=== PATIENT | female | born 1935 | race Caucasian/White ===

== ENCOUNTER → 2017-08-08 | Outpatient (CLI) | payer OTHER ==
[~2017-08-08] MED LIST: ASPI325T4 PO; ATOR-22 PO; CALC1TAB9 PO; CHOL20009 PO; COEN100C11 PO; DEXL60CA4 PO; INSUINJ4 SC; NVLGI/PEN SC; PANC6000 PO; TAMO20TA47 PO; VSC/10 PO
--- NOTE | 2017-08-08 13:42 | MAMMOGRAPHY REPORT ---
BILATERAL DIGITAL DIAGNOSTIC MAMMOGRAM TOMOSYNTHESIS WITH CAD: 08/08/2017 CLINICAL HISTORY: The patient presents for 12 month follow-up of bilateral breast calcifications. Hi story of left breast cancer status post treatment. Also with 2 benign left breast stereotactic biops ies performed January 2016. TECHNIQUE: Breast tomosynthesis in addition to standard 2D mammography was performed. Current study was also evaluated with a Computer Aided Detection (CAD) system. Bilateral CC and MLO 2-D and tomosy nthesis images and spot magnification bilateral cc and ML views were obtained. COMPARISON: Comparison is made to exams dated: 08/07/2016 mammogram, 01/31/2016 stereotactic biopsy, 01/31/2016 mammogram, 12/27/2015 mammogram, and 12/05/2015 mammogram - [facility]. BREAST COMPOSITION: The tissue of both breasts is heterogeneously dense, which may obscure small mas ses. 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 The re are stable post surgical changes in the left breast from prior lumpectomy. 2 biopsy marker clips are again noted within the left superior breast at approximately 12:00 from prior benign stereotactic biopsies. Again noted are other small groupings of calcifications in the anterior left breast, best seen on the spot magnification cc view, which are stable on spot magnification views dating back to 12/27/2015. Other similar appearing grouped calcifications are seen within the right medial breast, wh ich are also stable dating back to December 2015. Given the long-term stability, calcifications are probably benign. Additionally, the calcifications appear similar to recently biopsied calcifications within the left breast which yielded benign pathology. The remainder of both breasts are stable com pared to prior exams, without suspicious masses, calcifications, or areas of architectural distortion noted. A biopsy marker clip is again noted in the right superior breast. IMPRESSION: ACR-BI-RADS CATEGORY 3: PROBABLY BENIGN Similar-appearing grouped calcifications bilaterally are stable dating back to at least the December 2015 exam, and appear similar to previously biopsied benign left breast calcifications. The calcific ations are probably benign given over 1.5 years of stability. Recommend bilateral diagnostic mammogr ams in 12 months, to ensure longer stability of the calcifications on spot magnification views given the history of prior DCIS. The patient has been verbally notified of the results. Approximately 10% of breast cancers are not detected with mammography. A negative mammographic report should not delay biopsy if a clinically suggestive mass is present. Ying Dangelo M.D. ah/:08/08/2017 10:28:48 [place] [employer]: Kim LEON(Karlene)(Smita), [facility] letter sent: Follow Up Recommended 3 BI-RADS Code: ACR-BI-RADS Category 3: Probably Benign
== END | disposition home or self-care (01) ==
LOC: C.MAMM 09:30
PROVIDERS: ATTEND Obstetrics & Gynecology
DX: R92.1 Mammographic calcification found on diagnostic imaging of breast (principal)

== ENCOUNTER → 2017-10-28 | Outpatient (CLI) | payer OTHER ==
[~2017-10-28] MED LIST changes: -TAMO20TA47 PO; +TAMO20TA9 PO
--- NOTE | 2017-10-28 08:33 | DIAGNOSTIC IMAGING REPORT ---
KUB CLINICAL HISTORY: Calculus of kidney. COMPARISON STUDY: KUB October 31, 2016. FINDINGS: Pelvic calcifications are unchanged and likely reflect phleboliths. There is a 3 mm left renal calculus. Evaluation is difficult given numerous skin lesions. No convincing ureteral calculi are identified. IMPRESSION: 1. 3 mm left renal calculus. 2. No ureteral calculi identified although evaluation difficult given numerous skin lesions. Electronically signed by: Alvarez Valadez M.D. 10/28/2017 8:31 AM Dictated Date/Time: 10/28/2017 8:24 AM
== END | disposition home or self-care (01) ==
LOC: C.RAD 08:06
PROVIDERS: ATTEND Urology
DX: N20.0 Calculus of kidney (principal)

== ENCOUNTER → 2018-06-10 | Outpatient (CLI) | payer OTHER ==
--- NOTE | 2018-06-10 10:21 | DIAGNOSTIC IMAGING REPORT ---
BRAIN WITHOUT CONTRAST CLINICAL HISTORY: 83 years-old Female presenting with CONFUSION, INCREASED SHORT-TERM MEMORY LOSS FOR 2 YEARS, HX TIA, history of breast cancer with lumpectomy. TECHNIQUE: Multisequence, multiplanar MR imaging of the brain was performed without the use of intravenous contrast. IV contrast: None. COMPARISON: 05/01/2015. FINDINGS: Localizer images: Unremarkable. Proportional ventricular and sulcal prominence, likely age-related parenchymal volume loss. Periventricular and subcortical white matter T2/FLAIR hyperintensity, nonspecific but likely indicative of chronic small vessel ischemic change. 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 No mass effect or midline shift. No restricted diffusion to suggest acute ischemia. No hemorrhage. No extra-axial fluid collection. T2 skull base flow voids preserved. Bilateral st. croix lenses are absent. Bone marrow signal intensity within the calvarium within normal limits. Multiple soft tissue nodules arising from the dermis as on prior exam. IMPRESSION: 1. Chronic small vessel ischemic change and age-related parenchymal volume loss. 2. Interval small old cerebellar infarcts. 3. No acute intracranial abnormality. 4. Multiple soft tissue nodules arising from the scalp dermis. Correlate clinically. Electronically signed by: Henry Al M.D. 06/10/2018 10:20 AM Dictated Date/Time: 06/10/2018 10:15 AM
== END | disposition home or self-care (01) ==
LOC: C.MRI 09:32
PROVIDERS: ATTEND Nurse Practitioner Family
DX: R41.0 Disorientation, unspecified (principal); E11.9 Type 2 diabetes mellitus without complications; Z86.73 Personal history of transient ischemic attack (TIA), and cerebral infarction without residual deficits

== ENCOUNTER 2020-01-17 15:22 | Observation (INO) ==
[2020-01-17 16:41] LABS: POC Urine Bilirubin Negative (Negative); POC Urine Blood 250 (Negative); POC Urine Glucose Normal (Normal); POC Urine Ketones Negative (Negative); POC Urine Leukocytes 2+ (Negative); POC Urine Nitrite Negative (Negative); POC Urine Protein Trace (Negative); POC Urine Urobilinogen Normal (Normal); POC Urine pH 5 (4.5-7.5)
[2020-01-17 16:45] LABS: Basophils # (auto) 0.01 K/uL (0-0.2); Basophils % (auto) 0.1 %; Eosinophils # (auto) 0.32 K/uL (0-0.5); Eosinophils % (auto) 3.3 %; Hematocrit (blood only) 41.9 % (37-47); Hemoglobin 13.7 g/dL (12.0-16.0); Immature Granulocytes # (auto) 0.04 K/uL (0.00-0.02); Immature Granulocytes % (auto) 0.4 %; Lymphocytes # (auto) 2.02 K/uL (1.2-3.4); Mean Corpuscular Hemoglobin 28.9 pg (25-34); Mean Corpuscular Hgb Conc 32.7 g/dL (32-36); Mean Corpuscular Volume 88.4 fL (80-100); Mean Platelet Volume 9.4 fL (7.4-10.4); Monocytes # (auto) 0.68 K/uL (0.11-0.59); Monocytes % (auto) 7.1 %; Neutrophils # (auto) 6.56 K/uL (1.4-6.5); Neutrophils % (auto) 68.1 %; Platelet Count 311 K/uL (130-400); RDW Coefficient of Variation 13.7 % (11.5-14.5); RDW Standard Deviation 45.2 fL (36.4-46.3); Red Blood Count 4.74 M/uL (4.2-5.4); White Blood Count 9.63 K/uL (4.8-10.8)
[2020-01-17 16:48] LABS: Appearance Urine Cloudy (Clear); Bacteria Urine Automated Negative (Negative); Bilirubin Urine Negative (Negative); Blood Urine 2+ (Negative); Cast Urine Automated 0 /lpf (0-5); Color Urine Yellow; Epithelial Cell Urine Auto >30 /lpf (0-5); Glucose Urine UA Negative (Negative); Ketones Urine Negative (Negative); Leukocyte Esterase Urine 2+ (Negative); Nitrite Urine Negative (Negative); Protein Urine Trace (Negative); Specific Gravity Urine 1.019 (1.000-1.030); Urobilinogen Urine Negative (Negative); WBC Urine Automated >30 /hpf (0-5)
--- NOTE | 2020-01-17 17:07 | XRay Report ---
XR chest 1V portable CLINICAL HISTORY: weakness COMPARISON STUDY: Chest radiograph June 11, 2019. 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 Patien t is rotated. There is mild S-shaped curvature of the thoracic spine. There is no evidence for pulmon inga edema. No pneumothorax or pleural effusion is noted. Mild left basilar opacity is present. IMPRESSION: Mild left basilar opacity which may reflect pneumonia or atelectasis. Radiographic follow up is recom mended. ACT 112: Negative or not required by law. Electronically signed by: Alvarez Valadez M.D. 01/17/2020 5:05 PM
[2020-01-17 17:09] LABS: Alanine Aminotransferase 13 U/L (12-78); Albumin Level 3.1 gm/dl (3.4-5.0); Aspartate Aminotransferase 11 U/L (15-37); BUN Creatinine Ratio 11.9 (10-20); Blood Urea Nitrogen 28 mg/dl (7-18); Calcium 9.1 mg/dl (8.5-10.1); Carbon Dioxide 24 mmol/L (21-32); Chloride 106 mmol/L (98-107); Creatinine Clr Calc Pharmacy 14.2 ml/min; Est GFR (African American) 21.2; Est GFR (Non-African American) 18.3; Glucose 216 mg/dl (70-99); Sodium 139 mmol/L (136-145)
[2020-01-17] MEDS ORDERED: SODIUM CHLORIDE 0.9% 1000ML 250 ML IV ONE (17:17)
[2020-01-17 17:20] LABS: Albumin Globulin Ratio 0.7 (0.9-2); Alkaline Phosphatase 110 U/L (45-117); Bilirubin,Total 0.3 mg/dl (0.2-1); Globulin 4.7 gm/dl (2.5-4.0); Total Protein 7.8 gm/dl (6.4-8.2); Troponin I < 0.015 ng/ml (0-0.045)
--- NOTE | 2020-01-17 17:48 | CT Scan Report ---
HEAD CT NONCONTRAST CT DOSE: 1277.12 mGycm HISTORY: Transient ischemic attack. Fall. TECHNIQUE: Multiaxial CT images of the head were performed without the use of intravenous contrast. A utomated exposure control was utilized for this study. A dose lowering technique was utilized adheri ng to the principles of ALARA. Comparison: Head CT 04/30/2015. Findings: Paranasal sinuses and mastoid air cells are clear. No change in the 8 mm calcified extra-ax ial lesion within the right middle cranial fossa. This is consistent with a meningioma. The calvarium and skull base are intact. There is no hematoma, midline shift, acute infarct. White matter hypodens ity is nonspecific but suggestive of microvascular ischemic change. The ventricles and sulci demonstr ate mild age-related involutional changes. Stable hypodensity within the bilateral basal ganglia like ly representing microvascular ischemic change/old infarcts. Impression: No significant change compared to the prior study. No acute intracranial abnormality. ACT 112: Negative or not required by law. Electronically signed by: Zhao Rod M.D. 01/17/2020 5:47 PM
--- NOTE | 2020-01-17 18:02 | CT Scan Report ---
CT OF THE THORACIC SPINE CLINICAL HISTORY: Back pain following fall. COMPARISON STUDY: Chest radiograph June 11, 2019. TECHNIQUE: Helical axial images of the thoracic spine were obtained. Sagittal and coronal reconstru ctions were viewed. Automated exposure control was utilized for the study. A dose lowering techniqu e was utilized adhering to the principles of ALARA. FINDINGS: Note is made of mild dextroscoliosis of the thoracic spine. There is an acute moderate comp ression fracture of the superior endplate of T11 with 30% loss of vertebral body height. There is min imal retropulsion. No additional acute thoracic spine fractures are noted. There are no suspicious os seous lesions. Central canal and neural foramen are suboptimally assessed by CT. No fractures are tom ntified within visualized portions of the posterior ribs. A small hiatal hernia is noted. Dilatation of the left renal pelvis is likely chronic. There is no left caliectasis. Note is made of a 6 mm left renal calculus and a 6 mm calculus within the left renal pelvis. Moderate right hydronephrosis is pa rtially imaged on this examination. Innumerable skin lesions are incidentally noted. Postoperative fi ndings within the upper abdomen are partially imaged on this exam. IMPRESSION: 1. Acute moderate compression fracture of the superior endplate of T11 with 30% loss of vertebral bod y height and minimal retropulsion. No additional acute thoracic spine fractures. 2. Moderate right hydronephrosis. Right ureter not imaged on this exam. 3. Left-sided nephrolithiasis. Dilatation of the left renal pelvis which is likely chronic. ACT 112: Negative or not required by law. Electronically signed by: Alvarez Valadez M.D. 01/17/2020 6:00 PM
--- NOTE | 2020-01-17 19:03 | Ultrasound Report ---
RENAL ULTRASOUND HISTORY: Acute renal failure. Hematuria. COMPARISON: Thoracic spine CT 01/17/2020. FINDINGS: Right kidney: 10.2 cm. Moderate right-sided hydroureteronephrosis. No definite renal calculi identifi ed. Left kidney: 8.9 cm. No hydronephrosis. Multiple nonobstructing stones with the largest measuring 7 m m. Mild cortical renal thinning. Bladder: No bladder wall thickening. The bilateral ureteral jets were not identified. IMPRESSION: 1. Moderate right hydroureteronephrosis. 2. Left-sided nephrolithiasis. ACT 112: Negative or not required by law. Electronically signed by: Zhao Rod M.D. 01/17/2020 7:02 PM
[2020-01-17] MEDS: SODIUM CHLORIDE 0.9% 1000ML 1,000 ML IV SCH (19:42)
--- NOTE | 2020-01-17 21:11 | Emergency Department Note ---
Entered by Lissy Woodall acting as a scribe for Jhoana Galeano MD History of Present Illness General Chief complaint: Fall Stated complaint: FALL, BACK PAIN, SLUGGISH Source: patient and family (niece ) History of Present Illness Onset (ago): day(s) 3 Location: back (central middle) Pain Consistency: + other (persistent ) Maximum Pain Intensity: 6 Associated symptoms: + other (positive episode of moving slow; positive episode of difficulty speaking; positive hematuria; negative problems with legs; negative trouble urinating) Treatments prior to arrival: none The patient is a 84 year old female who presents to the Emergency Room with complaints of persistent central middle back pain that began 3 days prior to arrival. The patient states that just before this pain began she fell out of her bed. She states that she was on the floor for approximately 10-15 minutes before she was able to pull herself up. The patient's niece states that today the patient was at the grocery store when she suddenly started moving very slowly and was having difficulty talking. The patient's niece states that this resolved several minutes later. The patient states that she has been seeing Dr. Mohamud for recent hematuria and states that kidney stones were found in her right kidney. The patient's niece reports that the patient had blood yesterday in her underwear. The patient denies problems with her legs and trouble urinating. Per the patient's niece, the patient has a history of TIAs. The patient reports a history of breast cancer 10 years ago. She states that she had a Whipple procedure just before her breast cancer was found and it was found that she had a blocked duct. Home Medications Home Medications Medication Instructions Recorded Confirmed Type Creon 1 cap PO TIDM 06/11/19 01/17/20 History Levemir U-100 Insulin 12 unit SUBCUT HS 06/11/19 01/17/20 History aspirin 325 mg PO QAM 06/11/19 01/17/20 History calcium carbonate-vitamin D3 1 tab PO DAILY 06/11/19 01/17/20 History insulin aspart U-100 [Novolog 7 unit SUBCUT AC 06/11/19 01/17/20 History Flexpen U-100 Insulin] solifenacin 10 mg tablet 10 mg PO HS #90 tab 08/25/19 01/17/20 Rx atorvastatin 40 mg PO DAILY 01/17/20 01/17/20 History clopidogrel 75 mg PO DAILY 01/17/20 01/17/20 History famotidine 20 mg PO BID 01/17/20 01/17/20 History solifenacin 10 mg PO HS 01/17/20 01/17/20 History Allergies Allergy/AdvReac Type Severity Reaction Status Date / Time No Known Allergies Allergy Verified 01/17/20 17:41 Past Med/Surg History Medical History Diabetes mellitus, type 2 GERD (gastroesophageal reflux disease) Gross hematuria HX: breast cancer LUMPECTOMY - LEFT BREAST; NO RADIATION, NO CHEMO; WAS ON TAMOXIFEN FOR 5 YR - NO LONGER TAKING Hyperlipidemia Kidney stones Neurofibromatosis Transient ischemic attack (TIA) NO RESIDUAL EFFECTS - 2014 Surgical History History of lumpectomy of left breast History of pancreatectomy PARTIAL Family History Other No pertinent family history in first degree relatives Social History Preferred Language: Brazilian Communication Ability: Effective Business Intelligence Administrator Required: No Beliefs That Will Affect Care: None Current Living Situation: Alone Other Information That Helps Us Care for You: No Feels Safe at Home: Yes Safety Concerns: Feels Safe At This Time Smoking Status: Never smoker Do You Dip or Chew Tobacco: No ; Second Hand Exposure: No ; Tobacco Cessation Education Requested by Patient: No Hx Alcohol Use: Yes Alcohol type: wine Hx Substance Use: No Review of Systems See HPI for pertinent positives & negatives. and A total of 10 systems reviewed and were otherwise negative Physical Exam Vital Signs Vital Signs - 24 hr 01/17/20 15:33 01/17/20 16:00 01/17/20 16:07 Temperature 36.2 C L Temperature Source Oral Pulse Rate - Lying Pulse Rate - Sitting Pulse Rate - Standing Pulse Rate 94 H 83 87 Pulse Rate [Apical] Pulse Rate from SpO2 Sensor 83 89 Respiratory Rate 20 16 18 Respiratory Effort / Characteristics Non-Labored Spontaneous Respiratory Depth Normal Respiratory Pattern Regular Blood Pressure - Lying Blood Pressure - Sitting Blood Pressure- Standing Blood Pressure 160/93 H 167/102 H Blood Pressure [Right Arm] Blood Pressure Mean 115 126 Blood Pressure Mean [Right Arm] Pulse Oximetry 97 97 96 Oxygen Delivery Method Room Air Sepsis Recent Fever Within 48 Hours No Sepsis Action Taken by Nursing No Action Required 01/17/20 16:30 01/17/20 17:00 01/17/20 17:22 Temperature Temperature Source Pulse Rate - Lying Pulse Rate - Sitting Pulse Rate - Standing Pulse Rate 89 93 H Pulse Rate [Apical] Pulse Rate from SpO2 Sensor Respiratory Rate 17 20 Respiratory Effort / Characteristics Respiratory Depth Respiratory Pattern Blood Pressure - Lying Blood Pressure - Sitting Blood Pressure- Standing Blood Pressure Blood Pressure [Right Arm] Blood Pressure Mean Blood Pressure Mean [Right Arm] Pulse Oximetry 97 Oxygen Delivery Method Sepsis Recent Fever Within 48 Hours Sepsis Action Taken by Nursing 01/17/20 17:32 01/17/20 17:36 01/17/20 17:38 Temperature Temperature Source Pulse Rate - Lying 78 Pulse Rate - Sitting 83 Pulse Rate - Standing 96 H Pulse Rate 70 80 66 Pulse Rate [Apical] Pulse Rate from SpO2 Sensor Respiratory Rate 17 18 17 Respiratory Effort / Characteristics Respiratory Depth Respiratory Pattern Blood Pressure - Lying 144/81 H Blood Pressure - Sitting 165/97 H Blood Pressure- Standing 132/101 H Blood Pressure 144/81 H 165/97 H Blood Pressure [Right Arm] Blood Pressure Mean 102 128 Blood Pressure Mean [Right Arm] Pulse Oximetry Oxygen Delivery Method Sepsis Recent Fever Within 48 Hours Sepsis Action Taken by Nursing 01/17/20 17:40 01/17/20 18:00 01/17/20 18:01 Temperature Temperature Source Pulse Rate - Lying Pulse Rate - Sitting Pulse Rate - Standing Pulse Rate 101 H 67 84 Pulse Rate [Apical] Pulse Rate from SpO2 Sensor Respiratory Rate 21 16 10 L Respiratory Effort / Characteristics Respiratory Depth Respiratory Pattern Blood Pressure - Lying Blood Pressure - Sitting Blood Pressure- Standing Blood Pressure 132/101 H 155/96 H Blood Pressure [Right Arm] Blood Pressure Mean 106 120 Blood Pressure Mean [Right Arm] Pulse Oximetry Oxygen Delivery Method Sepsis Recent Fever Within 48 Hours Sepsis Action Taken by Nursing 01/17/20 18:50 01/17/20 19:42 01/17/20 20:00 Temperature Temperature Source Pulse Rate - Lying Pulse Rate - Sitting Pulse Rate - Standing Pulse Rate 85 67 77 Pulse Rate [Apical] 64 Pulse Rate from SpO2 Sensor 68 76 Respiratory Rate 15 15 19 Respiratory Effort / Characteristics Non-Labored Spontaneous Respiratory Depth Normal Respiratory Pattern Blood Pressure - Lying Blood Pressure - Sitting Blood Pressure- Standing Blood Pressure 167/98 H 145/96 H 166/90 H Blood Pressure [Right Arm] 145/96 H Blood Pressure Mean 119 106 112 Blood Pressure Mean [Right Arm] 112 Pulse Oximetry 96 97 Oxygen Delivery Method Room Air Sepsis Recent Fever Within 48 Hours Sepsis Action Taken by Nursing 01/17/20 20:30 Temperature Temperature Source Pulse Rate - Lying Pulse Rate - Sitting Pulse Rate - Standing Pulse Rate 85 Pulse Rate [Apical] Pulse Rate from SpO2 Sensor Respiratory Rate 24 Respiratory Effort / Characteristics Respiratory Depth Respiratory Pattern Blood Pressure - Lying Blood Pressure - Sitting Blood Pressure- Standing Blood Pressure 160/99 H Blood Pressure [Right Arm] Blood Pressure Mean 121 Blood Pressure Mean [Right Arm] Pulse Oximetry Oxygen Delivery Method Sepsis Recent Fever Within 48 Hours Sepsis Action Taken by Nursing Vital signs reviewed. General: Elderly. Generally well-appearing 84 year old female, in no significant distress. Multiple cutaneous lesions that are nodular, nontender, diffusely through the face, trunk, and extremities. HEENT: No scleral icterus, PERRLA, neck supple. Atraumatic. Cardiovascular: Regular rate and rhythm, no extra sounds. Pulmonary: Clear to auscultation bilaterally, normal work of breathing. Abdomen: Soft, nontender, nondistended, positive bowel sounds. Musculoskeletal: Minimal tenderness over distal thoracic spine, no step-off, no deformity. C and L spines nontender. Atraumatic, no peripheral edema. Neurologic: Patient awake alert and oriented x 3 Skin: Warm, dry, no rash. Superficial ecchymosis over the right elbow. Course Course 162: Past medical records reviewed. The patient was evaluated in room B10. A complete history and physical exam was performed. 1930: The patient's creatinine was 0.9 in October per [facility] records. 1944: I discussed the case with Dr. [facility] Hospitalist who accepts the patient for further evaluation. Administered Medications Famotidine (Pepcid) 20 mg PO BID TUNDE Stop: 02/16/20 22:13 Last Admin: 01/17/20 22:38 Dose: 20 mg Documented by: [id number] Sodium Chloride (Nss 1000ml) 1,000 mls @ 80 mls/hr IV .[id number] TUNDE Stop: 02/16/20 17:29 Last Infusion: 01/18/20 00:03 Dose: 125 mls/hr Documented by: [id number] Infusion: 01/17/20 23:22 Dose: 0 mls/hr Documented by: [id number] Admin: 01/17/20 19:42 Dose: 125 mls/hr Documented by: [id number] Insulin Detemir (Levemir Flextouch) 12 units SQ HS TUNDE Stop: 02/16/20 22:13 Last Admin: 01/17/20 22:40 Dose: 12 units Documented by: [id number] Cosigned by: [id number] Morphine Sulfate (Morphine Sulfate) 2 mg IV Q2H PRN PRN Reason: Pain Stop: 01/31/20 22:13 Last Admin: 01/17/20 22:47 Dose: 2 mg Documented by: [id number] Discontinued Medications Sodium Chloride (Nss 1000ml) 250 mls @ 999 mls/hr IV .Q16M ONE Stop: 01/17/20 17:32 Last Infusion: 01/17/20 18:38 Dose: 0 mls/hr Documented by: [id number] Admin: 01/17/20 17:46 Dose: 999 mls/hr Documented by: [id number] Ceftriaxone Sodium (Rocephin) 2,000 mg in 70 mls @ 140 mls/hr IV NOW STA Stop: 01/17/20 22:43 Last Infusion: 01/18/20 00:03 Dose: 0 mls/hr Documented by: [id number] Admin: 01/17/20 23:19 Dose: 140 mls/hr Documented by: [id number] Medical Decision Making Differential Diagnosis Differential Diagnosis includes but is not limited to dehydration, stroke, anemia, hypoglycemia, hyponatremia, hypernatremia, urinary tract infection, pneumonia, bronchitis, sepsis, gastroenteritis, additional abdominal pathology, fracture, metabolic abnormalities and infections Medical Records Attestation: I reviewed the patient's medical records. Home Medications Current Medication List: was personally reviewed by me Laboratory Data Attestation: I reviewed the patient's lab results. Result diagrams: 01/17/20 16:27 01/17/20 16:27 Lab Results 01/17/20 01/17/20 01/17/20 Range/Units 16:21 16:21 16:27 WBC 9.63 (4.8-10.8) K/uL RBC 4.74 (4.2-5.4) M/uL Hgb 13.7 (12.0-16.0) g/dL Hct 41.9 (37-47) % MCV 88.4 (80-100) fL MCH 28.9 (25-34) pg MCHC 32.7 (32-36) g/dL RDW Std Deviation 45.2 (36.4-46.3) fL RDW Coeff of [place] 13.7 (11.5-14.5) % Plt Count 311 (130-400) K/uL MPV 9.4 (7.4-10.4) fL Immature Gran % (Auto) 0.4 % Neut % (Auto) 68.1 % Lymph % (Auto) 21.0 % [place] % (Auto) 7.1 % Eos % (Auto) 3.3 % Baso % (Auto) 0.1 % Immature Gran # (Auto) 0.04 H (0.00-0.02) K/uL Neut # (Auto) 6.56 H (1.4-6.5) K/uL Lymph # (Auto) 2.02 (1.2-3.4) K/uL [place] # (Auto) 0.68 H (0.11-0.59) K/uL Eos # (Auto) 0.32 (0-0.5) K/uL Baso # (Auto) 0.01 (0-0.2) K/uL Sodium (136-145) mmol/L Potassium (3.5-5.1) mmol/L Chloride (98-107) mmol/L Carbon Dioxide (21-32) mmol/L Anion Gap (3-11) BUN (7-18) mg/dl Creatinine (0.6-1.2) mg/dl Est Cr Clr Drug Dosing ml/min Est GFR ( Amer) Est GFR (Non-Af Amer) BUN/Creatinine Ratio (10-20) Glucose (70-99) mg/dl POC Glucose (70-99) mg/dl Calcium (8.5-10.1) mg/dl Magnesium (1.8-2.4) mg/dl Total Bilirubin (0.2-1) mg/dl AST (15-37) U/L ALT (12-78) U/L Alkaline Phosphatase (45-117) U/L Troponin I (0-0.045) ng/ml Total Protein (6.4-8.2) gm/dl Albumin (3.4-5.0) gm/dl Globulin (2.5-4.0) gm/dl Albumin/Globulin Ratio (0.9-2) TSH (0.300-4.500) uIu/ml Urine Color Yellow Urine Appearance Cloudy A (Clear) Urine pH 5.0 (4.5-7.5) POC Urine pH 5 (4.5-7.5) Ur Specific [place] 1.019 (1.000-1.030) Urine Protein Trace H (Negative) POC Urine Protein Trace H (Negative) Urine Glucose (UA) Negative (Negative) POC Ur Glucose (UA) Normal (Normal) Urine Ketones Negative (Negative) POC Urine Ketones Negative (Negative) Urine Blood 2+ H (Negative) POC Urine Blood 250 H (Negative) Urine Nitrite Negative (Negative) POC Urine Nitrite Negative (Negative) Urine Bilirubin Negative (Negative) POC Urine Bilirubin Negative (Negative) Urine Urobilinogen Negative (Negative) POC Urine Urobilinogen Normal (Normal) Ur Leukocyte Esterase 2+ H (Negative) POC U Leukocyte Esteras 2+ H (Negative) Urine WBC (Auto) >30 H (0-5) /hpf Urine RBC (Auto) 5-10 H (0-4) /hpf U Hyaline Cast (Auto) 0 (0-5) /lpf U Epithel Cells (Auto) >30 H (0-5) /lpf Urine Bacteria (Auto) Negative (Negative) Urine Yeast Present A (None Prsent) 01/17/20 01/17/20 Range/Units 16:27 20:47 WBC (4.8-10.8) K/uL RBC (4.2-5.4) M/uL Hgb (12.0-16.0) g/dL Hct (37-47) % MCV (80-100) fL MCH (25-34) pg MCHC (32-36) g/dL RDW Std Deviation (36.4-46.3) fL RDW Coeff of [place] (11.5-14.5) % Plt Count (130-400) K/uL MPV (7.4-10.4) fL Immature Gran % (Auto) % Neut % (Auto) % Lymph % (Auto) % [place] % (Auto) % Eos % (Auto) % Baso % (Auto) % Immature Gran # (Auto) (0.00-0.02) K/uL Neut # (Auto) (1.4-6.5) K/uL Lymph # (Auto) (1.2-3.4) K/uL [place] # (Auto) (0.11-0.59) K/uL Eos # (Auto) (0-0.5) K/uL Baso # (Auto) (0-0.2) K/uL Sodium 139 (136-145) mmol/L Potassium 4.0 (3.5-5.1) mmol/L Chloride 106 (98-107) mmol/L Carbon Dioxide 24 (21-32) mmol/L Anion Gap 9.0 (3-11) BUN 28 H (7-18) mg/dl Creatinine 2.39 H (0.6-1.2) mg/dl Est Cr Clr Drug Dosing 14.2 ml/min Est GFR ( Amer) 21.2 Est GFR (Non-Af Amer) 18.3 BUN/Creatinine Ratio 11.9 (10-20) Glucose 216 H (70-99) mg/dl POC Glucose 220 H (70-99) mg/dl Calcium 9.1 (8.5-10.1) mg/dl Magnesium 2.0 (1.8-2.4) mg/dl Total Bilirubin 0.3 (0.2-1) mg/dl AST 11 L (15-37) U/L ALT 13 (12-78) U/L Alkaline Phosphatase 110 (45-117) U/L Troponin I < 0.015 (0-0.045) ng/ml Total Protein 7.8 (6.4-8.2) gm/dl Albumin 3.1 L (3.4-5.0) gm/dl Globulin 4.7 H (2.5-4.0) gm/dl Albumin/Globulin Ratio 0.7 L (0.9-2) TSH 1.120 (0.300-4.500) uIu/ml Urine Color Urine Appearance (Clear) Urine pH (4.5-7.5) POC Urine pH (4.5-7.5) Ur Specific [place] (1.000-1.030) Urine Protein (Negative) POC Urine Protein (Negative) Urine Glucose (UA) (Negative) POC Ur Glucose (UA) (Normal) Urine Ketones (Negative) POC Urine Ketones (Negative) Urine Blood (Negative) POC Urine Blood (Negative) Urine Nitrite (Negative) POC Urine Nitrite (Negative) Urine Bilirubin (Negative) POC Urine Bilirubin (Negative) Urine Urobilinogen (Negative) POC Urine Urobilinogen (Normal) Ur Leukocyte Esterase (Negative) POC U Leukocyte Esteras (Negative) Urine WBC (Auto) (0-5) /hpf Urine RBC (Auto) (0-4) /hpf U Hyaline Cast (Auto) (0-5) /lpf U Epithel Cells (Auto) (0-5) /lpf Urine Bacteria (Auto) (Negative) Urine Yeast (None Prsent) Imaging Data Radiologist's Impression: Radiology results as stated below per my review and the radiologist's interpretation: XR chest 1V portable CLINICAL HISTORY: weakness COMPARISON STUDY: Chest radiograph June 11, 2019. 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 Patient is rotated. There is mild S-shaped curvature of the thoracic spine. There is no evidence for pulmonary edema. No pneumothorax or pleural effusion is noted. Mild left basilar opacity is present. IMPRESSION: Mild left basilar opacity which may reflect pneumonia or atelectasis. Radiographic follow up is recommended. ACT 112: Negative or not required by law. Electronically signed by: Alvarez Valadez M.D. 01/17/2020 5:05 PM RENAL ULTRASOUND HISTORY: Acute renal failure. Hematuria. COMPARISON: Thoracic spine CT 01/17/2020. FINDINGS: Right kidney: 10.2 cm. Moderate right-sided hydroureteronephrosis. No definite renal calculi identified. Left kidney: 8.9 cm. No hydronephrosis. Multiple nonobstructing stones with the largest measuring 7 mm. Mild cortical renal thinning. Bladder: No bladder wall thickening. The bilateral ureteral jets were not identified. IMPRESSION: 1. Moderate right hydroureteronephrosis. 2. Left-sided nephrolithiasis. ACT 112: Negative or not required by law. Electronically signed by: Zhao Rod M.D. 01/17/2020 7:[address]AST CT DOSE: 1277.12 mGycm HISTORY: Transient ischemic attack. Fall. TECHNIQUE: Multiaxial CT images of the head were performed without the use of intravenous contrast. Automated exposure control was utilized for this study. A dose lowering technique was utilized adhering to the principles of ALARA. Comparison: Head CT 04/30/2015. Findings: Paranasal sinuses and mastoid air cells are clear. No change in the 8 mm calcified extra-axial lesion within the right middle cranial fossa. This is consistent with a meningioma. The calvarium and skull base are intact. There is no hematoma, midline shift, acute infarct. White matter hypodensity is nonspecific but suggestive of microvascular ischemic change. The ventricles and sulci demonstrate mild age-related involutional changes. Stable hypodensity within the bilateral basal ganglia likely representing microvascular ischemic change/old infarcts. Impression: No significant change compared to the prior study. No acute intracranial abnormality. ACT 112: Negative or not required by law. Electronically signed by: Zhao Rod M.D. 01/17/2020 5:[address] OF THE THORACIC SPINE CLINICAL HISTORY: Back pain following fall. COMPARISON STUDY: Chest radiograph June 11, 2019. TECHNIQUE: Helical axial images of the thoracic spine were obtained. Sagittal and coronal reconstructions were viewed. Automated exposure control was utilized for the study. A dose lowering technique was utilized adhering to the principles of ALARA. FINDINGS: Note is made of mild dextroscoliosis of the thoracic spine. There is an acute moderate compression fracture of the superior endplate of T11 with 30% loss of vertebral body height. There is minimal retropulsion. No additional acute thoracic spine fractures are noted. There are no suspicious osseous lesions. Central canal and neural foramen are suboptimally assessed by CT. No fractures are identified within visualized portions of the posterior ribs. A small hiatal hernia is noted. Dilatation of the left renal pelvis is likely chronic. There is no left caliectasis. Note is made of a 6 mm left renal calculus and a 6 mm calculus within the left renal pelvis. Moderate right hydronephrosis is partially imaged on this examination. Innumerable skin lesions are incidentally noted. Postoperative findings within the upper abdomen are partially imaged on this exam. IMPRESSION: 1. Acute moderate compression fracture of the superior endplate of T11 with 30% loss of vertebral body height and minimal retropulsion. No additional acute thoracic spine fractures. 2. Moderate right hydronephrosis. Right ureter not imaged on this exam. 3. Left-sided nephrolithiasis. Dilatation of the left renal pelvis which is likely chronic. ACT 112: Negative or not required by law. Electronically signed by: Alvarez Valadez M.D. 01/17/2020 6:00 PM ECG Data Attestation: I personally reviewed and interpreted this ECG as follows: Indication: + weakness Rate (beats per minute): 82 Rhythm: + sinus rhythm ECG Intervals/blocks: + First degree AV block and + Prolonged QT (462) ECG [place]: + Left axis deviation ECG Findings: + Other (previous septal infarct ); no PACs and no PVCs Additional Comments: Patient was placed on the marine pilot and found to be in a sinus rhythm with a first-degree AV block at 85 bpm. Prescription Drug Monitoring [place] Drug Monitoring Program reviewed and no issues identified Blood Pressure Blood Pressure Findings: Elevated blood pressure Blood Pressure Disposition: further management by hospitalist MDM Narrative This patient was evaluated and appeared to be in no significant distress. IV access was obtained and laboratory work was drawn. The patient was placed on the marine pilot felt to be in a sinus rhythm with first-degree AV block. Patient is found to be slightly orthostatic. She was hydrated with normal saline solution. CT imaging of the thoracic spine reveals a compression fracture of T11. This was likely sustained during the patient's recent fall. Patient's laboratory work reveals a creatinine of 2.35. Most recent laboratory work available in our system is from 2015. Records from the [facility] system reveal a creatinine of 0.9 just 3 months ago. Patient's urinalysis is indicative of blood. It will be sent for culture. Ultrasound of the retroperitoneum reveals right-sided hydronephrosis. Patient will require IV hydration and further evaluation by urology. Patient and her niece were made aware of the plan and agree. Case was discussed with the hospitalist service for further management. Impression & Plan Compression fracture of T11 vertebra, Acute renal failure, Hydronephrosis, right, Hematuria Discharge Plan Visit Data *Final* Discharge Date/Time: 01/17/20 21:53 Chief Complaint: Fall Stated Complaint: FALL, BACK PAIN, SLUGGISH ED Provider: Jhoana Galeano Discharge Problem: Compression fracture of T11 vertebra, Acute renal failure, Hydronephrosis, right, Hematuria Patient Disposition: Admitted As Inpatient Discharge Instructions Interventions: ED Discharge Assessment Last Done: 01/17/20 21:53 Discharge Problem: Compression fracture of T11 vertebra Qualifiers: Encounter type: initial encounter Qualified Code(s): S22.080A - Wedge compression fracture of T11-T12 vertebra, initial encounter for closed fracture Acute renal failure Qualifiers: Acute renal failure type: unspecified Qualified Code(s): N17.9 - Acute kidney failure, unspecified Hematuria Qualifiers: Hematuria type: unspecified type Qualified Code(s): R31.9 - Hematuria, unspecified The scribe's documentation has been prepared under my direction and personally reviewed by me in its entirety. I confirm that the note above accurately reflects all work, treatment, procedures, and medical decision making performed by me.
--- NOTE | 2020-01-17 21:59 | History & Physical Report ---
Date of Service January 17, 2020 Assessment & Plan (1) Hematuria: Ms. Torres is an 84yo with a PMHx of recurrent kidney stones, overactive bladder, multiple TIAs, neurofibromatosis, DMII, GERD, Hx of partial pancreatectomy and a Hx of breast cancer s/p lumpectomy and tamoxifen treatment who presented today out of concern for sudden weakness and fatigue associated with changes in speech. Was found to have gross hematuria, a thoracic spine fracture, and a UTI with noted left sided kidney stones with right hydrouretonephrosis. Gross Hematuria in the setting of L sided nephrolithiasis and R sided hydroureteronephrosis -Pt with Hx of gross hematuria-follows with Dr. Mohamud from Urology -Known Hx of kidney stones- states she has a scheduled cystoscopy in February -renal US: R kidney with moderate right hydroureteronephrosis, left sided nephrolithiasis and possible chronic dilation of left renal pelvis -will consult Dr. Mohamud -will keep NPO after midnight in anticipation of procedure -continue fluids at 80cc/hr UTI in the setting of L sided nephrolithiasis and R sided hydroureteronephrosis -Pt states she has no dysuria, has gross hematuria as above -UA with blood, leukocyte esterase and some noted yeast. Afebrile, No increased WBC -Urine Cx pending -will treat with Rocephin given the kidney stones and urinary blockage to prevent development/progression to pyelonephritis RAMSES in the setting of L sided nephrolithiasis and R sided hydroureteronephrosis -Cr elevated on admission to 2.39 -Per niece in the room, no Hx of kidney disease. No baseline in chart -continue NSS @ 80 -will trend with AM labs Recent falls in the setting of a Hx of TIAs/Cerebral artery occlusion -Pt with Hx of falls at home, recent slumping and slowing which brought her in -CT Head with 8mm calcified extra-axial lesion within right middle cranial fossa which is suspicious for meningioma. Given pt's neurofibromatosis Hx, maybe a possible neuroma? -No noted hematoma, midline shift or acute infarct. -continue home Plavix 75mg daily -continue home aspirin 325mg -continue home atorvastatin 40mg daily Thoracic spine fracture -Pt with fall while trying to get out of bed on Sunday 01/14 -CT thoracic spine noted an "acute moderate compression fracture of the superior endplate of T11--30% loss of vertebral body height and minimal retropulsion" -morphine 2mg q2h PRN for pain -continue home calcium carbonate-Vit D3 daily DMII -continue home insulin aspart 7U with meals -continue home insulin Levemir 12U at night Overactive bladder -continue home solifenacin 10mg hs GERD -continue home famotidine 20mg BID Hx of pancreatectomy -continue home Creon FEN/GI: NPO after midnight; NSS@80cc/hr DVT prophylaxis: on home plavix and aspirin CODE STATUS: DNR/DNI Dispo: Med-Surg History of Present Illness Primary Care Provider: Joyce Rasmussen Ms. Torres is an 84yo with a PMHx of recurrent kidney stones, overactive bladder, multiple TIAs, neurofibromatosis, DMII, GERD, Hx of partial pancreatectomy and a Hx of breast cancer s/p lumpectomy and tamoxifen treatment who presented today out of concern for sudden weakness and fatigue associated with changes in speech. Was found to have gross hematuria, a thoracic spine fracture, and a UTI with noted left sided kidney stones with right hydrouretonephrosis. She presents with niece who is her POA and also provides some of the Hx. States she had a fall on Sunday 01/14 while getting out of bed to walk the dogs. She lives alone but was able to get up and call for help. Did not think much of it until she had pain a few days later. Has been treating at home with Kenroy and Delia. Today, while at [facility] with her caregiver, she was pushing a cart but was noted to slump over suddenly and slowly continue walking with associated change to speech. Currently denies any headache, changes to vision, dysarthria or dysphagia. Denies any chest pain, SOB, palpitations, fevers, chills or night sweats, cough, sore throat or runny nose. Denies any dysuria but notes some gross hematuria. PMHx: Neurofibromatosis, TIAs, DMII, recurrent kidney stones, overactive bladder, GERD, Breast cancer, Pancreatic duct blockage. PSH: Lumpectomy for HX of breast cancer; pancreatectomy with Whipple for what was thought to be pancreatic cancer but was ?a blocked duct per niece Allergies: NKDA SH: Lives in a one prashant house alone with her dogs. Never smoker, never used recreational drugs, occasional wine drinker. Breakfast consists of toast and tea, lunch soup and half a sandwich, dinner is a [employer] frozen meal. ED Course: Fluids Allergies Allergy/AdvReac Type Severity Reaction Status Date / Time No Known Allergies Allergy Verified 01/17/20 17:41 Home Medications Home Medications Medication Instructions Recorded Confirmed Type Creon 1 cap PO TIDM 06/11/19 01/17/20 History Levemir U-100 Insulin 12 unit SUBCUT HS 06/11/19 01/17/20 History aspirin 325 mg PO QAM 06/11/19 01/17/20 History calcium carbonate-vitamin D3 1 tab PO DAILY 06/11/19 01/17/20 History insulin aspart U-100 [Novolog 7 unit SUBCUT AC 06/11/19 01/17/20 History Flexpen U-100 Insulin] solifenacin 10 mg tablet 10 mg PO HS #90 tab 08/25/19 01/17/20 Rx atorvastatin 40 mg PO DAILY 01/17/20 01/17/20 History clopidogrel 75 mg PO DAILY 01/17/20 01/17/20 History famotidine 20 mg PO BID 01/17/20 01/17/20 History cefdinir 300 mg PO BID 3 Days #6 cap 01/19/20 Rx lidocaine 1 patch TRANSDERMAL QAM 5 Days #5 01/19/20 Rx ea Past Med/Surg History Medical History (Updated 01/20/20 @ 00:04 by Alesha Burgess) Acute renal failure CVA (cerebral vascular accident) (Inactive) Diabetes mellitus, type 2 GERD (gastroesophageal reflux disease) HX: breast cancer LUMPECTOMY - LEFT BREAST; NO RADIATION, NO CHEMO; WAS ON TAMOXIFEN FOR 5 YR - NO LONGER TAKING Hyperlipidemia Kidney stones Neurofibromatosis Transient ischemic attack (TIA) NO RESIDUAL EFFECTS - 2014 Surgical History (Updated 01/18/20 @ 14:59 by Alessandro Holden MD) H/O lithotripsy 06/18/2019. [facility]. LMA #4. No issues. History of lumpectomy of left breast History of pancreatectomy PARTIAL Family History Other No pertinent family history in first degree relatives Social History Preferred Language: Albanian Communication Ability: Effective Oil Heaterman Required: No Beliefs That Will Affect Care: None marital status: Single Current Living Situation: Alone Feels Safe at Home: Yes Smoking Status: Never smoker Second Hand Exposure: No ; Hx Alcohol Use: Yes Alcohol type: wine Hx Substance Use: No Review of Systems Constitutional: + fatigue; no fever, no chills and no sweats Eyes: no worsening vision Ear, Nose, Mouth, Throat: no nasal congestion and no sore throat Respiratory: + dyspnea and + dyspnea on exertion; no cough Cardiovascular: no chest pain, no palpitations and no syncope Gastrointestinal: no abdominal pain, no nausea, no vomiting, no dysphagia, no constipation and no diarrhea/loose stools Genitourinary: + urinary incontinence and + hematuria; no dysuria Musculoskeletal: + back pain; no swelling and no body aches Integumentary: + lesions Neurologic: + abnormal speech and + memory loss; no tingling, no numbness and no headache(s) Endocrine: + fatigue Hematologic / Lymphatic: no night sweats and no unexplained weight loss Physical Exam Physical Exam: General: Alert, oriented. No acute distress, laying in bed Skin: Neurofibromas all over body including face Psych: Appropriate mood and affect Neuro: CN II-XII grossly intact, strength equal bilaterally, moves extremities bilaterally. HEENT: NC/AT Chest: Nontender to palpation. CV: RRR, Normal s1, s2. No murmurs appreciated Resp: Breath sounds clear bilaterally, no increased effort of breathing. No crac kles/rhonchi/rales especially at left base. Abdomen: BS+. Soft, nontender, nondistended. No guarding. No organomegaly appreciated. Extremities: Trace edema in lower extremities bilaterally. Results & Data Vital Signs (Past 12 Hours) Vital Signs Temp Pulse Pulse Resp BP BP Pulse Ox 01/17/20 19:42 64 20 145/96 H 96 01/17/20 18:50 85 15 167/98 H 01/17/20 18:01 84 10 L 01/17/20 18:00 67 16 155/96 H 01/17/20 17:40 101 H 21 132/101 H 01/17/20 17:38 66 17 165/97 H 01/17/20 17:36 80 18 144/81 H 01/17/20 17:32 70 17 01/17/20 17:22 97 01/17/20 17:00 93 H 20 01/17/20 16:30 89 17 01/17/20 16:07 87 18 167/102 H 96 01/17/20 16:00 83 16 97 01/17/20 15:33 36.2 C L 94 H 20 160/93 H 97 Supervising Physician Co-Signing Physician Notes Attending addendum: I have physically seen this patient, have supervised the medical residents activities, and agree with the H&P unless as otherwise noted. Assessment and Plan: Gross hematuria/left-sided nephrolithiasis/moderate right hydronephrosis- NPO NSS at 80 mils per hour Follow urine culture sensitivity. Ceftriaxone 1 g IV daily Consult urology Dr. Mohamud Acute kidney injury- Creatinine 2.39 upon admission with baseline 0.9. IV fluids as noted above. Repeat BMP in the a.m. Remainder of orders and notations as noted. Resident Activity Tracking Resident Involvement: Resident Care Provided Care Provided: Adult Hospital Medicine (1) Hematuria Hematuria type: unspecified type Qualified Code(s): R31.9 - Hematuria, unspecified
[2020-01-17] MEDS ORDERED: INSULIN DETEMIR FLEXPEN/FLEX TOUCH 100 UNITS/ML 3ML SQ SCH (22:14)
[2020-01-17] MEDS ORDERED: cefTRIAXone SODIUM 2,000 MG/70 ML BAG IV STA (22:14)
[2020-01-17] MEDS ORDERED: MoRPHine SULFATE 2 MG/ML CARP IV PRN (22:14)
[2020-01-17] MEDS ORDERED: GLUCOSE 40% GEL 15 GM TUBE PO PRN (22:30)
[2020-01-17] MEDS ORDERED: DEXTROSE 50% 50 ML SYRINGE IV PRN (22:30)
[2020-01-17] MEDS ORDERED: GLUCAGON FOR INJ 1 MG VIAL IM PRN (22:30)
[2020-01-17] MEDS ORDERED: CARBOHYDRATES FOR HYPOGLYCEMIA PO PRN (22:30)
[2020-01-17] MEDS ORDERED: GLUCOSE 10 TABS/TUBE PO PRN (22:30)
[2020-01-17] MEDS: FAMOTIDINE 20 MG TAB PO SCH (22:38)
[2020-01-18] MEDS ORDERED: PHARMACY GLYCEMIC MGMT CONSULT PRN (00:44)
[2020-01-18] MEDS ORDERED: INSULIN ASPART 100 UNITS/ML 3 ML PEN SQ SCH (01:00)
[2020-01-18] MEDS: INSULIN ASPART 100 UNITS/ML 3 ML PEN SQ SCH ×5 (01:01→21:20)
[2020-01-18] MEDS: SODIUM CHLORIDE 0.9% 1000ML 1,000 ML IV SCH ×3 (05:59→18:03)
[2020-01-18] MEDS ORDERED: CIPROFLOXACIN 400 MG/200 ML BAG IV SCH (06:00)
[2020-01-18 07:00] LABS: Basophils # (auto) 0.03 K/uL (0-0.2); Basophils % (auto) 0.4 %; Eosinophils # (auto) 0.38 K/uL (0-0.5); Eosinophils % (auto) 5.5 %; Hematocrit (blood only) 38.7 % (37-47); Hemoglobin 12.3 g/dL (12.0-16.0); Immature Granulocytes # (auto) 0.01 K/uL (0.00-0.02); Immature Granulocytes % (auto) 0.1 %; Lymphocytes # (auto) 1.51 K/uL (1.2-3.4); Lymphocytes % (auto) 21.9 %; Mean Corpuscular Hemoglobin 28.1 pg (25-34); Mean Corpuscular Hgb Conc 31.8 g/dL (32-36); Mean Corpuscular Volume 88.4 fL (80-100); Mean Platelet Volume 9.8 fL (7.4-10.4); Monocytes # (auto) 0.54 K/uL (0.11-0.59); Monocytes % (auto) 7.8 %; Neutrophils # (auto) 4.41 K/uL (1.4-6.5); Neutrophils % (auto) 64.3 %; Platelet Count 263 K/uL (130-400); RDW Coefficient of Variation 13.8 % (11.5-14.5); RDW Standard Deviation 44.7 fL (36.4-46.3); Red Blood Count 4.38 M/uL (4.2-5.4); White Blood Count 6.88 K/uL (4.8-10.8)
[2020-01-18 07:34] LABS: BUN Creatinine Ratio 12.2 (10-20); Calcium 8.1 mg/dl (8.5-10.1); Creatinine Clr Calc Pharmacy 16.2 ml/min; Est GFR (African American) 24.8; Est GFR (Non-African American) 21.4; Potassium 4.1 mmol/L (3.5-5.1)
[2020-01-18 07:50] LABS: Estimated Average Glucose 252 mg/dl; Hemoglobin A1C 10.4 % (4.5-5.6)
--- NOTE | 2020-01-18 08:17 | Urology Consultation ---
Date of Consultation January 18, 2020 Assessment & Plan (1) Hydronephrosis, right: (2) Gross hematuria: (3) Right ureteral stone: 84 yo F admitted with compression fracture of T11 vertebra, RAMSES, hematuria and right hydronephrosis secondary to obstructing 6 mm right ureteral stone. - Case reviewed with Dr. Guaman - Ordered CT abd/pelvis wo con for further evaluation - CT abd/pelvis reviewed: 6 mm distal right ureteral calculus, right hydroureteronephrosis. Interval fragmentation of the 1 cm calculus previously described within a distended left renal pelvis. Fragments are now located in the lower pole of the left kidney and are nonobstructing. - Keep NPO - Strain all urine Findings reviewed with Dr. Guaman. Given her RAMSES and hydronephrosis in the context of an obstructing 6mm right ureteral stone, will proceed with OR for cystoscopy and right stent placement. Risks and benefits to be reviewed with patient by Dr. Guaman. OR notified. Preoperative CXR and EKG completed while inpatient. Will cover with IV Ciprofloxacin preoperatively. History of Present Illness Reason for Consultation: Hematuria Attending Physician: Wai Mohamud MD History of Present Illness 84 yo F with PMHx of nephrolithiasis, CVA, neurofibromatosis, breast CA, and diabetes admitted with compression fracture of T11 vertebra, RAMSES, hematuria and right hydronephrosis. Patient known to our service, follows with Dr. Mohamud for nephrolithiasis. She was admitted via [facility] ED on 01/17/20. Per admitting notes, she presented due to concern for sudden weakness and fatigue associated with changes in speech. Her niece/caregiver stated she had a fall on Sunday 01/14 while getting out of bed. She lives alone but was able to get up and call for help. Has been treating at home with Kenroy and Delia. Complained of back pain and blood in her underwear 1 day prior to arrival. Prompted to go to ED after caregiver noted pt was slow moving with associated change to speech. Creatinine was 2.39. Given IV hydration, IV ceftriaxone in ED. Diagnosed with compression fracture of T11 s/p fall, RAMSES, and right hydronephrosis. Chart review: Afebrile Cr - 2.10 WBC - 6.88 UA - 2+ blood, 2+ leuks, RBC 5-10, WBC > 30, +yeast UC&S - pending Renal US - Moderate right hydroureteronephrosis. Left-sided nephrolithiasis. Other imaging in ED - CXR, Head CT, thoracic spine CT Awake and alert, ambulating from the bathroom back to bed. Reports some back pain with movement. Did not require any pain medication over night. No abdominal, suprapubic or flank pain. Voiding spontaneously. No dysuria, urgency, frequency, or hematuria. Denies f/c/n/v. Pt has been NPO since midnight. No other acute concerns at this time. Allergies Allergy/AdvReac Type Severity Reaction Status Date / Time No Known Allergies Allergy Verified 01/17/20 17:41 Home Medications Home Medications Medication Instructions Recorded Confirmed Type Creon 1 cap PO TIDM 06/11/19 01/17/20 History Levemir U-100 Insulin 12 unit SUBCUT HS 06/11/19 01/17/20 History aspirin 325 mg PO QAM 06/11/19 01/17/20 History calcium carbonate-vitamin D3 1 tab PO DAILY 06/11/19 01/17/20 History insulin aspart U-100 [Novolog 7 unit SUBCUT AC 06/11/19 01/17/20 History Flexpen U-100 Insulin] solifenacin 10 mg tablet 10 mg PO HS #90 tab 08/25/19 01/17/20 Rx atorvastatin 40 mg PO DAILY 01/17/20 01/17/20 History clopidogrel 75 mg PO DAILY 01/17/20 01/17/20 History famotidine 20 mg PO BID 01/17/20 01/17/20 History solifenacin 10 mg PO HS 01/17/20 01/17/20 History Patient History Medical History Diabetes mellitus, type 2 GERD (gastroesophageal reflux disease) Gross hematuria HX: breast cancer LUMPECTOMY - LEFT BREAST; NO RADIATION, NO CHEMO; WAS ON TAMOXIFEN FOR 5 YR - NO LONGER TAKING Hyperlipidemia Kidney stones Neurofibromatosis Transient ischemic attack (TIA) NO RESIDUAL EFFECTS - 2014 Surgical History History of lumpectomy of left breast History of pancreatectomy PARTIAL Family History Other No pertinent family history in first degree relatives Social History Preferred Language: Chinese Communication Ability: Effective Disease Management Nurse Required: No Beliefs That Will Affect Care: None Current Living Situation: Alone Other Information That Helps Us Care for You: No Feels Safe at Home: Yes Safety Concerns: Feels Safe At This Time Smoking Status: Never smoker Do You Dip or Chew Tobacco: No ; Second Hand Exposure: No ; Tobacco Cessation Education Requested by Patient: No Hx Alcohol Use: Yes Alcohol type: wine Hx Substance Use: No Review of Systems Constitutional: as per Subjective / HPI Gastrointestinal: as per Subjective / HPI Genitourinary: as per Subjective / HPI Musculoskeletal: + back pain Physical Exam Constitutional: well developed and well nourished; no acute distress and not ill appearing Respiratory: normal respiratory effort and able to speak in complete sentences; no respiratory distress and no labored breathing Cardiovascular: Extremities: no pedal edema Gastrointestinal (Abdomen): Inspection/Auscultation: abdomen normal to inspection; abdomen not distended Percussion/Palpation: abdomen soft; abdomen nontender and no guarding Skin: Multiple scattered skin lesions over face and body Neurologic: moves all extremities and awake Psychiatric: Orientation: alert, oriented to person and cooperative Genitourinary: no CVA tenderness voiding spontaneously, urine not v isualized during exam Results & Data Vital Signs (Past 12 Hours) Vital Signs Temp Pulse Pulse Resp BP BP Pulse Ox 01/18/20 07:12 36.5 C 64 16 149/78 H 97 01/17/20 23:20 36.6 C 65 18 160/87 H 96 01/17/20 21:30 66 20 161/75 H 96 01/17/20 21:00 67 26 H 138/92 95 01/17/20 20:30 85 24 160/99 H PG Care Time/CCT Total # of Minutes Spent Total Time Spent with Patient: Total time spent is greater than 50% in coordination of care (as documented) at patient's floor/unit and/or counseling patient: Coding Level of Care Code 91696 Inpt Consult Level 3 Diagnoses Hydronephrosis, right N13.30 Gross hematuria R31.0 Right ureteral stone N20.1
--- NOTE | 2020-01-18 09:09 | CT Scan Report ---
CT abd pelvis wo con CT DOSE: 248.04 mGy.cm HISTORY: Ureteral calculus right ureteral stone TECHNIQUE: Multiaxial CT images of the abdomen and pelvis were performed without contrast. A dose lo wering technique was utilized adhering to the principles of ALARA. COMPARISON STUDY: 06/03/2019 FINDINGS: Lung bases are clear. Liver is unremarkable. Air within the biliary ductal system presumably a postoperative basis. Nonobstructive bowel pattern. Interval development of right renal hydroureteronephrosis. 6 mm distal right ureteral calculus. Left kidney demonstrates an extrarenal pelvis. Previously described 1 cm calcification within the eliz al pelvis now appears to be fragmented and located in the lower pole of the left kidney. Significant rectal fecal impaction. Mild increase in colonic fecal load generally consistent with fec al stasis. IMPRESSION: 1. 6 mm distal right ureteral calculus. 2. Right hydroureteronephrosis. 3. Interval fragmentation of the 1 cm calculus previously described within a distended left renal pel vis. 4. Fragments are now located in the lower pole of the left kidney and are nonobstructing. 5. Rectal fecal impaction. 6. Colonic fecal stasis. ACT 112: Negative or not required by law. The above report was generated using voice recognition software. It may contain grammatical, syntax or spelling errors. Electronically signed by: Anders Pichardo M.D. 01/18/2020 9:07 AM
[2020-01-18] MEDS: ATORVASTATIN 40 MG TAB PO SCH (09:26)
[2020-01-18] MEDS: PANCREAZE (LIPASE 10,500U) CAP PO SCH ×3 (09:26→18:03)
[2020-01-18] MEDS: ASPIRIN 325 MG ECTAB PO SCH (09:26)
[2020-01-18] MEDS: CALCIUM 600MG + VIT D 400 IU TAB PO SCH (09:26)
[2020-01-18] MEDS: CLOPIDOGREL BISULFATE 75 MG TAB PO SCH (09:26)
[2020-01-18] MEDS: FAMOTIDINE 20 MG TAB PO SCH ×2 (09:26→21:18)
--- NOTE | 2020-01-18 10:37 | Pharmacy Report ---
Glycemic Control Consultation - Date of Service January 18, 2020 - Scope Scope: Glycemic Pharmacist consulted by Dr Mora on 01/17 for glycemic control and to write orders per [facility] inpatient glycemic control protocol - Objective Weight: 55.8 kg Accuchecks BSG (last 24hrs): 01/17/20 01/17/20 01/18/20 16:27 20:47 00:59 Glucose 216 H POC Glucose 220 H 239 H 01/18/20 01/18/20 05:50 06:32 Glucose 156 H POC Glucose 162 H Laboratory Data (last 24hrs): 01/17/20 01/18/20 16:27 06:32 Potassium 4.0 4.1 Carbon Dioxide 24 24 Anion Gap 9.0 5.0 Creatinine 2.39 H 2.10 H Est Cr Clr Drug Dosing 14.2 16.2 HbA1c: Hemoglobin A1c 10.4 % (4.5-5.6) H 01/18/20 06:32 - Recent Pertinent Medications Outpatient Anti-diabetic Regimen: * Levemir 12 units HS, Novolog 7 units AC+scale * A1c = 10.4 % 01/18 Risk Factors for Insulin Resistance: * Diet: NPO - Assessment & Plan Assessment & Plan: ASSESSMENT: * 84 year old female with hematuria/UTI. Patient with ureteral stone and plan is for OR for cystoscopy and right stent placement. Patient NPO at this time for procedure * Received home Levemir 12 units last evening, fasting BSG w/in range at 152 mg/dL - will add scale for Levemir for this evening * A1C on admission elevated at ~10% indicating poor glucose control outpatient - will likely need to titrate home regimen PLAN FOR INPATIENT GLYCEMIC CONTROL: * Basal insulin * Levemir based upon scale (8, 12, or 16 units) * Bolus insulin * NovoLog per scale ACHS or Q6hrs while NPO * Goal Range: Low 110 mg/dL - High 150 mg/dL * Correction Factor: 35 mg/dL/unit * Nutritional / Prandial insulin per carb ratio of 1 unit per 12 grams CHO consumed * Please note that the plan above was derived based on current level of insulin resistance and hospital stress. These recommendations are appropriate for inpatient admission only. Plan of care upon discharge will need to be reassessed to avoid potential outpatient hypo/hyperglycemia. Thank you.
[2020-01-18] MEDS: ACETAMINOPHEN 325 MG TAB PO SCH ×3 (11:32→22:02)
[2020-01-18] MEDS: LIDOCAINE 5% 1 PATCH TD SCH (12:12)
--- NOTE | 2020-01-18 14:08 | Hospitalist Progress Note ---
Date of Service January 18, 2020 Assessment & Plan (1) Right ureteral stone: - CT with 6 mm distal right ureter calculus and right hydroureteronephrosis noted. - Urology consulted, plan for intervention this afternoon. - On NS at 80 cc/hr. Currently NPO for procedure. - Ceftriaxone for coverage of UTI/obstruction; also receiving Cipro pre-op per urology. - Tylenol scheduled q6hr; Morphine prn pain. (2) Hydronephrosis, right: - In setting of obstructing stone. - Plan for stent placement this afternoon. (3) Hematuria: - Related to ureter stone. (4) Urinary tract infection: - U/a positive for blood, leuk est, >30 WBC, >30 epithelial cells and yeast. UC >3 organisms. - Will repeat UC this afternoon - may not be accurate due to IV abx. - Continue Ceftriaxone IV for empiric coverage. (5) Acute renal failure: - Creatinine increased to 2.39 on admission, in setting of obstructing stone and dehydration. - Level improved to 2.10 -- will monitor daily. - IV fluids at 80 cc/hr. - Hold nephrotoxic agents. (6) Compression fracture of T11 vertebra: - CT thoracic spine with acute moderate compression fracture of the superior endplate of T11 with 30% loss of vertebral body height and minimal retropulsion. No additional acute thoracic spine fractures. - Likely related to recent fall at home on 01/14/20. - Lidocaine patch; Tylenol 650 mg q6hr scheduled for pain with Morphine IV prn. - PT/OT evaluation for discharge planning. - No indication for orthopedics consult at this time. (7) Diabetes: - A1C is 10.4. - Holding home insulin. - Pharmacy consulted for glycemic management. (8) High cholesterol: - Continue statin as prescribed. (9) Transient ischemic attack (TIA): - H/o, in 2014. - Continue Plavix, statin, aspirin as prescribed. - Head CT showed 8 mm calcified extra-axial lesion within right middle cranial fossa - likely meningioma. (10) Breast CA: - H/o; currently in remission. (11) GERD (gastroesophageal reflux disease): - Pepcid 20 mg BID. (12) History of pancreatectomy: - Continue home Creon TID as prescribed. (13) Overactive bladder: - Continue home solifenacin 10 mg qhs - will need to bring from home. (14) Fecal impaction: - CT A/P with rectal fecal impaction and colonic fecal stasis. - Will give fleet enema x 1. - Miralax BID scheduled. DVT ppx: ASA/Plavix; start heparin ppx POD#1. Dispo: Med/surg; discharge pending improvement in renal function and PT/OT evaluation. Admission and Anticipated Discharge Date Admission Date: January 17, 2020 Subjective Pt. c/o pain in mid lower back, rated as a 6/10 on pain scale. She denies hematuria, urinary frequency, dysuria, abd pain, flank pain, fever/chills, N/V. Plan for urology intervention today. Review of Systems Review of Systems: All systems reviewed & are unremarkable except as noted in HPI & below Constitutional: + fatigue and + weakness; no fever and no chills Respiratory: no cough, no dyspnea, no dyspnea on exertion and no wheezing Cardiovascular: no chest pain, no palpitations and no edema Gastrointestinal: no abdominal pain, no nausea, no vomiting and no con stipation Genitourinary: no dysuria, no difficulty urinating, no urinary frequency and no hematuria Musculoskeletal: no back pain and no joint pain Integumentary: no non-healing lesions Physical Exam Physical Exam: General: Resting comfortably HEENT: NC/AT; PERRLA with EOMI; [place] conjunctiva, MMM. No erythema of posterior pharynx Neck: Supple and nontender Cardiac: RRR Lungs: CTA bilaterally Abdomen: Bowel normoactive X 4; Nontender to palpation Extremities: Warm. No edema present Neuro: No focal weakness Skin: No rash Results & Data ([facility]) Vital Signs (Past 12 Hours) Vital Signs Temp Pulse Resp BP Pulse Ox 01/18/20 07:12 36.5 C 64 16 149/78 H 97 Laboratory Results 01/18/20 01/18/20 01/18/20 Range/Units 12:03 06:32 06:32 WBC (4.8-10.8) K/uL RBC (4.2-5.4) M/uL Hgb (12.0-16.0) g/dL Hct (37-47) % MCV (80-100) fL MCH (25-34) pg MCHC (32-36) g/dL RDW Std Deviation (36.4-46.3) fL RDW Coeff of Flako (11.5-14.5) % Plt Count (130-400) K/uL MPV (7.4-10.4) fL Immature Gran % (Auto) % Neut % (Auto) % Lymph % (Auto) % Davis % (Auto) % Eos % (Auto) % Baso % (Auto) % Immature Gran # (Auto) (0.00-0.02) K/uL Neut # (Auto) (1.4-6.5) K/uL Lymph # (Auto) (1.2-3.4) K/uL Davis # (Auto) (0.11-0.59) K/uL Eos # (Auto) (0-0.5) K/uL Baso # (Auto) (0-0.2) K/uL Sodium 141 (136-145) mmol/L Potassium 4.1 (3.5-5.1) mmol/L Chloride 112 H (98-107) mmol/L Carbon Dioxide 24 (21-32) mmol/L Anion Gap 5.0 (3-11) BUN 26 H (7-18) mg/dl Creatinine 2.10 H (0.6-1.2) mg/dl Est Cr Clr Drug Dosing 16.2 ml/min Est GFR ( Amer) 24.8 Est GFR (Non-Af Amer) 21.4 BUN/Creatinine Ratio 12.2 (10-20) Glucose 156 H (70-99) mg/dl POC Glucose 127 H (70-99) mg/dl Estimat Average Glucose 252 mg/dl Hemoglobin A1c 10.4 H (4.5-5.6) % Calcium 8.1 L (8.5-10.1) mg/dl Magnesium (1.8-2.4) mg/dl Total Bilirubin (0.2-1) mg/dl AST (15-37) U/L ALT (12-78) U/L Alkaline Phosphatase (45-117) U/L Troponin I (0-0.045) ng/ml Total Protein (6.4-8.2) gm/dl Albumin (3.4-5.0) gm/dl Globulin (2.5-4.0) gm/dl Albumin/Globulin Ratio (0.9-2) TSH (0.300-4.500) uIu/ml Urine Color Urine Appearance (Clear) Urine pH (4.5-7.5) POC Urine pH (4.5-7.5) Ur Specific [place] (1.000-1.030) Urine Protein (Negative) POC Urine Protein (Negative) Urine Glucose (UA) (Negative) POC Ur Glucose (UA) (Normal) Urine Ketones (Negative) POC Urine Ketones (Negative) Urine Blood (Negative) POC Urine Blood (Negative) Urine Nitrite (Negative) POC Urine Nitrite (Negative) Urine Bilirubin (Negative) POC Urine Bilirubin (Negative) Urine Urobilinogen (Negative) POC Urine Urobilinogen (Normal) Ur Leukocyte Esterase (Negative) POC U Leukocyte Esteras (Negative) Urine WBC (Auto) (0-5) /hpf Urine RBC (Auto) (0-4) /hpf U Hyaline Cast (Auto) (0-5) /lpf U Epithel Cells (Auto) (0-5) /lpf Urine Bacteria (Auto) (Negative) Urine Yeast (None Prsent) 01/18/20 01/18/20 01/18/20 Range/Units 06:32 05:50 00:59 WBC 6.88 (4.8-10.8) K/uL RBC 4.38 (4.2-5.4) M/uL Hgb 12.3 (12.0-16.0) g/dL Hct 38.7 (37-47) % MCV 88.4 (80-100) fL MCH 28.1 (25-34) pg MCHC 31.8 L (32-36) g/dL RDW Std Deviation 44.7 (36.4-46.3) fL RDW Coeff of Flako 13.8 (11.5-14.5) % Plt Count 263 (130-400) K/uL MPV 9.8 (7.4-10.4) fL Immature Gran % (Auto) 0.1 % Neut % (Auto) 64.3 % Lymph % (Auto) 21.9 % Davis % (Auto) 7.8 % Eos % (Auto) 5.5 % Baso % (Auto) 0.4 % Immature Gran # (Auto) 0.01 (0.00-0.02) K/uL Neut # (Auto) 4.41 (1.4-6.5) K/uL Lymph # (Auto) 1.51 (1.2-3.4) K/uL Davis # (Auto) 0.54 (0.11-0.59) K/uL Eos # (Auto) 0.38 (0-0.5) K/uL Baso # (Auto) 0.03 (0-0.2) K/uL Sodium (136-145) mmol/L Potassium (3.5-5.1) mmol/L Chloride (98-107) mmol/L Carbon Dioxide (21-32) mmol/L Anion Gap (3-11) BUN (7-18) mg/dl Creatinine (0.6-1.2) mg/dl Est Cr Clr Drug Dosing ml/min Est GFR ( Amer) Est GFR (Non-Af Amer) BUN/Creatinine Ratio (10-20) Glucose (70-99) mg/dl POC Glucose 162 H 239 H (70-99) mg/dl Estimat Average Glucose mg/dl Hemoglobin A1c (4.5-5.6) % Calcium (8.5-10.1) mg/dl Magnesium (1.8-2.4) mg/dl Total Bilirubin (0.2-1) mg/dl AST (15-37) U/L ALT (12-78) U/L Alkaline Phosphatase (45-117) U/L Troponin I (0-0.045) ng/ml Total Protein (6.4-8.2) gm/dl Albumin (3.4-5.0) gm/dl Globulin (2.5-4.0) gm/dl Albumin/Globulin Ratio (0.9-2) TSH (0.300-4.500) uIu/ml Urine Color Urine Appearance (Clear) Urine pH (4.5-7.5) POC Urine pH (4.5-7.5) Ur Specific [place] (1.000-1.030) Urine Protein (Negative) POC Urine Protein (Negative) Urine Glucose (UA) (Negative) POC Ur Glucose (UA) (Normal) Urine Ketones (Negative) POC Urine Ketones (Negative) Urine Blood (Negative) POC Urine Blood (Negative) Urine Nitrite (Negative) POC Urine Nitrite (Negative) Urine Bilirubin (Negative) POC Urine Bilirubin (Negative) Urine Urobilinogen (Negative) POC Urine Urobilinogen (Normal) Ur Leukocyte Esterase (Negative) POC U Leukocyte Esteras (Negative) Urine WBC (Auto) (0-5) /hpf Urine RBC (Auto) (0-4) /hpf U Hyaline Cast (Auto) (0-5) /lpf U Epithel Cells (Auto) (0-5) /lpf Urine Bacteria (Auto) (Negative) Urine Yeast (None Prsent) 01/17/20 01/17/20 01/17/20 Range/Units 20:47 16:27 16:27 WBC 9.63 (4.8-10.8) K/uL RBC 4.74 (4.2-5.4) M/uL Hgb 13.7 (12.0-16.0) g/dL Hct 41.9 (37-47) % MCV 88.4 (80-100) fL MCH 28.9 (25-34) pg MCHC 32.7 (32-36) g/dL RDW Std Deviation 45.2 (36.4-46.3) fL RDW Coeff of Flako 13.7 (11.5-14.5) % Plt Count 311 (130-400) K/uL MPV 9.4 (7.4-10.4) fL Immature Gran % (Auto) 0.4 % Neut % (Auto) 68.1 % Lymph % (Auto) 21.0 % Davis % (Auto) 7.1 % Eos % (Auto) 3.3 % Baso % (Auto) 0.1 % Immature Gran # (Auto) 0.04 H (0.00-0.02) K/uL Neut # (Auto) 6.56 H (1.4-6.5) K/uL Lymph # (Auto) 2.02 (1.2-3.4) K/uL Davis # (Auto) 0.68 H (0.11-0.59) K/uL Eos # (Auto) 0.32 (0-0.5) K/uL Baso # (Auto) 0.01 (0-0.2) K/uL Sodium 139 (136-145) mmol/L Potassium 4.0 (3.5-5.1) mmol/L Chloride 106 (98-107) mmol/L Carbon Dioxide 24 (21-32) mmol/L Anion Gap 9.0 (3-11) BUN 28 H (7-18) mg/dl Creatinine 2.39 H (0.6-1.2) mg/dl Est Cr Clr Drug Dosing 14.2 ml/min Est GFR ( Amer) 21.2 Est GFR (Non-Af Amer) 18.3 BUN/Creatinine Ratio 11.9 (10-20) Glucose 216 H (70-99) mg/dl POC Glucose 220 H (70-99) mg/dl Estimat Average Glucose mg/dl Hemoglobin A1c (4.5-5.6) % Calcium 9.1 (8.5-10.1) mg/dl Magnesium 2.0 (1.8-2.4) mg/dl Total Bilirubin 0.3 (0.2-1) mg/dl AST 11 L (15-37) U/L ALT 13 (12-78) U/L Alkaline Phosphatase 110 (45-117) U/L Troponin I < 0.015 (0-0.045) ng/ml Total Protein 7.8 (6.4-8.2) gm/dl Albumin 3.1 L (3.4-5.0) gm/dl Globulin 4.7 H (2.5-4.0) gm/dl Albumin/Globulin Ratio 0.7 L (0.9-2) TSH 1.120 (0.300-4.500) uIu/ml Urine Color Urine Appearance (Clear) Urine pH (4.5-7.5) POC Urine pH (4.5-7.5) Ur Specific [place] (1.000-1.030) Urine Protein (Negative) POC Urine Protein (Negative) Urine Glucose (UA) (Negative) POC Ur Glucose (UA) (Normal) Urine Ketones (Negative) POC Urine Ketones (Negative) Urine Blood (Negative) POC Urine Blood (Negative) Urine Nitrite (Negative) POC Urine Nitrite (Negative) Urine Bilirubin (Negative) POC Urine Bilirubin (Negative) Urine Urobilinogen (Negative) POC Urine Urobilinogen (Normal) Ur Leukocyte Esterase (Negative) POC U Leukocyte Esteras (Negative) Urine WBC (Auto) (0-5) /hpf Urine RBC (Auto) (0-4) /hpf U Hyaline Cast (Auto) (0-5) /lpf U Epithel Cells (Auto) (0-5) /lpf Urine Bacteria (Auto) (Negative) Urine Yeast (None Prsent) 02/24/20 02/24/20 Range/Units 16:21 16:21 WBC (4.8-10.8) K/uL RBC (4.2-5.4) M/uL Hgb (12.0-16.0) g/dL Hct (37-47) % MCV (80-100) fL MCH (25-34) pg MCHC (32-36) g/dL RDW Std Deviation (36.4-46.3) fL RDW Coeff of Flako (11.5-14.5) % Plt Count (130-400) K/uL MPV (7.4-10.4) fL Immature Gran % (Auto) % Neut % (Auto) % Lymph % (Auto) % Davis % (Auto) % Eos % (Auto) % Baso % (Auto) % Immature Gran # (Auto) (0.00-0.02) K/uL Neut # (Auto) (1.4-6.5) K/uL Lymph # (Auto) (1.2-3.4) K/uL Davis # (Auto) (0.11-0.59) K/uL Eos # (Auto) (0-0.5) K/uL Baso # (Auto) (0-0.2) K/uL Sodium (136-145) mmol/L Potassium (3.5-5.1) mmol/L Chloride (98-107) mmol/L Carbon Dioxide (21-32) mmol/L Anion Gap (3-11) BUN (7-18) mg/dl Creatinine (0.6-1.2) mg/dl Est Cr Clr Drug Dosing ml/min Est GFR ( Amer) Est GFR (Non-Af Amer) BUN/Creatinine Ratio (10-20) Glucose (70-99) mg/dl POC Glucose (70-99) mg/dl Estimat Average Glucose mg/dl Hemoglobin A1c (4.5-5.6) % Calcium (8.5-10.1) mg/dl Magnesium (1.8-2.4) mg/dl Total Bilirubin (0.2-1) mg/dl AST (15-37) U/L ALT (12-78) U/L Alkaline Phosphatase (45-117) U/L Troponin I (0-0.045) ng/ml Total Protein (6.4-8.2) gm/dl Albumin (3.4-5.0) gm/dl Globulin (2.5-4.0) gm/dl Albumin/Globulin Ratio (0.9-2) TSH (0.300-4.500) uIu/ml Urine Color Yellow Urine Appearance Cloudy A (Clear) Urine pH 5.0 (4.5-7.5) POC Urine pH 5 (4.5-7.5) Ur Specific [place] 1.019 (1.000-1.030) Urine Protein Trace H (Negative) POC Urine Protein Trace H (Negative) Urine Glucose (UA) Negative (Negative) POC Ur Glucose (UA) Normal (Normal) Urine Ketones Negative (Negative) POC Urine Ketones Negative (Negative) Urine Blood 2+ H (Negative) POC Urine Blood 250 H (Negative) Urine Nitrite Negative (Negative) POC Urine Nitrite Negative (Negative) Urine Bilirubin Negative (Negative) POC Urine Bilirubin Negative (Negative) Urine Urobilinogen Negative (Negative) POC Urine Urobilinogen Normal (Normal) Ur Leukocyte Esterase 2+ H (Negative) POC U Leukocyte Esteras 2+ H (Negative) Urine WBC (Auto) >30 H (0-5) /hpf Urine RBC (Auto) 5-10 H (0-4) /hpf U Hyaline Cast (Auto) 0 (0-5) /lpf U Epithel Cells (Auto) >30 H (0-5) /lpf Urine Bacteria (Auto) Negative (Negative) Urine Yeast Present A (None Prsent) PG Care Time/CCT Total # of Minutes Spent Total Time Spent with Patient: Total time spent is greater than 50% in coordination of care (as documented) at patient's floor/unit and/or counseling patient: Coding Level of Care Code 91531 Subseq Hosp Care Lvl 3 Diagnoses Right ureteral stone N20.1 Hydronephrosis, right N13.30 Hematuria R31.9 Hematuria type: unspecified type Urinary tract infection N39.0 Acute renal failure N17.9 Acute renal failure type: unspecified Compression fracture of T11 vertebra S22.080A Encounter type: initial encounter Diabetes E11.9 High cholesterol E78.00 Transient ischemic attack (TIA) G45.9 Breast CA C50.919 GERD (gastroesophageal reflux disease) K21.9 History of pancreatectomy Z90.410 Overactive bladder N32.81 Fecal impaction K56.41 (1) Compression fracture of T11 vertebra Encounter type: initial encounter Qualified Code(s): S22.080A - Wedge compression fracture of T11-T12 vertebra, initial encounter for closed fracture (2) Hematuria Hematuria type: unspecified type Qualified Code(s): R31.9 - Hematuria, unspecified (3) Acute renal failure Acute renal failure type: unspecified Qualified Code(s): N17.9 - Acute kidney failure, unspecified
[2020-01-18] MEDS ORDERED: SOD PHOSPHATE/SOD BIPHOSPHATE ENEMA 132 ML BTL PR STA (14:14)
--- NOTE | 2020-01-18 14:34 | Electrocardiogram Report ---
Test Reason : Blood Pressure : / mmHG Vent. Rate : 082 BPM Atrial Rate : 082 BPM P-R Int : 210 ms QRS Dur : 074 ms QT Int : 396 ms P-R-T Axes : 066 -30 049 degrees QTc Int : 462 ms Sinus rhythm with 1st degree A-V block Left axis deviation Low voltage QRS Poor R wave progression, consider anterior IN vs. lead placement vs. LVH Abnormal ECG When compared with ECG of 11-JUN-2019 12:11, No significant change was found Confirmed by Gregorio Gayle ([id number]) on 01/18/2020 2:33:58 PM Referred By: REFERRED SELF Confirmed By:Jono Gayle
[2020-01-18] MEDS ORDERED: fentaNYL citrate 100 MCG/2 ML VIAL IV PRN (14:56)
[2020-01-18] MEDS ORDERED: ePHEDrine sulfate 50 MG/ML AMP IV PRN (14:56)
[2020-01-18] MEDS ORDERED: ATROPINE SULFATE 0.1 MG/ML 10ML SYR IV PRN (14:56)
[2020-01-18] MEDS ORDERED: ONDANSETRON INJ 2 MG/ML 2 ML VIAL IV PRN (14:56)
--- NOTE | 2020-01-18 15:02 | Anesthesiology Consultation ---
Date of Service January 18, 2020 Assessment & Plan (1) Encounter for pre-operative examination: Chart Review Chart Review: Acceptable Risk for Surgery and Patient NOT seen in Pre Admission Testing Consults Requested none Patient had previous cardiology eval 05/2019 prior to ESWL procedure. Per their note at that time: Based on her functional status without limiting cardiopulmonary symptoms, normal biventricular systolic function on today's echo, and normal LV wall motion-patient is an acceptable surgical risk to proceed with ESWL as scheduled-there is no need for further cardiac workup at this time. History Surgery Operation Date: 01/18/20 10:20 Proposed Procedures p Cystoscopy, Right Stent Placement - Vivek Guaman, Height/Weight Height: 5 ft Weight: 55.8 kg Allergies Allergy/AdvReac Type Severity Reaction Status Date / Time No Known Allergies Allergy Verified 01/17/20 17:41 Medications Home Medications Medication Instructions Recorded Confirmed Last Taken Creon 1 cap PO TIDM 06/11/19 01/17/20 06/17/19 Levemir U-100 Insulin 12 unit SUBCUT HS 06/11/19 01/17/20 06/17/19 aspirin 325 mg PO QAM 06/11/19 01/17/20 06/11/19 calcium carbonate-vitamin D3 1 tab PO DAILY 06/11/19 01/17/20 06/17/19 insulin aspart U-100 [Novolog 7 unit SUBCUT AC 06/11/19 01/17/20 06/17/19 Flexpen U-100 Insulin] solifenacin 10 mg tablet 10 mg PO HS #90 tab 08/25/19 01/17/20 Unknown atorvastatin 40 mg PO DAILY 01/17/20 01/17/20 Unknown clopidogrel 75 mg PO DAILY 01/17/20 01/17/20 Unknown famotidine 20 mg PO BID 01/17/20 01/17/20 Unknown solifenacin 10 mg PO HS 01/17/20 01/17/20 Unknown Active Medications Generic Name Dose Route Start Last Admin Trade Name Freq PRN Reason Stop Dose Admin Acetaminophen 650 mg 01/18/20 11:00 01/18/20 11:32 Tylenol PO 02/17/20 10:59 650 mg Q6H TUNDE Administration Lipase/Protease/Amylase 1 cap 01/18/20 08:00 01/18/20 12:13 Pancreaze (Lipase 10,500u) PO 02/17/20 07:59 Not Given TIDM [facility] Aspirin 325 mg 01/18/20 09:00 01/18/20 09:26 Ecotrin PO 02/17/20 08:59 Not Given QAM [facility] Atorvastatin Calcium 40 mg 01/18/20 09:00 01/18/20 09:26 Lipitor PO 02/17/20 08:59 Not Given DAILY [facility] Clopidogrel Bisulfate 75 mg 01/18/20 09:00 01/18/20 09:26 Plavix PO 02/17/20 08:59 Not Given DAILY [facility] Famotidine 20 mg 01/17/20 22:14 01/18/20 09:26 Pepcid PO 02/16/20 22:13 Not Given BID [facility] Sodium Chloride 1,000 mls @ 80 mls/hr 01/17/20 17:30 01/18/20 14:32 Nss 1000ml IV 02/16/20 17:29 Not Given .[id number] [facility] Insulin Aspart 0 units 01/18/20 01:00 01/18/20 12:12 Novolog Flexpen SQ 02/17/20 00:59 Not Given Q6 [facility] Protocol Lidocaine 1 patch 01/18/20 11:00 01/18/20 12:12 Lidoderm 5% TD 02/17/20 10:59 1 patch QAM TUNDE Administration Miscellaneous 1 ea 01/18/20 08:00 01/18/20 09:26 Order Awaiting Action N/A 02/17/20 07:59 Not Given QS [facility] Morphine Sulfate 2 mg 01/17/20 22:14 01/17/20 22:47 Morphine Sulfate IV 01/31/20 22:13 2 mg Q2H PRN Administration Pain Multivitamins/Minerals 1 tab 01/18/20 09:00 01/18/20 09:26 Caltrate Plus PO 02/17/20 08:59 Not Given DAILY TUNDE NPO Date Last Intake of Fluids: 01/17/20 Time Last Intake of Fluids: 15:00 Last Intake of Fluids Comment: Today- Sips with meds per dr order Date Last Intake of Solids: 01/17/20 Time Last Intake of Solids: 15:00 Past Medical History Medical History (Updated 01/18/20 @ 14:58 by Alessandro Holden MD) Acute renal failure (Inactive) CVA (cerebral vascular accident) (Inactive) Diabetes mellitus, type 2 GERD (gastroesophageal reflux disease) Gross hematuria HX: breast cancer LUMPECTOMY - LEFT BREAST; NO RADIATION, NO CHEMO; WAS ON TAMOXIFEN FOR 5 YR - NO LONGER TAKING Hyperlipidemia Kidney stones Neurofibromatosis Transient ischemic attack (TIA) NO RESIDUAL EFFECTS - 2014 Compression fracture of T11 vertebra: - CT thoracic spine with acute moderate compression fracture of the superior endplate of T11 with 30% loss of vertebral body height and minimal retropulsion. No additional acute thoracic spine fractures. - Likely related to recent fall at home on 01/14/20. - Lidocaine patch; Tylenol 650 mg q6hr scheduled for pain with Morphine IV prn. - PT/OT evaluation for discharge planning. - No indication for orthopedics consult at this time. Exercise / Class Metabolic Activity III < 4 Walking/Shop/Light housework Past Family History Family History Other No pertinent family history in first degree relatives Past Surgical History Surgical History (Updated 01/18/20 @ 14:59 by Alessandro Holden MD) H/O lithotripsy 06/18/2019. [facility]. LMA #4. No issues. History of lumpectomy of left breast History of pancreatectomy PARTIAL Past Anesthesia History No Hx of Anesthesia Complications and No Family Hx of Anesthesia Complications History of PONV No Hx of PONV and No Hx of Motion Sickness Social History Smoking Status: Never smoker Do You Dip or Chew Tobacco: No Hx Alcohol Use: Yes Alcohol type: wine alcohol intake frequency: holidays/special occasions only Hx Substance Use: No substance use type: does not use Physical Exam Vital Signs Last Vital Signs Temp 36.5 C 01/18/20 14:53 Pulse 75 01/18/20 14:53 Resp 18 01/18/20 14:53 BP 160/93 H 01/18/20 14:53 Pulse Ox 96 01/18/20 14:53 Testing Laboratory Results 01/18/20 06:32 01/18/20 06:32 Hemoglobin A1c 10.4 % (4.5-5.6) H 01/18/20 06:32 Urine Color Yellow 01/17/20 16:21 Urine Appearance Cloudy (Clear) A 01/17/20 16:21 Urine pH 5.0 (4.5-7.5) 01/17/20 16:21 Ur Specific [place] 1.019 (1.000-1.030) 01/17/20 16:21 Urine Protein Trace (Negative) H 01/17/20 16:21 Urine Glucose (UA) Negative (Negative) 01/17/20 16:21 Urine Ketones Negative (Negative) 01/17/20 16:21 Urine Nitrite Negative (Negative) 01/17/20 16:21 Ur Leukocyte Esterase 2+ (Negative) H 01/17/20 16:21 Urine WBC (Auto) >30 /hpf (0-5) H 01/17/20 16:21 Urine RBC (Auto) 5-10 /hpf (0-4) H 01/17/20 16:21 U Hyaline Cast (Auto) 0 /lpf (0-5) 01/17/20 16:21 U Epithel Cells (Auto) >30 /lpf (0-5) H 01/17/20 16:21 Urine Bacteria (Auto) Negative (Negative) 01/17/20 16:21 01/17/20 16:21 Urine Culture - Final Urine,Clean Catch More than three types of organisms present, all moderate counts mixed probable skin cindy. No further identifications or sensitivities to follow. 01/18/20 01/18/20 12:03 05:50 POC Glucose 127 H 162 H Electrocardiogram Date: 01/17/20 Findings: + NSR @ (82) Sinus rhythm with 1st degree A-V block Left axis deviation Low voltage QRS Poor R wave progression, consider anterior IA vs. lead placement vs. LVH Abnormal ECG When compared with ECG of 11-JUN-2019 12:11, No significant change was found Confirmed by Gregorio Gayle ([id number]) on 01/18/2020 2:33:58 PM Chest X-Ray Date: 01/17/20 XR chest 1V portable CLINICAL HISTORY: weakness COMPARISON STUDY: Chest radiograph June 11, 2019. 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 Patient is rotated. There is mild S-shaped curvature of the thoracic spine. There is no evidence for pulmonary edema. No pneumothorax or pleural effusion is noted. Mild left basilar opacity is present. IMPRESSION: Mild left basilar opacity which may reflect pneumonia or atelectasis. Radiographic follow up is recommended.
[2020-01-18] MEDS ORDERED: fentaNYL citrate 100 MCG/2 ML VIAL ONE (15:04)
[2020-01-18] MEDS ORDERED: MIDAZOLAM HCL 1 MG/ML 2ML VIAL ONE (15:04)
[2020-01-18] MEDS ORDERED: IOTHALAMATE MEGLUMINE II 17.2% 250 ML VIAL ONE (15:10)
[2020-01-18] MEDS ORDERED: LIDOCAINE HCL 2% 2 ML VIAL/AMP(20MG/ML) INFIL ONE (15:46)
[2020-01-18] MEDS ORDERED: ONDANSETRON INJ 2 MG/ML 2 ML VIAL ONE (15:46)
[2020-01-18] MEDS ORDERED: PROPOFOL IV EMULSION 10 MG/ML 20 ML VIAL IV ONE (15:46)
--- NOTE | 2020-01-18 15:49 | Operative Report ---
PG Post Operative Report Pre & Post Diagnosis Operation Date: 01/18/20 10:20 Pre-Op Diagnosis: right ureteral stone Post-Op Diagnosis: right ureteral stone I identified the patient and participated in the time-out.: Yes Procedure Operation Date: 01/18/20 10:20 Actual Procedures p Cystoscopy, Right Retrograde Pyelogram; Right Ureteral Stent Placement(Right) - Vivek Guaman DO Surgeon Vivek Guaman, II, DO Adjunct Communications Faculty Member None Estimated Blood Loss 1 Findings Consistent with Post-Op Diagnosis Stent placed in good position. Specimens None Drains 6 Fr x 24 cm Anesthesia Type MAC Complications none Disposition Disposition: Recovery Room Indications Patient with obstruction. Risks and benefits discussed at length. Description of Procedure Patient was consented and brought back to the operating room. Patient was placed under anesthesia in the supine position and moved to the dorsal lithotomy position. Patient was prepped and draped in the regular sterile fashion. A time out was completed. A 30degree Cystoscope was placed into the bladder and the entire bladder was examined. The UO's were identified. The UO was cannulized with a catheter and a retrograde pyelogram was completed. A wire was then placed. With the wire in place, a 6 Fr Double J stent was placed. It was confirmed with fluoroscopy. With the stent in place, the bladder was emptied. The scope was removed. The patient was cleaned, aroused from anesthesia, and transferred to the pacu in stable condition having arlene erated the procedure well with no complications. I was present and participated in all aspects of the procedure. The patient will be monitored in the PACU until transferred. I attest to the content of the Intraoperative Record and any orders documented therein. Any exceptions are noted below.
--- NOTE | 2020-01-18 16:00 | Fluoroscopy Report ---
FL retrograde includes kub CLINICAL HISTORY: RT LASER/STENT COMPARISON STUDY: 12/30/2019 FLUOROSCOPY TIME: 17 seconds. NUMBER OF FLUOROSCOPIC IMAGES: 3 FINDINGS: 3 intraoperative fluoroscopic spot images are provided for interpretation. The first demons trates a catheter at the level of the right renal pelvis and a guidewire within upper pole calyx. The re is dilatation of the right renal collecting system. Image #2 demonstrates the distal pigtail right -sided nephroureteral stent. Image #3 demonstrates the proximal pigtail of a right-sided nephroureter al stent. IMPRESSION: Intraprocedural fluoroscopic spot images during placement of a right-sided nephrouretera l stent ACT 112: Negative or not required by law. Electronically signed by: Paras Lipscomb M.D. 01/18/2020 3:59 PM
--- NOTE | 2020-01-18 16:31 | Anesthesiology Progress Note ---
Date of Service January 18, 2020 Anesthesia Post Procedure Vital Signs Vital Signs: Temp Pulse Pulse Pulse Resp BP BP 01/18/20 16:20 36.7 C 67 12 149/88 H 01/18/20 16:10 75 15 146/88 H 01/18/20 15:59 36.7 C 79 16 129/80 01/18/20 14:53 36.5 C 75 18 160/93 H 01/18/20 07:12 36.5 C 64 16 149/78 H 01/17/20 23:20 36.6 C 65 18 160/87 H 01/17/20 21:30 66 20 161/75 H 01/17/20 21:00 67 26 H 138/92 01/17/20 20:30 85 24 160/99 H 01/17/20 20:00 77 19 166/90 H 01/17/20 19:42 67 64 15 145/96 H 145/96 H 01/17/20 18:50 85 15 167/98 H 01/17/20 18:01 84 10 L 01/17/20 18:00 67 16 155/96 H 01/17/20 17:40 101 H 21 132/101 H 01/17/20 17:38 66 17 165/97 H 01/17/20 17:36 80 18 144/81 H 01/17/20 17:32 70 17 01/17/20 17:22 01/17/20 17:00 93 H 20 Pulse Ox 01/18/20 16:20 96 01/18/20 16:10 94 01/18/20 15:59 95 01/18/20 14:53 96 01/18/20 07:12 97 01/17/20 23:20 96 01/17/20 21:30 96 01/17/20 21:00 95 01/17/20 20:30 01/17/20 20:00 97 01/17/20 19:42 96 01/17/20 18:50 01/17/20 18:01 01/17/20 18:00 01/17/20 17:40 01/17/20 17:38 01/17/20 17:36 01/17/20 17:32 01/17/20 17:22 97 01/17/20 17:00 Pain Intensity Lower Back: Pain Intensity: 8 Transfer of Care Handoff Completed per policy Notes Mental Status: alert / awake / arousable Patient Amnestic to Procedure: Yes Nausea / Vomiting: adequately controlled Pain: adequately controlled Airway Patency, RR, SpO2: stable & adequate BP & HR: stable & adequate Hydration State: stable & adequate Anesthetic Complications: no major complications apparent
[2020-01-18] MEDS ORDERED: cefTRIAXone SODIUM 2,000 MG in DEXTROSE 5% 50 ML IV SCH (17:00)
[2020-01-18] MEDS ORDERED: Nursing to Pharmacy Communication ONE (17:10)
[2020-01-18] MEDS ORDERED: INSULIN DETEMIR FLEXPEN/FLEX TOUCH 100 UNITS/ML 3ML SQ SCH (21:00)
[2020-01-18] MEDS: POLYETHYLENE (MIRALAX) 17 GM PACK PO SCH (21:19)
[2020-01-19] MEDS: SODIUM CHLORIDE 0.9% 1000ML 1,000 ML IV SCH (05:50)
[2020-01-19] MEDS: ACETAMINOPHEN 325 MG TAB PO SCH ×2 (05:51→11:48)
[2020-01-19] MEDS: FAMOTIDINE 20 MG TAB PO SCH (07:38)
[2020-01-19] MEDS: ATORVASTATIN 40 MG TAB PO SCH (07:38)
[2020-01-19] MEDS: PANCREAZE (LIPASE 10,500U) CAP PO SCH ×2 (07:38→11:52)
[2020-01-19] MEDS: CLOPIDOGREL BISULFATE 75 MG TAB PO SCH (07:39)
[2020-01-19] MEDS: CALCIUM 600MG + VIT D 400 IU TAB PO SCH (07:39)
[2020-01-19] MEDS: ASPIRIN 325 MG ECTAB PO SCH (07:39)
[2020-01-19] MEDS: LIDOCAINE 5% 1 PATCH TD SCH (07:39)
[2020-01-19] MEDS: POLYETHYLENE (MIRALAX) 17 GM PACK PO SCH (07:40)
[2020-01-19] MEDS ORDERED: INSULIN DETEMIR FLEXPEN/FLEX TOUCH 100 UNITS/ML 3ML SQ ONE (08:45)
[2020-01-19 08:46] LABS: Mean Corpuscular Hgb Conc 31.6 g/dL (32-36); Mean Corpuscular Volume 88.6 fL (80-100); Mean Platelet Volume 9.8 fL (7.4-10.4); Platelet Count 262 K/uL (130-400); RDW Coefficient of Variation 13.9 % (11.5-14.5); RDW Standard Deviation 44.6 fL (36.4-46.3); Red Blood Count 4.29 M/uL (4.2-5.4); White Blood Count 7.92 K/uL (4.8-10.8)
[2020-01-19] MEDS ORDERED: CALCITONIN SALMON NA 200 IU/AC 3.7 ML BTL SCH (09:00)
[2020-01-19 09:12] LABS: BUN Creatinine Ratio 11.3 (10-20); Calcium 8.2 mg/dl (8.5-10.1); Creatinine Clr Calc Pharmacy 18.4 ml/min; Est GFR (African American) 28.9; Est GFR (Non-African American) 24.9; Potassium 4.4 mmol/L (3.5-5.1)
--- NOTE | 2020-01-19 09:12 | Urology Progress Note ---
Date of Service January 19, 2020 Assessment & Plan (1) Right ureteral stone: 84 yo F POD#1 s/p right ureteral stent placement secondary to obstructing 6 mm right ureteral stone. - Doing well, progressing as expected - Creatinine improved to 1.85 this am - Recommend transition to PO antibiotics upon discharge - Expected clinical course reviewed, all questions answered - Will arrange follow-up outpatient for definitive stone management Thank you for allowing us to participate in the acute care of Mrs. Torres. Please reconsult us with additional questions, concerns or changes in patient status. Subjective 84 yo F POD#1 s/p right ureteral stent placement secondary to obstructing 6 mm right ureteral stone. Awake, sitting up in bedside chair eating breakfast. No issues overnight. No f/c/n/v. Voiding spontaneously. No dysuria. Some hematuria and urgency. Tolerating stent without bother. Denies abdominal, suprapubic or flank pain. Creatinine 1.85 today. Review of Systems Constitutional: as per Subjective / HPI Gastrointestinal: as per Subjective / HPI Genitourinary: as per Subjective / HPI Physical Exam Constitutional: well developed and well nourished; no acute distress Respiratory: normal respiratory effort and able to speak in complete sentences; no respiratory distress and no labored breathing Cardiovascular: Extremities: no pedal edema Gastrointestinal (Abdomen): Inspection/Auscultation: abdomen normal to inspection; abdomen not distended Percussion/Palpation: abdomen soft; abdomen nontender and no guarding Skin: multiple skin lesions scattered over face and body Neurologic: moves all extremities and awake Psychiatric: Orientation: alert and oriented x 3 Genitourinary: no CVA tenderness Voiding spontaneously, urine not visualized during exam Results & Data Vital Signs (Past 12 Hours) Vital Signs Temp Pulse Pulse Resp BP Pulse Ox 01/19/20 07:43 36.4 C L 80 20 150/80 H 93 01/19/20 03:15 36.5 C 63 16 149/78 H 96 01/18/20 23:20 36.4 C L 61 16 135/71 97 PG Care Time/CCT Total # of Minutes Spent Total Time Spent with Patient: Total time spent is greater than 50% in coordination of care (as documented) at patient's floor/unit and/or counseling patient: Coding Level of Care Code 37647 Subseq Hosp Care Lvl 2 Diagnoses Right ureteral stone N20.1
[2020-01-19] MEDS: INSULIN ASPART 100 UNITS/ML 3 ML PEN SQ SCH ×2 (09:31→13:29)
[2020-01-19] MEDS ORDERED: SODIUM CHLORIDE 0.9% 1000ML 1,000 ML IV SCH (09:45)
--- NOTE | 2020-01-19 10:13 | Pharmacy Report ---
Pharmacy Glycemic Short Note 2 - Date of Service January 19, 2020 - Glycemic Short BSG Results (Last 24 hours): 01/18/20 01/18/20 01/18/20 12:03 16:03 17:19 Glucose POC Glucose 127 H 185 H 168 H 01/18/20 01/19/20 01/19/20 20:33 08:18 08:21 Glucose 216 H POC Glucose 215 H 208 H Outpatient Anti-diabetic Regimen: * Levemir 12 units SC HS * Novolog 7 units SC AC plus scale * A1c = 10.4 % on 01/18/20 Risk Factors for Insulin Resistance: * POD 1 s/p cystoscopy and ureteral stent placement * Diet: NPO changed to T2DM 01/18 PM ASSESSMENT: * 84 year old F with poorly controlled T2DM as outpatient now POD 1 s/p cystoscopy and ureteral stent placement. Patient now ordered a diet as of dinner last night. BSG's increasing after diet ordered * AM fasting BSG elevated to 208 mg/dL - will increase Levemir x1 this AM but maintain HS administration to help with eventual transition to outpatient (administers in HS) * May need to tighten Novolog parameters based on increase from dinner to HS yesterday - will base this on trend in BSG from breakfast to lunch today PLAN FOR INPATIENT GLYCEMIC CONTROL: * Basal insulin: Levemir 8 units SQ x1 then HS based on BSG * 8 units for BSG less than 120 mg/dL * 12 units for BSG 120-180 mg/dL * 16 units for BSG greater than 180 mg/dL * Bolus insulin: NovoLog SQ ACHS * Goal Range: Low 110 mg/dL - High 140 mg/dL * Correction Factor: 35 mg/dL/unit * Nutritional / Prandial insulin per carb ratio of 1 unit per 12 grams CHO consumed PLAN FOR DISCHARGE: * A1C on admission elevated at ~10% indicating poor glucose control outpatient - will likely need to titrate home regimen
--- NOTE | 2020-01-19 16:37 | Discharge Summary ---
Date of Service January 19, 2020 Admission HPI Per Admitting Provider Ms. Torres is an 84yo with a PMHx of recurrent kidney stones, overactive bladder, multiple TIAs, neurofibromatosis, DMII, GERD, Hx of partial pancreatectomy and a Hx of breast cancer s/p lumpectomy and tamoxifen treatment who presented today out of concern for sudden weakness and fatigue associated with changes in speech. Was found to have gross hematuria, a thoracic spine fracture, and a UTI with noted left sided kidney stones with right hydrouretonephrosis. She presents with niece who is her POA and also provides some of the Hx. States she had a fall on Sunday 01/14 while getting out of bed to walk the dogs. She lives alone but was able to get up and call for help. Did not think much of it until she had pain a few days later. Has been treating at home with [facility] and [facility]ia. Today, while at [facility] with her caregiver, she was pushing a cart but was noted to slump over suddenly and slowly continue walking with associated change to speech. Currently denies any headache, changes to vision, dysarthria or dysphagia. Denies any chest pain, SOB, palpitations, fevers, chills or night sweats, cough, sore throat or runny nose. Denies any dysuria but notes some gross hematuria. PMHx: Neurofibromatosis, TIAs, DMII, recurrent kidney stones, overactive bladder, GERD, Breast cancer, Pancreatic duct blockage. PSH: Lumpectomy for HX of breast cancer; pancreatectomy with Whipple for what was thought to be pancreatic cancer but was ?a blocked duct per niece Allergies: NKDA SH: Lives in a one prashant house alone with her dogs. Never smoker, never used recreational drugs, occasional wine drinker. Breakfast consists of toast and tea, lunch soup and half a sandwich, dinner is a [address] frozen meal. ED Course: Fluids Admission Exam Per Admitting Provider General: Alert, oriented. No acute distress, laying in bed Skin: Neurofibromas all over body including face Psych: Appropriate mood and affect Neuro: CN II-XII grossly intact, strength equal bilaterally, moves extremities bilaterally. HEENT: NC/AT Chest: Nontender to palpation. CV: RRR, Normal s1, s2. No murmurs appreciated Resp: Breath sounds clear bilaterally, no increased effort of breathing. No crackles/rhonchi/rales especially at left base. Abdomen: BS+. Soft, nontender, nondistended. No guarding. No organomegaly appreciated. Extremities: Trace edema in lower extremities bilaterally. Principal Diagnosis Right ureter stone, UTI, Hematuria, Acute Renal Failure, Compression fracture of thoracic spine Discharge Exam General: Resting comfortably HEENT: NC/AT; PERRLA with EOMI; [place] conjunctiva, MMM. No erythema of posterior pharynx Neck: Supple and nontender Cardiac: RRR Lungs: CTA bilaterally Abdomen: Bowel normoactive X 4; Nontender to palpation Extremities: Warm. No edema present Neuro: No focal weakness Skin: No rash Discharge Data Allergies Allergy/AdvReac Type Severity Reaction Status Date / Time No Known Allergies Allergy Verified 01/17/20 17:41 Consultations 01/17/20 20:08 ED Decision to Admit Stat 01/17/20 22:14 Consult Urology Routine Procedures Performed Operation Date: 01/18/20 10:20 Actual Procedures p Cystoscopy, Right Retrograde Pyelogram; Right Ureteral Stent Placement(Right) - Vivek Guaman DO Ordered Studies 01/17/20 16:32 CT head/brain wo con Stat CT thoracic spine wo con Stat 01/17/20 17:36 US renal/blad retro comp Stat 01/18/20 08:24 CT abd pelvis wo con Stat 01/18/20 14:30 FL retrograde includes kub Routine Hospital Course (1) Right ureteral stone: CT with 6 mm distal right ureter calculus and right hydroureteronephrosis noted. Urology consulted, s/p right stent placement on 01/18. NS at 80 cc/hr. Ceftriaxone for coverage of UTI/obstruction; convert to Cefdinir 300 mg BID as outpatient for 3 day course. Tylenol scheduled q6hr; Morphine prn pain. F/u with urology on 01/24/20. (2) Hydronephrosis, right: In setting of obstructing stone. S/p stent placement on 01/18. (3) Hematuria: Related to ureter stone. (4) Urinary tract infection: U/a positive for blood, leuk est, >30 WBC, >30 epithelial cells and yeast. UC >3 organisms. Repeat UC negative but was collected after receiving IV abx Cefdinir x 3 days as outpatient. (5) Acute renal failure: Creatinine increased to 2.39 on admission, in setting of obstructing stone and dehydration. Level improved to 1.8 prior to discharge. Baseline is unclear - no previous labs for comparison. Provided script for outpatient labs next week to evaluate for improvement. (6) Compression fracture of T11 vertebra: CT thoracic spine with acute moderate compression fracture of the superior endplate of T11 with 30% loss of vertebral body height and minimal retropulsion. No additional acute thoracic spine fractures. Likely related to recent fall at home on 01/14/20. Lidocaine patch; Tylenol 650 mg q6hr scheduled for pain. PT/OT - will need home health. No indication for orthopedics consult at this time. Pain was well controlled prior to discharge. (7) Diabetes: A1C is 10.4. Held home insulin. Pharmacy consulted for glycemic management. Recommend f/u with PCP to discuss BG management. (8) High cholesterol: Continued statin as prescribed. (9) Transient ischemic attack (TIA): H/o, in 2014. Continued Plavix, statin, aspirin as prescribed. Head CT showed 8 mm calcified extra-axial lesion within right middle cranial fossa - likely meningioma. (10) Breast CA: H/o; currently in remission. (11) GERD (gastroesophageal reflux disease): Pepcid 20 mg BID. (12) History of pancreatectomy: Continued home Creon TID as prescribed. (13) Overactive bladder: Continued home solifenacin 10 mg qhs. (14) Fecal impaction: CT A/P with rectal fecal impaction and colonic fecal stasis. Miralax BID scheduled. Discharged to home on 01/19/20. Total Time Total Time Spent Total Time Spent (In Minutes): >30 minutes Total Time Includes: Examination of the Patient, Discharge Planning, Medication Reconciliation, Communication With Other Providers and Other Discharge Plan Discharge Items Patient Disposition: Home - Self-Care Reason For Visit: HEMATURIA, UTI, SPINE FRACTURE Discharge Diagnosis: Hematuria, Right sided kidney stone, UTI, Thoracic compression fracture Condition on Discharge: Fair Goals: You have been hospitalized for an acute medical problem. During your stay at [facility], we have made an effort to correct the problem that brought you to the hospital while keeping you as comfortable as possible. Medications were used to bring your condition under control and your discharge instructions will include directions for any medications you should take after leaving the hospital. Please make sure you see your Primary Care Provider as part of your follow up plan. Activity: As commented below Exercise/Sports: Gradually increase as tolerated Non-emergency contact: Primary Care Provider Call non-emergency contact if: you have any medication questions, your symptoms worsen and you have a fever Follow-up/Referrals: Samantha Cohen CRNP [Nurse Practitioner] - 01/24/20 11:00 am (Please go for KUB (x-ray) prior to visit) Joyce Rasmussen [Primary Care Provider] - 01/21/20 10:30 am Diet: Carb Consistent or DM2 Ambulatory Orders: Basic Metabolic Panel (Routine) Timeframe: 5 Days Location: Determined by Patient Ordered By: Melody Ortega Attending Provider Instructions: 1. Right ureter stone * S/p stent placement. * Please follow up with urology as scheduled on 01/24/20. * Please take Cefdinir 300 mg twice daily for treatment of UTI. 2. Thoracic compression fracture * Please take Tylenol 650 mg every 6 hours as needed for pain at home. * Prescription for Lidocaine patches were sent to your pharmacy; patches can also be purchased over the counter. * Home physical therapy will be arranged. 3. Acute Renal Failure * Creatinine is now improving. * Script was provided for follow up labs -- please have labs drawn on Friday. Results will be faxed to your PCP. 4. Diabetes Mellitus * Hgb A1C is 10.4 -- please discuss glucose management with your PCP. * Resume home insulin as prescribed. Dose will need to be adjusted by your PCP. * Monitor BG with meals and at bedtime. 5. Please follow up with PCP in 1-2 weeks. Pending Studies at Discharge: Yes Studies:: Urine culture negative (prelim) Stand-Alone Forms: My [employer] Medications and DC Order Prescriptions: New acetaminophen [Mapap (acetaminophen)] 325 mg Tablet 650 mg PO Q6H PRN (Reason: pain) 1 Days Qty: 8 RF: 0 lidocaine 5 % Adhesive Patch,Medicated 1 patch transdermal QAM 5 Days Qty: 5 RF: 0 cefdinir 300 mg capsule 300 mg PO BID 3 Days Qty: 6 RF: 0 Continued solifenacin 10 mg tablet 10 mg PO HS Qty: 90 RF: 1 insulin aspart U-100 [Novolog Flexpen U-100 Insulin] 100 unit/mL (3 mL) Insulin Pen 7 unit SUBCUT AC RF: 0 Levemir U-100 Insulin 100 unit/mL Solution 12 unit SUBCUT HS RF: 0 Creon 12,000-38,000 -60,000 unit Capsule,Delayed Release(Dr/Ec) 1 cap PO TIDM RF: 0 aspirin 325 mg Tablet 325 mg PO QAM RF: 0 calcium carbonate-vitamin D3 500 mg(1,250mg) -125 unit Tablet 1 tab PO DAILY RF: 0 atorvastatin 40 mg tablet 40 mg PO DAILY RF: 0 famotidine 20 mg tablet 20 mg PO BID RF: 0 clopidogrel 75 mg tablet 75 mg PO DAILY RF: 0 Discontinued solifenacin 10 mg tablet 10 mg PO HS RF: 0 Discharge Orders: Discharge Order (Routine); Ordered 01/19/20 Ordered By: Melody Romero/Other Patient Handouts: Diabetes Senior Care Complications, Diabetes Healthy Meals, Diabetes Exercise Benefits, Kidney Stones, Diabetes Living Life, Diabetes Manage A1C Test Admission Data Admit Date/Time: 01/17/20 20:54 Attending Provider: Venu Morse Admit Provider: Lenora Mora Primary Care Provider: Joyce Rasmussen Other Providers: Wai Mohamud ; Gilmar Cota ; Arcenio Mohamud I. Coding Level of Care Code D/C Day Management >30 mins Diagnoses Right ureteral stone N20.1 Hydronephrosis, right N13.30 Hematuria R31.9 Hematuria type: unspecified type Urinary tract infection N39.0 Acute renal failure N17.9 Acute renal failure type: unspecified Compression fracture of T11 vertebra S22.080A Encounter type: initial encounter Diabetes E11.9 High cholesterol E78.00 Transient ischemic attack (TIA) G45.9 Breast CA C50.919 GERD (gastroesophageal reflux disease) K21.9 History of pancreatectomy Z90.410 Overactive bladder N32.81 Fecal impaction K56.41
--- NOTE | 2020-01-20 06:08 | Billing Data ---
Date of Service January 20, 2020 Coding Level of Care Code 80698 Initial Inpt Care Lvl 3
== END 2020-01-19 17:06 | disposition home or self-care (01) ==
LOC: ED 15:22 → 3W 20:54 → SUATTDRO 20:54 → INTOOBSV 20:54 → 3W 21:53

== ENCOUNTER 2020-08-10 20:23 | Observation (INO) ==
[2020-08-10] MEDS ORDERED: OPTIRAY 320 125ml IV ONE (20:48)
[2020-08-10 20:58] LABS: Basophils # (auto) 0.02 K/uL (0-0.2); Basophils % (auto) 0.3 %; Eosinophils % (auto) 1.4 %; Hematocrit (blood only) 40.8 % (37-47); Immature Granulocytes # (auto) 0.01 K/uL (0.00-0.02); Immature Granulocytes % (auto) 0.1 %; Lymphocytes # (auto) 1.03 K/uL (1.2-3.4); Mean Corpuscular Hemoglobin 27.6 pg (25-34); Mean Corpuscular Hgb Conc 31.9 g/dL (32-36); Mean Corpuscular Volume 86.6 fL (80-100); Mean Platelet Volume 9.8 fL (7.4-10.4); Monocytes # (auto) 1.01 K/uL (0.11-0.59); Monocytes % (auto) 13.7 %; Neutrophils # (auto) 5.21 K/uL (1.4-6.5); Neutrophils % (auto) 70.5 %; Platelet Count 245 K/uL (130-400); RDW Coefficient of Variation 15.2 % (11.5-14.5); RDW Standard Deviation 48.7 fL (36.4-46.3); Red Blood Count 4.71 M/uL (4.2-5.4); White Blood Count 7.38 K/uL (4.8-10.8)
[2020-08-10 21:09] LABS: INR 1.1 (0.9-1.1); Partial Thromboplastin Time 26.8 Seconds (21.0-31.0); Prothrombin Time 11.1 Seconds (9.0-12.0)
[2020-08-10 21:11] LABS: iSTAT Creatinine 1.2 mg/dl (0.6-1.3); iSTAT Hemoglobin 13.6 g/dl (12.0-16.0); iSTAT Ionized Calcium 1.15 mmol/l (1.12-1.32); iSTAT Potassium 4.2 mmol/L (3.3-5.0)
[2020-08-10 21:14] LABS: Alanine Aminotransferase 15 U/L (12-78); Albumin Level 3.1 gm/dl (3.4-5.0); Aspartate Aminotransferase 15 U/L (15-37); BUN Creatinine Ratio 15.8 (10-20); Blood Urea Nitrogen 22 mg/dl (7-18); Calcium 8.7 mg/dl (8.5-10.1); Carbon Dioxide 26 mmol/L (21-32); Chloride 107 mmol/L (98-107); Est GFR (African American) 41.6; Est GFR (Non-African American) 35.9; Glucose 228 mg/dl (70-99); Magnesium 1.9 mg/dl (1.8-2.4); Potassium 4.2 mmol/L (3.5-5.1); Sodium 138 mmol/L (136-145)
[2020-08-10 21:19] LABS: Albumin Globulin Ratio 0.8 (0.9-2); Alkaline Phosphatase 94 U/L (45-117); Bilirubin,Total 0.4 mg/dl (0.2-1); Globulin 3.9 gm/dl (2.5-4.0); Troponin I < 0.015 ng/ml (0-0.045)
[2020-08-10 22:25] LABS: Appearance Urine Clear (Clear); Bacteria Urine Automated Negative (Negative); Bilirubin Urine Negative (Negative); Blood Urine Trace (Negative); Cast Urine Automated 0 /lpf (0-5); Color Urine Yellow; Epithelial Cell Urine Auto >30 /lpf (0-5); Glucose Urine UA Negative (Negative); Ketones Urine Negative (Negative); Leukocyte Esterase Urine 1+ (Negative); Nitrite Urine Negative (Negative); Protein Urine Negative (Negative); RBC Urine Automated 0-4 /hpf (0-4); Specific Gravity Urine 1.037 (1.000-1.030); Urobilinogen Urine Negative (Negative)
--- NOTE | 2020-08-10 23:52 | History & Physical Report ---
Date of Service August 10, 2020 Assessment & Plan (1) TIA (transient ischemic attack): TIA Patient with history of numerous TIA's and interval stroke seen on CT of right basal ganglia without residual symptoms other than decreased memory Patient already on plavix and ASA although had been holding these Will continue these medications, and get MRI to further quantify ischemic burden and look for any new ischemic stroke admit to monitor unit to observe for arrhythmia Neurology consulted Continue statin medication may be able to increase this WIll get echo as well, loud ejection murmur CKD Secondary to recurrent stones and bilateral obstructive uropathy improved from hospitalizations previous, patient does not appear dehydrated on exam, likely at current baseline DMII Will place on insulin with ACHS checks and sliding scale Pancreatic insufficiency Continue creon capsules with food F/E/N: DMII diet when passes swallow evaluation DVT PPx:Lovenox renally dosed Dispo: Admit for MRI and neurology evaluation DNR/DNI (2) Diabetes: (3) High cholesterol: (4) Breast CA: (5) Neurofibromatosis: (6) Acute left-sided weakness: (7) Creatinine elevation: History of Present Illness Chief Complaint: Left Sided weakness Primary Care Provider: CONRADO Ponce Rosalba Torres is nn 85 year old woman with a past medical history significant for CKD secondary to obstructive uropathy from a history of recurrent kidney stones, neurofibromatosis, recurrent TIA's, DIabetes, breast cancer currently in remission, partial pancreatectomy without pancreatic cancer. She presents today for left sided weakness. She was at home and got up from the sofa where she was resting and noticed that her left side was very weak. Her caregiver noticed this and immediately called her niece who is her POA and who is present with her currently who decided to bring her urgently to the emergency department. She had no other symptoms and felt that over the next few hours her strength has now totally returned. She has not been taking plavix and asa for last 6 days because of a procedure. She has a history of multiple TIA's but no residual symptoms that her and her niece are aware of. Patient's memory has gotten much worse in the last year and patient was not able to tell me if she has had previous episodes. On presentation to ED patient had recovered and her vitals and labwork were fairly unremarkable apart from an elevated creatinine and BUN which is about her baseline. CT head showing multiple right sided basal ganglia lesions age indeterminate but new since February imaging. 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 Neck CTA negative for carotid stenosis. Allergies Allergy/AdvReac Type Severity Reaction Status Date / Time No Known Allergies Allergy Verified 07/24/20 14:04 Home Medications Home Medications Medication Instructions Recorded Confirmed Type Creon 1 cap PO TIDM 06/11/19 08/10/20 History Levemir U-100 Insulin 10 unit SUBCUT HS 06/11/19 08/10/20 History calcium carbonate-vitamin D3 1 tab PO QAM 06/11/19 08/10/20 History insulin aspart U-100 [Novolog 4 unit SUBCUT AC 06/11/19 08/10/20 History Flexpen U-100 Insulin] famotidine [Pepcid] 20 mg PO BID 01/17/20 08/10/20 History solifenacin [Vesicare] 10 mg PO HS 02/10/20 08/10/20 History atorvastatin 40 mg tablet 20 mg PO QPM tab 07/10/20 08/10/20 History aspirin [Aspirin Childrens] 81 mg PO DAILY #30 tab 08/11/20 Rx ticagrelor [Brilinta] 90 mg PO BID #30 tab 08/11/20 Rx Past Med/Surg History Medical History Compression fracture of T11 vertebra s/p fall 12/2019 Diabetes mellitus, type 2 Exocrine pancreatic insufficiency GERD (gastroesophageal reflux disease) Hearing deficit History of TIAs NO RESIDUAL EFFECTS- 2014 per records Hx of fall HX: breast cancer LUMPECTOMY - LEFT BREAST; NO RADIATION, NO CHEMO; WAS ON TAMOXIFEN FOR 5 YR - NO LONGER TAKING Hyperlipidemia Kidney stones 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 [facility]. LMA #4. No issues. History of cystoscopy 02/10/2020 [facility] History of lumpectomy of left breast History of pancreatectomy PARTIAL ([place]) History of ureter stent Hx of colonoscopy Family History Other No pertinent family history in first degree relatives Social History Smoking Status: Never smoker Second Hand Exposure: No; Hx Alcohol Use: Yes (RARE) Alcohol type: wine Hx Substance Use: No Preferred Language: Luxembourger Communication Ability: Effective Grading Machine Feeder Required: No Beliefs That Will Affect Care: None marital status: Single Current Living Situation: Alone Feels Safe at Home: Yes Review of Systems Review of Systems: All systems reviewed & are unremarkable except as noted in HPI & below Physical Exam Physical Exam: Constitutional: Well appearing 85 year old woman covered in neurofibromas, no apparent distress Eyes: Anicteric sclera, EOMMI bilaterally, neurofibromatosis lesions in bilateral irises ENMT: NAD REspiratory: Lung sounds vesicular good air entry globally no increased work of breathing Cardiovascular, Regular rate regular rhythm, Loud systolic ejection murmur, peripheral pulses intact and equal bilaterally GI: Abdomen soft and nontender no masses Skin: Covered in hundreds of neurofibromas Neuro: Moving all four extremities spontaneously, strength equal in all extremities, CN II-XII examined and intact, no Results & Data Results & Data ([facility]) Vital Signs (Past 12 Hours) Vital Signs Temp Pulse Resp BP Pulse Ox 08/10/20 23:01 93 H 22 96 08/10/20 23:00 87 24 106/51 L 95 08/10/20 22:46 91 H 23 95 08/10/20 22:45 95 H 17 108/58 L 95 08/10/20 22:31 90 24 94 08/10/20 22:30 90 24 100/52 L 94 08/10/20 22:16 86 23 94 08/10/20 22:15 89 25 H 121/57 L 95 08/10/20 22:00 93 H 17 125/68 95 08/10/20 21:30 89 25 H 114/60 94 08/10/20 21:15 91 H 24 129/66 94 08/10/20 20:56 78 23 128/70 97 08/10/20 20:44 97 08/10/20 20:40 105 H 19 147/75 H 97 08/10/20 20:27 36.8 C 62 20 136/67 98 Supervising Physician Co-Signing Physician Notes Attending addendum: I have physically seen this patient, have supervised the medical residents activities, and agree with the H&P unless as otherwise noted. Assessment and Plan: TIA versus CVA- Age-indeterminate right basal ganglia CVA, new since most recent CT. Continue aspirin and Plavix Order MRI brain without contrast. Stroke without TPA protocol order set Order echocardiogram Consult PT/OT/neurology/manager social work Diabetes mellitus- Placed on Accu-Cheks before meals and at bedtime with NovoLog coverage per scale Pancreatic insufficiency- Creon capsules with food. CKD- Creatinine near baseline Follow laboratory serially Remaining orders and notations as noted. Resident Activity Tracking Resident Involvement: Resident Care Provided Care Provided: Adult Hospital Medicine
[2020-08-11] MEDS ORDERED: PHARMACIST DISCHARGE MED REC CONSULT PRN (00:06)
--- NOTE | 2020-08-11 00:21 | Emergency Department Note ---
History of Present Illness General Chief complaint: Neuro Symptoms/Deficit Stated complaint: INCONTINENCE, LEANING TO SIDE, FACIAL DROOP Time Seen by Provider: 08/10/20 20:34 History of Present Illness Provider complaint: Difficulty walking facial droop Onset (ago): day(s) 1 Location: head Maximum Pain Intensity: 0 Associated symptoms: + weakness; no confusion, no cough, no fever/chills, no headaches, no nausea/vomiting and no shortness of breath 85-year-old female presents emergency department with her niece at bedside. Niece reports that the patient has been off of her Plavix and aspirin for the last 6 days due to a recent procedure. Niece reports that the patient's home health aide reported that today she was stumbling and having difficulty walking. She also reported that the patient was incontinent of urine. Patient denies any back pain. Niece reports that the patient earlier had a left-sided facial droop which has since improved. Niece reports that she saw the patient before she went to bed yesterday August 09, 2020 at 8:30 PM and she was totally normal, that was the patient's last known normal. Per the niece the patient does have a history of strokes and TIAs. Home Medications Home Medications Medication Instructions Recorded Confirmed Type Creon 1 cap PO TIDM 06/11/19 08/10/20 History Levemir U-100 Insulin 10 unit SUBCUT HS 06/11/19 08/10/20 History calcium carbonate-vitamin D3 1 tab PO QAM 06/11/19 08/10/20 History insulin aspart U-100 [Novolog 4 unit SUBCUT AC 06/11/19 08/10/20 History Flexpen U-100 Insulin] famotidine [Pepcid] 20 mg PO BID 01/17/20 08/10/20 History aspirin 325 mg PO QAM #0 tab 02/10/20 08/10/20 Rx clopidogrel [Plavix] 75 mg PO QAM #0 tab 02/10/20 08/10/20 Rx solifenacin [Vesicare] 10 mg PO HS 02/10/20 08/10/20 History atorvastatin 40 mg tablet 20 mg PO QPM tab 07/10/20 08/10/20 History Allergies Allergy/AdvReac Type Severity Reaction Status Date / Time No Known Allergies Allergy Verified 07/24/20 14:04 Past Med/Surg History Medical History Compression fracture of T11 vertebra s/p fall 12/2019 Diabetes mellitus, type 2 Exocrine pancreatic insufficiency GERD (gastroesophageal reflux disease) Hearing deficit History of TIAs NO RESIDUAL EFFECTS- 2014 per records Hx of fall HX: breast cancer LUMPECTOMY - LEFT BREAST; NO RADIATION, NO CHEMO; WAS ON TAMOXIFEN FOR 5 YR - NO LONGER TAKING Hyperlipidemia Kidney stones 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 [facility]. LMA #4. No issues. History of cystoscopy 02/10/2020 [facility] History of lumpectomy of left breast History of pancreatectomy PARTIAL ([place]) History of ureter stent Hx of colonoscopy Family History Other No pertinent family history in first degree relatives Social History Smoking Status: Never smoker Second Hand Exposure: No; Hx Alcohol Use: Yes (RARE) Alcohol type: wine Hx Substance Use: No Preferred Language: Andorran Communication Ability: SEE BELOW Speech Pathology Assistant Required: No Beliefs That Will Affect Care: None marital status: Single Current Living Situation: Alone Feels Safe at Home: Yes Review of Systems A total of 10 systems reviewed and were otherwise negative Physical Exam Vital Signs Vital Signs - 24 hr 08/10/20 20:27 08/10/20 20:40 08/10/20 20:44 Temperature 36.8 C Temperature Source Oral Pulse Rate 62 105 H Pulse Rate from SpO2 Sensor 62 Respiratory Rate 20 19 Respiratory Effort / Characteristics Non-Labored Spontaneous Respiratory Depth Normal Respiratory Pattern Regular Blood Pressure 136/67 147/75 H Blood Pressure Mean 90 108 Pulse Oximetry 98 97 97 Oxygen Delivery Method Room Air Room Air Sepsis Recent Fever Within 48 Hours No Sepsis New/Unexplained Change in Mental Status N/A Sepsis Action Taken by Nursing No Action Required 08/10/20 20:56 08/10/20 21:15 08/10/20 21:30 Temperature Temperature Source Pulse Rate 78 91 H 89 Pulse Rate from SpO2 Sensor 68 85 86 Respiratory Rate 23 24 25 H Respiratory Effort / Characteristics Respiratory Depth Respiratory Pattern Blood Pressure 128/70 129/66 114/60 Blood Pressure Mean 81 71 75 Pulse Oximetry 97 94 94 Oxygen Delivery Method Sepsis Recent Fever Within 48 Hours Sepsis New/Unexplained Change in Mental Status Sepsis Action Taken by Nursing 08/10/20 22:00 08/10/20 22:15 08/10/20 22:16 Temperature Temperature Source Pulse Rate 93 H 89 86 Pulse Rate from SpO2 Sensor 90 90 89 Respiratory Rate 17 25 H 23 Respiratory Effort / Characteristics Respiratory Depth Respiratory Pattern Blood Pressure 125/68 121/57 L Blood Pressure Mean 78 64 Pulse Oximetry 95 95 94 Oxygen Delivery Method Sepsis Recent Fever Within 48 Hours Sepsis New/Unexplained Change in Mental Status Sepsis Action Taken by Nursing 08/10/20 22:30 08/10/20 22:31 08/10/20 22:45 Temperature Temperature Source Pulse Rate 90 90 95 H Pulse Rate from SpO2 Sensor 88 89 81 Respiratory Rate 24 24 17 Respiratory Effort / Characteristics Respiratory Depth Respiratory Pattern Blood Pressure 100/52 L 108/58 L Blood Pressure Mean 62 77 Pulse Oximetry 94 94 95 Oxygen Delivery Method Sepsis Recent Fever Within 48 Hours Sepsis New/Unexplained Change in Mental Status Sepsis Action Taken by Nursing 08/10/20 22:46 08/10/20 23:00 08/10/20 23:01 Temperature Temperature Source Pulse Rate 91 H 87 93 H Pulse Rate from SpO2 Sensor 69 87 92 H Respiratory Rate 23 24 22 Respiratory Effort / Characteristics Respiratory Depth Respiratory Pattern Blood Pressure 106/51 L Blood Pressure Mean 68 Pulse Oximetry 95 95 96 Oxygen Delivery Method Sepsis Recent Fever Within 48 Hours Sepsis New/Unexplained Change in Mental Status Sepsis Action Taken by Nursing 08/10/20 23:15 08/10/20 23:30 08/10/20 23:45 Temperature Temperature Source Pulse Rate 91 H 94 H 90 Pulse Rate from SpO2 Sensor 91 H 84 69 Respiratory Rate 24 24 24 Respiratory Effort / Characteristics Respiratory Depth Respiratory Pattern Blood Pressure 104/64 108/55 L 109/61 Blood Pressure Mean 72 76 79 Pulse Oximetry 93 93 94 Oxygen Delivery Method Sepsis Recent Fever Within 48 Hours Sepsis New/Unexplained Change in Mental Status Sepsis Action Taken by Nursing Physical Exam GENERAL: She is oriented to person, place, and time. She appears well-developed and well-nourished. She does not appear distressed. HENT: Exam performed. -Head: Normocephalic and atraumatic. -Right Ear: External ear normal. No mastoid tenderness. -Left Ear: External ear normal. No mastoid tenderness. -Mouth/Throat: The oropharynx is clear and moist. No trismus in the jaw. No dental abscesses or uvula swelling. No oropharyngeal exudate or tonsillar abscesses. EYES: Conjunctivae and EOM are normal. Pupils are equal, round, and reactive to light. Right eye exhibits no discharge. Left eye exhibits no discharge. No scleral icterus. NECK: Normal range of motion. Neck supple. No JVD present. No spinous process tenderness present. No carotid bruit present. No rigidity. No tracheal deviation and normal range of motion present. No Brudzinski's sign and no Kernig's sign noted. CV: Normal rate, regular rhythm, normal heart sounds and intact distal pulses. There is no peripheral edema. Palpable radial pulses bue. PULM/CHEST: Effort normal and breath sounds normal. No respiratory distress. No stridor. She has no wheezes. She has no rales. -Chest Wall: She exhibits no tenderness. ABD: The abdomen is soft. Bowel sounds are normal. She has no distension. No mass is present. There is no tenderness. There is no rebound, no guarding, no Keane's sign and no tenderness at McBurney's point. Rovsig negative MUSC/SKEL: Normal range of motion. There is no peripheral edema, tenderness or deformity. LYMPH: No cervical adenopathy. NEURO:NIHSS: 2 (6A: 1, 7: 1) SKIN: Patient has neurofibromatosis. PSYCH: She has a normal mood and affect. Behavior is normal. Judgment and thought content normal. Course Course 2033: The patient was evaluated in room B4. A complete history and physical exam was performed. No code stroke was called on the patient given her last known normal was almost 24 hours ago and the patient's low NIH stroke scale. Cardiac monitoring: An order was placed for continuous cardiac monitoring. The monitor shows a rate of 100 with sinus rhythm 5: Vital signs stable. CT shows no large infarct or ICH. Patient will be admitted for TIA/CVA. [facility] hospitalist Dr. Gutierrez notified. [id number]: Nursing staff was concerned that the patient might have a heart block on lens engraver. Repeat EKG shows sinus tachycardia with a rate of 101. MT interval 210. QRS 72. QTc 518. PVCs are present. There is no identified heart block on the EKG. No ST elevation or ST depression. Administered Medications Discontinued Medications Ioversol (Optiray 320 125ml) 120 ml IV ONCE ONE Stop: 08/10/20 20:49 Last Admin: 08/10/20 20:48 Dose: 120 ml Documented by: [id number] Medical Decision Making Laboratory Data Result diagrams: 08/10/20 20:51 08/10/20 20:51 Lab Results 08/10/20 08/10/20 08/10/20 Range/Units 20:51 20:51 20:51 WBC 7.38 (4.8-10.8) K/uL RBC 4.71 (4.2-5.4) M/uL Hgb 13.0 (12.0-16.0) g/dL POC Hgb (12.0-16.0) g/dl Hct 40.8 (37-47) % POC Hct (37-47) % MCV 86.6 (80-100) fL MCH 27.6 (25-34) pg MCHC 31.9 L (32-36) g/dL RDW Std Deviation 48.7 H (36.4-46.3) fL RDW Coeff of Flako 15.2 H (11.5-14.5) % Plt Count 245 (130-400) K/uL MPV 9.8 (7.4-10.4) fL Immature Gran % (Auto) 0.1 % Neut % (Auto) 70.5 % Lymph % (Auto) 14.0 % Bremer % (Auto) 13.7 % Eos % (Auto) 1.4 % Baso % (Auto) 0.3 % Neut # (Auto) 5.21 (1.4-6.5) K/uL Lymph # (Auto) 1.03 L (1.2-3.4) K/uL Bremer # (Auto) 1.01 H (0.11-0.59) K/uL Eos # (Auto) 0.10 (0-0.5) K/uL Baso # (Auto) 0.02 (0-0.2) K/uL Immature Gran # (Auto) 0.01 (0.00-0.02) K/uL PT 11.1 (9.0-12.0) Seconds INR 1.1 (0.9-1.1) APTT 26.8 (21.0-31.0) Seconds PTT Ratio 1.0 POC Sodium (135-144) mmol/L Sodium (136-145) mmol/L POC Potassium (3.3-5.0) mmol/L Potassium (3.5-5.1) mmol/L POC Chloride (101-112) mmol/L Chloride (98-107) mmol/L Carbon Dioxide (21-32) mmol/L POC Total CO2 (24-31) mmol/L Anion Gap (3-11) POC Anion Gap (16-25) mmol/L POC BUN (7-18) mg/dl BUN (7-18) mg/dl Creatinine (0.6-1.2) mg/dl POC Creatinine (0.6-1.3) mg/dl Est Cr Clr Drug Dosing ml/min Est GFR ( Amer) Est GFR (Non-Af Amer) BUN/Creatinine Ratio (10-20) Glucose (70-99) mg/dl POC Glucose (70-99) mg/dl POC Glucose (other) (70-99) mg/dl Calcium (8.5-10.1) mg/dl POC Ioniz Calcium Carmen (1.12-1.32) mmol/l Magnesium (1.8-2.4) mg/dl Total Bilirubin (0.2-1) mg/dl AST (15-37) U/L ALT (12-78) U/L Alkaline Phosphatase (45-117) U/L Troponin I (0-0.045) ng/ml Total Protein (6.4-8.2) gm/dl Albumin (3.4-5.0) gm/dl Globulin (2.5-4.0) gm/dl Albumin/Globulin Ratio (0.9-2) Urine Color Urine Appearance (Clear) Urine pH (4.5-7.5) Ur Specific Custar (1.000-1.030) Urine Protein (Negative) Urine Glucose (UA) (Negative) Urine Ketones (Negative) Urine Blood (Negative) Urine Nitrite (Negative) Urine Bilirubin (Negative) Urine Urobilinogen (Negative) Ur Leukocyte Esterase (Negative) Urine WBC (Auto) (0-5) /hpf Urine RBC (Auto) (0-4) /hpf U Hyaline Cast (Auto) (0-5) /lpf U Epithel Cells (Auto) (0-5) /lpf Urine Bacteria (Auto) (Negative) Blood Type O Positive Antibody Screen NEGATIVE 08/10/20 08/10/20 08/10/20 Range/Units 20:51 20:55 20:55 WBC (4.8-10.8) K/uL RBC (4.2-5.4) M/uL Hgb (12.0-16.0) g/dL POC Hgb 13.6 (12.0-16.0) g/dl Hct (37-47) % POC Hct 40 (37-47) % MCV (80-100) fL MCH (25-34) pg MCHC (32-36) g/dL RDW Std Deviation (36.4-46.3) fL RDW Coeff of Flako (11.5-14.5) % Plt Count (130-400) K/uL MPV (7.4-10.4) fL Immature Gran % (Auto) % Neut % (Auto) % Lymph % (Auto) % Bremer % (Auto) % Eos % (Auto) % Baso % (Auto) % Neut # (Auto) (1.4-6.5) K/uL Lymph # (Auto) (1.2-3.4) K/uL Bremer # (Auto) (0.11-0.59) K/uL Eos # (Auto) (0-0.5) K/uL Baso # (Auto) (0-0.2) K/uL Immature Gran # (Auto) (0.00-0.02) K/uL PT (9.0-12.0) Seconds INR (0.9-1.1) APTT (21.0-31.0) Seconds PTT Ratio POC Sodium 139 (135-144) mmol/L Sodium 138 (136-145) mmol/L POC Potassium 4.2 (3.3-5.0) mmol/L Potassium 4.2 (3.5-5.1) mmol/L POC Chloride 102 (101-112) mmol/L Chloride 107 (98-107) mmol/L Carbon Dioxide 26 (21-32) mmol/L POC Total CO2 23 L (24-31) mmol/L Anion Gap 6.0 (3-11) POC Anion Gap 18.0 (16-25) mmol/L POC BUN 23 H (7-18) mg/dl BUN 22 H (7-18) mg/dl Creatinine 1.36 H (0.6-1.2) mg/dl POC Creatinine 1.2 (0.6-1.3) mg/dl Est Cr Clr Drug Dosing 29.0 ml/min Est GFR ( Amer) 41.6 Est GFR (Non-Af Amer) 35.9 BUN/Creatinine Ratio 15.8 (10-20) Glucose 228 H (70-99) mg/dl POC Glucose 216 H (70-99) mg/dl POC Glucose (other) 226 H (70-99) mg/dl Calcium 8.7 (8.5-10.1) mg/dl POC Ioniz Calcium Carmen 1.15 (1.12-1.32) mmol/l Magnesium 1.9 (1.8-2.4) mg/dl Total Bilirubin 0.4 (0.2-1) mg/dl AST 15 (15-37) U/L ALT 15 (12-78) U/L Alkaline Phosphatase 94 (45-117) U/L Troponin I < 0.015 (0-0.045) ng/ml Total Protein 7.0 (6.4-8.2) gm/dl Albumin 3.1 L (3.4-5.0) gm/dl Globulin 3.9 (2.5-4.0) gm/dl Albumin/Globulin Ratio 0.8 L (0.9-2) Urine Color Urine Appearance (Clear) Urine pH (4.5-7.5) Ur Specific Custar (1.000-1.030) Urine Protein (Negative) Urine Glucose (UA) (Negative) Urine Ketones (Negative) Urine Blood (Negative) Urine Nitrite (Negative) Urine Bilirubin (Negative) Urine Urobilinogen (Negative) Ur Leukocyte Esterase (Negative) Urine WBC (Auto) (0-5) /hpf Urine RBC (Auto) (0-4) /hpf U Hyaline Cast (Auto) (0-5) /lpf U Epithel Cells (Auto) (0-5) /lpf Urine Bacteria (Auto) (Negative) Blood Type Antibody Screen 09/17/20 Range/Units 21:45 WBC (4.8-10.8) K/uL RBC (4.2-5.4) M/uL Hgb (12.0-16.0) g/dL POC Hgb (12.0-16.0) g/dl Hct (37-47) % POC Hct (37-47) % MCV (80-100) fL MCH (25-34) pg MCHC (32-36) g/dL RDW Std Deviation (36.4-46.3) fL RDW Coeff of Flako (11.5-14.5) % Plt Count (130-400) K/uL MPV (7.4-10.4) fL Immature Gran % (Auto) % Neut % (Auto) % Lymph % (Auto) % Bremer % (Auto) % Eos % (Auto) % Baso % (Auto) % Neut # (Auto) (1.4-6.5) K/uL Lymph # (Auto) (1.2-3.4) K/uL Bremer # (Auto) (0.11-0.59) K/uL Eos # (Auto) (0-0.5) K/uL Baso # (Auto) (0-0.2) K/uL Immature Gran # (Auto) (0.00-0.02) K/uL PT (9.0-12.0) Seconds INR (0.9-1.1) APTT (21.0-31.0) Seconds PTT Ratio POC Sodium (135-144) mmol/L Sodium (136-145) mmol/L POC Potassium (3.3-5.0) mmol/L Potassium (3.5-5.1) mmol/L POC Chloride (101-112) mmol/L Chloride (98-107) mmol/L Carbon Dioxide (21-32) mmol/L POC Total CO2 (24-31) mmol/L Anion Gap (3-11) POC Anion Gap (16-25) mmol/L POC BUN (7-18) mg/dl BUN (7-18) mg/dl Creatinine (0.6-1.2) mg/dl POC Creatinine (0.6-1.3) mg/dl Est Cr Clr Drug Dosing ml/min Est GFR ( Amer) Est GFR (Non-Af Amer) BUN/Creatinine Ratio (10-20) Glucose (70-99) mg/dl POC Glucose (70-99) mg/dl POC Glucose (other) (70-99) mg/dl Calcium (8.5-10.1) mg/dl POC Ioniz Calcium Carmen (1.12-1.32) mmol/l Magnesium (1.8-2.4) mg/dl Total Bilirubin (0.2-1) mg/dl AST (15-37) U/L ALT (12-78) U/L Alkaline Phosphatase (45-117) U/L Troponin I (0-0.045) ng/ml Total Protein (6.4-8.2) gm/dl Albumin (3.4-5.0) gm/dl Globulin (2.5-4.0) gm/dl Albumin/Globulin Ratio (0.9-2) Urine Color Yellow Urine Appearance Clear (Clear) Urine pH 5.0 (4.5-7.5) Ur Specific Custar 1.037 H (1.000-1.030) Urine Protein Negative (Negative) Urine Glucose (UA) Negative (Negative) Urine Ketones Negative (Negative) Urine Blood Trace H (Negative) Urine Nitrite Negative (Negative) Urine Bilirubin Negative (Negative) Urine Urobilinogen Negative (Negative) Ur Leukocyte Esterase 1+ H (Negative) Urine WBC (Auto) 10-30 H (0-5) /hpf Urine RBC (Auto) 0-4 (0-4) /hpf U Hyaline Cast (Auto) 0 (0-5) /lpf U Epithel Cells (Auto) >30 H (0-5) /lpf Urine Bacteria (Auto) Negative (Negative) Blood Type Antibody Screen Imaging Data Radiologist's Impression: PreliminaryFindingsOnly See Final Report For Complete Findings CTAHEAD: No arterial occlusion. Moderate to severe stenosiswithin the proximal right BOOK AGENT. Scattered luminal narrowing within the left BOOK AGENT, moderate. Mild to moderate stenosiswithin the M1 right MCA. No aneurysm. Radiologist: Scottie Carnes MD Study ready at 21:21 and initial results transmitted at 21:36 PreliminaryFindingsOnly See Final Report For Complete Findings CT HEAD: Advanced chronic microvascular ischemic changes. Age-indeterminate lacunar infarctswithin the right basal ganglia region. These appear newfromthe prior on 03/16/2020 however are age indeterminate. No grosslyevident cortical infarct however evaluation is limited bythe significant white matter changes. Consider MRI. No hemorrhage. Radiologist: Scottie Carnes MD Study ready at 21:21 and initial results transmitted at 21:31 PreliminaryFindingsOnly See Final Report For Complete Findings CTANECK: No arterial occlusion or high-grade stenosis. There is a beaded appearance of the vertebral arteries in the distal V2/V3 segments bilaterallywhich can be seen in setting of fibromuscular dysplasia. Extensive nodules on the skin surface suggestive of neurofibromatosis. Multiple thyroid nodules measuring up to 1.6 cm. Consider outpatient thyroid ultrasound. Radiologist: Scottie Carnes MD Study ready at 21:34 and initial results transmitted at 21:56 ECG Data Additional Comments: EKG #1 at 2043: Sinus rhythm with rate of 84. MT and QTc intervals are within normal limits. QRS 74. PVCs present. No ST elevation or ST depression. EKG #2 at 2345: sinus tachycardia with a rate of 101. MT interval 210. QRS 72. QTc 518. PVCs are present. There is no identified heart block on the EKG. No ST elevation or ST depression. MDM Narrative 2033: The patient was evaluated in room B4. A complete history and physical exam was performed. No code stroke was called on the patient given her last known normal was almost 24 hours ago and the patient's low NIH stroke scale. Cardiac monitoring: An order was placed for continuous cardiac monitoring. The monitor shows a rate of 100 with sinus rhythm 2204: Vital signs stable. CT shows no large infarct or ICH. Patient will be admitted for TIA/CVA. [facility] hospitalist Dr. Gutierrez notified. 5: Nursing staff was concerned that the patient might have a heart block on lens engraver. Repeat EKG shows sinus tachycardia with a rate of 101. MT interval 210. QRS 72. QTc 518. PVCs are present. There is no identified he art block on the EKG. No ST elevation or ST depression. Impression & Plan TIA (transient ischemic attack) Discharge Plan Visit Data Chief Complaint: Neuro Symptoms/Deficit Stated Complaint: INCONTINENCE, LEANING TO SIDE, FACIAL DROOP ED Provider: Eliezer Ibarra Discharge Problem: TIA (transient ischemic attack) Patient Disposition: Admitted As Inpatient Discharge Instructions Interventions: ED Discharge Assessment Last Done: 08/10/20 23:57
[2020-08-11] MEDS ORDERED: GLUCOSE 10 TABS/TUBE PO PRN (00:26)
[2020-08-11] MEDS ORDERED: DEXTROSE 50% 50 ML SYRINGE IV PRN (00:26)
[2020-08-11] MEDS ORDERED: GLUCOSE 40% GEL 15 GM TUBE PO PRN (00:26)
[2020-08-11] MEDS ORDERED: GLUCAGON FOR INJ 1 MG VIAL SQ PRN (00:26)
--- NOTE | 2020-08-11 06:50 | CT Scan Report ---
CT head/brain wo con CLINICAL HISTORY: Stroke evaluation CONFUSION, LEFT FACIAL DROOP, LEANING TO THE LEFT COMPARISON STUDY: 03/16/2020 TECHNIQUE: Axial CT of the brain is performed from the vertex to the skull base. IV contrast was not administered for this examination. A dose lowering technique was utilized adhering to the principles of ALARA. CT DOSE: FINDINGS: No intra or extra-axial mass lesions are visualized. There is no CT evidence of acute cortical infarc tion. There is no evidence of midline shift. There is no acute hemorrhage. No calvarial fractures ar e visualized. There are moderate white matter hypodensities likely on a small vessel basis. There is an old right b damian ganglial lacunar infarct. There is no evidence of pathologic ventricular dilatation. There is no evidence of acute sinusitis. There is a right occipital scalp sebaceous cyst IMPRESSION: No acute intracranial findings ACT 112: Negative or not required by law. Electronically signed by: Paras Lipscomb M.D. 08/11/2020 6:48 AM
--- NOTE | 2020-08-11 07:12 | CT Scan Report ---
CT angio neck with con, CT angio head w con CLINICAL HISTORY: 85 years-old Female with Stroke evaluation. Acute strokelike symptoms COMPARISON STUDY: Head CT 08/10/2020. TECHNIQUE: Following the IV administration of 120 mL of Optiray 320, CT angiogram of the head and nec k was performed from the aortic arch to the skull apex. Images are reviewed in the axial, sagittal, a nd coronal planes. 3-D MIPS images are created and assessed. IV contrast was administered without com plication. All measurements were calculated based on NASCET criteria. A dose lowering technique was utilized adhering to the principles of ALARA. CT DOSE: 1082.34 mGy.cm FINDINGS: The imaged opacified pulmonary arterial tree is unremarkable. Mixed plaque of the thoracic aortic arc h with patency of the imaged great vessels. The innominate and image bilateral subclavian arteries ar e patent. Widely patent common carotid arteries. There is no significant atherosclerotic plaquing of the carotid bulbs. There is mild calcified plaque of the supraclinoid internal carotid arteries. The bilateral internal carotid arteries are widely patent. There is a focal area of approximately 50% lum inal narrowing involving the proximal right M1 segment, image 105 series 5. Additional mild luminal n arrowing involves the distal right M1 segment just proximal to the trifurcation. There is mild multif ocal luminal narrowing of the left middle cerebral artery. Developmentally diminutive left A1 segment . Anterior cerebral arteries and anterior communicating artery are patent. Codominant vertebral arteries. Mild narrowing of the proximal V2 segment at the level of C7 secondary to uncovertebral spurring. There is multifocal luminal irregularity with mild narrowing noted involv ing the bilateral distal V2 segments at the level of C2. The vertebral arteries are otherwise unremar kable and widely patent. Basilar artery is normal and patent. There is a 3 mm segment of high-grade l uminal narrowing involving the mid P1 segment right posterior cerebral artery on image 98 series 5. M ild to moderate luminal narrowing involves the distal right P1 segment. origin of the left post erior cerebral artery is patent with mild to moderate multifocal luminal narrowing. Cerebral venous s inuses are patent. There is no abnormal intracranial enhancement. Age-related involutional changes. M ild patchy white matter hypodensities suggest chronic microvascular ischemic disease. Calcified 10 mm lesion within the right middle cranial fossa is suggestive of a probable meningioma. No pneumothorax. Multinodular thyroid. Numerous skin nodules suggest neurofibromatosis. Degenerative changes of the spine. Mastoid air cells are clear. No acute fracture. IMPRESSION: 1. 3 mm segment of high-grade stenosis involves the mid P1 segment of the right posterior cerebral ar michelle. 2. Focal short segment 50% stenosis involves the proximal right M1 segment. 3. Mild to moderate multifocal luminal narrowing of the bilateral posterior cerebral arteries. 4. 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 ACT 112: Negative or not required by law. The above report was generated using voice recognition software. It may contain grammatical, syntax o r spelling errors. Electronically signed by: Brett Solitario M.D. 08/11/2020 7:10 AM
[2020-08-11 07:35] LABS: Basophils # (auto) 0.02 K/uL (0-0.2); Basophils % (auto) 0.4 %; Eosinophils # (auto) 0.16 K/uL (0-0.5); Eosinophils % (auto) 3.3 %; Hematocrit (blood only) 37.9 % (37-47); Hemoglobin 12.2 g/dL (12.0-16.0); Immature Granulocytes # (auto) 0.01 K/uL (0.00-0.02); Immature Granulocytes % (auto) 0.2 %; Lymphocytes # (auto) 1.53 K/uL (1.2-3.4); Lymphocytes % (auto) 31.9 %; Mean Corpuscular Hemoglobin 28.2 pg (25-34); Mean Corpuscular Hgb Conc 32.2 g/dL (32-36); Mean Corpuscular Volume 87.5 fL (80-100); Mean Platelet Volume 9.7 fL (7.4-10.4); Monocytes # (auto) 0.76 K/uL (0.11-0.59); Monocytes % (auto) 15.9 %; Neutrophils # (auto) 2.31 K/uL (1.4-6.5); Neutrophils % (auto) 48.3 %; Platelet Count 218 K/uL (130-400); RDW Coefficient of Variation 15.3 % (11.5-14.5); RDW Standard Deviation 49.5 fL (36.4-46.3); Red Blood Count 4.33 M/uL (4.2-5.4); White Blood Count 4.79 K/uL (4.8-10.8)
[2020-08-11] MEDS: INSULIN ASPART 100 UNITS/ML 3 ML PEN SC SCH ×3 (07:52→16:12)
[2020-08-11] MEDS: VESICARE~ORDER AWAITING ACTION SCH ×2 (07:54→15:56)
[2020-08-11 07:58] LABS: Calcium 8.5 mg/dl (8.5-10.1); Creatinine Clr Calc Pharmacy 25.3 ml/min; Est GFR (African American) 45.2
[2020-08-11] MEDS: PANCREAZE (LIPASE 10,500U) CAP PO SCH ×2 (07:59→12:30)
[2020-08-11 08:23] LABS: Estimated Average Glucose 200 mg/dl; Hemoglobin A1C 8.6 % (4.5-5.6)
--- NOTE | 2020-08-11 08:36 | Electrocardiogram Report ---
Test Reason : Blood Pressure : / mmHG Vent. Rate : 084 BPM Atrial Rate : 084 BPM P-R Int : 188 ms QRS Dur : 074 ms QT Int : 388 ms P-R-T Axes : 063 -31 036 degrees QTc Int : 458 ms Sinus rhythm with frequent Premature ventricular complexes Left atrial enlargement Left axis deviation Low voltage QRS Poor R wave progression, consider anterior FL vs. lead placement vs. LVH Abnormal ECG When compared with ECG of 16-MAY-2020 09:48, Premature ventricular complexes are now Present Minimal criteria for Inferior infarct are no longer Present Confirmed by Umberto Paulino ([id number]) on 08/11/2020 8:35:44 AM Referred By: REFERRED SELF Confirmed By:Umberto Paulino
--- NOTE | 2020-08-11 08:40 | Electrocardiogram Report ---
Test Reason : Blood Pressure : / mmHG Vent. Rate : 101 BPM Atrial Rate : 101 BPM P-R Int : 210 ms QRS Dur : 072 ms QT Int : 400 ms P-R-T Axes : 053 -40 046 degrees QTc Int : 518 ms Sinus tachycardia with 1st degree A-V block with frequent , and consecutive Premature ventricular com plexes Left atrial enlargement Left axis deviation Low voltage QRS Poor R wave progression, consider anterior OH vs. lead placement vs. LVH Abnormal ECG When compared with ECG of 10-AUG-2020 20:44, No significant change Confirmed by Umberto Paulino ([id number]) on 08/11/2020 8:40:22 AM Referred By: REFERRED SELF Confirmed By:Umberto Paulino
[2020-08-11] MEDS ORDERED: FAMOTIDINE 20 MG TAB PO SCH (09:00)
[2020-08-11] MEDS ORDERED: ENOXAPARIN INJ 30 MG/0.3 ML SYR SQ SCH (09:00)
[2020-08-11] MEDS ORDERED: CALCIUM 600MG + VIT D 400 IU TAB PO SCH (09:00)
[2020-08-11] MEDS ORDERED: INSULIN GLARGINE SOLOSTAR 100 UNITS/ML 3 ML PEN SC SCH (09:00)
[2020-08-11] MEDS ORDERED: ASPIRIN 325 MG ECTAB PO SCH (09:00)
[2020-08-11] MEDS ORDERED: CLOPIDOGREL BISULFATE 75 MG TAB PO SCH (09:00)
--- NOTE | 2020-08-11 09:41 | XCELERA ---
[id number]
--- NOTE | 2020-08-11 10:37 | Magnetic Resonance Report ---
MRI OF THE BRAIN WITHOUT CONTRAST CLINICAL HISTORY: TIA, left-sided weakness, evidence of interval strokes on CT COMPARISON STUDY: MRI of the brain June 10, 2018. Head CT and CTA of the head August 10, 2020. TECHNIQUE: Utilizing a 1.5 Sil magnet and dedicated coil, multiplanar, multiecho imaging of the bra in was performed without IV contrast. FINDINGS: There are no foci of restricted diffusion to suggest acute infarct. No acute intracranial h emorrhage, midline shift or mass effect is present. Moderate atrophy is noted. Extensive white matter T2 hyperintensity is similar to MRI of June 10, 2018. This suggest small vessel disease. There are m ultiple old lacunar infarcts within the bilateral cerebellar hemispheres. These are unchanged. There are a few additional lacunar infarcts within the supratentorial brain. The appearance of the brain is unchanged. Flow-voids for the major intracranial vessels are present. A 9 mm extra-axial T2 and T1 h ypointense lesion within the right middle cranial fossa corresponds to the calcified lesion by CT. Th is suggests a stable small meningioma. Numerous skin lesions suggest neurofibromatosis. There is no c alvarial replacement. IMPRESSION: 1. No acute intracranial findings. 2. Numerous old lacunar infarcts. 3. Extensive small vessel disease and moderate atrophy. ACT 112: Negative or not required by law. Electronically signed by: Alvarez Valadez M.D. 08/11/2020 10:35 AM
--- NOTE | 2020-08-11 13:24 | Neurology Consultation ---
Date of Consultation August 11, 2020 Assessment & Plan (1) TIA (transient ischemic attack): Rosalba Torres is an 85 yo woman w/ PMH of DM, HLD, h/o breast cancer, pancreatic insufficiency, neurofibromatosis, h/o nephrolithiasis, hearing deficit and h/o TIAs who p/t [facility] with acute onset of left facial droop, difficulty ambulating and urinary incontinence. Symptom localization: most likely posterior circulation Stroke mechanism: cardioembolic vs flow failure TIA WorkUp: - CT head: no hemorrhage or new hypodensity, chronic right BG infarct, moderate to severe SVID, and likely right frontal calcified meningioma - CTA head/neck: no LVO, multifocal diffuse intracranial atherosclerosis with high grade stenosis of the right P1, mild to moderate stenosis of the R M1, and mild to moderate multifocal narrowing of bilateral vertebral arteries (both intra- and extra-cranially) - MRI brain: no acute infarct, multiple chronic lacunar infarcts and bilateral cerebellar infarcts, severe SVID with confluent white matter disease, stable meningioma, and skin lesions c/w neurofibromas - TTE: EF 65-70%, grade I diastolic dysfunction, mild aortic valve sclerosis, moderate MR, mild to moderate TR - Telemetry: NSR - A1c: 8.6 - FLP: 44 - Troponin: negative TIA Management: - Acute treatment: ASA - Continuous cardiac monitoring, will consider Holter monitor as outpatient if telemetry here unrevealing - Vitals, Neurochecks, NIHSS per unit routine - BP parameters: SBP CAP 180, resume home anti-hypertensives for permissive HTN, IV Labetalol/Hydralazine PRN for CAP - Consult speech, PT, OT for supportive management - Will evp general counsel concerning stroke education, smoking cessation, healthy diet, physical activity, weight loss - Follow up with PCP for assistance with outpatient goals (BP <130/80, LDL <70, A1c <7) - Follow up in neurology clinic in 6-8 weeks with [facility] Secondary Stroke Prevention: - Antiplatelet: start ASA 81mg po daily, resume plavix 75mg daily (only need dual AP for 21 days unless she needs this from a cardiac standpoint). Could also consider transitioning to aspirin 81mg daily plus brilinta 90mg bid (will need to start brilinta 24 hours after last dose of plavix) - Anticoagulation: Not indicated at this time - Statin: continue home atorvastatin 20mg daily HTN: - BP parameters, as above FEN/GI: - Diet: Cardiac HH diet and PO meds given absence of bulbar signs or symptoms - Monitor lytes and replete PRN Glucose Control: - Sliding scale insulin and accuchecks per primary team to avoid hyperglycemia # Neurofibromatosis: stable, can follow up in neurology clinic as above to help coordinate appropriate multidisciplinary care as recommended for patients with neurofibromatosis Thank you for this interesting consult. Plan of care was discussed with primary team. Please call with any questions. (2) Neurofibromatosis: History of Present Illness Attending Physician: Jaime Persaud DO History of Present Illness Rosalba Torres is an 85 yo woman w/ PMH of DM, HLD, h/o breast cancer, pancreatic insufficiency, neurofibromatosis, h/o nephrolithiasis, hearing deficit and h/o TIAs who p/t [facility] with acute onset of left facial droop, difficulty ambulating and urinary incontinence. 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 In the ED, she was afebrile, BP 136/67, heart rate 62, respiratory rate 20, satting 98% on room air. Labs notable for WBC 7.38, hemoglobin 13.0, platelets 245, electrolytes within normal, BUN 22, creatinine 1.36, glucose 228, INR 1.1, calcium/magnesium within normal, LFTs within normal, troponin negative, UA shows pyuria but no infection. Of note, she was taken off her aspirin and Plavix last week due to a recent planned surgical procedure. Imaging independently reviewed. CT head shows no hemorrhage or new hypodensity, chronic right BG infarct, moderate to severe SVID, and likely right frontal calcified meningioma. CTA H&N showed no LVO, multifocal diffuse intracranial atherosclerosis with high grade stenosis of the right P1, mild to moderate stenosis of the R M1, and mild to moderate multifocal narrowing of bilateral vertebral arteries (both intra- and extra-cranially). MRI brain shows no acute infarct, multiple chronic lacunar infarcts and bilateral cerebellar infarcts, severe SVID with confluent white matter disease, stable meningioma, and skin lesions c/w neurofibromas. On examination, she reports that she was in her normal state of health until about 5:30pm on 08/10 when she noticed problems with ambulation, falling to the left and possible left facial droop. Her niece evaluated her and was told that she should come to the ED for further evaluation. Symptoms resolved by arrival to the ED. She does endorse stopping aspirin/plavix about 5 days ago in preparation for possible urologic procedure (did not have it completed). Stroke Workflow: Where patient arrived from: home Time patient undergoes CT head: 20:43 on 08/10/20 Time patient undergoes advanced imagin:06 on 08/11/20 CT ASPECT: 9 Time IV tpa is given: NA tPA bolus: NA tPA dose: NA If tpa not given, why not: Outside of time window, symptoms resolved If delay >60min after hospital arrival, why: n/a If no IA therapy, why not: No LVO on CTA Patient Features: Admission NIHSS: 0 Admission Modified [place]view Scale: 1-2 Time patient last seen well: 8:30pm on 08/09/20 Wake up stroke: Yes Intubation status: Not intubated Stroke Risk Factors: Hypertension: N Hyperlipidemia: Y Atrial Fib: N Tobacco: N Diabetes: Y Taking NOAC or warfarin: N Allergies Allergy/AdvReac Type Severity Reaction Status Date / Time No Known Allergies Allergy Verified 07/24/20 14:04 Home Medications Home Medications Medication Instructions Recorded Confirmed Type Creon 1 cap PO TIDM 06/11/19 08/10/20 History Levemir U-100 Insulin 10 unit SUBCUT HS 06/11/19 08/10/20 History calcium carbonate-vitamin D3 1 tab PO QAM 06/11/19 08/10/20 History insulin aspart U-100 [Novolog 4 unit SUBCUT AC 06/11/19 08/10/20 History Flexpen U-100 Insulin] famotidine [Pepcid] 20 mg PO BID 01/17/20 08/10/20 History aspirin 325 mg PO QAM #0 tab 02/10/20 08/10/20 Rx clopidogrel [Plavix] 75 mg PO QAM #0 tab 02/10/20 08/10/20 Rx solifenacin [Vesicare] 10 mg PO HS 02/10/20 08/10/20 History atorvastatin 40 mg tablet 20 mg PO QPM tab 07/10/20 08/10/20 History Patient History Medical History Compression fracture of T11 vertebra s/p fall 12/2019 Diabetes mellitus, type 2 Exocrine pancreatic insufficiency GERD (gastroesophageal reflux disease) Hearing deficit History of TIAs NO RESIDUAL EFFECTS- 2014 per records Hx of fall HX: breast cancer LUMPECTOMY - LEFT BREAST; NO RADIATION, NO CHEMO; WAS ON TAMOXIFEN FOR 5 YR - NO LONGER TAKING Hyperlipidemia Kidney stones 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 [facility]. LMA #4. No issues. History of cystoscopy 02/10/2020 [facility] History of lumpectomy of left breast History of pancreatectomy PARTIAL ([place]) History of ureter stent Hx of colonoscopy Family History Other No pertinent family history in first degree relatives Social History Smoking Status: Never smoker Second Hand Exposure: No; Hx Alcohol Use: Yes (RARE) Alcohol type: wine Hx Substance Use: No Preferred Language: Lao Communication Ability: Effective Development Technical Lead Required: No Beliefs That Will Affect Care: None marital status: Single Current Living Situation: Alone Other Information That Helps Us Care for You: No Feels Safe at Home: Yes Review of Systems Review of Systems: 14 point review of systems completed and negative except as in HPI. Exam (Neuro) Physical Exam: General Exam: GEN: NAD, lying down in examination bed. HEENT: No conjunctival injection, no rhinorrhea CV: RRR on monitor, no significant edema. PULM: Nonlabored respirations on room air. Skin: numerous cutaneous neurofibromas Neuro Exam: MS: Awake and Alert. Oriented to person, being in a hospital, not date. Speech fluent and appropriate without dysarthria or paraphasic errors. Language intact including naming, comprehension, repetition. Cognition and memory mildly impaired. Attention intact. No neglect. CN: Visual ennis full, + blink to threat bilaterally. No extinction to double simultaneous stimuli. Unable to visualize fundi on fundoscopic exam. PERRLA OU. EOMI without nystagmus. Facial sensation intact to LT. Facial muscles full and symmetric. Hearing intact to conversation. Uvula midline with symmetric palatal elevation. Shoulder shrug normal. Tongue midline. MOTOR: Normal bulk and tone. No pronator drift. BUE strength 5/5 at deltoids, biceps, triceps, wrist flexors and extensors, and finger flexors bilaterally. BLE strength 5/5 at iliopsoas, hamstrings, quadriceps, tibialis anterior, and gastrocnemius bilaterally. REFLEXES: 1+ at biceps, triceps, brachioradialis, trace patella, and absent Achilles bilaterally. Flexor plantar responses bilaterally. SENSORY: Intact to LT/vibration throughout, no extinction to double simultaneous stimuli. COORDINATION: No dysmetria or ataxia on kyuvlg-hn-boid bilaterally. Normal Gilda bilaterally. GAIT: Deferred due to physical status. NIH STROKE SCALE 1A. Level of Consciousness (0-3) = 0 1B. LOC Questions (0-2) = 0 1C. LOC Commands (0-2) = 0 2. Best Horizontal Gaze (0-2) = 0 3. Visual Ennis (0-3) = 0 4. Facial Palsy (0-3) = 0 5. Motor Arm Right (0-4) = 0 Left (0-4) = 0 6. Motor Leg Right (0-4) = 0 Left (0-4) = 0 7. Limb Ataxia (0-2) = 0 8. Sensory (0-2) = 0 9. Best Language (0-3) = 0 10. Dysarthria (0-2) = 0 11. Extinction and Inattention (0-2) = 0 NIHSS TOTAL = 0 Results & Data ([facility]) Vital Signs (Past 12 Hours) Vital Signs Temp Pulse Pulse Resp BP Pulse Ox 08/11/20 11:43 36.4 C L 18 137/76 97 08/11/20 08:05 36.6 C 62 18 117/66 96 08/11/20 08:00 63 08/11/20 03:40 36.8 C 64 16 111/71 99 PG Care Time/CCT Total # of Minutes Spent Total Time Spent with Patient: Total time spent is greater than 50% in coordination of care (as documented) at patient's floor/unit and/or counseling patient: Coding Level of Care Code 33335 OBS Care - Level 3 Diagnoses TIA (transient ischemic attack) G45.9 Neurofibromatosis Q85.00
[2020-08-11] MEDS: CARBOHYDRATES FOR HYPOGLYCEMIA PO PRN ×2 (16:08→16:29)
[2020-08-11] MEDS ORDERED: STROKE PATIENT DISCHARGE STA (16:09)
--- NOTE | 2020-08-11 16:33 | Discharge Summary ---
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 She presents today for left sided weakness. She was at home and got up from the sofa where she was resting and noticed that her left side was very weak. Her caregiver noticed this and immediately called her niece who is her POA and who is present with her currently who decided to bring her urgently to the emergency department. She had no other symptoms and felt that over the next few hours her strength has now totally returned. She has not been taking plavix and asa for last 6 days because of a procedure. She has a history of multiple TIA's but no residual symptoms that her and her niece are aware of. Patient's memory has gotten much worse in the last year and patient was not able to tell me if she has had previous episodes. On presentation to ED patient had recovered and her vitals and labwork were fairly unremarkable apart from an elevated creatinine and BUN which is about her baseline. CT head showing multiple right sided basal ganglia lesions age indeterminate but new since February imaging. CTA head and neck showing severe HUMAN RELATIONS MANAGER stenosis in right side scattered luminal narrowing of left HUMAN RELATIONS MANAGER and moderate stenosis of MCA. Neck CTA negative for carotid stenosis. Admission Exam Per Admitting Provider Constitutional: Well appearing 85 year old woman covered in neurofibromas, no apparent distress Eyes: Anicteric sclera, EOMMI bilaterally, neurofibromatosis lesions in bilateral irises ENMT: NAD REspiratory: Lung sounds vesicular good air entry globally no increased work of breathing Cardiovascular, Regular rate regular rhythm, Loud systolic ejection murmur, peripheral pulses intact and equal bilaterally GI: Abdomen soft and nontender no masses Skin: Covered in hundreds of neurofibromas Neuro: Moving all four extremities spontaneously, strength equal in all extremities, CN II-XII examined and intact Principal Diagnosis TIA Discharge Exam GEN: NAD, lying down in examination bed. Neuro: Alert and oriented to person and place, no dysarthria, memory deficit, CN II-XII intact strength intact and bilaterally symmetric in the upper and lower extremity sensation intact to light touch bilaterally symmetric in the lower extremity HEENT: No conjunctival injection, no rhinorrhea CV: RRR on monitor, no significant edema. PULM: Nonlabored respirations on room air. Skin: numerous cutaneous neurofibromas Discharge Data Allergies Allergy/AdvReac Type Severity Reaction Status Date / Time No Known Allergies Allergy Verified 07/24/20 14:04 Consultations 08/10/20 22:06 ED Decision to Admit Stat 08/11/20 00:06 Consult Case Management - Discharge Planning Routine Consult Neurology Routine Ordered Studies 08/10/20 20:43 CT angio head w con Stat CT angio neck with con Stat CT head/brain wo con Stat 08/11/20 00:06 MR brain wo con Routine Hospital Course (1) TIA (transient ischemic attack): TIA in the setting of dual antiplatelet held for urologic procedure - deficit included left sided weakness the resolved prior to admission - Patient with history of numerous TIA's with no residual symptoms other than decreased memory - Previously on Plavix, this was switched to Brilinta - ASA 325 switched to 81mg - MRI with no new strokes seen, chronic small vessel disease, old infarcts - CTA neck with no signs of narrowing or obstruction - no arrhythmia seen on telemetry - Neurology consulted, will follow up in 6-8 weeks - Continue statin medication, did not increase in setting of low LDL - ECHO with nl. LV systolic function EF 65-70%, no shunt seen CKD - cr. 1.36 prior to discharge, likely secondary to recurrent stones and bilate ral obstructive uropathy improved from hospitalizations previous, patient does not appear dehydrated on exam, likely at current baseline DMII - continue home regimen Pancreatic insufficiency - Continue creon capsules with food (2) Diabetes: (3) High cholesterol: (4) Breast CA: (5) Neurofibromatosis: (6) Acute left-sided weakness: (7) Creatinine elevation: Total Time Total Time Spent Total Time Spent (In Minutes): <30 Discharge Plan Discharge Items Patient Disposition: Home - Self-Care Reason For Visit: TIA, EVIDENCE OF NEW STROKE ON CT Discharge Diagnosis: TIA Activity: Per Instructions section Non-emergency contact: Primary Care Provider and Neurologist Call non-emergency contact if: you have any medication questions and your symptoms worsen Follow-up/Referrals: Joyce Rasmussen CRNP [Primary Care Provider] - (Your appointemnt with Cedric Dozier is August 16 at 12:45 p.m. If you need to reschedule your appointment call Your appointment with Apryl Rosemary is Saturday, August 15, 2020 at 2:00 p.m. If you need to reschedule your appointment call Please arrive 15 minutes early for your appointment) Diet: Regular Addtl Attending Provider Instructions: Transient Ischemic Attack (TIA) You experienced left sided weakness and this resolved after a short amount of time. This may have been because you stopped your antiplatelet medications. We had neurology see you and they recommended that you change from Plavix to Brilinta for antiplatelet and change the dose of Aspirin from 325 mg to 81 mg. If you do not have insurance coverage for the Brilinta you can continue the Plavix instead. If you develop symptoms of one sided weakness, slurred speech, or facial droop call or come in to get evaluated. Falls We discussed that you are at an increased risk of falls and have had multiple falls recently. We will want you to use a cane when walking. Also, we want for you to get a call device to keep with you at all times to ensure that if you fall you can get help. It sounds like you had a good experience at the personal intermediate and this may be a good place to consider given your recent falls. Pending Studies at Discharge: No Stand-Alone Forms: My [facility] [address], Smoking Cessation Medications and DC Order Prescriptions: New Brilinta 90 mg tablet 90 mg PO BID Qty: 30 RF: 0 aspirin [Aspirin Childrens] 81 mg tablet,chewable 81 mg PO DAILY Qty: 30 RF: 0 Continued insulin aspart U-100 [Novolog Flexpen U-100 Insulin] 100 unit/mL (3 mL) Insulin Pen 4 unit SUBCUT AC RF: 0 Levemir U-100 Insulin 100 unit/mL Solution 10 unit SUBCUT HS RF: 0 Creon 12,000-38,000 -60,000 unit Capsule,Delayed Release(Dr/Ec) 1 cap PO TIDM RF: 0 calcium carbonate-vitamin D3 500 mg(1,250mg) -125 unit Tablet 1 tab PO QAM RF: 0 famotidine [Pepcid] 20 mg tablet 20 mg PO BID RF: 0 atorvastatin 40 mg tablet 20 mg PO QPM RF: 0 solifenacin [Vesicare] 10 mg tablet 10 mg PO HS RF: 0 Discontinued aspirin 325 mg Tablet 325 mg PO QAM Qty: 0 RF: 0 clopidogrel [Plavix] 75 mg tablet 75 mg PO QAM Qty: 0 RF: 0 Discharge Orders: Discharge Order (Routine); Ordered 08/11/20 Ordered By: Abundio Romero/Other Patient Handouts: Managing Type 2 Diabetes, TIA Dc Admission Data Admit Date/Time: 08/10/20 23:46 Attending Provider: Jaime Persaud Admit Provider: Jensen Bagley Primary Care Provider: Joyce Rasmussen Other Providers: Gilmar Cota ; Apryl Jesus Other Interventions: Discharge Summary Assessment (RN) Last Done: 08/11/20 16:30 Supervising Physician Co-Signing Physician Notes I personally examined the patient and verified all whatley points of history and exam, discussed case, and agree with decision making with Dr Germain feeling back to normal. had been holding antiplatelets for ?lithotripsy (procedure for kidney stone) but notes that stone is not bothering her now aníbal noted nad heent nc at mmm breathing unlabored no accessory muscles good effort skin numerous neurofibromas neuro no focal deficits TIA - likely intracranial atherosclerosis - temporally occuring due to holding antiplatelets. home on asa/brilinta (or if brilinta unaffordable resuming asa/plavix would be OK) - suspect this is all from accumulated atherosclerosis given risks under reasonable control given age. likely just at higher risk for interrupted antiplatelet Rx stable for home d/w niece on the phone in pt's presence as well Resident Activity Tracking Resident Involvement: Resident Care Provided Care Provided: Adult Hospital Medicine CBC Results Results Complete Blood Count Results: RBC 4.33 M/uL (4.2-5.4) 08/11/20 WBC 4.79 K/uL (4.8-10.8) L 08/11/20 Hgb 12.2 g/dL (12.0-16.0) 08/11/20 Hct 37.9 % (37-47) 08/11/20 Plt Count 218 K/uL (130-400) 08/11/20 Chemistry (BMP) Results BMP Results: Sodium 139 mmol/L (136-145) 08/11/20 Potassium 4.0 mmol/L (3.5-5.1) 08/11/20 Chloride 108 mmol/L (98-107) H 08/11/20 BUN 20 mg/dl (7-18) H 08/11/20 Creatinine 1.27 mg/dl (0.6-1.2) H 08/11/20 Glucose 268 mg/dl (70-99) H 08/11/20
--- NOTE | 2020-08-11 16:37 | Pharmacy Report ---
Pharmacist Stroke Counseling - Date of Service August 11, 2020 - Scope: Pharmacy has been consulted to provide medication discharge counseling for this patient admitted with [ischemic stroke] [hemorrhagic stroke] [transient ischemic attack] as per the Pharmacist Discharge Counseling for Stroke Patients Pr otocol. - Medications on Discharge: Home Medications Medication Instructions Recorded Confirmed Creon 1 cap PO TIDM 06/11/19 08/10/20 Levemir U-100 Insulin 10 unit SUBCUT HS 06/11/19 08/10/20 calcium carbonate-vitamin D3 1 tab PO QAM 06/11/19 08/10/20 insulin aspart U-100 [Novolog 4 unit SUBCUT AC 06/11/19 08/10/20 Flexpen U-100 Insulin] famotidine [Pepcid] 20 mg PO BID 01/17/20 08/10/20 solifenacin [Vesicare] 10 mg PO HS 02/10/20 08/10/20 atorvastatin 40 mg tablet 20 mg PO QPM tab 07/10/20 08/10/20 New Rx's Medication Instructions Recorded aspirin [Aspirin Childrens] 81 mg PO DAILY #30 tab 08/11/20 ticagrelor [Brilinta] 90 mg PO BID #30 tab 08/11/20 - Action: The above medications, specifically ones for stroke treatment/prophylaxis, have been reviewed in detail with the patient and/or patient site safety representative(s) prior to discharge. This includes indication, common adverse reactions, drug interactions, and medication administration. Medication counseling has been employed using the teach-back method to ensure understanding. - Outcome: The patient and/or patient site safety representative(s) have demonstrated understanding of the medications. Additional comments: Spoke to patient regarding medication changes at discharge. Also spoke with patient's niece, Abby, who manages medications at home and made her aware of changes. Talked about side effects of medications/monitoring. No questions at discharge. No other pertinent positive on interview Thank you for allowing pharmacy to be involved in the care of this patient. Please call [phone] with any additional questions
--- NOTE | 2020-08-11 19:13 | Billing Data ---
Date of Service August 11, 2020 Coding Level of Care Code 66430 OBS Care - Discharge
[2020-08-11] MEDS ORDERED: ATORVASTATIN 20 MG TAB PO SCH (21:00)
--- NOTE | 2020-08-12 17:28 | Billing Data ---
Date of Service August 12, 2020 Coding Level of Care Code 30376 Initial Inpt Care Lvl 3
--- NOTE | 2020-08-24 13:06 | Coding Query ---
CODING QUERY To promote full compliance with coding requirements relating to patient care, provider participation is requested in all cases of smoke eater uncertainty. Please assist us with the question(s) below: Coding Question(s): 1. Can you verify if the TIA was present during this admission/significant of the atherosclerosis. Physician's Response(s): from discharge summary TIA - likely intracranial atherosclerosis - temporally occuring due to holding antiplatelets. home on asa/brilinta (or if brilinta unaffordable resuming asa/plavix would be OK) - suspect this is all from accumulated atherosclerosis given risks under reasonable control given age. likely just at higher risk for interrupted antiplatelet Rx so TIA was present; atherosclerosis was the cause Thank you Eun Barclay Principal Diagnosis: "that condition established after study, to be chiefly responsible for occasioning the admission of the patient to the hospital for care." Co-Existing Principal Diagnosis: "when two or more diagnoses equally meet the criteria for principal diagnosis as determined by the circumstances of admission, diagnostic work up, and/or therapy provided, and the Alphabetic Index, Tabular List, or another coding guideline does not provide sequencing direction, any one of the diagnoses may be sequenced first." "When the physician has documented what appears to be a current diagnosis in the body of the record, but has not included the diagnosis in the final diagnostic statement, the physician should be asked whether the diagnosis should be added." (Source [facility] 2 QTR90. p3-4) CAMILA
== END 2020-08-11 17:06 | disposition home or self-care (01) ==
LOC: ED 20:23 → 2S 20:23 → SUATTDRO 23:46 → 2S 23:57

== ENCOUNTER 2020-10-26 23:22 | Inpatient (IN) ==
[2020-10-26] MEDS ORDERED: ONDANSETRON INJ 2 MG/ML 2 ML VIAL IV STA (23:45)
[2020-10-26] MEDS ORDERED: MoRPHine SULFATE 2 MG/ML CARP IV STA (23:45)
--- NOTE | 2020-10-26 23:58 | Emergency Department Note ---
Impression & Plan Closed hip fracture, Fall, Blunt trauma of face, Fracture of cervical spinous process ED Provider Note NAME: SOLANGE TURNER AGE: 85 SEX: F ARRIVES VIA: Ambulance INFORMANT: Patient ED PROVIDER(S): Yumiko Cano DO CHIEF COMPLAINT: Fall PLAN: Disposition: Admitted by the [facility] hospitalist Condition: Stable MEDICAL DECISION MAKING: This is an 85-year-old female patient who presents to the emergency department complaining of left hip pain after suffering a fall at home. The patient has obvious shortening to the left lower extremity. She also complains of pain to the left side of her face. CT scan of the brain and facial bones were negative for any new trauma. CT scan of the cervical spine showed a fracture of the spinous process of C5. Plain x-rays of the left hip showed a femoral neck fracture. The case was discussed with the [facility] hospitalist and they will evaluate for further management. The patient received IV morphine for pain management. Triage Nursing notes reviewed and agree them. Additional history obtained from her daughter who was at the bedside Prior medical records reviewed including her visit to the emergency department 3 days ago where she had suffered a fall and fractured her nose Vital Signs: reviewed and remarkable for hypertension Differential diagnosis: Hip fracture, facial bone fracture, head injury, C-spine fracture ER treatment provided: IV morphine x2 IV Zofran Diagnostics interpreted by me: ECG: Normal sinus rhythm at a rate of 84 with a first-degree AV block. There is no ST segment elevation or signs of ischemia. There is no ectopy. Cardiac Monitoring: Normal sinus rhythm at a rate of 88 Laboratory studies: See below Imaging studies: As interpreted by stat rad CT C-spine: Diffuse osteopenia along with multilevel disc degenerative disease. There is a fracture involving the spinous process of C5 vertebral body extending to the right posterior lateral element. CT head: No ICH, mass-effect or edema. No evidence of acute cortical stroke. Periventricular small vessel ischemic change. Mild to moderate generalized brain atrophy. Visualized sinuses and mastoid air cells are clear. Soft tissue swelling overlying the anterior aspect of the left zygomatic arch. CT facial: There is a fracture involving the nasal bone more obvious on the right compared to the left. There is associated soft tissue swelling. There is swelling overlying the anterior aspect of the left zygomatic arch. No other sites suspicious for fracture seen. Clear paranasal sinuses. HPI: 85/F arrives for evaluation of a fall. The patient got up from bed with a pair of socks on to let her dogs out and unfortunately fell to the ground. She used her life alert pendant to notify 911. The patient denies losing consciousness but did strike the left side of her face on the ground. She complains of left hip pain and left-sided facial pain. The patient had suffered a fall 3 days ago and was seen here in the emergency department for facial trauma. At that time, she was diagnosed with nasal bone fractures. The patient does take aspirin and Brilinta. ROS: See above HPI for pertinent positives & negatives. A total of 10 systems reviewed and were otherwise negative. PAST MEDICAL HISTORY:See Below PAST SURGICAL HISTORY:See Below FAMILY HISTORY:See Below SOCIAL HISTORY:See Below HOME MEDICATIONS:See list ALLERGIES:None VITALS:See Below PHYSICAL EXAMINATION: HEENT: Head - normocephalic with Steri-Strips in place on her nose and areas of old contusion noted about the face. The patient has a new hematoma noted over the left zygomatic arch. Pupils are equal, round, and reactive to light. Extraocular eye muscles are intact and sclera are anicteric. Nose - moist nasal mucosa without evidence of trauma or discharge. Mouth - moist buccal mucosa with no trauma to the teeth or signs of malocclusion. Neck: The neck is supple and there is no pain to palpation over the posterior cervical spine and no obvious step-offs or deformities. There is no JVD or tracheal deviation. Chest: There are no signs of deformities, contusions or abrasions to the chest wall. There is no obvious crepitus or paradoxical chest rise. Heart: Regular, rate, and rhythm. There is a normal S1 and S2 with no murmurs, clicks, or gallops appreciated. Lungs: Clear to auscultation bilaterally with no wheezes, rales, or rhonchi. Abdomen: Soft, completely nontender, nondistended, with good bowel sounds. There is no sign of trauma such as contusions, abrasions or penetrations. There are no palpable pulsatile masses or hepatosplenomegaly. There is no guarding, rigidity, or rebound noted. Pelvis: Stable to rock and compression. Extremities: There is obvious shortening to the left lower extremity but no internal or external rotation. There are easily palpable dorsalis pedis and posterior tibial pulses in both lower extremities. The patient is able to move all of her toes. Neuro: The patient is awake and alert and easily able to follow commands. Muscle strength is 5 out of 5 in all 4 extremities. Otherwise, neuro exam is un remarkable. ED COURSE: Times/Reassessments: 2325: The patient was evaluated in room C 11. A complete history and physical was performed. Previous electronic medical records were reviewed. An IV lock was initiated and labs were drawn as above. A twelve-lead EKG was obtained. Order was placed for continuous cardiac monitoring. Patient was in a normal sinus rhythm at 88. The patient was given 2 mg of IV morphine and 4 mg of IV Zofran. The patient had plain x-rays of her chest and left hip as described above. Went for CT scan of her brain, cervical spine, and facial bones. 0055: The patient was reevaluated at this time and I reviewed the results with her and her daughter. She was having pain again in her left hip and was given a n additional dose of IV morphine. I went back to the room to give the patient the results of her CT scans. The patient has no pain on secondary/repeat exam of her neck. I discussed the case with the [facility] hospitalist and they will evaluate for further management. 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 [facility]. LMA #4. No issues. History of cystoscopy 02/10/2020 [facility] History of lumpectomy of left breast History of pancreatectomy PARTIAL ([place]) History of ureter stent Hx of colonoscopy Family History Aunt Stroke Mother Stroke Father Heart disease Other No family history of allergies No family history of bleeding disorder No pertinent family history in first degree relatives Denies family history of Hearing loss Cancer Hypertension Asthma Social History Smoking Status: Never smoker Second Hand Exposure: No; Hx Alcohol Use: Yes (RARE) Alcohol type: wine Hx Substance Use: No Preferred Language: Moroccan Communication Ability: Effective Yard Stocker Required: No Beliefs That Will Affect Care: None marital status: Single Current Living Situation: Alone 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: Yes Assistive Devices: Cane Allergies Allergies Allergy/AdvReac Type Severity Reaction Status Date / Time No Known Drug Allergies Allergy Unknown Verified 10/26/20 08:51 Home Meds Home Medications Medication Instructions Recorded Confirmed Creon 1 cap PO TIDM 06/11/19 10/26/20 calcium carbonate-vitamin D3 1 tab PO QAM 06/11/19 10/27/20 insulin aspart U-100 [Novolog 4 - 6 unit SUBCUT TIDM 06/11/19 10/27/20 Flexpen U-100 Insulin] famotidine [Pepcid] 20 mg PO BID 01/17/20 10/26/20 solifenacin [Vesicare] 10 mg PO HS 02/10/20 10/26/20 atorvastatin 40 mg tablet 40 mg PO QPM tab 08/31/20 10/26/20 insulin detemir U-100 100 unit/mL 13 unit SUBCUT HS ml 08/31/20 10/27/20 subcutaneous solution cholecalciferol (vitamin D3) 25 mcg PO DAILY 10/27/20 10/27/20 [Vitamin D3] Previous Rx's Medication Instructions Recorded aspirin [Aspirin Childrens] 81 mg PO DAILY #30 tab 08/11/20 ticagrelor 90 mg tablet 90 mg PO BID #60 tab 08/15/20 Results & Data (ED) Vital Signs Vital Signs - 24 hr 10/26/20 23:14 10/27/20 01:37 Temperature 36.7 C Temperature Source Oral Pulse Rate 88 Pulse Rate [Apical] 99 H Pulse Rhythm [Apical] Regular Pulse Strength [Apical] Normal Respiratory Rate 18 18 Respiratory Effort / Characteristics Non-Labored Non-Labored Respiratory Depth Normal Normal Respiratory Pattern Regular Regular Blood Pressure 163/110 H Blood Pressure [Right Arm] 145/90 H Blood Pressure Mean 127 Blood Pressure Mean [Right Arm] 108 Blood Pressure Position Lying Pulse Oximetry 95 91 Oxygen Delivery Method Room Air Room Air Sepsis Recent Fever Within 48 Hours No Sepsis New/Unexplained Change in Mental Status No Sepsis Action Taken by Nursing No Action Required Laboratory Data Result diagrams: 10/26/20 23:52 10/26/20 23:52 Lab Results 10/26/20 10/26/20 10/26/20 Range/Units 23:52 23:52 23:52 WBC 7.01 (4.8-10.8) K/uL RBC 4.54 (4.2-5.4) M/uL Hgb 12.7 (12.0-16.0) g/dL Hct 39.7 (37-47) % MCV 87.4 (80-100) fL MCH 28.0 (25-34) pg MCHC 32.0 (32-36) g/dL Plt Count 181 (130-400) K/uL Immature Gran % (Auto) 0.6 % Neut % (Auto) 66.0 % Lymph % (Auto) 23.0 % [place] % (Auto) 7.4 % Eos % (Auto) 2.9 % Baso % (Auto) 0.1 % Neut # (Auto) 4.63 (1.4-6.5) K/uL Lymph # (Auto) 1.61 (1.2-3.4) K/uL [place] # (Auto) 0.52 (0.11-0.59) K/uL Eos # (Auto) 0.20 (0-0.5) K/uL Baso # (Auto) 0.01 (0-0.2) K/uL Immature Gran # (Auto) 0.04 H (0.00-0.02) K/uL PT 10.4 (9.0-12.0) Seconds INR 1.0 (0.9-1.1) APTT 23.5 (21.0-31.0) Seconds PTT Ratio 0.8 Sodium (136-145) mmol/L Potassium (3.5-5.1) mmol/L Chloride (98-107) mmol/L Carbon Dioxide (21-32) mmol/L Anion Gap (3-11) BUN (7-18) mg/dl Creatinine (0.6-1.2) mg/dl Est Cr Clr Drug Dosing ml/min Est GFR ( Amer) Est GFR (Non-Af Amer) BUN/Creatinine Ratio (10-20) Glucose (70-99) mg/dl Calcium (8.5-10.1) mg/dl Urine Color Urine Appearance (Clear) Urine pH (4.5-7.5) Ur Specific [place] (1.000-1.030) Urine Protein (Negative) Urine Glucose (UA) (Negative) Urine Ketones (Negative) Urine Blood (Negative) Urine Nitrite (Negative) Urine Bilirubin (Negative) Urine Urobilinogen (Negative) Ur Leukocyte Esterase (Negative) Urine WBC (Auto) (0-5) /hpf Urine RBC (Auto) (0-4) /hpf U Hyaline Cast (Auto) (0-5) /lpf U Epithel Cells (Auto) (0-5) /lpf Urine Bacteria (Auto) (Negative) Ur Renal Epithelial Cell Urine Yeast (None Prsent) SARS-CoV-2 Ag (Rapid) (Negative) Blood Type O Positive Antibody Screen NEGATIVE 10/26/20 10/27/20 10/27/20 Range/Units 23:52 00:13 02:09 WBC (4.8-10.8) K/uL RBC (4.2-5.4) M/uL Hgb (12.0-16.0) g/dL Hct (37-47) % MCV (80-100) fL MCH (25-34) pg MCHC (32-36) g/dL Plt Count (130-400) K/uL Immature Gran % (Auto) % Neut % (Auto) % Lymph % (Auto) % [place] % (Auto) % Eos % (Auto) % Baso % (Auto) % Neut # (Auto) (1.4-6.5) K/uL Lymph # (Auto) (1.2-3.4) K/uL [place] # (Auto) (0.11-0.59) K/uL Eos # (Auto) (0-0.5) K/uL Baso # (Auto) (0-0.2) K/uL Immature Gran # (Auto) (0.00-0.02) K/uL PT (9.0-12.0) Seconds INR (0.9-1.1) APTT (21.0-31.0) Seconds PTT Ratio Sodium 141 (136-145) mmol/L Potassium 4.2 (3.5-5.1) mmol/L Chloride 109 H (98-107) mmol/L Carbon Dioxide 26 (21-32) mmol/L Anion Gap 6.0 (3-11) BUN 24 H (7-18) mg/dl Creatinine 1.27 H (0.6-1.2) mg/dl Est Cr Clr Drug Dosing 25.3 ml/min Est GFR ( Amer) 45.2 Est GFR (Non-Af Amer) 39.0 BUN/Creatinine Ratio 18.7 (10-20) Glucose 202 H (70-99) mg/dl Calcium 8.8 (8.5-10.1) mg/dl Urine Color Yellow Urine Appearance Clear (Clear) Urine pH 5.0 (4.5-7.5) Ur Specific [place] 1.017 (1.000-1.030) Urine Protein Negative (Negative) Urine Glucose (UA) Trace H (Negative) Urine Ketones Negative (Negative) Urine Blood Trace H (Negative) Urine Nitrite Negative (Negative) Urine Bilirubin Negative (Negative) Urine Urobilinogen Negative (Negative) Ur Leukocyte Esterase 1+ H (Negative) Urine WBC (Auto) 10-30 H (0-5) /hpf Urine RBC (Auto) 0-4 (0-4) /hpf U Hyaline Cast (Auto) 1-5 (0-5) /lpf U Epithel Cells (Auto) >30 H (0-5) /lpf Urine Bacteria (Auto) Negative (Negative) Ur Renal Epithelial Cell Not Reportable Urine Yeast Budding A (None Prsent) SARS-CoV-2 Ag (Rapid) Negative (Negative) Blood Type Antibody Screen Administered Medications Discontinued Medications Morphine Sulfate (Morphine Sulfate 2 Mg/Ml Carp) 2 mg IV NOW STA Stop: 10/26/20 23:46 Last Admin: 10/27/20 00:05 Dose: 2 mg Documented by: [id number] Morphine Sulfate (Morphine Sulfate 2 Mg/Ml Carp) 2 mg IV NOW STA Stop: 10/27/20 01:35 Last Admin: 10/27/20 02:00 Dose: 2 mg Documented by: [id number] Ondansetron HCl (Ondansetron Inj 2 Mg/Ml 2 Ml Vial) 4 mg IV NOW STA Stop: 10/26/20 23:46 Last Admin: 10/27/20 00:05 Dose: 4 mg Documented by: [id number] Discharge Plan Visit Data Chief Complaint: Fall Stated Complaint: FALL/HIP PAIN ED Provider: Yumiko Cano Discharge Problem: Closed hip fracture, Fall, Blunt trauma of face, Fracture of cervical spinous process Forms Stand Alone Forms: [facility] [employer] Prescriptions Prescriptions: No Action Brilinta 90 mg tablet 90 mg PO BID Qty: 60 RF: 11 insulin aspart U-100 [Novolog Flexpen U-100 Insulin] 100 unit/mL (3 mL) Insulin Pen 4 - 6 unit SUBCUT TIDM RF: 0 Creon 12,000-38,000 -60,000 unit Capsule,Delayed Release(Dr/Ec) 1 cap PO TIDM RF: 0 calcium carbonate-vitamin D3 500 mg(1,250mg) -125 unit Tablet 1 tab PO QAM RF: 0 Levemir U-100 Insulin 100 unit/mL solution 13 unit SUBCUT HS RF: 0 famotidine [Pepcid] 20 mg tablet 20 mg PO BID RF: 0 atorvastatin 40 mg tablet 40 mg PO QPM RF: 0 solifenacin [Vesicare] 10 mg tablet 10 mg PO HS RF: 0 aspirin [Aspirin Childrens] 81 mg tablet,chewable 81 mg PO DAILY Qty: 30 RF: 0 cholecalciferol (vitamin D3) [Vitamin D3] 25 mcg (1,000 unit) Tablet 25 mcg PO DAILY RF: 0 Discharge Problem: Closed hip fracture Qualifiers: Encounter type: initial encounter Laterality: left Qualified Code(s): S72.002A - Fracture of unspecified part of neck of left femur, initial encounter for closed fracture Fall Qualifiers: Encounter type: initial encounter Qualified Code(s): W19.XXXA - Unspecified fall, initial encounter Blunt trauma of face Qualifiers: Encounter type: initial encounter Qualified Code(s): S09.93XA - Unspecified injury of face, initial encounter Fracture of cervical spinous process Qualifiers: Encounter type: initial encounter Fracture type: closed Qualified Code(s): S12.9XXA - Fracture of neck, unspecified, initial encounter
[2020-10-27 00:16] LABS: Partial Thromboplastin Ratio 0.8; Partial Thromboplastin Time 23.5 Seconds (21.0-31.0); Prothrombin Time 10.4 Seconds (9.0-12.0)
[2020-10-27 00:28] LABS: Basophils # (auto) 0.01 K/uL (0-0.2); Basophils % (auto) 0.1 %; Eosinophils % (auto) 2.9 %; Hematocrit (blood only) 39.7 % (37-47); Hemoglobin 12.7 g/dL (12.0-16.0); Immature Granulocytes # (auto) 0.04 K/uL (0.00-0.02); Immature Granulocytes % (auto) 0.6 %; Lymphocytes # (auto) 1.61 K/uL (1.2-3.4); Mean Corpuscular Volume 87.4 fL (80-100); Monocytes # (auto) 0.52 K/uL (0.11-0.59); Monocytes % (auto) 7.4 %; Neutrophils # (auto) 4.63 K/uL (1.4-6.5); Platelet Count 181 K/uL (130-400); Red Blood Count 4.54 M/uL (4.2-5.4); White Blood Count 7.01 K/uL (4.8-10.8)
[2020-10-27 00:29] LABS: BUN Creatinine Ratio 18.7 (10-20); Calcium 8.8 mg/dl (8.5-10.1); Creatinine Clr Calc Pharmacy 25.3 ml/min; Est GFR (African American) 45.2; Potassium 4.2 mmol/L (3.5-5.1)
[2020-10-27 00:47] LABS: Appearance Urine Clear (Clear); Bacteria Urine Automated Negative (Negative); Bilirubin Urine Negative (Negative); Blood Urine Trace (Negative); Color Urine Yellow; Epithelial Cell Urine Auto >30 /lpf (0-5); Glucose Urine UA Trace (Negative); Ketones Urine Negative (Negative); Leukocyte Esterase Urine 1+ (Negative); Nitrite Urine Negative (Negative); Protein Urine Negative (Negative); RBC Urine Automated 0-4 /hpf (0-4); Specific Gravity Urine 1.017 (1.000-1.030); Urobilinogen Urine Negative (Negative)
[2020-10-27] MEDS ORDERED: MoRPHine SULFATE 2 MG/ML CARP IV STA (01:34)
--- NOTE | 2020-10-27 02:10 | History & Physical Report ---
Date of Service October 27, 2020 Assessment & Plan (1) Hip fracture: Patient is an 85-year-old female with a past medical history of diabetes mellitus, memory changes, high cholesterol, breast cancer, neurofibromatosis, kidney stone, obstructive uropathy, TIA, right hydronephrosis, history of pancreectomy, who presents today status post fall for evaluation of pain associated with the fall. Patient reports recent history of falling frequently, she fell a few days ago in which time she injured her nose. This most recent fall occurred this evening. #Hip fracture secondary to acute fall See HPI above. Patient presents with x-ray evidence of a hip fracture secondary to a fall. She has been falling more recently, after screening her she firmly denies a postictal state, any confusion upon waking up, any orthostasis symptoms, or any other pathological causes for the fall other than being mechanical in nature. She did say that she was trying to let 3 active dogs out, it is certainly possible that the dogs may have tripped her. In the interim she will be admitted for adequate pain control, orthopedic evaluation, PT OT, and further evaluation. Of note she does report living by herself. -Adequate analgesia morphine for every 3mg for pain greater than 5 morphine 2mg every 3 for pain less than 5 -Consult orthopedic surgery -N.p.o. overnight in the event they want to intervene -Holding Brilinta and aspirin pending surgery -Fall precautions -PT OT evaluation -Follow-up a.m. CBC and electrolyte panel -Discharge planning ordered #Closed fracture of nasal bone From her previous fall sustained a few days ago. -PT OT -pain control #Diabetes -Glycemic consult placed #Memory changes Patient is alert and oriented x4, however she is unable to remember what caused her to fall. She states that she was able to remember where she was after the fall, who she was, nothing that would indicate a postictal state or that she hit her head or anything else like that she is did not remember falling. Furthermore she fell a few minutes after standing up so would make orthostasis more unlikely although still possible. -Family notes she has a pretty good memory at baseline #Chronic kidney disease Patient with a history of chronic kidney disease, creatinine has been as high as in the twos, currently at 1.2 this appears to be below her baseline of 1.4. Would avoid nephrotoxic medications, and ensure she maintains adequate hydration. -Trend daily BMP #Hydronephrosis Per the patient, secondary to a urinary stone obstruction. This is being monitored and treated by her outpatient physicians, however could be a source for urinary tract infection that could produce symptoms that would lead to a fall. -Follow-up urine cultures #History of pancreectomy Continue pancreatic enzymes #History of neurofibromatosis FENa: N.p.o. pending surgical evaluation, LR at 100 Code Status: DNR/DNI DVT PPX: SCDs PT/OT: Ordered Dispo: Bryant Araiza MD PGY 2, FCM This chart was completed utilizing [employer] voice recognition software. Grammatical errors, random word insertions, pronoun errors, and in complete sentences are an occasional consequence of the system. Any questions or concerns about the content, text, or information contained within the body of this dictation should be addressed directly to the physician for clarification. (2) Closed fracture nasal bone: (3) Fall: (4) Acute hip pain: (5) Uncontrolled diabetes mellitus, with long-term current use of insulin: (6) Memory changes: (7) Chronic kidney disease: (8) Hydronephrosis, right: History of Present Illness Patient is an 85-year-old female with a past medical history of diabetes mellitus, memory changes, high cholesterol, breast cancer, neurofibromatosis, kidney stone, obstructive uropathy, TIA, right hydronephrosis, history of pancreectomy, who presents today status post fall for evaluation of pain associated with the fall. Patient reports recent history of falling frequently, she fell a few days ago in which time she injured her nose. This most recent fall occurred this evening. She had woke up in the evening to let her 3 dogs out to go to the bathroom, while walking to the lights which she sustained a fall. She was in her normal state of health, denying any constitutional symptoms she specifically denied fevers, chills, nausea, vomiting, chest pressure, chest pain, orthostasis feelings, seizure-like activity, postictal state, or any other concerning signs or symptoms that would think that this follows anything other than an organic fall. Despite this the patient denies any recollection of the fall,It is certainly possible that she tripped over her dogs were letting them out. Patient pressed her life alert button and her daughter arrived as well as an ambulance in which she was transferred to the [place] the emergency department. Upon arrival to the ER, her she was provided with adequate analgesia, labs were obtained CBC was within normal limits, PT/INR was within normal limits, Chem-7 was pertinent for an elevated glucose of 202 and a creatinine of 1.27 this appears to be better than her baseline Of 1.4. UA was pertinent for trace blood trace leuks trace WBCs and budding yeast. The patient firmly denies any UTI symptoms. imaging was obtained, CT of the head was negative chest x-ray demonstrated cardiomegaly and was otherwise unremarkable, hip x-ray demonstrated a fracture. she will be admitted to [facility] for further evaluation and treatment of her hip fracture. Primary Care Provider: CONRADO Ponce Allergies Allergy/AdvReac Type Severity Reaction Status Date / Time No Known Drug Allergies Allergy Unknown Verified 10/26/20 08:51 Home Medications Medication Instructions Recorded Confirmed Type Creon 1 cap PO TIDM 06/11/19 10/26/20 History calcium carbonate-vitamin D3 1 tab PO QAM 06/11/19 10/27/20 History insulin aspart U-100 [Novolog 4 - 6 unit SUBCUT TIDM 06/11/19 10/27/20 History Flexpen U-100 Insulin] famotidine [Pepcid] 20 mg PO BID 01/17/20 10/26/20 History solifenacin [Vesicare] 10 mg PO HS 02/10/20 10/26/20 History aspirin [Aspirin Childrens] 81 mg PO DAILY #30 tab 08/11/20 10/27/20 Rx ticagrelor 90 mg tablet 90 mg PO BID #60 tab 08/15/20 10/26/20 Rx atorvastatin 40 mg tablet 40 mg PO QPM tab 08/31/20 10/26/20 History insulin detemir U-100 100 unit/mL 13 unit SUBCUT HS ml 08/31/20 10/27/20 History subcutaneous solution cholecalciferol (vitamin D3) 25 mcg PO DAILY 10/27/20 10/27/20 History [Vitamin D3] Past Med/Surg History Medical History Compression fracture of T11 vertebra s/p fall 12/2019 Diabetes mellitus, type 2 Exocrine pancreatic insufficiency GERD (gastroesophageal reflux disease) Hearing deficit History of TIAs NO RESIDUAL EFFECTS- 2014 per records Hx of fall HX: breast cancer LUMPECTOMY - LEFT BREAST; NO RADIATION, NO CHEMO; WAS ON TAMOXIFEN FOR 5 YR - NO LONGER TAKING Hyperlipidemia Kidney stones 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 [facility]. LMA #4. No issues. History of cystoscopy 02/10/2020 [facility] History of lumpectomy of left breast History of pancreatectomy PARTIAL ([place]) History of ureter stent Hx of colonoscopy Family History Aunt Stroke Mother Stroke Father Heart disease Other No family history of allergies No family history of bleeding disorder No pertinent family history in first degree relatives Denies family history of Hearing loss Cancer Hypertension Asthma Social History Smoking Status: Never smoker Second Hand Exposure: No; Do You Dip or Chew Tobacco: No; Tobacco Cessation Education Requested by Patient: No Hx Alcohol Use: No Hx Substance Use: No Preferred Language: Turkmen Communication Ability: Effective Adhesive Bandage Making Operator Required: No Beliefs That Will Affect Care: None marital status: Unknown Current Living Situation: Alone current occupational status: retired Other Information That 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 Safety Concerns: Feels Safe At This Time Assistive Devices: Glasses Review of Systems Review of Systems: All systems reviewed & are unremarkable except as noted in HPI & below Physical Exam Physical Exam: General: Elderly female in no acute distress endorsing hip pain HEENT: Normocephalic, trauma to the nose Neck: Trachea midline, normal to visual inspection Cardiac: Regular rate and rhythm, I did not appreciate any significant murmurs rubs or gallops, normal S1, normal S2, negative pedal edema, negative calf tenderness Respiratory: Clear to auscultation bilaterally without significant wheezes, rales, rhonchi, normal respiratory effort, symmetrical chest expansion GI: Soft, nontender, nondistended, bowel sounds present in all 4 quadrants MSK: Moves all extremities although pain with movement Skin: Multiple bruises Neuro: Alert and oriented x4 Psych: Calm and cooperative Results & Data Results & Data ([facility]) Vital Signs (Past 12 Hours) Vital Signs Temp Pulse Resp BP Pulse Ox 10/26/20 23:14 36.7 C 88 18 163/110 H 95 Laboratory Results 10/27/20 10/27/20 10/26/20 Range/Units 02:09 00:13 23:52 WBC (4.8-10.8) K/uL RBC (4.2-5.4) M/uL Hgb (12.0-16.0) g/dL Hct (37-47) % MCV (80-100) fL MCH (25-34) pg MCHC (32-36) g/dL Plt Count (130-400) K/uL Immature Gran % (Auto) % Neut % (Auto) % Lymph % (Auto) % Alexander % (Auto) % Eos % (Auto) % Baso % (Auto) % Neut # (Auto) (1.4-6.5) K/uL Lymph # (Auto) (1.2-3.4) K/uL Alexander # (Auto) (0.11-0.59) K/uL Eos # (Auto) (0-0.5) K/uL Baso # (Auto) (0-0.2) K/uL Immature Gran # (Auto) (0.00-0.02) K/uL PT (9.0-12.0) Seconds INR (0.9-1.1) APTT (21.0-31.0) Seconds PTT Ratio Sodium 141 (136-145) mmol/L Potassium 4.2 (3.5-5.1) mmol/L Chloride 109 H (98-107) mmol/L Carbon Dioxide 26 (21-32) mmol/L Anion Gap 6.0 (3-11) BUN 24 H (7-18) mg/dl Creatinine 1.27 H (0.6-1.2) mg/dl Est Cr Clr Drug Dosing 25.3 ml/min Est GFR ( Amer) 45.2 Est GFR (Non-Af Amer) 39.0 BUN/Creatinine Ratio 18.7 (10-20) Glucose 202 H (70-99) mg/dl Calcium 8.8 (8.5-10.1) mg/dl Urine Color Yellow Urine Appearance Clear (Clear) Urine pH 5.0 (4.5-7.5) Ur Specific [place] 1.017 (1.000-1.030) Urine Protein Negative (Negative) Urine Glucose (UA) Trace H (Negative) Urine Ketones Negative (Negative) Urine Blood Trace H (Negative) Urine Nitrite Negative (Negative) Urine Bilirubin Negative (Negative) Urine Urobilinogen Negative (Negative) Ur Leukocyte Esterase 1+ H (Negative) Urine WBC (Auto) 10-30 H (0-5) /hpf Urine RBC (Auto) 0-4 (0-4) /hpf U Hyaline Cast (Auto) 1-5 (0-5) /lpf U Epithel Cells (Auto) >30 H (0-5) /lpf Urine Bacteria (Auto) Negative (Negative) Ur Renal Epithelial Cell Not Reportable Urine Yeast Budding A (None Prsent) SARS-CoV-2 Ag (Rapid) Negative (Negative) Blood Type Antibody Screen 10/26/20 10/26/20 10/26/20 Range/Units 23:52 23:52 23:52 WBC 7.01 (4.8-10.8) K/uL RBC 4.54 (4.2-5.4) M/uL Hgb 12.7 (12.0-16.0) g/dL Hct 39.7 (37-47) % MCV 87.4 (80-100) fL MCH 28.0 (25-34) pg MCHC 32.0 (32-36) g/dL Plt Count 181 (130-400) K/uL Immature Gran % (Auto) 0.6 % Neut % (Auto) 66.0 % Lymph % (Auto) 23.0 % Alexander % (Auto) 7.4 % Eos % (Auto) 2.9 % Baso % (Auto) 0.1 % Neut # (Auto) 4.63 (1.4-6.5) K/uL Lymph # (Auto) 1.61 (1.2-3.4) K/uL Alexander # (Auto) 0.52 (0.11-0.59) K/uL Eos # (Auto) 0.20 (0-0.5) K/uL Baso # (Auto) 0.01 (0-0.2) K/uL Immature Gran # (Auto) 0.04 H (0.00-0.02) K/uL PT 10.4 (9.0-12.0) Seconds INR 1.0 (0.9-1.1) APTT 23.5 (21.0-31.0) Seconds PTT Ratio 0.8 Sodium (136-145) mmol/L Potassium (3.5-5.1) mmol/L Chloride (98-107) mmol/L Carbon Dioxide (21-32) mmol/L Anion Gap (3-11) BUN (7-18) mg/dl Creatinine (0.6-1.2) mg/dl Est Cr Clr Drug Dosing ml/min Est GFR ( Amer) Est GFR (Non-Af Amer) BUN/Creatinine Ratio (10-20) Glucose (70-99) mg/dl Calcium (8.5-10.1) mg/dl Urine Color Urine Appearance (Clear) Urine pH (4.5-7.5) Ur Specific [place] (1.000-1.030) Urine Protein (Negative) Urine Glucose (UA) (Negative) Urine Ketones (Negative) Urine Blood (Negative) Urine Nitrite (Negative) Urine Bilirubin (Negative) Urine Urobilinogen (Negative) Ur Leukocyte Esterase (Negative) Urine WBC (Auto) (0-5) /hpf Urine RBC (Auto) (0-4) /hpf U Hyaline Cast (Auto) (0-5) /lpf U Epithel Cells (Auto) (0-5) /lpf Urine Bacteria (Auto) (Negative) Ur Renal Epithelial Cell Urine Yeast (None Prsent) SARS-CoV-2 Ag (Rapid) (Negative) Blood Type Pending Antibody Screen Pending Code Status & VTE Plan Code Status DNR/DNI VTE Prophylaxis Plan VTE Prophylaxis will be ordered: Yes Supervising Physician Co-Signing Physician Notes Attending addendum: I have physically seen this patient, have supervised the medical residents activities, and agree with the H&P unless as otherwise noted. Assessment and Plan: Closed hip fracture- NPO IV fluids Tylenol 650 mg p.o. every 6 hours as needed mild pain or temperature Morphine sulfate orders as written Zofran 4 mg IV every 6 hours as needed Famotidine 20 mg IV every 12 hours Hold Brilinta and aspirin Geriatric hip fracture protocol order set Consult orthopedic surgery Remaining orders and notations as noted Resident Activity Tracking Resident Involvement: Resident Care Provided Care Provided: Adult Hospital Medicine (1) Acute hip pain Laterality: right Qualified Code(s): M25.551 - Pain in right hip (2) Closed fracture nasal bone Encounter type: initial encounter Qualified Code(s): S02.2XXA - Fracture of nasal bones, initial encounter for closed fracture (3) Fall Encounter type: initial encounter Qualified Code(s): W19.XXXA - Unspecified fall, initial encounter
[2020-10-27] MEDS ORDERED: ACETAMINOPHEN 325 MG TAB PO PRN ×2 (03:49→16:09)
[2020-10-27] MEDS ORDERED: ONDANSETRON INJ 2 MG/ML 2 ML VIAL IV PRN ×2 (03:49→14:37)
[2020-10-27] MEDS ORDERED: PHARMACY GLYCEMIC MGMT CONSULT PRN (04:11)
[2020-10-27] MEDS: LACTATED RINGER'S 1,000 ML IV SCH ×3 (04:22→19:03)
[2020-10-27] MEDS ORDERED: MoRPHine SULFATE 2 MG/ML CARP IV PRN (04:46)
[2020-10-27] MEDS: MoRPHine SULFATE 4 MG/ML 1 ML CARP\\VIAL IV PRN ×3 (05:20→12:45)
[2020-10-27] MEDS ORDERED: ROPIVACAINE 0.5% HCL/PF 150 MG, BUPIVACAINE 0.5% MPF 30 ML, EPINEPHrine 0.15 MG, Ketoro... INFIL SCH (06:00)
[2020-10-27] MEDS: INSULIN ASPART 100 UNITS/ML 3 ML PEN SC SCH ×5 (06:09→23:53)
[2020-10-27 06:37] LABS: Basophils # (auto) 0.01 K/uL (0-0.2); Basophils % (auto) 0.1 %; Eosinophils # (auto) 0.01 K/uL (0-0.5); Eosinophils % (auto) 0.1 %; Hematocrit (blood only) 36.2 % (37-47); Hemoglobin 11.6 g/dL (12.0-16.0); Immature Granulocytes # (auto) 0.01 K/uL (0.00-0.02); Immature Granulocytes % (auto) 0.1 %; Lymphocytes # (auto) 0.62 K/uL (1.2-3.4); Lymphocytes % (auto) 6.8 %; Mean Corpuscular Hemoglobin 28.3 pg (25-34); Mean Corpuscular Volume 88.3 fL (80-100); Monocytes # (auto) 0.83 K/uL (0.11-0.59); Monocytes % (auto) 9.1 %; Neutrophils # (auto) 7.69 K/uL (1.4-6.5); Neutrophils % (auto) 83.8 %; Platelet Count 184 K/uL (130-400); RDW Coefficient of Variation 14.9 % (11.5-14.5); RDW Standard Deviation 48.3 fL (36.4-46.3); White Blood Count 9.17 K/uL (4.8-10.8)
[2020-10-27 06:53] LABS: Albumin Level 2.8 gm/dl (3.4-5.0); Calcium 8.6 mg/dl (8.5-10.1); Creatinine Clr Calc Pharmacy 28.5 ml/min; Est GFR (African American) 52.1; Est GFR (Non-African American) 44.9; Potassium 4.1 mmol/L (3.5-5.1)
--- NOTE | 2020-10-27 06:55 | CT Scan Report ---
CT cervical spine wo con CLINICAL HISTORY: 85 years-old Female with fall. Acute posttraumatic had neck injury COMPARISON: CT cervical spine 10/22/2020. TECHNIQUE: Multiple axial CT images of the cervical spine were obtained without contrast. A dose low ering technique was utilized adhering to the principles of ALARA. FINDINGS: Demineralized appearance of the bones. C1-C2 alignment is anatomic. There is mild to moderate interve rtebral disc space narrowing at C5-C6 and moderate to severe disc space narrowing at C6-C7 with assoc iated moderate spondylitic spurring. Posterior disc osteophyte complex formations are also noted at t hese levels. Severe multilevel facet arthrosis. Mild superior endplate compression at T2 is unchanged . Mild levoscoliosis. Multilevel foraminal narrowing. Acute fracture of the C5 transverse process is noted without significant displacement. Acute nondisplaced fracture of the right C5 lamina. No additi onal acute fracture or subluxation identified. There is suggestion of a small posterior epidural tuan jason at the level of the fracture measures up to 3 mm. No pneumothorax. Innumerable soft tissue nodules are again seen. Probable meningioma of the right mid dle cranial fossa is calcified measuring 8 mm. IMPRESSION: 1. Acute nondisplaced fractures of the C5 spinous process and right lamina. There is suggestion of a tiny posterior epidural hematoma at this level measuring 3 mm without significant central canal steno sis. 2. No additional acute fracture or subluxation. ACT 112: Negative or not required by law. The above report was generated using voice recognition software. It may contain grammatical, syntax o r spelling errors. Electronically signed by: Brett Solitario M.D. 10/27/2020 6:54 AM
[2020-10-27 06:56] LABS: Albumin Globulin Ratio 0.8 (0.9-2); Bilirubin,Total 0.5 mg/dl (0.2-1); Globulin 3.7 gm/dl (2.5-4.0); Total Protein 6.5 gm/dl (6.4-8.2)
--- NOTE | 2020-10-27 07:16 | XRay Report ---
XR hip LT min 2V HISTORY: 85 years-old Female left hip pain acute left hip pain status post fall COMPARISON: Pelvis and hip radiograph 10/22/2020 TECHNIQUE: AP view of the pelvis with 2 views of the left hip FINDINGS: Demineralized appearance of the bones. Mild left hip osteoarthritis. There is an acute transcervical fracture of the left femur which demonstrates mild impaction and slight apex cephalad angulation. No dislocation. The left pelvic ring appears intact. IMPRESSION: Acute transcervical fracture of the left femur. ACT 112: Negative or not required by law. The above report was generated using voice recognition software. It may contain grammatical, syntax o r spelling errors. Electronically signed by: Brett Solitario M.D. 10/27/2020 7:15 AM
--- NOTE | 2020-10-27 07:26 | CT Scan Report ---
CT SCAN OF THE BRAIN WITHOUT IV CONTRAST CLINICAL HISTORY: Fall. COMPARISON STUDY: CT of the brain dated 10/22/2020. TECHNIQUE: Unenhanced axial CT scan of the brain is performed from the vertex to the skull base. A do se lowering technique was utilized adhering to the principles of ALARA. CT DOSE: 979.45 mGy.cm FINDINGS: Brain parenchyma: There are age-related involutional changes noting advanced subcortical and periven tricular microangiopathic change. There is no hemorrhage, mass effect, or evidence of acute territori al ischemia by CT criteria. A 9 mm calcified nodule dural based lesion in the right temporal fossa is unchanged and typical for a small meningioma. Colon-white matter differentiation is preserved. No ext ra-axial fluid collection is seen. Ventricles, sulci, cisterns: Prominent secondary to involutional change. Intracranial vasculature: There is atherosclerotic calcification of the cavernous carotid and vertebr al arteries. Calvarium: The skeletal structures are osteopenic. No depressed calvarial fracture is identified. Soft tissues: There is left facial soft tissue contusion. Numerous skin tags are noted. Sinuses and mastoids: The visualized paranasal sinuses are clear. The mastoid air cells are well pneu matized. Orbits: The bony orbits are grossly intact. There are bilateral ocular lens implants. IMPRESSION: There is no hemorrhage, mass effect, or evidence of acute territorial ischemia by CT lse [place]. ACT 112: Negative or not required by law. Electronically signed by: Sandro Steh M.D. 10/27/2020 7:25 AM
--- NOTE | 2020-10-27 07:27 | XRay Report ---
XR chest 1V portable HISTORY: 85 years-old Female pre op preoperative exam. COMPARISON: Chest radiograph 05/16/2020 TECHNIQUE: Portable AP view of the chest FINDINGS: Limited exam secondary to positioning. Cardiac silhouette is mildly enlarged. Lucency projects over t he lateral left lung base is suggestive of a probable skinfold with additional skin fold projecting o jesse the lateral right upper lung. No large pleural effusion, overt pulmonary edema or airspace consol idation. Bones appear grossly intact. Dextroscoliosis of the midthoracic spine. Innumerable cutaneous soft tissue nodules redemonstrated. IMPRESSION: 1. Skin folds project over the right lateral upper lung and lateral left lung base. No definite pneum othorax identified. If there is further clinical concern, repeat chest radiograph may be considered. 2. Innumerable cutaneous nodules redemonstrated. 3. The lungs appear clear. ACT 112: Negative or not required by law. The above report was generated using voice recognition software. It may contain grammatical, syntax o r spelling errors. Electronically signed by: Brett Solitario M.D. 10/27/2020 7:25 AM
[2020-10-27 07:36] LABS: Estimated Average Glucose 223 mg/dl; Hemoglobin A1C 9.4 % (4.5-5.6)
--- NOTE | 2020-10-27 07:46 | Electrocardiogram Report ---
Test Reason : Blood Pressure : / mmHG Vent. Rate : 084 BPM Atrial Rate : 084 BPM P-R Int : 238 ms QRS Dur : 072 ms QT Int : 386 ms P-R-T Axes : 065 -33 041 degrees QTc Int : 456 ms Sinus rhythm with 1st degree A-V block Left axis deviation Abnormal ECG When compared with ECG of 10-AUG-2020 23:46, Premature ventricular complexes are no longer Present QT has shortened Confirmed by Gregorio Gayle ([id number]) on 10/27/2020 7:46:25 AM Referred By: REFERRED SELF Confirmed By:Jono Gayle
--- NOTE | 2020-10-27 08:06 | CT Scan Report ---
CT SCAN OF THE FACIAL BONES WITHOUT IV CONTRAST CLINICAL HISTORY: Fall. Facial injury. COMPARISON STUDY: CT of the facial bones dated 10/22/2020. TECHNIQUE: High-resolution CT scan of the facial bones is performed. Images are reviewed in the axia l, sagittal, and coronal planes. IV contrast was not administered for this examination. A dose lower ing technique was utilized adhering to the principles of ALARA. FINDINGS: The skeletal structures are osteopenic. Again seen are bilateral nasal bone fractures with overlying soft tissue edema. The bony nasal septum appears intact. No additional facial bone fracture is identified. The bony orbits are intact and the orbital contents are within normal limits noting b ilateral ocular lens implants. The zygomatic arches and pterygoid plates are preserved. The maxilla a nd mandible are intact. There are no layering blood products within the paranasal sinuses. The sinuse s and mastoids are clear. The visualized calvarium is maintained. There is an acute fracture of the C 5 spinous process. Partially imaged brain parenchyma is within normal limits noting age-related invol utional change. There is left frontotemporal scalp contusion. Numerous skin tags are again seen in th e face and neck. There is left premalar and left frontotemporal soft tissue contusion. IMPRESSION: 1. No acute facial bone fracture is identified. 2. Again seen are subacute bilateral nasal bone fractures. 3. There is an acute spinous process fracture of C5. 4. Left premalar and left frontotemporal soft tissue contusion. ACT 112: Negative or not required by law. Electronically signed by: Sandro Seth M.D. 10/27/2020 8:04 AM
[2020-10-27] MEDS: PANCREAZE (LIPASE 4,200U) CAP PO SCH ×3 (08:08→17:33)
[2020-10-27] MEDS: FAMOTIDINE 20 MG TAB PO SCH ×2 (08:08→20:48)
[2020-10-27] MEDS ORDERED: CALCIUM 600MG + VIT D 400 IU TAB PO SCH (09:00)
[2020-10-27] MEDS ORDERED: CHOLECALCIFEROL 1,000 UNITS 25 MCG TAB PO SCH (09:00)
[2020-10-27] MEDS ORDERED: POLYETHYLENE (MIRALAX) 17 GM PACK PO SCH (09:00)
--- NOTE | 2020-10-27 09:52 | Hospitalist Progress Note ---
Date of Service October 27, 2020 Assessment & Plan (1) Hip fracture: Patient is an 85-year-old female with a past medical history of diabetes mellitus, memory changes, high cholesterol, breast cancer, neurofibromatosis, kidney stone, obstructive uropathy, TIA, right hydronephrosis, history of pancreectomy, who presents today status post fall for evaluation of pain associated with the fall. Patient reports recent history of falling frequently, she fell a few days ago in which time she injured her nose. This most recent fall occurred this evening. Hip fracture secondary to acute fall (while trying to let 3 active dogs out) - Hip XR: acute transcervical fx of L femur w/ mild impaction and slight apex cephalad angulation - Admitted for adequate pain control, orthopedic evaluation, PT OT, and further evaluation/possible surgical management - Ortho consulted and discussed treatment/management options -- she does want to have her hip fixed surgically; patient will need hemiarthroplasty of the left hip - ACS surgical risk calculator with average risk of any complication at 4.1%, slightly above average risk of serious complication at 3.9% (average risk = 3.5%) and average risk of cardiac complication at 0.2% - Pain control w/ morphine 2mg IV q3h prn (pain < 5) or 4mg IV q3h (pain > 5) -- Post op pain management per ortho surgery team - Patient has been NPO since midnight in preparation for surgery today, 10/27 - Holding Brilinta and aspirin pending surgery - Fall precautions - CBC and BMP qAM Closed fracture of nasal bone - From her previous fall sustained a few days ago. - Pain control; no current management needed at this time - F/u as outpatient Diabetes - A1c on admission 9.4% - Home regimen with Levemir 13 units subcu qhs and Novolog 4-6 units subcu TIDM - Glycemic consult placed to assist with management while in the hospital Chronic kidney disease - Hx of CKD, Cr of 1.3-1.4 at baseline but has been as high as in the 2s - Cr on admission 1.27 - Avoid nephrotoxic medication - BMP qAM Hydronephrosis - Per the patient, patient with hydronephrosis secondary to a urinary stone obstruction - This is being monitored and treated by her outpatient physicians, however could be a source for urinary tract infection that could produce symptoms that would lead to a fall - UA in ED 10/27 shows trace glucose, negative ketones, trace blood, negative nitrite, 1+ leuk esterase, 10-30 WBC, > 30 epithelial cells - Urine cultures pending; will plan to treat if indicated History of pancreectomy - Continue home Creon as prescribed History of neurofibromatosis - No acute management - F/u prn as outpatient FENa: NPO in preparation for surgery DVT PPX: SCDs PT/OT: Ordered Dispo: MedSurg Code Status: DNR/DNI (2) Closed fracture nasal bone: (3) Fall: (4) Acute hip pain: (5) Uncontrolled diabetes mellitus, with long-term current use of insulin: (6) Memory changes: (7) Chronic kidney disease: (8) Hydronephrosis, right: Admission and Anticipated Discharge Date Admission Date: October 27, 2020 Supervising Physician Co-Signing Physician Notes Attending attestation Pt seen and examined in concert with Dr. Markham. In agreement with the documented findings as noted in the resident documentation with any exceptions or additions as noted here. Resting in bed, pain well controlled on current regimen though somewhat somnolent following last pain medication dose. Still conversant On examination, S1/S2 nl RRR no MCG. CTAB. Abd NT/ND BS+ve Hip fracture 2/2 acute fall (mechanical) - ortho consultation appreciated - pain management as noted, holding antiplatelet regimen. Surgical risk as noted. DMII - A1c 9.4% - continue glycemic management with insulin control as noted. CKD III - stable, avoid nephrotoxic medications and monitor perioperatively Else see resident documentation as noted. Subjective Rosalba Torres is an 85 yo female who was admitted overnight due to left hip fracture s/p fall. Patient states that yesterday evening (she is not sure of a time but notes that it was dark outside), she tripped over one of her dogs (she has 3 - Marino, Jhoana, and Emelyn) causing her to fall to the ground. It is noted that she lives at home alone. Patient used her LifeAlert to call for help and she was brought to the ED for evaluation. She was admitted with an acute transcervical fracture of the left femur, demonstrating mild impaction and slight apex cephalad angulation w/o dislocation. Ortho was consulted and patient is scheduled for surgical intervention today; she has been NPO since midnight. Patient states that apart from the left hip pain and fracture, she feels well and has been in her baseline health. Patient reports 10/10 pain that is being well managed with analgesics. Patient denies headache, dizziness, lightheadedness, fever, chills, CP, SOB, abdominal pain, nausea, or vomiting. Review of Systems Constitutional: no fever, no chills and no weakness Respiratory: no cough and no dyspnea Cardiovascular: no chest pain Gastrointestinal: no abdominal pain, no nausea, no vomiting, no constipation and no diarrhea/loose stools Genitourinary: no dysuria and no hematuria Musculoskeletal: + joint pain Integumentary: + lesions (+ hx of neurofibromatosis, no acute concerns) Neurologic: no numbness, no paresthesia, no syncope and no headache(s) Physical Exam Physical Exam: GENERAL: No acute distress. Well developed and well nourished. Vital signs reviewed. EYES: EOMI. Anicteric sclerae. HENT: Moist mucous membranes. RESPIRATORY: Clear to auscultation in bilateral anterior superior lung elias. Unable to auscultate posterior lung elias and patient unable to rotate or sit up due to the hip pain. No audible wheezing. CARDIOVASCULAR: Regular rate and rhythm. No murmurs. ABDOMEN: Soft and non-tender. Normal bowel sounds. EXTREMITIES: No edema. Tenderness to palpation over bilateral shins. L leg is shortened and externally rotated. SKIN: Warm, dry. Numberable lesions over face, trunk, and extremities consisted with neurofibromatosis. NEUROLOGIC: A/O x4. No focal neurological deficits. PSYCHIATRIC: Cooperative. Appropriate mood and affect. Results & Data Results [facility] ([facility]) Vital Signs (Past 12 Hours) Vital Signs Temp Pulse Pulse Pulse Resp BP BP 10/27/20 07:12 36.3 C L 79 16 121/71 10/27/20 03:42 92 H 18 155/91 H 10/27/20 03:35 36.5 C 78 18 160/88 H 10/27/20 01:37 99 H 18 145/90 H 10/26/20 23:14 36.7 C 88 18 163/110 H Pulse Ox 10/27/20 07:12 98 10/27/20 03:42 96 10/27/20 03:35 96 10/27/20 01:37 91 10/26/20 23:14 95 Resident Activity Tracking Resident Involvement: Resident Care Provided Care Provided: Adult Hospital Medicine (1) Acute hip pain Laterality: right Qualified Code(s): M25.551 - Pain in right hip (2) Closed fracture nasal bone Encounter type: initial encounter Qualified Code(s): S02.2XXA - Fracture of nasal bones, initial encounter for closed fracture (3) Fall Encounter type: initial encounter Qualified Code(s): W19.XXXA - Unspecified fall, initial encounter
--- NOTE | 2020-10-27 10:29 | Orthopedic Consultation ---
Date of Consultation October 27, 2020 Assessment & Plan (1) Closed hip fracture: I educated her on this fracture and I did speak with her niece Christa at her request and with her permission. I discussed treatment options and she does want to have her hip fixed surgically. She will need a hemiarthroplasty of the left hip. This will be today with Dr. Araiza or Dr. Coyne. Npo at this time. Present on Admission?: Yes History of Present Illness Attending Physician: Blayne Dasilva MD History of Present Illness 85 y/o female with left hip pain. She has 3 dogs and was taking them out when she thinks she twisted or tripped and fell. Her only complaint is left hip pain. Xrays obtained show and displaced left femoral neck fracture. he did have a fall recently and has some facial fractures. She ambulates independently but did say her family tries to get her to use a walker. She does live alone and is quite independent. Allergies Allergy/AdvReac Type Severity Reaction Status Date / Time No Known Drug Allergies Allergy Unknown Verified 10/26/20 08:51 Home Medications Medication Instructions Recorded Confirmed Type Creon 1 cap PO TIDM 06/11/19 10/26/20 History calcium carbonate-vitamin D3 1 tab PO QAM 06/11/19 10/27/20 History insulin aspart U-100 [Novolog 4 - 6 unit SUBCUT TIDM 06/11/19 10/27/20 History Flexpen U-100 Insulin] famotidine [Pepcid] 20 mg PO BID 01/17/20 10/26/20 History solifenacin [Vesicare] 10 mg PO HS 02/10/20 10/26/20 History aspirin [Aspirin Childrens] 81 mg PO DAILY #30 tab 08/11/20 10/27/20 Rx ticagrelor 90 mg tablet 90 mg PO BID #60 tab 08/15/20 10/26/20 Rx atorvastatin 40 mg tablet 40 mg PO QPM tab 08/31/20 10/26/20 History insulin detemir U-100 100 unit/mL 13 unit SUBCUT HS ml 08/31/20 10/27/20 History subcutaneous solution cholecalciferol (vitamin D3) 25 mcg PO DAILY 10/27/20 10/27/20 History [Vitamin D3] Patient History Medical History Compression fracture of T11 vertebra s/p fall 12/2019 Diabetes mellitus, type 2 Exocrine pancreatic insufficiency GERD (gastroesophageal reflux disease) Hearing deficit History of TIAs NO RESIDUAL EFFECTS- 2014 per records Hx of fall HX: breast cancer LUMPECTOMY - LEFT BREAST; NO RADIATION, NO CHEMO; WAS ON TAMOXIFEN FOR 5 YR - NO LONGER TAKING Hyperlipidemia Kidney stones 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 [facility]. LMA #4. No issues. History of cystoscopy 02/10/2020 [facility] History of lumpectomy of left breast History of pancreatectomy PARTIAL ([facility]) History of ureter stent Hx of colonoscopy Family History Aunt Stroke Mother Stroke Father Heart disease Other No family history of allergies No family history of bleeding disorder No pertinent family history in first degree relatives Denies family history of Hearing loss Cancer Hypertension Asthma Social History Smoking Status: Never smoker Second Hand Exposure: No; Do You Dip or Chew Tobacco: No; Tobacco Cessation Education Requested by Patient: No Hx Alcohol Use: No Hx Substance Use: No Preferred Language: Lebanese Communication Ability: Effective Seam Stay Stitcher Required: No Beliefs That Will Affect Care: None marital status: Single Current Living Situation: Alone current occupational status: retired Other Information That 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 She is alert and oriented. No pain with ROM of her upper extremities or right leg. Her left leg is shortened and externally rotated. Skin is intact. She can dorsiflex and plantarflex. NVI Results & Data ([facility]) Vital Signs (Past 12 Hours) Vital Signs Temp Pulse Pulse Pulse Resp BP BP 10/27/20 07:12 36.3 C L 79 16 121/71 10/27/20 03:42 92 H 18 155/91 H 10/27/20 03:35 36.5 C 78 18 160/88 H 10/27/20 01:37 99 H 18 145/90 H 10/26/20 23:14 36.7 C 88 18 163/110 H Pulse Ox 10/27/20 07:12 98 10/27/20 03:42 96 10/27/20 03:35 96 10/27/20 01:37 91 10/26/20 23:14 95 Diagnostic Findings Xray shows displaced left femoral neck fx PG Care Time/CCT Total # of Minutes Spent Total Time Spent with Patient: Total time spent is greater than 50% in coordination of care (as documented) at patient's floor/unit and/or counseling patient: Coding Level of Care Code 84536 Initial Inpt Care Lvl 3 Diagnoses Closed hip fracture S72.002A Encounter type: initial encounter Laterality: left (1) Closed hip fracture Encounter type: initial encounter Laterality: left Qualified Code(s): S72.002A - Fracture of unspecified part of neck of left femur, initial encounter for closed fracture
--- NOTE | 2020-10-27 13:08 | Anesthesiology Consultation ---
Date of Service October 27, 2020 Assessment & Plan (1) Encounter for pre-operative examination: Chart Review Chart Review: Acceptable Risk for Surgery and Patient NOT seen in Pre Admission Testing Consults Requested none History Surgery Operation Date: 10/27/20 08:50 Proposed Procedures p Left Bipolar Hip Arthroplasty Anterior - Latrell Coyne DO Height/Weight Height: 5 ft 1 in Weight: 49.8 kg Allergies Allergy/AdvReac Type Severity Reaction Status Date / Time No Known Drug Allergies Allergy Unknown Verified 10/26/20 08:51 Medications Home Medications Medication Instructions Recorded Confirmed Last Taken Creon 1 cap PO TIDM 06/11/19 10/26/20 10/26/20 calcium carbonate-vitamin D3 1 tab PO QAM 06/11/19 10/27/20 10/26/20 insulin aspart U-100 [Novolog 4 - 6 unit SUBCUT TIDM 06/11/19 10/27/20 10/26/20 Flexpen U-100 Insulin] famotidine [Pepcid] 20 mg PO BID 01/17/20 10/26/20 10/26/20 solifenacin [Vesicare] 10 mg PO HS 02/10/20 10/26/20 10/26/20 aspirin [Aspirin Childrens] 81 mg PO DAILY #30 tab 08/11/20 10/27/20 10/26/20 ticagrelor 90 mg tablet 90 mg PO BID #60 tab 08/15/20 10/26/20 10/26/20 atorvastatin 40 mg tablet 40 mg PO QPM tab 08/31/20 10/26/20 10/26/20 insulin detemir U-100 100 unit/mL 13 unit SUBCUT HS ml 08/31/20 10/27/20 10/26/20 subcutaneous solution cholecalciferol (vitamin D3) 25 mcg PO DAILY 10/27/20 10/27/20 10/26/20 [Vitamin D3] Active Medications Generic Name Dose Route Start Last Admin Trade Name Freq PRN Reason Stop Dose Admin Lipase/Protease/Amylase 3 cap 10/27/20 08:00 10/27/20 11:34 Pancreaze (Lipase 4,200u) Cap PO 11/26/20 07:59 Not Given TIDM TUNDE Famotidine 20 mg 10/27/20 09:00 10/27/20 08:08 Famotidine 20 Mg Tab PO 11/26/20 08:59 Not Given BID TUNDE Lactated Ringer's 1,000 mls @ 100 mls/hr 10/27/20 03:49 10/27/20 04:22 Lr IV 11/26/20 03:48 100 mls/hr .Q10H TUNDE Administration Insulin Aspart 0 units 10/27/20 06:00 10/27/20 12:42 Insulin Aspart 100 Units/Ml 3 Ml Pen SC 11/26/20 05:59 2 units Q6 TUNDE Administration Protocol Miscellaneous 1 ea 10/27/20 08:00 10/27/20 07:53 Solifenacin [Vesicare]: Order Awaiting Action N/A 11/26/20 07:59 Not Given QS TUNDE Morphine Sulfate 4 mg 10/27/20 04:46 10/27/20 12:45 Morphine Sulfate 4 Mg/Ml 1 Ml Carp\\Vial IV 11/10/20 04:45 4 mg Q3H PRN Administration Pain (6,7,8,9,10) Protocol Multivitamins/Minerals 1 tab 10/27/20 09:00 10/27/20 08:08 Calcium 600mg + Vit D 400 Iu Tab PO 11/26/20 08:59 Not Given QAM TUNDE Polyethylene Glycol 17 gm 10/27/20 09:00 10/27/20 08:08 Polyethylene (Miralax) 17 Gm Pack PO 11/26/20 08:59 Not Given BID TUNDE Vitamin D 1,000 units 10/27/20 09:00 10/27/20 08:08 Cholecalciferol 1,000 Units 25 Mcg Tab PO 11/26/20 08:59 Not Given DAILY TUNDE Past Medical History Medical History Compression fracture of T11 vertebra s/p fall 12/2019 Diabetes mellitus, type 2 Exocrine pancreatic insufficiency GERD (gastroesophageal reflux disease) Hearing deficit History of TIAs NO RESIDUAL EFFECTS- 2014 per records Hx of fall HX: breast cancer LUMPECTOMY - LEFT BREAST; NO RADIATION, NO CHEMO; WAS ON TAMOXIFEN FOR 5 YR - NO LONGER TAKING Hyperlipidemia Kidney stones 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 [facility]. LMA #4. No issues. History of cystoscopy 02/10/2020 [facility] History of lumpectomy of left breast History of pancreatectomy PARTIAL ([facility]IP[facility]) History of ureter stent Hx of colonoscopy Social History Smoking Status: Never smoker Do You Dip or Chew Tobacco: No Hx Alcohol Use: No Alcohol type: wine alcohol intake frequency: holidays/special occasions only Hx Substance Use: No substance use type: does not use Physical Exam Vital Signs Last Vital Signs Temp 36.3 C L 10/27/20 07:12 Pulse 79 10/27/20 07:12 Resp 16 10/27/20 07:12 BP 121/71 10/27/20 07:12 Pulse Ox 98 10/27/20 07:12 Testing Laboratory Results 10/27/20 06:19 10/27/20 06:19 PT 10.4 Seconds (9.0-12.0) 10/26/20 23:52 INR 1.0 (0.9-1.1) 10/26/20 23:52 APTT 23.5 Seconds (21.0-31.0) 10/26/20 23:52 Hemoglobin A1c 9.4 % (4.5-5.6) H 10/27/20 06:19 Urine Color Yellow 10/27/20 00:13 Urine Appearance Clear (Clear) 10/27/20 00:13 Urine pH 5.0 (4.5-7.5) 10/27/20 00:13 Ur Specific [place] 1.017 (1.000-1.030) 10/27/20 00:13 Urine Protein Negative (Negative) 10/27/20 00:13 Urine Glucose (UA) Trace (Negative) H 10/27/20 00:13 Urine Ketones Negative (Negative) 10/27/20 00:13 Urine Nitrite Negative (Negative) 10/27/20 00:13 Ur Leukocyte Esterase 1+ (Negative) H 10/27/20 00:13 Urine WBC (Auto) 10-30 /hpf (0-5) H 10/27/20 00:13 Urine RBC (Auto) 0-4 /hpf (0-4) 10/27/20 00:13 U Hyaline Cast (Auto) 1-5 /lpf (0-5) 10/27/20 00:13 U Epithel Cells (Auto) >30 /lpf (0-5) H 10/27/20 00:13 Urine Bacteria (Auto) Negative (Negative) 10/27/20 00:13 Blood Type O Positive 10/26/20 23:52 Antibody Screen NEGATIVE 10/26/20 23:52 10/27/20 10/27/20 10/27/20 12:05 05:52 03:51 POC Glucose 200 H 185 H 172 H Electrocardiogram Date: 10/26/20 Findings: + NSR @ (84) 1st degree AV block, left axis deviation Chest X-Ray Date: 10/26/20 IMPRESSION: 1. Skin folds project over the right lateral upper lung and lateral left lung base. No definite pneumothorax identified. If there is further clinical concern, repeat chest radiograph may be considered. 2. Innumerable cutaneous nodules redemonstrated. 3. The lungs appear clear. Echocardiogram Date: 08/11/20 EF: 65-70% Other Findings: + diastolic dysfunction (grade 1) Valvular Disease: + MR (moderate) mild to moderate TR Other Testing Spine CT 10/26/2020 1. Acute nondisplaced fractures of the C5 spinous process and right lamina. There is suggestion of a tiny posterior epidural hematoma at this level measur ing 3 mm without significant central canal stenosis. 2. No additional acute fracture or subluxation.
[2020-10-27] MEDS ORDERED: fentaNYL citrate 100 MCG/2 ML VIAL ONE (13:30)
[2020-10-27] MEDS ORDERED: PROPOFOL IV EMULSION 10 MG/ML 20 ML VIAL IV ONE (13:30)
[2020-10-27] MEDS ORDERED: LIDOCAINE HCL 2% 2 ML VIAL/AMP(20MG/ML) INFIL ONE (13:30)
[2020-10-27] MEDS ORDERED: ONDANSETRON INJ 2 MG/ML 2 ML VIAL ONE (13:30)
[2020-10-27] MEDS ORDERED: KETAMINE 50 MG/5 ML SYRINGE ONE (13:30)
[2020-10-27] MEDS ORDERED: ACETAMINOPHEN 1000 MG/100 ML IV IV ONE (13:40)
--- NOTE | 2020-10-27 14:01 | History & Physical Bridge Note ---
Date of Service October 27, 2020 History & Physical Bridge Note I have examined the patient, reviewed the History & Physical and in the interval since the performance of the History & Physical I have noted the following changes of clinical significance: no changes noted
[2020-10-27] MEDS ORDERED: ATROPINE SULFATE 0.1 MG/ML 10ML SYR IV PRN (14:37)
[2020-10-27] MEDS ORDERED: ePHEDrine sulfate 50 MG/ML AMP IV PRN (14:37)
[2020-10-27] MEDS ORDERED: fentaNYL citrate 100 MCG/2 ML VIAL IV PRN (14:37)
--- NOTE | 2020-10-27 15:13 | Pharmacy Report ---
Glycemic Control Consultation - Date of Service October 27, 2020 - Scope Scope: Glycemic Pharmacist consulted for glycemic control and to write orders per [facility] inpatient glycemic control protocol. - Objective Weight: 49.8 kg Accuchecks BSG (last 24hrs): 10/26/20 10/27/20 10/27/20 23:52 03:51 05:52 Glucose 202 H POC Glucose 172 H 185 H 10/27/20 10/27/20 10/27/20 06:19 12:05 13:38 Glucose 194 H POC Glucose 200 H 204 H Laboratory Data (last 24hrs): 10/26/20 10/27/20 23:52 06:19 Potassium 4.2 4.1 Carbon Dioxide 26 24 Anion Gap 6.0 7.0 Creatinine 1.27 H 1.13 Est Cr Clr Drug Dosing 25.3 28.5 HbA1c: Hemoglobin A1c 9.4 % (4.5-5.6) H 10/27/20 06:19 - Recent Pertinent Medications Outpatient Anti-diabetic Regimen: * Levemir 13 units SC HS * Novolog 4-6 units SC TIDM * A1c = 9.4 % on 10/27/20 Risk Factors for Insulin Resistance: * Recent Surgery: POD 0 s/p hemiarthroplasty * Diet: NPO - Assessment & Plan Assessment & Plan: ASSESSMENT: * 85 yo F with hip fracture and anticipated hemiarthroplasty today. Currently NPO * BSG's elevated. Will move up dose of Lantus (regularly scheduled qPM) and cautiously increase ongoing (NPO currently) * Will change checks from q6h to q4h and tighten correction factro PLAN FOR INPATIENT GLYCEMIC CONTROL: * Holding outpatient oral diabetes medications * Basal insulin: Lantus * 10 units SQ x1 now * 0-5 units HS, depending on BSG * 0-10 units qAM, depending on BSG * Bolus insulin * NovoLog q4h * Goal Range: Low 110 mg/dL - High 150 mg/dL * Correction Factor: 35 mg/dL/unit * Nutritional / Prandial insulin per carb ratio of 1 unit per 15 grams CHO consumed * Please note that the plan above was derived based on current level of insulin resistance and hospital stress. These recommendations are appropriate for inpatient admission only. Plan of care upon discharge will need to be reassessed to avoid potential outpatient hypo/hyperglycemia. Thank you.
[2020-10-27] MEDS ORDERED: INSULIN GLARGINE SOLOSTAR 100 UNITS/ML 3 ML PEN SC ONE ×2 (15:15)
--- NOTE | 2020-10-27 15:39 | Operative Report ---
PG Post Operative Report Pre & Post Diagnosis Operation Date: 10/27/20 08:50 Pre-Op Diagnosis: Acute left femoral neck fracture Post-Op Diagnosis: Acute left femoral neck fracture I identified the patient and participated in the time-out.: Yes Procedure Operation Date: 10/27/20 08:50 Actual Procedures p Left Anterior Bipolar Hip hemiarthroplasty(Left) - Latrell Coyne DO Surgeon Latrell Coyne DO [employer] Associate Latrell Gastelum PAC Estimated Blood Loss 300 Findings Consistent with Post-Op Diagnosis Specimens Left femoral head Complications none Disposition Disposition: Recovery Room Indications Rosalba is a pleasant 85-year-old female who tripped and fell yesterday sustaining a left displaced femoral neck fracture. She came to the emergency room. After consultation with orthopedics, she elected proceed with an anterior left hip hemiarthroplasty. Description of Procedure Implants used I used a Biomet Taperloc system with a size 7 high offset Taperloc stem, a 42 mm bipolar shell with a 28 mm head and a -6 neck. No cement was used. Rosalba was brought down to the preoperative holding area. The operative extremity was identified and signed. She is then taken back to the operating room and laid on the table in the supine position. She was put under general anesthesia. The left hip was brought out to a Purist leg positioner. The left hip was then prepped and draped in sterile fashion. A timeout was done. The patient and the operative extremity was properly identified. An anterior approach was used. Dissection was taken down through the fascia. The rectus was retracted anteriorly and the tensor was retracted laterally. The circumflex vessels were ligated. The capsule was then incised and tagged for later repair. The femoral neck was then resected with an oscillating saw. The femoral neck and the femoral head were then removed. The acetabulum was then exposed. Any soft tissue remnants were removed from the acetabulum. I saw no arthritic signs in the acetabulum. The femoral head measured to be a size 42. The femur was then exposed. Sequential broaching up to a size 7 broach was done. A 28 mm head with a -6 neck and 42 mm shell was then placed on the broach. The hip was then reduced. I was happy with the overall alignment and sizing of the components under fluoroscopy. It was then dislocated. The broach was then removed. The final size 7 high offset press-fit Taperloc stem was then impacted into place. A 28 mm -6 head was then impacted on the femoral component followed by a 42 mm shell. The hip was then reduced. Final fluoroscopic images showed anatomic alignment. The capsule was then repaired with #1 Vicryl suture. A dilute betadyne lavage was then done for 3 minutes. The joint was then irrigated with normal saline solution. The fascia was closed with #1 PDS suture. Skin was closed with 2-0 Vicryl, curtis, and a Silverlon dressing. She was then transferred to a hospital bed and taken to the post anesthesia care unit in stable condition. She tolerated the procedure well. Latrell Gastelum PA-C, was present for the entire procedure. He was critical for patient positioning, prepping, draping, retraction exposure, wound closure and application of sterile dressing. I attest to the content of the Intraoperative Record and any orders documented therein. Any exceptions are noted below.
--- NOTE | 2020-10-27 15:44 | Fluoroscopy Report ---
FL hip LT 1V HISTORY: 85 years-old Female ANTERIOR LEFT ROSALIND left hip total joint arthroplasty COMPARISON: CT left hip 10/27/2020 TECHNIQUE: 1 spot fluoroscopic images of the left hip was obtained utilizing 10.3 seconds fluoroscopy time FINDINGS: Left hip total joint arthroplasty demonstrates satisfactory alignment. Expected postoperative soft ti ssue swelling with deep tissue air. No expected opaque foreign body identified. A catheter overlies t he pelvis. IMPRESSION: Fluoroscopic assistance as above. Please see operative report for further details. ACT 112: Negative or not required by law. The above report was generated using voice recognition software. It may contain grammatical, syntax o r spelling errors. Electronically signed by: Brett Solitario M.D. 10/27/2020 3:43 PM
[2020-10-27] MEDS ORDERED: INSULIN ASPART 100 UNITS/ML 3 ML PEN SC SCH (16:00)
[2020-10-27] MEDS ORDERED: oxyCODONE HCL IR 5 MG TAB (IMMEDIATE RELEASE) PO PRN (16:09)
[2020-10-27] MEDS ORDERED: NALOXONE HCL 0.4 MG/1 ML VIAL/CARP IV PRN ×2 (16:09→17:10)
--- NOTE | 2020-10-27 17:06 | XRay Report ---
XR hip LT min 2V CLINICAL HISTORY: Post-Operative implant position COMPARISON STUDY: Left hip 10/27/2020. FINDINGS: Status post left hip hemiarthroplasty. Hardware is intact. No fracture or dislocation. Skin curtis are in place. IMPRESSION: Status post left hip hemiarthroplasty. No evidence for complication. ACT 112: Negative or not required by law. Electronically signed by: Zhao Rod M.D. 10/27/2020 5:05 PM
[2020-10-27] MEDS ORDERED: ACETAMINOPHEN 500 MG TAB PO PRN (17:10)
[2020-10-27] MEDS ORDERED: INSULIN ASPART 100 UNITS/ML 3 ML PEN SQ SCH (17:10)
[2020-10-27] MEDS ORDERED: Nursing to Pharmacy Communication SCH (17:45)
--- NOTE | 2020-10-27 18:15 | Anesthesiology Progress Note ---
Date of Service October 27, 2020 Anesthesia Post Procedure Vital Signs Vital Signs: Temp Pulse Pulse Pulse Resp BP BP 10/27/20 18:12 36.5 C 80 14 108/72 10/27/20 17:35 36.2 C L 78 12 109/70 10/27/20 17:05 36.5 C 85 12 10/27/20 16:50 88 12 123/71 10/27/20 16:40 36.9 C 78 12 114/79 10/27/20 16:30 89 14 132/74 10/27/20 16:20 89 14 132/79 10/27/20 16:10 90 17 130/81 10/27/20 16:02 36.1 C L 95 H 17 140/95 10/27/20 13:28 36.5 C 86 20 10/27/20 07:12 36.3 C L 79 16 10/27/20 03:42 92 H 18 155/91 H 10/27/20 03:35 36.5 C 78 18 10/27/20 01:37 99 H 18 10/26/20 23:14 36.7 C 88 18 163/110 H BP Pulse Ox 10/27/20 18:12 98 10/27/20 17:35 98 10/27/20 17:05 119/74 97 10/27/20 16:50 97 10/27/20 16:40 95 10/27/20 16:30 96 10/27/20 16:20 95 10/27/20 16:10 100 10/27/20 16:02 98 10/27/20 13:28 146/87 H 97 10/27/20 07:12 121/71 98 10/27/20 03:42 96 10/27/20 03:35 160/88 H 96 10/27/20 01:37 145/90 H 91 10/26/20 23:14 95 Pain Intensity Left Hip: Pain Intensity: 3 Transfer of Care Handoff Completed per policy Notes Mental Status: alert / awake / arousable and participated in evaluation Patient Amnestic to Procedure: Yes Nausea / Vomiting: adequately controlled Pain: adequately controlled Airway Patency, RR, SpO2: stable & adequate BP & HR: stable & adequate Hydration State: stable & adequate Anesthetic Complications: no major complications apparent and Pt Satisfied with anesthetic care Notes: Moving extremities x4. Denies any pain or nausea. Answering questions. Called patient's niece (POA) and spoke to her about the anesthesia and how she was doing in recovery per her request. All questions answered. Patient ok for transfer back to her room.
[2020-10-27] MEDS: TICAGRELOR 90 MG TAB PO SCH (20:48)
[2020-10-27] MEDS: ATORVASTATIN 40 MG TAB PO SCH (20:49)
[2020-10-27] MEDS ORDERED: ASPIRIN 81 MG ECTAB PO SCH ×2 (21:00)
[2020-10-27] MEDS ORDERED: INSULIN GLARGINE SOLOSTAR 100 UNITS/ML 3 ML PEN SC SCH ×2 (21:00)
--- NOTE | 2020-10-28 01:43 | Billing Data ---
Date of Service October 28, 2020 Coding Level of Care Code 08319 Initial Inpt Care Lvl 2
[2020-10-28] MEDS: LACTATED RINGER'S 1,000 ML IV SCH (02:51)
[2020-10-28] MEDS: INSULIN ASPART 100 UNITS/ML 3 ML PEN SC SCH ×5 (03:16→21:27)
[2020-10-28 04:12] LABS: Basophils # (auto) 0.01 K/uL (0-0.2); Basophils % (auto) 0.1 %; Eosinophils # (auto) 0.01 K/uL (0-0.5); Eosinophils % (auto) 0.1 %; Hematocrit (blood only) 29.9 % (37-47); Hemoglobin 9.5 g/dL (12.0-16.0); Immature Granulocytes # (auto) 0.03 K/uL (0.00-0.02); Immature Granulocytes % (auto) 0.3 %; Lymphocytes # (auto) 0.74 K/uL (1.2-3.4); Lymphocytes % (auto) 7.5 %; Mean Corpuscular Hemoglobin 28.4 pg (25-34); Mean Corpuscular Hgb Conc 31.8 g/dL (32-36); Mean Corpuscular Volume 89.3 fL (80-100); Mean Platelet Volume 9.7 fL (7.4-10.4); Monocytes # (auto) 0.94 K/uL (0.11-0.59); Monocytes % (auto) 9.5 %; Neutrophils # (auto) 8.13 K/uL (1.4-6.5); Neutrophils % (auto) 82.5 %; Platelet Count 175 K/uL (130-400); RDW Coefficient of Variation 14.9 % (11.5-14.5); RDW Standard Deviation 48.8 fL (36.4-46.3); Red Blood Count 3.35 M/uL (4.2-5.4); White Blood Count 9.86 K/uL (4.8-10.8)
[2020-10-28 04:36] LABS: BUN Creatinine Ratio 19.5 (10-20); Est GFR (African American) 48.9; Est GFR (Non-African American) 42.2; Potassium 4.8 mmol/L (3.5-5.1)
[2020-10-28] MEDS ORDERED: INSULIN GLARGINE SOLOSTAR 100 UNITS/ML 3 ML PEN SC ONE (04:45)
[2020-10-28] MEDS ORDERED: INSULIN GLARGINE SOLOSTAR 100 UNITS/ML 3 ML PEN SC SCH ×2 (06:00→09:00)
[2020-10-28] MEDS: TICAGRELOR 90 MG TAB PO SCH ×2 (17:51→21:21)
[2020-10-28] MEDS: FAMOTIDINE 20 MG TAB PO SCH ×2 (17:51→21:21)
[2020-10-28] MEDS: ASPIRIN 81 MG ECTAB PO SCH (17:51)
--- NOTE | 2020-10-28 17:52 | Hospitalist Progress Note ---
Date of Service October 28, 2020 Assessment & Plan (1) Hip fracture: 85 y/o F w/ hx of diabetes mellitus, memory changes, high cholesterol, breast cancer, neurofibromatosis, kidney stone, obstructive uropathy, TIA, right hydronephrosis, history of pancreectomy, who presents w/ L hip fracture s/p hemiarthroplasty 10/27/20. Hip fracture secondary to acute fall (while trying to let 3 active dogs out) - s/p L hemiarthroplasty of hip 10/27/20. - Hip XR: acute transcervical fx of L femur w/ mild impaction and slight apex cephalad angulation - Admitted for adequate pain control, orthopedic evaluation, PT OT, and further evaluation/possible surgical management - Ortho consulted and discussed treatment/management options -- she does want to have her hip fixed surgically; patient will need hemiarthroplasty of the left hip - ACS surgical risk calculator with average risk of any complication at 4.1%, slightly above average risk of serious complication at 3.9% (average risk = 3.5%) and average risk of cardiac complication at 0.2% - Pain control w/ morphine 2mg IV q3h prn (pain < 5) or 4mg IV q3h (pain > 5) - Post op pain management per ortho surgery team - ortho restarted Brilinta and aspirin after surgery - Fall precautions - CBC and CMP qAM Closed fracture of nasal bone - From her previous fall sustained a few days ago. - Pain control; no current management needed at this time - has external support tape - F/u as outpatient Diabetes - A1c on admission 9.4% - Home regimen with Levemir 13 units subcu qhs and Novolog 4-6 units subcu TIDM - Glycemic consult placed to assist with management while in the hospital. 10/28/20 changed to lantus qhs (if bsg 150 or less, give 5u, if 151 or more, give 10u). Novolog carb ratio changed to 1u per 10 gm consumed. Chronic kidney disease, stage 3b - Hx of CKD, Cr of 1.3-1.4 at baseline but has been as high as in the 2s. Cr 1.19 10/28/20 - Cr on admission 1.27 - Avoid nephrotoxic medication - Ca 7.95, will check CMP in AM - I/O 2080ml in, 775 out. recorded early AM. will continue following Is/Os. Hydronephrosis - Per the patient, patient with hydronephrosis secondary to a urinary stone obstruction - This is being monitored and treated by her outpatient physicians, however could be a source for urinary tract infection that could produce symptoms that would lead to a fall - UA in ED 10/27 shows trace glucose, negative ketones, trace blood, negative nitrite, 1+ leuk esterase, 10-30 WBC, > 30 epithelial cells - Urine cultures pending; will plan to treat if indicated History of pancrectomy - restarted nearest equivalent to home Creon, (exact composition slightly different, less amylase)) History of neurofibromatosis - No acute management - F/u prn as outpatient Asymptomatic pyuria - urine culture pending, may treat depending on results - thought that if UTI, may have contributed to initial fall chronic memory changes - A&Ox3 today. some mild memory issues noted such as forgetting the physician that saw her in the morning during afternoon recheck FENa: regular diet. not on mIVF DVT PPX: Brillinta BID and baby ASA (qd). spoke w/ ortho who stated that baby ASA BID is adequate for status post this hip surgery as long as not fully bedbound. PT/OT: Ordered Dispo: [facility]. Approval for [facility] acute rehab is pending Code Status: DNR/DNI. (2) Closed fracture nasal bone: (3) Fall: (4) Acute hip pain: (5) Uncontrolled diabetes mellitus, with long-term current use of insulin: (6) Memory changes: (7) Chronic kidney disease: (8) Hydronephrosis, right: (9) History of hemiarthroplasty of left hip: (10) History of pancreatectomy: (11) Pyuria: Admission and Anticipated Discharge Date Admission Date: October 27, 2020 Supervising Physician Co-Signing Physician Notes Attending attestation Pt seen and examined in concert with Dr. Hernández. In agreement with the documented findings as noted in the resident documentation with any exceptions or additions as noted here. Resting in bed, comfortable at rest and with well controlled pain on present regimen. On examination, S1/S2 nl RRR no MCG. CTAB. Abd NT/ND BS+ve Hip fracture 2/2 acute fall (mechanical) - ortho consultation - continue present pain mgmt. Resume antiplatlet regimen at ortho discretion Anemia - postoperatively - monitor CBC DMII - A1c 9.4% - continue glycemic management with insulin control as noted. CKD III - stable, avoid nephrotoxic medications and monitor perioperatively Else see resident documentation as noted. Subjective Pain at L hip is tolerable, 5/10 intensity. LLE does feel weaker. Denies fever/chills, nausea/vomiting. No flores catheter complaints. Has caregivers at home. States that niece may stay with her shortly for additional care. Update in afternoon: hip pain is minimal. Review of Systems Review of Systems: Constitutional: Denies fever, chills Cardiovascular: Denies chest pain Respiratory: Denies shortness of breath, difficulty breathing Gastrointestinal: Denies abdominal pain, nausea, vomiting, constipation, diarrhea, bloody stool Genitourinary: Denies urinary symptoms Musculoskeletal: + pain, see HPI Neurological: Denies headache Physical Exam Physical Exam: General: Grossly alert and oriented, No acute distress. HEENT: Normocephalic, normal gross hearing, moist oral mucosa. Cardiovascular: Normal rate, Regular rhythm, No murmurs, rubs, or gallops. No pedal edema. Respiratory: Clear to auscultation bilaterally. No respiratory distress. Gastrointestinal: Soft, Non-tender, Non-distended. Genitourinary: Flores bag is nonbloody. Musculoskeletal: No tenderness to palpation at L hip. Integumentary: Warm, dry, intact Results & Data Results & Data ([facility]) Vital Signs (Past 12 Hours) 1500: 96 pulse. 16 rr. 107/63. 36.6C. 91% RA. Laboratory Results CBC: wbc 9.86. Hb 9.5. Hct 29.9. Plt 175. BMP: Na 140.5. K 4.8. Ca 7.96. BUN 23.2. Cr 1.19 Resident Activity Tracking Resident Involvement: Resident Care Provided Care Provided: Adult Hospital Medicine (1) Acute hip pain Laterality: right Qualified Code(s): M25.551 - Pain in right hip (2) Closed fracture nasal bone Encounter type: initial encounter Qualified Code(s): S02.2XXA - Fracture of nasal bones, initial encounter for closed fracture (3) Fall Encounter type: initial encounter Qualified Code(s): W19.XXXA - Unspecified fall, initial encounter
[2020-10-28] MEDS: PANCREAZE (LIPASE 10,500U) CAP PO SCH (21:20)
[2020-10-28] MEDS: ATORVASTATIN 40 MG TAB PO SCH (21:21)
[2020-10-28] MEDS: INSULIN GLARGINE SOLOSTAR 100 UNITS/ML 3 ML PEN SC SCH (21:27)
[2020-10-28] MEDS: traMADol HCL 50 MG TABLET PO PRN (23:43)
[2020-10-29 06:42] LABS: Basophils # (auto) 0.01 K/uL (0-0.2); Basophils % (auto) 0.1 %; Eosinophils # (auto) 0.17 K/uL (0-0.5); Eosinophils % (auto) 2.3 %; Hemoglobin 8.4 g/dL (12.0-16.0); Immature Granulocytes # (auto) 0.03 K/uL (0.00-0.02); Immature Granulocytes % (auto) 0.4 %; Lymphocytes # (auto) 1.19 K/uL (1.2-3.4); Lymphocytes % (auto) 16.3 %; Mean Corpuscular Hemoglobin 28.8 pg (25-34); Mean Corpuscular Hgb Conc 32.3 g/dL (32-36); Mean Platelet Volume 10.1 fL (7.4-10.4); Monocytes # (auto) 0.72 K/uL (0.11-0.59); Monocytes % (auto) 9.8 %; Neutrophils # (auto) 5.19 K/uL (1.4-6.5); Neutrophils % (auto) 71.1 %; Platelet Count 176 K/uL (130-400); Red Blood Count 2.92 M/uL (4.2-5.4); White Blood Count 7.31 K/uL (4.8-10.8)
--- NOTE | 2020-10-29 07:11 | Hospitalist Progress Note ---
Date of Service October 29, 2020 Assessment & Plan (1) Hip fracture: Rosalba Torres is an 85 y/o female with h/o diabetes mellitus, memory changes, high cholesterol, breast cancer, neurofibromatosis, kidney stone, obstructive uropathy, TIA, right hydronephrosis, history of pancreectomy, who w as admitted for a left hip fracture 2/2 mechanical fall, s/p left hip arthroplasty on 10/27/20. Hip fracture due to mechanical fall - s/p L arthroplasty of hip 10/27/20 - Pain adequately controlled w/ PRN Morphine - Post op pain management per ortho surgery team - continue PT - Restarted home Brilinta and Aspirin on 10/28 - Fall precautions - CBC and CMP qAM Elevated Creatinine, on Chronic kidney disease, stage 3b - Hx of CKD, Cr of 1.3-1.4 at baseline but has been as high as in the 2s. Cr 1.19 10/28/20 - Cr 1.19 --> 1.50 today, ratio 18 - suspect pre-renal injury 2/2 intra-operative blood loss - gave NSS 500cc bolus today - Avoid nephrotoxic medications - strict I/Os - Trend BMP daily Acute Normocytic Anemia - Hgb 12.7 pre-operatively --> 11.6 --> 9.5 --> 8.4 today - suspect 2/2 intra-operative blood loss - NSS bolus as above - trend CBC daily H/o TIA - on secondary CVA ppx since 07/2020 with Brilinta 90 mg PO BID and Aspirin 81 mg PO daily, per Neuro - continue Closed fracture of nasal bone - From her previous fall sustained a few days ago. - Pain control; no current management needed at this time - has external support tape - F/u as outpatient Diabetes - A1c on admission 9.4% - SSI/basal insulin while hospitalized, appreciate pharm recs Hydronephrosis - Per the patient, patient with hydronephrosis secondary to a urinary stone obstruction - This is being monitored and treated by her outpatient physicians, however could be a source for urinary tract infection that could produce symptoms that would lead to a fall - UA in ED 10/27 shows trace glucose, negative ketones, trace blood, negative nitrite, 1+ leuk esterase, 10-30 WBC, > 30 epithelial cells - Urine cultures pending; will plan to treat if indicated History of pancrectomy - continue nearest hospital equivalent to home Creon History of neurofibromatosis - No acute management - F/u prn as outpatient Asymptomatic bacteriuria - no symptoms, urine cx with probable skin cindy contaminants - no treatment warranted at this time chronic memory changes - A&Ox3 today. some mild memory issues noted such as forgetting the physician that saw her in the morning during afternoon recheck FEN/GI: DM2 diet DVT PPX: Brillinta 90 mg PO BID and Aspirin 81 mg PO daily Dispo: [facility]. Approval for [facility] acute rehab is pending Code Status: DNR/DNI. (2) Closed fracture nasal bone: (3) Fall: (4) Acute hip pain: (5) Uncontrolled diabetes mellitus, with long-term current use of insulin: (6) Memory changes: (7) Chronic kidney disease: (8) Hydronephrosis, right: (9) History of hemiarthroplasty of left hip: (10) History of pancreatectomy: (11) Pyuria: Admission and Anticipated Discharge Date Admission Date: October 27, 2020 Supervising Physician Co-Signing Physician Notes Attending attestation Pt seen and examined in concert with Dr. Garzon. In agreement with the documented findings as noted in the resident documentation with any exceptions or additions as noted here. Resting in bed, comfortable at rest and with well controlled pain on present regimen. Enthusiastic about recovery. On examination, S1/S2 nl RRR no MCG. CTAB. Abd NT/ND BS+ve Hip fracture 2/2 acute fall (mechanical) - ortho consultation - continue present pain mgmt. PT and ambulatory support Anemia - postoperatively - stable - monitor CBC DMII - A1c 9.4% - continue glycemic management with insulin control as noted. CKD III - stable, avoid nephrotoxic medications and monitor perioperatively Else see resident documentation as noted. Subjective No acute events overnight. Patient reports her post-op hip pain is adequately controlled with current PRN pain meds. She is able to ambulate to the bathroom and is spontaneously voiding on the toilet. Expresses motivation to go to acute rehab and eventually get back home. Denies fever/chills, chest pain, SOB, N/V, abdominal pain. Review of Systems Review of Systems: Pertinent positives and negatives in HPI Physical Exam Constitutional: WD/WN, vitals as above scattered neurofibromas Respiratory: normal respiratory effort, lungs clear to auscultation Cardiovascular: RRR, no murmur, no edema Gastrointestinal (Abdomen): normal bowel sounds, soft, nontender, no hepatosplenomegaly Skin: no rashes, warm and dry left hip incision with overlying dressing, c/d/i Psychiatric: A+Ox3, euthymic affect Results & Data Results & Data ([facility]) Vital Signs (Past 12 Hours) Vital Signs Temp Pulse Resp BP Pulse Ox 10/28/20 22:54 37.2 C 94 H 18 96/60 L 92 Resident Activity Tracking Resident Involvement: Resident Care Provided Care Provided: Adult Hospital Medicine (1) Acute hip pain Laterality: right Qualified Code(s): M25.551 - Pain in right hip (2) Closed fracture nasal bone Encounter type: initial encounter Qualified Code(s): S02.2XXA - Fracture of nasal bones, initial encounter for closed fracture (3) Fall Encounter type: initial encounter Qualified Code(s): W19.XXXA - Unspecified fall, initial encounter
[2020-10-29 07:15] LABS: Albumin Level 2.2 gm/dl (3.4-5.0); Calcium 7.9 mg/dl (8.5-10.1); Creatinine Clr Calc Pharmacy 21.4 ml/min; Est GFR (Non-African American) 31.9; Potassium 4.5 mmol/L (3.5-5.1)
[2020-10-29 07:18] LABS: Albumin Globulin Ratio 0.7 (0.9-2); Bilirubin,Total 0.6 mg/dl (0.2-1); Globulin 3.2 gm/dl (2.5-4.0); Total Protein 5.4 gm/dl (6.4-8.2)
[2020-10-29] MEDS: PANCREAZE (LIPASE 10,500U) CAP PO SCH ×3 (09:00→17:16)
[2020-10-29] MEDS ORDERED: INSULIN GLARGINE SOLOSTAR 100 UNITS/ML 3 ML PEN SC SCH (09:00)
[2020-10-29] MEDS: ASPIRIN 81 MG ECTAB PO SCH (09:01)
[2020-10-29] MEDS: FAMOTIDINE 20 MG TAB PO SCH ×2 (09:02→21:03)
[2020-10-29] MEDS: TICAGRELOR 90 MG TAB PO SCH ×2 (09:03→21:04)
[2020-10-29] MEDS: INSULIN ASPART 100 UNITS/ML 3 ML PEN SC SCH ×4 (09:07→21:00)
[2020-10-29] MEDS ORDERED: SODIUM CHLORIDE 0.9% 500 ML IV ONE (10:15)
--- NOTE | 2020-10-29 10:22 | Orthopedic Progress Note ---
Date of Service October 29, 2020 Assessment & Plan (1) History of hemiarthroplasty of left hip: Overall she is doing well. She will be seen again by physical therapy today for ambulation and range of motion exercises. She is on aspirin 81 mg twice a day for DVT prophylaxis. She is a little concerned about going to a rehab facility due to the Covid pandemic. We will see how she does with therapy to determine if she is able to return home. She needs to follow-up with orthopedics in about 2 weeks for staple removal. Full discharge instructions were placed in the discharge summary. Present on Admission?: Yes Admission and Anticipated Discharge Date Admission Date: October 27, 2020 Kathrin Navarrete was seen and examined at bedside this morning. Overall she is doing fairly well. She only walked a little bit yesterday with physical therapy. She feels she can do more today. She is managing much pain in the hip. She has no new complaints. Physical Exam Physical Exam: On physical examination of the left hip: The dressing is clean and dry. Her leg lengths are equal. She is sitting comfortably in the chair. She does not have much pain with range of motion of the hip. Results & Data ([facility]) Vital Signs (Past 12 Hours) Vital Signs Temp Pulse Resp BP BP Pulse Ox 10/29/20 07:53 36.6 C 86 16 110/65 90 10/28/20 22:54 37.2 C 94 H 18 96/60 L 92 PG Care Time/CCT Total # of Minutes Spent Total Time Spent with Patient: Total time spent is greater than 50% in coordination of care (as documented) at patient's floor/unit and/or counseling patient: Coding Level of Care Code None Diagnoses History of hemiarthroplasty of left hip Z96.642
[2020-10-29] MEDS: traMADol HCL 50 MG TABLET PO PRN (10:42)
--- NOTE | 2020-10-29 11:14 | Pharmacy Report ---
Pharmacy Glycemic Short Note 2 - Date of Service October 29, 2020 - Glycemic Short BSG Results (Last 24 hours): 10/28/20 10/28/20 10/28/20 08:27 12:11 17:17 Glucose POC Glucose 198 H 243 H 195 H 10/28/20 10/29/20 10/29/20 20:45 06:13 08:24 Glucose 259 H POC Glucose 282 H 286 H OUTPATIENT ANTIDIABETIC REGIMEN: * Levemir 13 units SC HS * Novolog TIDM (carb ratio of 15, CF: 45 for BSG over 150 mg/dL) * Patient reports 7 units TIDM * Average BSG per [employer] Carlitos is 213 mg/dL * HbA1c: 9.4% (10/27/20) ASSESSMENT: * ER is a 85 year old female now POD #2 s/p left hip arthroplasty * BSGs elevated yesterday, 198, 243, 195, and 282 mg/L * Received 20 units of Lantus and 20+ units of prandial/correctional * Tighten Novolog today * Fasting BSG of 286 mg/dL this morning * Plan to increase basal * SCr trending up (1.19 -> 1.5 mg/dL) * Lunch BSG of 305 mg/dL * Will order one-time IV regular insulin bolus of 4 units * Further tighten Novolog * Add overnight checks PLAN FOR INPATIENT GLYCEMIC CONTROL: * Hold outpatient oral diabetes medications * Basal insulin * Lantus 15 units SC qAM * Lantus scale HS (5-15 units - see EHR for details) * Bolus insulin - tighten * NovoLog per scale ACHS or Q6hrs while NPO * Goal Range: Low 110 mg/dL - High 140 mg/dL * Correction Factor: 20 mg/dL/unit * Nutritional / Prandial insulin per carb ratio of 1 unit per 6 grams CHO consumed * Overnight checks 0000 and 0400 with same parameters PLAN FOR DISCHARGE: * HbA1c of 9.4% suggest poor outpatient glycemic control * See endocrinologist note from 10/27/20 * Patient is followed by [facility] * ensure timely follow-up with them for further insulin dose adjustments
[2020-10-29] MEDS ORDERED: INSULIN HUMAN REGULAR PER UNIT 4 UNITS in SYRINGE 3.96 ML IV ONE (12:30)
[2020-10-29] MEDS: oxyCODONE HCL IR 5 MG TAB (IMMEDIATE RELEASE) PO PRN ×2 (13:53→21:19)
[2020-10-29] MEDS: INSULIN GLARGINE SOLOSTAR 100 UNITS/ML 3 ML PEN SC SCH (21:00)
[2020-10-29] MEDS: ATORVASTATIN 40 MG TAB PO SCH (21:03)
[2020-10-30] MEDS: INSULIN ASPART 100 UNITS/ML 3 ML PEN SC SCH ×6 (00:35→21:16)
[2020-10-30] MEDS: oxyCODONE HCL IR 5 MG TAB (IMMEDIATE RELEASE) PO PRN ×2 (05:03→12:19)
[2020-10-30 07:07] LABS: Basophils # (auto) 0.01 K/uL (0-0.2); Basophils % (auto) 0.1 %; Eosinophils # (auto) 0.19 K/uL (0-0.5); Hemoglobin 7.8 g/dL (12.0-16.0); Immature Granulocytes # (auto) 0.07 K/uL (0.00-0.02); Immature Granulocytes % (auto) 0.8 %; Lymphocytes # (auto) 1.41 K/uL (1.2-3.4); Lymphocytes % (auto) 15.2 %; Mean Corpuscular Hemoglobin 28.5 pg (25-34); Mean Corpuscular Hgb Conc 32.5 g/dL (32-36); Mean Corpuscular Volume 87.6 fL (80-100); Mean Platelet Volume 9.5 fL (7.4-10.4); Monocytes # (auto) 1.18 K/uL (0.11-0.59); Monocytes % (auto) 12.7 %; Neutrophils # (auto) 6.41 K/uL (1.4-6.5); Neutrophils % (auto) 69.2 %; Platelet Count 191 K/uL (130-400); RDW Coefficient of Variation 14.9 % (11.5-14.5); RDW Standard Deviation 47.6 fL (36.4-46.3); Red Blood Count 2.74 M/uL (4.2-5.4); White Blood Count 9.27 K/uL (4.8-10.8)
[2020-10-30 07:23] LABS: BUN Creatinine Ratio 18.6 (10-20); Calcium 7.4 mg/dl (8.5-10.1); Creatinine Clr Calc Pharmacy 26.2 ml/min; Est GFR (Non-African American) 40.5
[2020-10-30 07:41] LABS: RBC Morphology Unremarkable
[2020-10-30] MEDS: TICAGRELOR 90 MG TAB PO SCH ×2 (08:59→21:12)
[2020-10-30] MEDS: FAMOTIDINE 20 MG TAB PO SCH ×2 (08:59→21:13)
[2020-10-30] MEDS: PANCREAZE (LIPASE 10,500U) CAP PO SCH ×3 (08:59→17:43)
[2020-10-30] MEDS: ASPIRIN 81 MG ECTAB PO SCH (09:00)
[2020-10-30] MEDS ORDERED: INSULIN GLARGINE SOLOSTAR 100 UNITS/ML 3 ML PEN SC ONE (09:00)
--- NOTE | 2020-10-30 11:29 | Orthopedic Progress Note ---
Date of Service October 30, 2020 Assessment & Plan (1) History of hemiarthroplasty of left hip: Overall she is doing fairly well. She is now having too much pain in that right hip. I did order an x-ray to make sure everything is okay after the fall. She can be weightbearing as tolerated. She is on aspirin for DVT prophylaxis. Assuming the x-rays are negative, she is orthopedically stable for discharge when medically ready. She will follow-up with orthopedics in 2 weeks. Full discharge instructions were placed in the discharge summary. Present on Admission?: Yes Admission and Anticipated Discharge Date Admission Date: October 27, 2020 Kathrin Navarrete was seen and examined at bedside this morning. Overall she is doing fa irly well. She did have an incident yesterday where she fell. She fell backwards and landed on her buttock. She did not twist or have any pain in her left hip. She was helped back up by the nursing staff and returned to bed. She was able to ambulate without much difficulty at that time. She was not having much hip pain this morning. She was having a little bit of soreness in her hip when I saw her today. Otherwise she has no complaints. Physical Exam Physical Exam: On physical examination of her left hip, her leg lengths are equal. She has active dorsiflexion plantarflexion of her left ankle without much pain. The dressing is clean and dry. Results & Data ([facility]) Vital Signs (Past 12 Hours) Vital Signs Temp Pulse Resp BP BP Pulse Ox 10/30/20 07:54 36.7 C 94 H 16 114/71 96 10/29/20 23:48 36.9 C 103 H 14 104/67 92 PG Care Time/CCT Total # of Minutes Spent Total Time Spent with Patient: Total time spent is greater than 50% in coordination of care (as documented) at patient's floor/unit and/or counseling patient: Coding Level of Care Code None Diagnoses History of hemiarthroplasty of left hip Z96.642
--- NOTE | 2020-10-30 12:11 | XRay Report ---
XR hip 1V LT w pelvis CLINICAL HISTORY: Mechanical fall status post left hip hemiarthroplasty COMPARISON: 10/27/2020 DISCUSSION: There is a bipolar left hip arthroplasty. There are overlying skin curtis. No fractures or dislocations are visualized. IMPRESSION: 1. Bipolar left hip replacement 2. No acute fractures or dislocations ACT 112: Negative or not required by law. Electronically signed by: Paras Lipscomb M.D. 10/30/2020 12:10 PM
[2020-10-30] MEDS: POLYETHYLENE (MIRALAX) 17 GM PACK PO SCH ×2 (12:18→21:12)
[2020-10-30 13:35] LABS: Hematocrit (blood only) 29.6 % (37-47); Hemoglobin 9.7 g/dL (12.0-16.0)
--- NOTE | 2020-10-30 16:31 | Hospitalist Progress Note ---
Date of Service October 30, 2020 Assessment & Plan (1) Hip fracture: Rosalba Torres is an 85 y/o female with h/o diabetes mellitus, memory changes, high cholesterol, breast cancer, neurofibromatosis, kidney stone, obstructive uropathy, TIA, right hydronephrosis, history of pancreectomy, who w as admitted for a left hip fracture 2/2 mechanical fall, s/p left hip arthroplasty on 10/27/20. Hip fracture due to mechanical fall - s/p L arthroplasty of hip 10/27/20 - Pain adequately controlled w/ PRN Morphine -- Post op pain management per ortho surgery team - continue PT - Restarted home Brilinta and Aspirin on 10/28 - Scheduled bowel regimen for Miralax BID due to postop constipation - Fall precautions - Due to fall overnight 10/29-10/30, hip/pelvis XR ordered per ortho -- no acute fractures or dislocations. bipolar left hip replacement noted. - CBC and CMP qAM - Will plan for d/c to inpatient rehab at [facility]; awaiting acceptance to [facility] Elevated Creatinine, on Chronic kidney disease, stage 3b - Hx of CKD, Cr of 1.3-1.4 at baseline but has been as high as in the 2s. Cr 1.19 10/28/20 - suspect pre-renal injury 2/2 intra-operative blood loss - gave NSS 500cc bolus 10/29 - Avoid nephrotoxic medications - strict I/Os - Trend BMP daily - Cr today 1.23 (improved from 1.50 yesterday, 10/29) Acute Normocytic Anemia - Hgb 12.7 pre-operatively --> 11.6 --> 9.5 --> 8.4 - AM Hgb 10/30 was 7.8; repeat Hgb at 12pm on 10/30 had significantly improved to 9.7 - suspect 2/2 intra-operative blood loss - trend CBC daily H/o TIA - on secondary CVA ppx since 07/2020 with Brilinta 90 mg PO BID and Aspirin 81 mg PO daily, per Neuro - continue Closed fracture of nasal bone - From her previous fall sustained a few days ago. - Pain control; no current management needed at this time - has external support tape - F/u as outpatient Diabetes - A1c on admission 9.4% - SSI/basal insulin while hospitalized, appreciate pharm recs and glycemic consult Hydronephrosis - Per the patient, patient with hydronephrosis secondary to a urinary stone obstruction - This is being monitored and treated by her outpatient physicians, however could be a source for urinary tract infection that could produce symptoms that would lead to a fall - UA in ED 10/27 shows trace glucose, negative ketones, trace blood, negative nitrite, 1+ leuk esterase, 10-30 WBC, > 30 epithelial cells - Urine cultures pending; will plan to treat if indicated History of pancrectomy - continue nearest hospital equivalent to home [facility] History of neurofibromatosis - No acute management - F/u prn as outpatient Asymptomatic bacteriuria - no symptoms, urine cx with probable skin cindy contaminants - no treatment warranted at this time chronic memory changes - A&Ox3 today. some mild memory issues noted such as forgetting the physician that saw her in the morning during afternoon recheck FEN/GI: DM2 diet DVT PPX: Brillinta 90 mg PO BID and Aspirin 81 mg PO daily Dispo: [employer]. Approval for [facility] acute rehab is pending Code Status: DNR/DNI. (2) Closed fracture nasal bone: (3) Fall: (4) Acute hip pain: (5) Uncontrolled diabetes mellitus, with long-term current use of insulin: (6) Memory changes: (7) Chronic kidney disease: (8) Hydronephrosis, right: (9) History of hemiarthroplasty of left hip: (10) History of pancreatectomy: (11) Pyuria: Admission and Anticipated Discharge Date Admission Date: October 27, 2020 Supervising Physician Co-Signing Physician Notes I personally examined the patient and verified all whatley points of history and exam, discussed case, and agree with decision making with Dr Markham. feeling ok just wants to get to rehab. vitals noted nad heent nc at mmm breathing unlabored no accessory muscles good effort skin no rashes no pallor or icterus hip fx - for rehab acute blood loss anemia - stable now. related to hip fracture acute kidney injury - from anemia/volume loss - improved now. follow otherwise as above Subjective Patient was seen and evaluated at bedside this morning. It is noted from nursing staff that patient had a fall overnight but patient denied any pain or symptoms after the fall. She has no specific complaints of pain. Patient states that she is overall feeling well. She is eager to be d/c from the hospital to rehab. Patient denies fever, chills, lightheadedness, syncope, CP, SOB, abdominal pain, n/v. Review of Systems Review of Systems: Pertinent positives and negatives in HPI Physical Exam Physical Exam: GENERAL: No acute distress. Well developed and well nourished. Vital signs reviewed. EYES: EOMI. Anicteric sclerae. HENT: Moist mucous membranes. RESPIRATORY: Lungs CTAB. No wheezing, rales, or rhonic. No increased respiratory effort. CARDIOVASCULAR: Regular rate and rhythm. No murmurs. ABDOMEN: Soft and non-tender. Normal bowel sounds. EXTREMITIES: No edema. Tenderness to palpation over bilateral shins. There is no calf tenderness to palpation b/l. SKIN: Warm, dry. Numberable lesions over face, trunk, and extremities consisted with neurofibromatosis. NEUROLOGIC: A/O x4. No focal neurological deficits. PSYCHIATRIC: Cooperative. Appropriate mood and affect. Results & Data Results & Data ([facility]) Vital Signs (Past 12 Hours) Vital Signs Temp Pulse Resp BP Pulse Ox 10/30/20 16:08 36.5 C 88 16 133/70 95 10/30/20 07:54 36.7 C 94 H 16 114/71 96 Resident Activity Tracking Resident Involvement: Resident Care Provided Care Provided: Adult Hospital Medicine (1) Acute hip pain Laterality: right Qualified Code(s): M25.551 - Pain in right hip (2) Closed fracture nasal bone Encounter type: initial encounter Qualified Code(s): S02.2XXA - Fracture of nasal bones, initial encounter for closed fracture (3) Fall Encounter type: initial encounter Qualified Code(s): W19.XXXA - Unspecified fall, initial encounter
--- NOTE | 2020-10-30 16:48 | Billing Data ---
Date of Service October 30, 2020 Coding Level of Care Code 78063 Subseq Hosp Care Lvl 2
[2020-10-30] MEDS: ATORVASTATIN 40 MG TAB PO SCH (21:12)
[2020-10-30] MEDS: INSULIN GLARGINE SOLOSTAR 100 UNITS/ML 3 ML PEN SC SCH (21:15)
[2020-10-31 06:15] LABS: Basophils # (auto) 0.02 K/uL (0-0.2); Basophils % (auto) 0.3 %; Eosinophils # (auto) 0.34 K/uL (0-0.5); Eosinophils % (auto) 4.4 %; Hematocrit (blood only) 25.5 % (37-47); Hemoglobin 8.2 g/dL (12.0-16.0); Immature Granulocytes # (auto) 0.05 K/uL (0.00-0.02); Immature Granulocytes % (auto) 0.6 %; Lymphocytes # (auto) 1.74 K/uL (1.2-3.4); Lymphocytes % (auto) 22.3 %; Mean Corpuscular Hemoglobin 28.4 pg (25-34); Mean Corpuscular Hgb Conc 32.2 g/dL (32-36); Mean Corpuscular Volume 88.2 fL (80-100); Mean Platelet Volume 9.7 fL (7.4-10.4); Monocytes # (auto) 0.81 K/uL (0.11-0.59); Monocytes % (auto) 10.4 %; Neutrophils # (auto) 4.83 K/uL (1.4-6.5); Platelet Count 232 K/uL (130-400); RDW Coefficient of Variation 14.8 % (11.5-14.5); Red Blood Count 2.89 M/uL (4.2-5.4); White Blood Count 7.79 K/uL (4.8-10.8)
--- NOTE | 2020-10-31 07:08 | Orthopedic Progress Note ---
Date of Service October 31, 2020 Assessment & Plan (1) History of hemiarthroplasty of left hip: She is doing fairly well. She can continue to ambulate with physical therapy. X-rays from yesterday of her left hip were negative. She can be weightbearing as tolerated. She is orthopedically stable for discharge when medically ready. She is on aspirin 81 mg twice a day for DVT prophylaxis. Full orthopedic discharge instructions were placed in the discharge summary. Present on Admission?: Yes Admission and Anticipated Discharge Date Admission Date: October 27, 2020 Subjective Overall he is doing fairly well. She was able to ambulate yesterday with physical therapy. The x-rays of her left hip are negative since her fall. She has had no new complaints. Results & Data ([facility]) Vital Signs (Past 12 Hours) Vital Signs Temp Pulse Resp BP Pulse Ox 10/30/20 23:35 37.3 C 87 14 121/67 97 Diagnostic Findings X-rays of the left hip and pelvis show no evidence of new fracture. The prosthesis is well-seated. PG Care Time/CCT Total # of Minutes Spent Total Time Spent with Patient: Total time spent is greater than 50% in coordination of care (as documented) at patient's floor/unit and/or counseling patient: Coding Level of Care Code None Diagnoses History of hemiarthroplasty of left hip Z96.642
[2020-10-31] MEDS: PANCREAZE (LIPASE 10,500U) CAP PO SCH ×3 (07:36→18:27)
[2020-10-31] MEDS: oxyCODONE HCL IR 5 MG TAB (IMMEDIATE RELEASE) PO PRN ×2 (07:36→13:55)
[2020-10-31 08:15] LABS: BUN Creatinine Ratio 15.5 (10-20); Creatinine Clr Calc Pharmacy 24.7 ml/min; Est GFR (African American) 43.9; Est GFR (Non-African American) 37.9; Potassium 3.9 mmol/L (3.5-5.1)
[2020-10-31] MEDS: TICAGRELOR 90 MG TAB PO SCH ×2 (08:57→21:10)
[2020-10-31] MEDS: FAMOTIDINE 20 MG TAB PO SCH ×2 (08:58→21:10)
[2020-10-31] MEDS: INSULIN GLARGINE SOLOSTAR 100 UNITS/ML 3 ML PEN SC SCH ×2 (08:58→21:11)
[2020-10-31] MEDS: ASPIRIN 81 MG ECTAB PO SCH (08:58)
[2020-10-31] MEDS: INSULIN ASPART 100 UNITS/ML 3 ML PEN SC SCH ×4 (08:59→21:12)
[2020-10-31] MEDS: POLYETHYLENE (MIRALAX) 17 GM PACK PO SCH ×2 (09:03→21:10)
--- NOTE | 2020-10-31 14:05 | Hospitalist Progress Note ---
Date of Service October 31, 2020 Assessment & Plan (1) Hip fracture: Rosalba Torres is an 85 y/o female with h/o diabetes mellitus, memory changes, high cholesterol, breast cancer, neurofibromatosis, kidney stone, obstructive uropathy, TIA, right hydronephrosis, history of pancreectomy, who w as admitted for a left hip fracture 2/2 mechanical fall, s/p left hip arthroplasty on 10/27/20. Hip fracture due to mechanical fall - s/p L arthroplasty of hip 10/27/20 - Pain adequately controlled w/ PRN Morphine -- Post op pain management per ortho surgery team - continue PT - Restarted home Brilinta and Aspirin on 10/28 - Scheduled bowel regimen for Miralax BID due to postop constipation - Fall precautions - Due to fall overnight 10/29-10/30, hip/pelvis XR ordered per ortho -- no acute fractures or dislocations. bipolar left hip replacement noted. - CBC and CMP qAM - Will plan for d/c to inpatient rehab at [facility]; awaiting acceptance to [facility] Elevated Creatinine, on Chronic kidney disease, stage 3b - Hx of CKD, Cr of 1.3-1.4 at baseline but has been as high as in the 2s. Cr 1.19 10/28/20 - suspect pre-renal injury 2/2 intra-operative blood loss - gave NSS 500cc bolus 10/29 - Avoid nephrotoxic medications - strict I/Os - Trend BMP daily - Cr today 1.3 Acute Normocytic Anemia - Hgb 12.7 pre-operatively --> 11.6 --> 9.5 --> 8.4 - AM Hgb 10/30 was 7.8; repeat Hgb at 12pm on 10/30 had significantly improved to 9.7 - suspect 2/2 intra-operative blood loss - trend CBC daily H/o TIA - on secondary CVA ppx since 07/2020 with Brilinta 90 mg PO BID and Aspirin 81 mg PO daily, per Neuro - continue Closed fracture of nasal bone - From her previous fall sustained a few days ago. - Pain control; no current management needed at this time - has external support tape - F/u as outpatient Diabetes - A1c on admission 9.4% - SSI/basal insulin while hospitalized, appreciate pharm recs and glycemic consult Hydronephrosis - Per the patient, patient with hydronephrosis secondary to a urinary stone obstruction - This is being monitored and treated by her outpatient physicians, however could be a source for urinary tract infection that could produce symptoms that would lead to a fall - UA in ED 10/27 shows trace glucose, negative ketones, trace blood, negative nitrite, 1+ leuk esterase, 10-30 WBC, > 30 epithelial cells - Urine cultures pending; will plan to treat if indicated History of pancrectomy - continue nearest hospital equivalent to home [facility] History of neurofibromatosis - No acute management - F/u prn as outpatient Asymptomatic bacteriuria - no symptoms, urine cx with probable skin cnidy contaminants - no treatment warranted at this time chronic memory changes - A&Ox3 today. some mild memory issues noted such as forgetting the physician that saw her in the morning during afternoon recheck FEN/GI: DM2 diet DVT PPX: Brillinta 90 mg PO BID and Aspirin 81 mg PO daily Dispo: [facility]. Approval for [facility] acute rehab is pending Code Status: DNR/DNI. (2) Closed fracture nasal bone: (3) Fall: (4) Acute hip pain: (5) Uncontrolled diabetes mellitus, with long-term current use of insulin: (6) Memory changes: (7) Chronic kidney disease: (8) Hydronephrosis, right: (9) History of hemiarthroplasty of left hip: (10) History of pancreatectomy: (11) Pyuria: Admission and Anticipated Discharge Date Admission Date: October 27, 2020 Supervising Physician Co-Signing Physician Notes I personally examined the patient and verified all whatley points of history and exam, discussed case, and agree with decision making with Dr Markham. still waiting on approval for rehab no acute complaints otherwise vitals noted nad heent nc at mmm breathing unlabored no accessory muscles good effort skin no rashes no pallor or icterus hip fx - for rehab once approved acute blood loss anemia - stable now. related to hip fracture. follow periodically acute kidney injury - from anemia/volume loss - improved now. follow BMP periodically otherwise as above, stable for rehab once approved/bed available Subjective Patient seen and evaluated at bedside this morning. She states that she is overall doing well. Patient has no specific complaints or concerns. She states that the hip pain is well controlled with analgesics. Patient does note that she had a BM today. Review of Systems Review of Systems: Pertinent positives and negatives in HPI Constitutional: no fever and no chills Respiratory: no cough and no dyspnea Cardiovascular: no chest pain Gastrointestinal: no abdominal pain, no nausea and no vomiting Musculoskeletal: + joint pain Integumentary: + lesions (+ hx of neurofibromatosis, no acute concerns) Physical Exam Physical Exam: GENERAL: No acute distress. Well developed and well nourished. Vital signs reviewed. EYES: EOMI. Anicteric sclerae. HENT: Moist mucous membranes. RESPIRATORY: No respiratory distress. Able to speak in full sentences without increased respiratory effort. ABDOMEN: Soft and non-tender. Normal bowel sounds. SKIN: Warm, dry. Numberable lesions over face, trunk, and extremities consisted with neurofibromatosis. NEUROLOGIC: A/O x4. No focal neurological deficits. PSYCHIATRIC: Cooperative. Appropriate mood and affect. Results & Data Results & Data ([facility]) Vital Signs (Past 12 Hours) Vital Signs Temp Pulse Resp BP Pulse Ox 10/31/20 07:51 37.1 C 86 16 119/70 95 Resident Activity Tracking Resident Involvement: Resident Care Provided Care Provided: Adult Hospital Medicine (1) Acute hip pain Laterality: right Qualified Code(s): M25.551 - Pain in right hip (2) Closed fracture nasal bone Encounter type: initial encounter Qualified Code(s): S02.2XXA - Fracture of nasal bones, initial encounter for closed fracture (3) Fall Encounter type: initial encounter Qualified Code(s): W19.XXXA - Unspecified fall, initial encounter
--- NOTE | 2020-10-31 14:45 | Pharmacy Report ---
Pharmacy Glycemic Short Note 2 - Date of Service October 31, 2020 - Glycemic Short BSG Results (Last 24 hours): 10/30/20 10/30/20 10/30/20 17:03 17:07 20:20 Glucose POC Glucose 300 H 294 H 258 H 10/30/20 10/31/20 10/31/20 22:23 05:57 08:27 Glucose 108 H POC Glucose 139 H 144 H 10/31/20 11:57 Glucose POC Glucose 193 H OUTPATIENT ANTIDIABETIC REGIMEN: * Levemir 13 units SC HS * Novolog TIDM (carb ratio of 15, CF: 45 for BSG over 150 mg/dL) * Patient reports 7 units TIDM * Average BSG per [facility] is 213 mg/dL * HbA1c: 9.4% (10/27/20) ASSESSMENT: 10/31 * Pt received 57 units of insulin yesterday, POD #4 * BSGs [phone] mg/dL; * Fasting this AM 144 mg/dL, 108 mg/dL on BMP- will continue current lantus doses * BSGs trended up yesterday evening- carb ratio was tightened, will continue same for now, continue to tighten as necessary 10/29 * ER is a 85 year old female now POD #2 s/p left hip arthroplasty * BSGs elevated yesterday, 198, 243, 195, and 282 mg/L * Received 20 units of Lantus and 20+ units of prandial/correctional * Tighten Novolog today * Fasting BSG of 286 mg/dL this morning * Plan to increase basal * SCr trending up (1.19 -> 1.5 mg/dL) * Lunch BSG of 305 mg/dL * Will order one-time IV regular insulin bolus of 4 units * Further tighten Novolog * Add overnight checks PLAN FOR INPATIENT GLYCEMIC CONTROL: * Hold outpatient oral diabetes medications * Basal insulin * Lantus 13 units SC BID * Bolus insulin - tighten * NovoLog per scale ACHS or Q6hrs while NPO * Goal Range: Low 110 mg/dL - High 140 mg/dL * Correction Factor: 20 mg/dL/unit * Nutritional / Prandial insulin per carb ratio of 1 unit per 5 grams CHO consumed PLAN FOR DISCHARGE: * HbA1c of 9.4% suggest poor outpatient glycemic control * See dental office assistant note from 10/27/20 * Patient is followed by [facility] * ensure timely follow-up with them for further insulin dose adjustments
--- NOTE | 2020-10-31 18:01 | Billing Data ---
Date of Service October 31, 2020 Coding Level of Care Code 36746 Subseq Hosp Care Lvl 2
[2020-10-31] MEDS: ATORVASTATIN 40 MG TAB PO SCH (21:10)
[2020-11-01] MEDS: oxyCODONE HCL IR 5 MG TAB (IMMEDIATE RELEASE) PO PRN ×2 (00:57→10:48)
[2020-11-01 06:55] LABS: Basophils # (auto) 0.01 K/uL (0-0.2); Basophils % (auto) 0.1 %; Eosinophils # (auto) 0.35 K/uL (0-0.5); Eosinophils % (auto) 4.6 %; Hematocrit (blood only) 24.6 % (37-47); Hemoglobin 7.8 g/dL (12.0-16.0); Immature Granulocytes # (auto) 0.04 K/uL (0.00-0.02); Immature Granulocytes % (auto) 0.5 %; Lymphocytes # (auto) 1.78 K/uL (1.2-3.4); Lymphocytes % (auto) 23.3 %; Mean Corpuscular Hemoglobin 28.3 pg (25-34); Mean Corpuscular Hgb Conc 31.7 g/dL (32-36); Mean Corpuscular Volume 89.1 fL (80-100); Mean Platelet Volume 9.4 fL (7.4-10.4); Monocytes % (auto) 11.8 %; Neutrophils # (auto) 4.56 K/uL (1.4-6.5); Neutrophils % (auto) 59.7 %; Platelet Count 266 K/uL (130-400); RDW Standard Deviation 48.7 fL (36.4-46.3); Red Blood Count 2.76 M/uL (4.2-5.4); White Blood Count 7.64 K/uL (4.8-10.8)
[2020-11-01 07:24] LABS: BUN Creatinine Ratio 19.3 (10-20); Calcium 7.5 mg/dl (8.5-10.1); Creatinine Clr Calc Pharmacy 29.5 ml/min; Est GFR (African American) 54.4; Est GFR (Non-African American) 46.9; Potassium 3.8 mmol/L (3.5-5.1)
[2020-11-01] MEDS ORDERED: INSULIN GLARGINE SOLOSTAR 100 UNITS/ML 3 ML PEN SC SCH ×2 (09:00→21:00)
[2020-11-01] MEDS: ASPIRIN 81 MG ECTAB PO SCH (09:08)
[2020-11-01] MEDS: PANCREAZE (LIPASE 10,500U) CAP PO SCH ×2 (09:08→13:04)
[2020-11-01] MEDS: FAMOTIDINE 20 MG TAB PO SCH (09:08)
[2020-11-01] MEDS: TICAGRELOR 90 MG TAB PO SCH (09:08)
[2020-11-01] MEDS: POLYETHYLENE (MIRALAX) 17 GM PACK PO SCH (09:09)
[2020-11-01] MEDS: INSULIN ASPART 100 UNITS/ML 3 ML PEN SC SCH ×2 (09:10→13:05)
--- NOTE | 2020-11-01 18:27 | Discharge Summary ---
Date of Service November 01, 2020 Admission HPI Per Admitting Provider Patient is an 85-year-old female with a past medical history of diabetes mellitus, memory changes, high cholesterol, breast cancer, neurofibromatosis, kidney stone, obstructive uropathy, TIA, right hydronephrosis, history of pancreectomy, who presents today status post fall for evaluation of pain associated with the fall. Patient reports recent history of falling frequently, she fell a few days ago in which time she injured her nose. This most recent fall occurred this evening. She had woke up in the evening to let her 3 dogs out to go to the bathroom, while walking to the lights which she sustained a fall. She was in her normal state of health, denying any constitutional symptoms she specifically denied fevers, chills, nausea, vomiting, chest pressure, chest pain, orthostasis feelings, seizure-like activity, postictal state, or any other concerning signs or symptoms that would think that this follows anything other than an organic fall. Despite this the patient denies any recollection of the fall,It is certainly possible that she tripped over her dogs were letting them out. Patient pressed her life alert button and her daughter arrived as well as an ambulance in which she was transferred to the [place] the emergency department. Upon arrival to the ER, her she was provided with adequate analgesia, labs were obtained CBC was within normal limits, PT/INR was within normal limits, Chem-7 was pertinent for an elevated glucose of 202 and a creatinine of 1.27 this appears to be better than her baseline Of 1.4. UA was pertinent for trace blood trace leuks trace WBCs and budding yeast. The patient firmly denies any UTI symptoms. imaging was obtained, CT of the head was negative chest x-ray demonstrated cardiomegaly and was otherwise unremarkable, hip x-ray demonstrated a fracture. she will be admitted to [facility] for further evaluation and treatment of her hip fracture. Primary Care Provider: CONRADO Ponce Admission Exam Per Admitting Provider General: Elderly female in no acute distress endorsing hip pain HEENT: Normocephalic, trauma to the nose Neck: Trachea midline, normal to visual inspection Cardiac: Regular rate and rhythm, I did not appreciate any significant murmurs rubs or gallops, normal S1, normal S2, negative pedal edema, negative calf tenderness Respiratory: Clear to auscultation bilaterally without significant wheezes, rales, rhonchi, normal respiratory effort, symmetrical chest expansion GI: Soft, nontender, nondistended, bowel sounds present in all 4 quadrants MSK: Moves all extremities although pain with movement Skin: Multiple bruises Neuro: Alert and oriented x4 Psych: Calm and cooperative Principal Diagnosis hip fracture Discharge Exam GENERAL: No acute distress. Patient is well dressed and ambulating with PT with assistive device with short, shuffling, gait. Patient is well developed and well nourished. Vital signs reviewed. EYES: EOMI. Anicteric sclerae. HENT: Moist mucous membranes. RESPIRATORY: Able to speak in full sentences without increased respiratory effort. No respiratory distress. No audible cough. NEURO: A/O x4. Normal speech. PSYCHIATRIC: Cooperative. Appropriate mood and affect. Discharge Data Allergies Allergy/AdvReac Type Severity Reaction Status Date / Time No Known Drug Allergies Allergy Unknown Verified 10/26/20 08:51 Consultations 10/27/20 16:09 Consult Case Management - Discharge Planning Routine Procedures Performed Operation Date: 10/27/20 08:50 Actual Procedures p Left Anterior Bipolar Hip Arthroplasty(Left) - Latrell Coyne, Ordered Studies 10/26/20 23:45 CT cervical spine wo con Urgent CT facial bones wo con Urgent CT head/brain wo con Urgent 10/27/20 13:30 FL fluoroscopy <1hr Routine FL hip LT 1V Routine Diabetes Follow up Diabetes Follow-up Needed for HgbA1c >9% Hospital Course (1) Hip fracture: Rosalba Torres is an 85 y/o female with h/o diabetes mellitus, memory changes, high cholesterol, breast cancer, neurofibromatosis, kidney stone, obstructive uropathy, TIA, right hydronephrosis, history of pancreectomy, who was admitted for a left hip fracture 2/2 mechanical fall, s/p left hip arthroplasty on 10/27/20. Hip fracture due to mechanical fall - s/p L arthroplasty of hip 10/27/20 - Pain adequately controlled w/ PRN Morphine -- Post op pain management per ortho surgery team (Roxicodone 5mg q6h PRN and tramadol 50mg q6h PRN) - Restarted home Brilinta and Aspirin on 10/28 - Scheduled bowel regimen for Miralax BID due to postop constipation - Fall precautions - Due to fall overnight 10/29-10/30, hip/pelvis XR ordered per ortho -- no acute fractures or dislocations. bipolar left hip replacement noted. -continue PT at [facility] after discharge Closed fracture of nasal bone - From her previous fall sustained a few days ago. - Pain control; no current management needed at this time - has external support tape - F/u as outpatient Chronic kidney disease, stage 3b - Hx of CKD, Cr of 1.3-1.4 at baseline but has been as high as in the 2s. - suspect pre-renal injury 2/2 intra-operative blood loss - gave NSS 500cc bolus - Avoid nephrotoxic medications -within normal limits on discharge (1.09) Acute Normocytic Anemia - Hgb 12.7 pre-operatively and stabilized at 7.8 on discharge - suspect 2/2 intra-operative blood loss -asymptomatic, not requiring transfusion H/o TIA - on secondary CVA ppx since 07/2020 with Brilinta 90 mg PO BID and Aspirin 81 mg PO daily, per Neuro - continue Diabetes - A1c on admission 9.4% -community nutrition educator recommendations: 1. GMI 8.4% (target 7.5-8.5%)- continue to work with ([facility]) Endocrinology team for insulin adjustments as needed. Next appointment Jan 03. 2. Try to limit afternoon/evening snacking versus choosing lower carb foods to snack on. If snacking, try to cover carbs consumed per provider recommendation. 3. Notify provider of BG values persistently above target." -For reference inpatient regimen was: Basal insulin: Lantus 13 units SC BID Bolus insulin - tighten. NovoLog per scale ACHS or Q6hrs while NPO. Goal Range: Low 110 mg/dL - High 140 mg/dL Correction Factor: 20 mg/dL/unit. Nutritional / Prandial insulin per carb ratio of 1 unit per 5 grams CHO consumed Hydronephrosis - Per the patient, patient with hydronephrosis secondary to a urinary stone obstruction - This is being monitored and treated by her outpatient physicians, however could be a source for urinary tract infection that could produce symptoms that would lead to a fall Asymptomatic bacteriuria -- UA in ED 10/27 showed trace glucose, negative ketones, trace blood, negative nitrite, 1+ leuk esterase, 10-30 WBC, > 30 epithelial cells - no symptoms, urine cx with probable skin cindy contaminants - no treatment warranted at this time History of pancrectomy - continue home Creon History of neurofibromatosis - No acute management - F/u prn as outpatient chronic memory changes - stable (2) Closed fracture nasal bone: (3) Fall: (4) Acute hip pain: (5) Uncontrolled diabetes mellitus, with long-term current use of insulin: (6) Memory changes: (7) Chronic kidney disease: (8) Hydronephrosis, right: (9) History of hemiarthroplasty of left hip: (10) History of pancreatectomy: (11) Pyuria: Total Time Total Time Spent Total Time Spent (In Minutes): <30 Discharge Plan Discharge Items Patient Disposition: Transfer [facility] Reason For Visit: HIP FX Discharge Diagnosis: Hip fracture Activity: Per Instructions section Non-emergency contact: Primary Care Provider Call non-emergency contact if: your symptoms worsen and you have a fever Follow-up/Referrals: Joyce Rasmussen CRNP [Primary Care Provider] - Diet: Carb Consistent or DM2 Addtl Attending Provider Instructions: Rosalba Torres is an 85 y/o female with h/o diabetes mellitus, memory changes, high cholesterol, breast cancer, neurofibromatosis, kidney stone, obstructive uropathy, TIA, right hydronephrosis, history of pancreectomy, who was admitted for a left hip fracture 2/2 mechanical fall, s/p left hip arthroplasty on 10/27/20. Hip fracture due to mechanical fall - s/p L arthroplasty of hip 10/27/20 - Pain adequately controlled w/ PRN Morphine -- Post op pain management per ortho surgery team (Roxicodone 5mg q6h PRN and tramadol 50mg q6h PRN) - Restarted home Brilinta and Aspirin on 10/28 - Scheduled bowel regimen for Miralax BID due to postop constipation - Fall precautions - Due to fall overnight 10/29-10/30, hip/pelvis XR ordered per ortho -- no acute fractures or dislocations. bipolar left hip replacement noted. -continue PT at [facility] after discharge Closed fracture of nasal bone - From her previous fall sustained a few days ago. - Pain control; no current management needed at this time - has external support tape - F/u as outpatient Chronic kidney disease, stage 3b - Hx of CKD, Cr of 1.3-1.4 at baseline but has been as high as in the 2s. - suspect pre-renal injury 2/2 intra-operative blood loss - gave NSS 500cc bolus - Avoid nephrotoxic medications -within normal limits on discharge (1.09) Acute Normocytic Anemia - Hgb 12.7 pre-operatively and stabilized at 7.8 on discharge - suspect 2/2 intra-operative blood loss -asymptomatic, not requiring transfusion H/o TIA - on secondary CVA ppx since 07/2020 with Brilinta 90 mg PO BID and Aspirin 81 mg PO daily, per Neuro - continue Diabetes - A1c on admission 9.4% -community nutrition educator recommendations: 1. GMI 8.4% (target 7.5-8.5%)- continue to work with ([facility] [place]) Endocrinology team for insulin adjustments as needed. Next appointment Jan 03. 2. Try to limit afternoon/evening snacking versus choosing lower carb foods to snack on. If snacking, try to cover carbs consumed per provider recommendation. 3. Notify provider of BG values persistently above target." -For reference inpatient regimen was: Basal insulin: Lantus 13 units SC BID Bolus insulin - tighten. NovoLog per scale ACHS or Q6hrs while NPO. Goal Range: Low 110 mg/dL - High 140 mg/dL Correction Factor: 20 mg/dL/unit. Nutritional / Prandial insulin per carb ratio of 1 unit per 5 grams CHO consumed Hydronephrosis - Per the patient, patient with hydronephrosis secondary to a urinary stone obstruction - This is being monitored and treated by her outpatient physicians, however could be a source for urinary tract infection that could produce symptoms that would lead to a fall Asymptomatic bacteriuria -- UA in ED 10/27 showed trace glucose, negative ketones, trace blood, negative nitrite, 1+ leuk esterase, 10-30 WBC, > 30 epithelial cells - no symptoms, urine cx with probable skin cindy contaminants - no treatment warranted at this time History of pancrectomy - continue home Creon History of neurofibromatosis - No acute management - F/u prn as outpatient chronic memory changes - stable ORTHOPEDIC INSTRUCTIONS Hip Hemiarthroplasty Activity and Therapy Recommendations: 1. You were shown a series of exercises in the hospital. Do these exercises three times each day if you are able. 2. Get up and walk several times each day if you are capable. Make sure you have assistance is needed. For the first four weeks, try not to stand or walk for more than one hour at a time. If you do stand or walk for more than one hour, you will not hurt anything, but your leg will likely swell. 3. As you feel comfortable, you may change from the walker or crutches to a cane and then to independent walking if you are able. Please be safe. Medications: 1. Narcotic You will likely be sent from the hospital with the narcotic pain medication that worked best throughout your stay. 2. Aspirin You will be required to take Aspirin 81mg twice a day for 6 weeks after surgery to prevent blood clots. 3. Other medications may be given for specific circumstances. If you have any questions, please call the office at [phone]. 4. Resume previous home medications unless otherwise instructed TEDs/Elastic Stockings: The white elastic stockings help limit swelling and prevent blood clots from forming in your legs. The more you wear them, the more they work. Wear them for six weeks. Dressing Care: Leave the Silverlon dressing in place for 7 days. After 7 days you may remove the dressing. If the incision is not draining then you may leave the curtis open to air. If there is a little bit of drainage or if the curtis are getting stuck on your clothing then cover the incision with a dry dressing. The curtis will be removed at your 2 week follow-up appointment. Showering: You may shower with the Silverlon dressing in place. Do not let the shower spray hit the dressing directly. Pat the Silverlon dressing dry. If the dressing becomes wet underneath, then simply remove the dressing. Keep the incision dry until you are 7 days out from the day of surgery. After 7 days you may remove the Silverlon dressing and shower with the curtis exposed. Let soapy water run over the curtis and pat them dry. Do not scrub or soak the incision. Things To Watch For: 1. Drainage from the incision site that occurs more than one week after your surgery. 2. Increased redness at the incision site. 3. Fever above 102 degrees Fahrenheit. 4. Unusual chest pain or shortness of breath. 5. Call [facility] at with any of the above problems Follow-Up Visit: Follow-up with Dr. Coyne's PA (Latrell Gastelum) 2-3 weeks after your day of surgery. He will remove your curtis and answer any questions. If you have any additional questions or concerns, Dr Coyne is usually in the office at the same time and will be available An appointment was probably scheduled when you signed-up for surgery in the office. If you have any questions call Pending Studies at Discharge: No Stand-Alone Forms: My [facility] Skilled Items Patient informed of condition?: Yes DNR: Yes Discharge Level of Care: Skilled Communicable Disease: No Discharge Prognosis: Stable Lines: None Urinary Catheter: No Medications and DC Order Prescriptions: New tramadol 50 mg tablet 50 mg PO Q6H PRN (Reason: pain) Qty: 28 RF: 0 oxycodone [Roxicodone] 5 mg tablet 5 mg PO Q6H PRN (Reason: pain) Qty: 28 RF: 0 Continued Brilinta 90 mg tablet 90 mg PO BID Qty: 60 RF: 11 insulin aspart U-100 [Novolog Flexpen U-100 Insulin] 100 unit/mL (3 mL) Insulin Pen 4 - 6 unit SUBCUT TIDM RF: 0 Creon 12,000-38,000 -60,000 unit Capsule,Delayed Release(Dr/Ec) 1 cap PO TIDM RF: 0 calcium carbonate-vitamin D3 500 mg(1,250mg) -125 unit Tablet 1 tab PO QAM RF: 0 Levemir U-100 Insulin 100 unit/mL solution 13 unit SUBCUT HS RF: 0 famotidine [Pepcid] 20 mg tablet 20 mg PO BID RF: 0 atorvastatin 40 mg tablet 40 mg PO QPM RF: 0 solifenacin [Vesicare] 10 mg tablet 10 mg PO HS RF: 0 aspirin [Aspirin Childrens] 81 mg tablet,chewable 81 mg PO DAILY Qty: 30 RF: 0 cholecalciferol (vitamin D3) [Vitamin D3] 25 mcg (1,000 unit) Tablet 25 mcg PO DAILY RF: 0 Discharge Orders: Discharge Order (Routine); Ordered 11/01/20 Ordered By: Lenora Mora Admission Data Admit Date/Time: 10/27/20 02:36 Attending Provider: Jaime Persaud Admit Provider: Ton Araiza I. Primary Care Provider: Joyce Rasmussen [facility] ; Blayne Dasilva Other Interventions: Discharge Summary Assessment (RN) Last Done: 11/01/20 15:03 Supervising Physician Co-Signing Physician Notes I personally examined the patient and verified all whatley points of history and exam, discussed case, and agree with decision making with Dr Markham. going to rehab. called family to update and answered all questions to the best o f my ability. seen during PT - walking slowly shuffling w walker and PT support, but in that context - steady. vitals noted nad heent nc at mmm breathing unlabored no accessory muscles good effort skin no rashes no pallor or icterus. gait as above hip fx - for rehab and ongoing PT/OT acute blood loss anemia - stable now. related to hip fracture. follow periodically acute kidney injury - from anemia/volume loss - improved now. follow BMP periodically otherwise as above, stable for rehab Resident Activity Tracking Resident Involvement: Resident Care Provided Care Provided: Adult Hospital Medicine
--- NOTE | 2020-11-01 19:17 | Billing Data ---
Date of Service November 01, 2020 Coding Level of Care Code D/C Day Management <30 mins
== END 2020-11-01 17:11 | DRG 522 ==
LOC: ED 23:22 → 3N 10-27 02:36 → SUATTDRO 10-27 02:36 → 3N 10-27 03:42

== ENCOUNTER 2021-02-03 14:55 | Inpatient (IN) ==
--- NOTE | 2021-02-03 15:17 | Emergency Department Note ---
History of Present Illness General Chief complaint: Urinary Symptoms Stated complaint: AMS, UTI Time Seen by Provider: 02/03/21 15:02 Source: patient Mode of arrival: EMS Limitations: altered mental status History of Present Illness Provider complaint: Confusion, weakness, recent UTI Onset (ago): unknown Associated symptoms: + loss of appetite, + malaise and + other (Back pain); no fever/chills and no shortness of breath Treatments prior to arrival: none This is an 85-year-old female who presents via EMS due to concern for increased weakness, confusion, and recent diagnosis of urinary tract infection. Patient is independent, and staff reported to EMS she was confused attempting her usual cross-stitch today. Staff reported to EMS she was recently diagnosed with urinary tract infection, started on antibiotic, however they were told culture and sensitivities were still pending. Patient here states she does not know why she was brought here. She states she does have a history of urinary tract infections and was recently started on antibiotic although she cannot recall the name. Patient admits to back pain which is new, denies abdominal pain, change in urine or urinary habits, change in bowel movements, chest pain, trouble breathing, fevers, or any other concerning symptoms. Pt seen during a time of high acuity and national emergency pandemic while wearing PPE. Home Medications Medication Instructions Recorded Confirmed Type Creon 1 cap PO TIDM 06/11/19 02/03/21 History insulin aspart U-100 [Novolog See Rx Instructions .ROUTE .COMPLEX 06/11/19 02/03/21 History Flexpen U-100 Insulin] famotidine [Pepcid] 20 mg PO BID 01/17/20 02/03/21 History solifenacin [Vesicare] 10 mg PO HS 02/10/20 02/03/21 History aspirin [Aspirin Childrens] 81 mg PO DAILY #30 tab 08/11/20 02/03/21 Rx ticagrelor 90 mg tablet 90 mg PO BID #60 tab 08/15/20 02/03/21 Rx atorvastatin 40 mg tablet 40 mg PO DAILY tab 08/31/20 02/03/21 History insulin detemir U-100 100 unit/mL 12 unit SUBCUT HS ml 08/31/20 02/03/21 History subcutaneous solution calcium carbonate-vitamin D3 1 tab PO BID 02/03/21 02/03/21 History [Calcium 600 + D(3)] docusate sodium 100 mg PO BID PRN 02/03/21 02/03/21 History mirtazapine 7.5 mg PO HS 02/03/21 02/03/21 History sulfamethoxazole-trimethoprim 1 tab PO BID 02/03/21 02/03/21 History Allergies Allergy/AdvReac Type Severity Reaction Status Date / Time No Known Drug Allergies Allergy Unknown Verified 02/03/21 16:01 Past Med/Surg History Medical History CKD (chronic kidney disease), stage III Compression fracture of T11 vertebra s/p fall 12/2019 Diabetes mellitus, type 2 Exocrine pancreatic insufficiency GERD (gastroesophageal reflux disease) Hearing deficit Hiatal hernia History of TIAs NO RESIDUAL EFFECTS- 2014 per records Hx of fall HX: breast cancer LUMPECTOMY - LEFT BREAST; NO RADIATION, NO CHEMO; WAS ON TAMOXIFEN FOR 5 YR - NO LONGER TAKING Hyperlipidemia Kidney stones 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 [facility]. LMA #4. No issues. History of cystoscopy 02/10/2020 [facility] History of hemiarthroplasty of left hip History of lumpectomy of left breast History of pancreatectomy PARTIAL ([place]) History of ureter stent Hx of colonoscopy Family History Aunt Stroke Mother Stroke Father Heart disease Other No family history of allergies No family history of bleeding disorder No pertinent family history in first degree relatives Denies family history of Hearing loss Cancer Hypertension Asthma Social History Smoking Status: Never smoker Second Hand Exposure: No; Do You Dip or Chew Tobacco: No; Tobacco Cessation Education Requested by Patient: No Hx Alcohol Use: No Hx Substance Use: No Preferred Language: Korean Communication Ability: Impaired Pharmacy Clerk Required: No Beliefs That Will Affect Care: None marital status: Unknown Current Living Situation: Alone current occupational status: retired Other Information That 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 and A total of 10 systems reviewed and were otherwise negative Physical Exam Vital Signs Vital Signs - 24 hr 02/03/21 17:06 02/03/21 17:10 02/03/21 17:20 Pulse Rate 86 78 87 Pulse Rate from SpO2 Sensor 86 83 96 H Respiratory Rate 22 22 19 Blood Pressure 107/58 L Blood Pressure Mean 74 Pulse Oximetry 94 92 92 Oxygen Delivery Method 02/03/21 17:30 02/03/21 17:40 02/03/21 17:50 Pulse Rate 82 82 82 Pulse Rate from SpO2 Sensor 88 Respiratory Rate 21 23 20 Blood Pressure 106/49 L Blood Pressure Mean 68 Pulse Oximetry 96 Oxygen Delivery Method Room Air 02/03/21 18:23 Pulse Rate 84 Pulse Rate from SpO2 Sensor Respiratory Rate 15 Blood Pressure Blood Pressure Mean Pulse Oximetry Oxygen Delivery Method GENERAL: alert, well appearing, well nourished, no distress, non-toxic EYE EXAM: normal conjunctiva, PERRL and EOM's grossly intact OROPHARYNX: no exudate, no erythema, lips, buccal mucosa, and tongue normal and mucous membranes are moist NECK: supple, no nuchal rigidity, no adenopathy, non-tender LUNGS: Clear to auscultation. Normal chest wall mechanics, no w/r/r HEART: no murmurs, S1 normal and S2 normal ABDOMEN: abdomen soft, non-tender, normo-active bowel sounds, no masses, no rebound or guarding. BACK: Back is symmetrical on inspection and there is no deformity, no midline tenderness, no CVA tenderness. SKIN: no rashes and no bruising, generalized scattered papules of various sizes consistent with her history of neurofibromatosis UPPER EXTREMITIES: upper extremities are grossly normal. FROM, nml pulses b/l. LOWER EXTREMITIES: No pitting edema. FROM, nml pulses b/l. NEURO EXAM: Normal sensorium but pleasantly confused about some details of recent events, cranial nerves II-XII grossly intact, normal speech, no gross weakness of arms, no gross weakness of legs. Gross sensation intact. Course Course 151: I attempted to contact [facility] to inquire about the recent diagnosis of UTI and what antibiotic was started. There is no answer and no voicemail. 1538: hardware manager able to obtain additional records. Patient was diagnosed with a urinary tract infection on February 01 and started on Bactrim at that time. 1725: Case discussed with on-call urology, Dr. Rodrigues. No additional orders. Patient should be made n.p.o. after midnight. 1750: Discussed with Dr. Kumar. 1755: Updated patient on results. Administered Medications Lipase/Protease/Amylase (Pancreaze (Lipase 10,500u) Cap) 1 cap PO TIDM TUNDE Stop: 03/06/21 07:59 Last Admin: 02/04/21 17:13 Dose: 1 cap Documented by: [id number] Admin: 02/04/21 12:52 Dose: 1 cap Documented by: [id number] Admin: 02/04/21 08:52 Dose: 1 cap Documented by: [id number] Atorvastatin Calcium (Atorvastatin 40 Mg Tab) 40 mg PO DAILY TUNDE Stop: 03/06/21 08:59 Last Admin: 02/04/21 08:52 Dose: 40 mg Documented by: [id number] Famotidine (Famotidine 20 Mg Tab) 20 mg PO BID TUNDE Stop: 03/05/21 21:59 Last Admin: 02/04/21 08:52 Dose: 20 mg Documented by: [id number] Admin: 02/03/21 22:19 Dose: 20 mg Documented by: [id number] Heparin Sodium (Porcine) (Heparin Sod 5,000 Unit/0.5 Ml Vial) 5,000 units SQ Q12 TUNDE Stop: 03/05/21 21:59 Last Admin: 02/04/21 07:08 Dose: Not Given Documented by: [id number] Admin: 02/03/21 22:19 Dose: 5,000 units Documented by: [id number] Ceftriaxone Sodium 1,000 mg/ (Dextrose) 50 mls @ 100 mls/hr IV Q24H TUNDE; Protocol Stop: 02/09/21 15:59 Last Infusion: 02/04/21 16:33 Dose: 0 mls/hr Documented by: [id number] Admin: 02/04/21 16:03 Dose: 100 mls/hr Documented by: [id number] Sodium Chloride (Nss 1000ml) 1,000 mls @ 80 mls/hr IV .[id number] [facility] Stop: 03/05/21 21:18 Last Admin: 02/04/21 14:23 Dose: 80 mls/hr Documented by: [id number] Infusion: 02/04/21 14:23 Dose: 80 mls/hr Documented by: [id number] Infusion: 02/04/21 13:10 Dose: 80 mls/hr Documented by: [id number] Infusion: 02/04/21 10:24 Dose: 0 mls/hr Documented by: [id number] Admin: 02/03/21 22:18 Dose: 80 mls/hr Documented by: [id number] Insulin Detemir (Insulin Detemir Flexpen/Flex Touch 100 Units/Ml 3ml) 0 units SC BID [facility]; Protocol Stop: 03/06/21 08:59 Last Admin: 02/04/21 08:56 Dose: 12 units Documented by: [id number] Cosigned by: [id number] Mirtazapine (Mirtazapine Tab 15 Mg Tab) 7.5 mg PO [facility] Stop: 03/05/21 21:59 Last Admin: 02/03/21 22:18 Dose: 7.5 mg Documented by: [id number] Miscellaneous (Vesicare-Order Awaiting Action) 1 ea N/A QS [facility] Stop: 03/06/21 00:00 Last Admin: 02/04/21 16:02 Dose: Not Given Documented by: [id number] Admin: 02/04/21 08:51 Dose: Not Given Documented by: [id number] Admin: 02/04/21 00:20 Dose: Not Given Documented by: [id number] Discontinued Medications Sodium Chloride (Nss 1000ml) 1,000 mls @ 150 mls/hr IV .[id number] [facility] Stop: 03/05/21 15:29 Last Infusion: 02/03/21 21:32 Dose: 0 mls/hr Documented by: [id number] Admin: 02/03/21 16:01 Dose: 150 mls/hr Documented by: [id number] Ceftriaxone Sodium (Rocephin) 1,000 mg in 50 mls @ 100 mls/hr IV NOW STA Stop: 02/03/21 16:18 Last Infusion: 02/03/21 16:49 Dose: 0 mls/hr Documented by: [id number] Admin: 02/03/21 16:03 Dose: 100 mls/hr Documented by: [id number] Acetaminophen (Ofirmev) 1,000 mg in 100 mls @ 400 mls/hr IV NOW STA Stop: 02/03/21 18:37 Last Infusion: 02/03/21 19:22 Dose: 0 mls/hr Documented by: [id number] Admin: 02/03/21 18:50 Dose: 400 mls/hr Documented by: [id number] Magnesium Sulfate/Dextrose (Magnesium Sulfate / D5w) 1 gm in 100 mls @ 50 mls/hr IV ONE ONE Stop: 02/03/21 23:59 Last Infusion: 02/04/21 00:20 Dose: 0 mls/hr Documented by: [id number] Admin: 02/03/21 22:17 Dose: 50 mls/hr Documented by: [id number] Insulin Aspart (Insulin Aspart 100 Units/Ml 3 Ml Pen) 0 units SC Q6 TUNDE Stop: 03/05/21 21:59 Last Admin: 02/04/21 05:47 Dose: 8 units Documented by: [id number] Cosigned by: [id number] Admin: 02/03/21 22:21 Dose: 7 units Documented by: [id number] Cosigned by: [id number] Insulin Aspart (Insulin Aspart 100 Units/Ml 3 Ml Pen) 0 units SC Q4 TUNDE Stop: 03/05/21 21:59 Last Admin: 02/04/21 13:12 Dose: 10 units Documented by: [id number] Cosigned by: [id number] Insulin Detemir (Insulin Detemir Flexpen/Flex Touch 100 Units/Ml 3ml) 12 units SC NOW ONE Stop: 02/03/21 22:01 Last Admin: 02/03/21 22:23 Dose: 12 units Documented by: [id number] Cosigned by: [id number] Medical Decision Making Differential Diagnosis Differential Diagnosis includes but is not limited to dehydration, stroke, anemia, hypoglycemia, hyponatremia, hypernatremia, urinary tract infection, pneumonia, bronchitis, sepsis, gastroenteritis, additional abdominal pathology, metabolic abnormalities and infections. Medical Records Attestation: I reviewed the patient's medical records. Home Medications Current Medication List: was personally reviewed by me Laboratory Data Attestation: I reviewed the patient's lab results. Result diagrams: 02/04/21 06:22 02/04/21 06:22 Lab Results 02/03/21 02/03/21 02/03/21 Range/Units 15:43 15:43 15:43 WBC 11.68 H (4.8-10.8) K/uL RBC 4.42 (4.2-5.4) M/uL Hgb 12.3 (12.0-16.0) g/dL Hct 36.4 L (37-47) % MCV 82.4 (80-100) fL MCH 27.8 (25-34) pg MCHC 33.8 (32-36) g/dL RDW Std Deviation 46.0 (36.4-46.3) fL RDW Coeff of Flako 15.3 H (11.5-14.5) % Plt Count 206 (130-400) K/uL MPV 10.1 (7.4-10.4) fL Immature Gran % (Auto) 0.3 % Neut % (Auto) 79.5 % Lymph % (Auto) 9.3 % [place] % (Auto) 10.4 % Eos % (Auto) 0.3 % Baso % (Auto) 0.2 % Neut # (Auto) 9.28 H (1.4-6.5) K/uL Lymph # (Auto) 1.09 L (1.2-3.4) K/uL [place] # (Auto) 1.22 H (0.11-0.59) K/uL Eos # (Auto) 0.04 (0-0.5) K/uL Baso # (Auto) 0.02 (0-0.2) K/uL Immature Gran # (Auto) 0.03 H (0.00-0.02) K/uL PT 10.0 (9.0-12.0) Seconds INR 1.0 (0.9-1.1) APTT 24.1 (21.0-31.0) Seconds PTT Ratio 0.9 Sodium 137 (136-145) mmol/L Potassium 4.1 (3.5-5.1) mmol/L Chloride 108 H (98-107) mmol/L Carbon Dioxide 22 (21-32) mmol/L Anion Gap 7.0 (3-11) BUN 26 H (7-18) mg/dl Creatinine 1.72 H (0.6-1.2) mg/dl Est Cr Clr Drug Dosing 19.4 ml/min Est GFR ( Amer) 31.3 Est GFR (Non-Af Amer) 27.0 BUN/Creatinine Ratio 15.2 (10-20) Glucose 128 H (70-99) mg/dl Lactate (0.4-2.0) mmol/L Calcium 9.5 (8.5-10.1) mg/dl Magnesium 1.9 (1.8-2.4) mg/dl Total Bilirubin 0.3 (0.2-1) mg/dl AST 11 L (15-37) U/L ALT 11 L (12-78) U/L Alkaline Phosphatase 109 (45-117) U/L Troponin I 0.019 (0-0.045) ng/ml Total Protein 6.8 (6.4-8.2) gm/dl Albumin 2.8 L (3.4-5.0) gm/dl Globulin 4.0 (2.5-4.0) gm/dl Albumin/Globulin Ratio 0.7 L (0.9-2) Procalcitonin (0-0.5) ng/ml 02/03/21 02/03/21 Range/Units 15:43 15:50 WBC (4.8-10.8) K/uL RBC (4.2-5.4) M/uL Hgb (12.0-16.0) g/dL Hct (37-47) % MCV (80-100) fL MCH (25-34) pg MCHC (32-36) g/dL RDW Std Deviation (36.4-46.3) fL RDW Coeff of Flako (11.5-14.5) % Plt Count (130-400) K/uL MPV (7.4-10.4) fL Immature Gran % (Auto) % Neut % (Auto) % Lymph % (Auto) % [place] % (Auto) % Eos % (Auto) % Baso % (Auto) % Neut # (Auto) (1.4-6.5) K/uL Lymph # (Auto) (1.2-3.4) K/uL [place] # (Auto) (0.11-0.59) K/uL Eos # (Auto) (0-0.5) K/uL Baso # (Auto) (0-0.2) K/uL Immature Gran # (Auto) (0.00-0.02) K/uL PT (9.0-12.0) Seconds INR (0.9-1.1) APTT (21.0-31.0) Seconds PTT Ratio Sodium (136-145) mmol/L Potassium (3.5-5.1) mmol/L Chloride (98-107) mmol/L Carbon Dioxide (21-32) mmol/L Anion Gap (3-11) BUN (7-18) mg/dl Creatinine (0.6-1.2) mg/dl Est Cr Clr Drug Dosing ml/min Est GFR ( Amer) Est GFR (Non-Af Amer) BUN/Creatinine Ratio (10-20) Glucose (70-99) mg/dl Lactate 1.2 (0.4-2.0) mmol/L Calcium (8.5-10.1) mg/dl Magnesium (1.8-2.4) mg/dl Total Bilirubin (0.2-1) mg/dl AST (15-37) U/L ALT (12-78) U/L Alkaline Phosphatase (45-117) U/L Troponin I (0-0.045) ng/ml Total Protein (6.4-8.2) gm/dl Albumin (3.4-5.0) gm/dl Globulin (2.5-4.0) gm/dl Albumin/Globulin Ratio (0.9-2) Procalcitonin 0.07 (0-0.5) ng/ml Imaging Data Radiologist's Impression: XR chest 1V portable HISTORY: 85 years-old Female SEPSIS acute sepsis COMPARISON: Chest radiograph 10/27/2020 TECHNIQUE: Portable AP view of the chest FINDINGS: Cardiac silhouette is enlarged. The patient is slightly rotated towards the left. No pneumothorax, pleural effusion, airspace consolidation or overt pulmonary edema. Degenerative changes of the shoulders and spine. Numerous cutaneous lesions redemonstrated. Nodular densities projecting the lung elias are likely secondary to the aforementioned cutaneous lesions. IMPRESSION: Cardiomegaly without acute process. ACT 112: Negative or not required by law. The above report was generated using voice recognition software. It may contain grammatical, syntax or spelling errors. Electronically signed by: Brett Solitario M.D. 02/03/2021 3:48 PM [address]EN AND PELVIS CT WITHOUT CONTRAST CT DOSE: 345.15 mGy.cm HISTORY: Acute low back pain with urinary tract infection back pain, uti TECHNIQUE: Multiaxial CT images of the abdomen and pelvis were performed without contrast. A dose lowering technique was utilized adhering to the principles of ALARA. COMPARISON STUDY: CT abdomen pelvis 01/18/2020, KUB 10/26/2020 FINDINGS: Mild bibasilar atelectasis. Coronary artery calcifications. No pneu matosis or pneumoperitoneum. Respiratory motion artifact limits the study. Unenhanced spleen and adrenal glands are unremarkable. Atrophic kidney. Cholecystectomy with unchanged pneumobilia suggestive of sphincterotomy. 5 mm nonobstructing calculus of the inferior pole right kidney. 3 nonobstructing calculi of the left kidney measure up to 9 mm. Moderate left-sided hydroureteronephrosis with reactive perinephric and periureteral stranding secondary to a 6 x 4 x 6 mm calculus of the distal left ureter approximately 2.5 cm proximal to the ureterovesicular junction. Unremarkable urinary bladder and uterus. Calcified plaque of the abdominal aorta. No adenopathy. Moderate sized hiatal hernia. Fluid-filled loops of small bowel within the abdominal right upper quadrant. The visualized appendix appears unremarkable. Innumerable cutaneous nodules redemonstrated. Degenerative changes of the spine, pelvis and right hip. Left hip total joint arthroplasty. 50% T11 superior endplate compression deformity with 4 mm retropulsion, progressively worsened from the 01/18/2020 study. IMPRESSION: 1. Moderate left-sided hydroureteronephrosis secondary to an obstructing 6 mm calculus of the distal ureter. 2. Nonobstructing bilateral nephrolithiasis. 3. No bowel obstruction or bowel wall thickening. Normal appendix. 4. Moderate sized hiatal hernia. 5. Progressive anterosuperior endplate compression deformity at T11 has worsened from the 01/18/2020 exam. 6. Additional findings as above. ACT 112: Negative or not required by law. The above report was generated using voice recognition software. It may contain grammatical, syntax or spelling errors. Electronically signed by: Brett Solitario M.D. 02/03/2021 5:18 PM ECG Data Attestation: I personally reviewed and interpreted this ECG as follows: Indication: + weakness Rate (beats per minute): 78 Rhythm: + normal sinus ECG Intervals/blocks: + First degree AV block, + Normal QRS and + Normal QT ECG [place]: + Normal ECG ST segments: + Nonspecific ST abnormalities ECG Findings: + PVCs MDM Narrative This is an 85-year-old female brought in by EMS due to increased weakness and slight confusion. Patient with a recent diagnosis of urinary tract infection and after additional information was obtained through case management from [facility], patient had been started on Bactrim 2 days ago. Patient had no specific complaints here. Patient was hemodynamically stable. Labs drawn and sent, urinalysis collected here for culture, and patient sent for CT imaging of the head as well as the abdomen and pelvis. Patient found to have a concurrent ureterolithiasis with moderate hydroureteronephrosis. Patient also with RAMSES and mild leukocytosis. Patient covered with IV antibiotics for the urinary tract infection. RAMSES possibly from obstructive uropathy as well as the Bactrim. No evidence of fulminant bacteremia/sepsis. Case discussed with on-call urology who felt patient did not require emergent OR intervention but that stent can be placed in the morning. Case then discussed with hospitalist for additional inpatient management. Patient mildly hyperglycemic here, no evidence of DKA. H&H stable. Patient does use antiplatelet medication due to prior history of TIA. An order was placed for continuous cardiac monitoring. The monitor shows a rate of _70_ with _normal sinus_ rhythm. Impression & Plan Weakness, RAMSES (acute kidney injury), Acute UTI (urinary tract infection), Ureterolithiasis, Confusion Discharge Plan Visit Data Chief Complaint: Urinary Symptoms Stated Complaint: AMS, UTI ED Provider: Charleen Dent Discharge Problem: Weakness, RAMSES (acute kidney injury), Acute UTI (urinary tract infection), Ureterolithiasis, Confusion Patient Disposition: Admitted As Inpatient Discharge Instructions Interventions: ED Discharge Assessment Last Done: 02/03/21 21:20
[2021-02-03] MEDS ORDERED: SODIUM CHLORIDE 0.9% 1000ML 1,000 ML IV SCH (15:30)
[2021-02-03] MEDS ORDERED: cefTRIAXone SODIUM 1,000 MG/50 ML BAG IV STA (15:49)
--- NOTE | 2021-02-03 15:49 | XRay Report ---
XR chest 1V portable HISTORY: 85 years-old Female SEPSIS acute sepsis COMPARISON: Chest radiograph 10/27/2020 TECHNIQUE: Portable AP view of the chest FINDINGS: Cardiac silhouette is enlarged. The patient is slightly rotated towards the left. No pneumothorax, pl eural effusion, airspace consolidation or overt pulmonary edema. Degenerative changes of the shoulder s and spine. Numerous cutaneous lesions redemonstrated. Nodular densities projecting the lung elias are likely secondary to the aforementioned cutaneous lesions. IMPRESSION: Cardiomegaly without acute process. ACT 112: Negative or not required by law. The above report was generated using voice recognition software. It may contain grammatical, syntax o r spelling errors. Electronically signed by: Brett Solitario M.D. 02/03/2021 3:48 PM
[2021-02-03 16:02] LABS: Basophils # (auto) 0.02 K/uL (0-0.2); Basophils % (auto) 0.2 %; Eosinophils # (auto) 0.04 K/uL (0-0.5); Eosinophils % (auto) 0.3 %; Hematocrit (blood only) 36.4 % (37-47); Hemoglobin 12.3 g/dL (12.0-16.0); Immature Granulocytes # (auto) 0.03 K/uL (0.00-0.02); Immature Granulocytes % (auto) 0.3 %; Lymphocytes # (auto) 1.09 K/uL (1.2-3.4); Lymphocytes % (auto) 9.3 %; Mean Corpuscular Hemoglobin 27.8 pg (25-34); Mean Corpuscular Hgb Conc 33.8 g/dL (32-36); Mean Corpuscular Volume 82.4 fL (80-100); Mean Platelet Volume 10.1 fL (7.4-10.4); Monocytes # (auto) 1.22 K/uL (0.11-0.59); Monocytes % (auto) 10.4 %; Neutrophils # (auto) 9.28 K/uL (1.4-6.5); Neutrophils % (auto) 79.5 %; Platelet Count 206 K/uL (130-400); RDW Coefficient of Variation 15.3 % (11.5-14.5); Red Blood Count 4.42 M/uL (4.2-5.4); White Blood Count 11.68 K/uL (4.8-10.8)
[2021-02-03 16:13] LABS: Partial Thromboplastin Ratio 0.9; Partial Thromboplastin Time 24.1 Seconds (21.0-31.0)
[2021-02-03 16:18] LABS: Albumin Level 2.8 gm/dl (3.4-5.0); BUN Creatinine Ratio 15.2 (10-20); Calcium 9.5 mg/dl (8.5-10.1); Creatinine Clr Calc Pharmacy 19.4 ml/min; Est GFR (African American) 31.3; Magnesium 1.9 mg/dl (1.8-2.4); Potassium 4.1 mmol/L (3.5-5.1)
[2021-02-03 16:23] LABS: Albumin Globulin Ratio 0.7 (0.9-2); Bilirubin,Total 0.3 mg/dl (0.2-1); Total Protein 6.8 gm/dl (6.4-8.2); Troponin I 0.019 ng/ml (0-0.045)
--- NOTE | 2021-02-03 17:19 | CT Scan Report ---
ABDOMEN AND PELVIS CT WITHOUT CONTRAST CT DOSE: 345.15 mGy.cm HISTORY: Acute low back pain with urinary tract infection back pain, uti TECHNIQUE: Multiaxial CT images of the abdomen and pelvis were performed without contrast. A dose lo wering technique was utilized adhering to the principles of ALARA. COMPARISON STUDY: CT abdomen pelvis 01/18/2020, KUB 10/26/2020 FINDINGS: Mild bibasilar atelectasis. Coronary artery calcifications. No pneumatosis or pneumoperiton eum. Respiratory motion artifact limits the study. Unenhanced spleen and adrenal glands are unremarka ble. Atrophic kidney. Cholecystectomy with unchanged pneumobilia suggestive of sphincterotomy. 5 mm nonobstructing calculus of the inferior pole right kidney. 3 nonobstructing calculi of the left kidney measure up to 9 mm. Moderate left-sided hydroureteronephrosis with reactive perinephric and pe riureteral stranding secondary to a 6 x 4 x 6 mm calculus of the distal left ureter approximately 2.5 cm proximal to the ureterovesicular junction. Unremarkable urinary bladder and uterus. Calcified carole que of the abdominal aorta. No adenopathy. Moderate sized hiatal hernia. Fluid-filled loops of small bowel within the abdominal right upper quad rant. The visualized appendix appears unremarkable. Innumerable cutaneous nodules redemonstrated. Deg enerative changes of the spine, pelvis and right hip. Left hip total joint arthroplasty. 50% T11 supe rior endplate compression deformity with 4 mm retropulsion, progressively worsened from the 01/18/2020 study. IMPRESSION: 1. Moderate left-sided hydroureteronephrosis secondary to an obstructing 6 mm calculus of the distal ureter. 2. Nonobstructing bilateral nephrolithiasis. 3. No bowel obstruction or bowel wall thickening. Normal appendix. 4. Moderate sized hiatal hernia. 5. Progressive anterosuperior endplate compression deformity at T11 has worsened from the 01/18/2020 e xam. 6. Additional findings as above. ACT 112: Negative or not required by law. The above report was generated using voice recognition software. It may contain grammatical, syntax o r spelling errors. Electronically signed by: Brett Solitario M.D. 02/03/2021 5:18 PM
--- NOTE | 2021-02-03 17:27 | CT Scan Report ---
CT head/brain wo con CLINICAL HISTORY: 85 years-old Female with ams. Acutely altered mental status TECHNIQUE: Multiple axial CT images of the head were obtained without contrast. A dose lowering tech nique was utilized adhering to the principles of ALARA. COMPARISON: Head CT 10/27/2020. FINDINGS: No acute intracranial hemorrhage, midline shift, intracranial mass, hydrocephalus, territorial ischem ia or abnormal extra-axial collection. Age-related involutional changes with extensive chronic microv ascular ischemic disease. Cerebral vascular calcifications. The calvarium is intact. Prior bilateral lens replacement. The paranasal sinuses, mastoid air cells, and middle ear cavities are clear. IMPRESSION: Chronic findings as above without acute intracranial abnormality. ACT 112: Negative or not required by law. The above report was generated using voice recognition software. It may contain grammatical, syntax o r spelling errors. Electronically signed by: Brett Solitario M.D. 02/03/2021 5:26 PM
[2021-02-03] MEDS ORDERED: ACETAMINOPHEN 1,000 MG/100 ML VIAL IV STA (18:23)
--- NOTE | 2021-02-03 18:35 | History & Physical Report ---
Date of Service February 03, 2021 Assessment & Plan (1) Ureterolithiasis: Nonobstructing bilateral nephrolithiasis- - 5 mm nonobstructing calculus of the inferior pole right kidney. 3 nonobstructing calculi of the left kidney measure up to 9 mm. Moderate left- sided hydroureteronephrosis with reactive perinephric and periureteral stranding secondary to a 6 x 4 x 6 mm calculus of the distal left ureter approximately 2.5 cm proximal to the ureterovesicular junction. - Urology consulted already, appreciate their assistance. - NPO after midnight - Hold Brilinta and ASA for possible intervention- restart as soon as possible following procedure once hemostasis and stability is confirmed - Hold morning Heparin - Rocephin 1Gm IV q24 (2) Acute UTI (urinary tract infection): Awaiting speciation from urine ( in our records), culture resent in the EMD- - Treatment as above (3) CKD (chronic kidney disease), stage III: Acute renal insufficiency in the setting of CKD III, secondary to obstructing stone and possible fever with insensible losses - Control BP - Gentle IVF overnight - Avoid nephrotoxic agents and if needed minimize exposure (4) Confusion: Acute metabolic encephalopathy-at this time likely related to her stones and infective process - Vascular dementia - Delirium prevention; sleep hygiene, minimize nightly interruptions - Fall precautions (5) Transient ischemic attack (TIA): 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 - Patienton ASA and Brilinta for treatment- hold for surgical evaluation - restart as above as soon as possible, once hemostasis and stability achieved - if no intervention restart (6) Diabetes: DMII on insulin therapy - Pharmacy glycemic control while acute NPO and surgical intervention - Resume home regime when back to regular diet (7) History of pancreatectomy: No acute issues, continue Creon (8) Overactive bladder: No acute issues- continue solifenacin (9) Hyperlipidemia: HLD- continue Atorvastatin 40mg Lipid panel in the morning (10) Hiatal hernia: Contributing factor with GERD - Continue famotidine (11) DVT prophylaxis: Heparin 5000 sub q BID- Hold morning Heparin - SCDs History of Present Illness Primary Care Provider: CONRADO Ponce 85 YOF independent resident at [facility]; with past medical history of ductal carcinoma of the breast, CKD, renal stones with lithotripsy and stents, CAD, DM II on insulin, HLD, HTN, whipple, TIA, CVA, vascular dementia, neurofibromatosis, falls with hip fracture and arthroplasty Nov 12, compression fracture of T11. Patient was brought to the emergency room today by EMS. EMS was called by [facility] for concerns of altered mental status (confusion) this morning. The patient had been recently diagnosed with a UTI and started on Bactrim 2 days ago. The patient states that about on she was having back pain that was across the whole back. The pain was "very sharp" in nature and was associated with fevers, and nausea. She felt like she was going to throw up but did not. She reports that her fevers and nausea are gone and that her pain is much improved since coming here. The patient's confusion remains, b ut she for the most part is accurate and correct for short term events. She is poor historian about her health review. Evaluation in the emergency room identified a left renal stone via CT of abdomen and Dr. Phillips of urology was notified by Dr. Dent. Urology would like the patient to be admitted for evaluation and keep NPO after midnight. Patient had received 1L 0.9% saline in the EMD and Rocephin. CT of the head shows no acute process. Allergies Allergy/AdvReac Type Severity Reaction Status Date / Time No Known Drug Allergies Allergy Unknown Verified 02/03/21 16:01 Home Medications Medication Instructions Recorded Confirmed Type Creon 1 cap PO TIDM 06/11/19 02/03/21 History insulin aspart U-100 [Novolog See Rx Instructions .ROUTE .COMPLEX 06/11/19 02/03/21 History Flexpen U-100 Insulin] famotidine [Pepcid] 20 mg PO BID 01/17/20 02/03/21 History solifenacin [Vesicare] 10 mg PO HS 02/10/20 02/03/21 History aspirin [Aspirin Childrens] 81 mg PO DAILY #30 tab 08/11/20 02/03/21 Rx ticagrelor 90 mg tablet 90 mg PO BID #60 tab 08/15/20 02/03/21 Rx atorvastatin 40 mg tablet 40 mg PO DAILY tab 08/31/20 02/03/21 History insulin detemir U-100 100 unit/mL 12 unit SUBCUT HS ml 08/31/20 02/03/21 History subcutaneous solution calcium carbonate-vitamin D3 1 tab PO BID 02/03/21 02/03/21 History [Calcium 600 + D(3)] docusate sodium 100 mg PO BID PRN 02/03/21 02/03/21 History mirtazapine 7.5 mg PO HS 02/03/21 02/03/21 History sulfamethoxazole-trimethoprim 1 tab PO BID 02/03/21 02/03/21 History Past Med/Surg History Medical History (Updated 02/03/21 @ 21:14 by Mitali Kumar MD) CKD (chronic kidney disease), stage III Compression fracture of T11 vertebra s/p fall 12/2019 Diabetes mellitus, type 2 Exocrine pancreatic insufficiency GERD (gastroesophageal reflux disease) Hearing deficit Hiatal hernia History of TIAs NO RESIDUAL EFFECTS- 2014 per records Hx of fall HX: breast cancer LUMPECTOMY - LEFT BREAST; NO RADIATION, NO CHEMO; WAS ON TAMOXIFEN FOR 5 YR - NO LONGER TAKING Hyperlipidemia Kidney stones 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 [facility]. LMA #4. No issues. History of cystoscopy 02/10/2020 [facility] History of hemiarthroplasty of left hip History of lumpectomy of left breast History of pancreatectomy PARTIAL (WHIPPLE) History of ureter stent Hx of colonoscopy Family History Aunt Stroke Mother Stroke Father Heart disease Other No family history of allergies No family history of bleeding disorder No pertinent family history in first degree relatives Denies family history of Hearing loss Cancer Hypertension Asthma Social History Smoking Status: Never smoker Second Hand Exposure: No; Hx Alcohol Use: No Hx Substance Use: No Preferred Language: Kinyarwanda Communication Ability: Effective Natural History Collections Curator Required: No Beliefs That Will Affect Care: None marital status: Unknown Current Living Situation: Alone 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: Yes Assistive Devices: Walker Review of Systems Review of Systems: REVIEW OF SYSTEMS: Constitutional: (+) fever, sweats or chills Eyes: No diplopia, no worsening or blurred vision ENT: (+) difficulty hearing, no trouble swallowing Respiratory: No cough, sputum, dyspnea at rest or on exertion Cardiovascular: No chest pain, tightness or palpitations Abdomen: (+) CVA bilateral pain, nausea, vomiting, diarrhea or constipation Musculoskeletal: No joint pain, calf pain, swelling Neurologic: No weakness, numbness/tingling, or balance problems Psychiatric: No anxiety or depression Skin: (+) neurofibromatosis Physical Exam Physical Exam: PHYSICAL EXAM: General: awake, alert, no apparent distress, pleasant Head: Normocephalic, atraumatic ENT: PERRL, EOMI, no pharyngeal exudate, mucous membranes moist Neuro: AAO x 3, speech clear, patient is confused about history and short term recall, strength intact bilaterally 5/5, sensation intact and equal all extremities and dermatomes, no pronator drift Chest: equal rise and fall of the chest, no accessory muscle use, no heaves or thirlls, Clear to auscultation, on room air, Cardiac: Regular rate and rhythm, telemetry reviewed, skin warm dry, cap refill <3 seconds, peripheral pulses +2 no JVD, no murmur, no edema GI: NABS x 4 quadrants, soft, nontender to palpation, no rebound, guarding or tenderness : Spontaneously voiding, no pain, (+) CVA tenderness, Extremities: Normal inspection, no peripheral edema or erythema, calfs nontender to palpation Psych: Normal mood and affect Skin: as per ROS Results & Data Results & Data ([facility]) Vital Signs (Past 12 Hours) Vital Signs Temp Pulse Pulse Resp BP BP Pulse Ox 02/03/21 17:10 78 22 92 02/03/21 17:06 86 22 107/58 L 94 02/03/21 16:50 80 22 02/03/21 16:40 78 15 02/03/21 16:30 70 23 02/03/21 16:20 84 14 02/03/21 16:10 66 23 02/03/21 16:00 73 18 02/03/21 15:50 88 24 02/03/21 15:40 66 23 100 02/03/21 15:37 81 19 97 02/03/21 15:34 72 18 96 02/03/21 15:25 36.8 C 66 16 97/71 L 96 02/03/21 15:07 36.8 C 90 105 H 20 99/71 L 99/71 L 91 Laboratory Results Abnormal lab results 02/03/21 02/03/21 Range/Units 15:43 15:43 WBC 11.68 H (4.8-10.8) K/uL Hct 36.4 L (37-47) % RDW Coeff of Flako 15.3 H (11.5-14.5) % Neut # (Auto) 9.28 H (1.4-6.5) K/uL Lymph # (Auto) 1.09 L (1.2-3.4) K/uL Mcclain # (Auto) 1.22 H (0.11-0.59) K/uL Immature Gran # (Auto) 0.03 H (0.00-0.02) K/uL Chloride 108 H (98-107) mmol/L BUN 26 H (7-18) mg/dl Creatinine 1.72 H (0.6-1.2) mg/dl Glucose 128 H (70-99) mg/dl AST 11 L (15-37) U/L ALT 11 L (12-78) U/L Albumin 2.8 L (3.4-5.0) gm/dl Albumin/Globulin Ratio 0.7 L (0.9-2) Diagnostic Findings CT head/brain wo con CLINICAL HISTORY: 85 years-old Female with ams. Acutely altered mental status TECHNIQUE: Multiple axial CT images of the head were obtained without contrast. A dose lowering technique was utilized adhering to the principles of ALARA. COMPARISON: Head CT 10/27/2020. FINDINGS: No acute intracranial hemorrhage, midline shift, intracranial mass, hydrocephalus, territorial ischemia or abnormal extra-axial collection. Age- related involutional changes with extensive chronic microvascular ischemic disease. Cerebral vascular calcifications. The calvarium is intact. Prior bilateral lens replacement. The paranasal sinuses, mastoid air cells, and middle ear cavities are clear. IMPRESSION: Chronic findings as above without acute intracranial abnormality. XR chest 1V portable HISTORY: 85 years-old Female SEPSIS acute sepsis COMPARISON: Chest radiograph 10/27/2020 TECHNIQUE: Portable AP view of the chest FINDINGS: Cardiac silhouette is enlarged. The patient is slightly rotated towards the left. No pneumothorax, pleural effusion, airspace consolidation or overt pulmonary edema. Degenerative changes of the shoulders and spine. Numerous cutaneous lesions redemonstrated. Nodular densities projecting the lung elias are likely secondary to the aforementioned cutaneous lesions. IMPRESSION: Cardiomegaly without acute process. ABDOMEN AND PELVIS CT WITHOUT CONTRAST CT DOSE: 345.15 mGy.cm HISTORY: Acute low back pain with urinary tract infection back pain, uti TECHNIQUE: Multiaxial CT images of the abdomen and pelvis were performed without contrast. A dose lowering technique was utilized adhering to the principles of ALARA. COMPARISON STUDY: CT abdomen pelvis 01/18/2020, KUB 10/26/2020 FINDINGS: Mild bibasilar atelectasis. Coronary artery calcifications. No pneumatosis or pneumoperitoneum. Respiratory motion artifact limits the study. Unenhanced spleen and adrenal glands are unremarkable. Atrophic kidney. Cholecystectomy with unchanged pneumobilia suggestive of sphincterotomy. 5 mm nonobstructing calculus of the inferior pole right kidney. 3 nonobstructing calculi of the left kidney measure up to 9 mm. Moderate left-sided hydroureteronephrosis with reactive perinephric and periureteral stranding secondary to a 6 x 4 x 6 mm calculus of the distal left ureter approximately 2.5 cm proximal to the ureterovesicular junction. Unremarkable urinary bladder and uterus. Calcified plaque of the abdominal aorta. No adenopathy. Moderate sized hiatal hernia. Fluid-filled loops of small bowel within the abdominal right upper quadrant. The visualized appendix appears unremarkable. Innumerable cutaneous nodules redemonstrated. Degenerative changes of the spine, pelvis and right hip. Left hip total joint arthroplasty. 50% T11 superior endplate compression deformity with 4 mm retropulsion, progressively worsened from the 01/18/2020 study. IMPRESSION: 1. Moderate left-sided hydroureteronephrosis secondary to an obstructing 6 mm calculus of the distal ureter. 2. Nonobstructing bilateral nephrolithiasis. 3. No bowel obstruction or bowel wall thickening. Normal appendix. 4. Moderate sized hiatal hernia. 5. Progressive anterosuperior endplate compression deformity at T11 has worsened from the 01/18/2020 exam. 6. Additional findings as above. Medications Administered Sodium Chloride (Nss 1000ml) 1,000 mls @ 150 mls/hr IV .Q6H40M TUNDE Stop: 03/05/21 15:29 Last Admin: 02/03/21 16:01 Dose: 150 mls/hr Documented by: [id number] Discontinued Medications Ceftriaxone Sodium (Rocephin) 1,000 mg in 50 mls @ 100 mls/hr IV NOW STA Stop: 02/03/21 16:18 Last Infusion: 02/03/21 16:49 Dose: 0 mls/hr Documented by: [id number] Admin: 02/03/21 16:03 Dose: 100 mls/hr Documented by: [id number] Acetaminophen (Ofirmev) 1,000 mg in 100 mls @ 400 mls/hr IV NOW STA Stop: 02/03/21 18:37 Last Admin: 02/03/21 18:50 Dose: 400 mls/hr Documented by: [id number] ECG Additional Comments: Sinus rhythm with 1st degree A-V block with occasional Premature ventricular complexes and Premature atrial complexes Low voltage QRS Cannot rule out Anterior infarct (cited on or before 03-FEB-2021) Abnormal ECG When compared with ECG of 27-OCT-2020 00:02, Premature ventricular complexes are now Present Premature atrial complexes are now Present Code Status & VTE Plan Code Status CODE: FULL VTE: Heparin SUBQ VTE Prophylaxis Plan VTE Prophylaxis will be ordered: Yes Supervising Physician Co-Signing Physician Notes ENTERPRISE APPLICATION ARCHITECT Supervision note: I have personally seen and examined the patient and discussed and verified the whatley points of the history and physical along with the plan with CONRADO Mccray with the following exceptions and/or additions: This patient is an 85-year-old female with history noted as above, who presents with lethargy and altered mental status, found to have mild renal insufficiency and a left-sided ureterolithiasis in the setting of recent UTI. Patient denies any abdominal pain or nausea currently but perhaps did have some a few days ago along with some back pain. Her niece is at the bedside and reports that the patient is not acting like her usual self, seems confused. In the ER, found to have mildly elevated creatinine 1.7 over baseline of 1.2, WBC count elevated 11.6. CT of the head was negative for acute disease. CT abdomen/pelvis showed a 6 mm distal left ureterolithiasis with hydronephrosis History and ROS reviewed as above Vitals reviewed Gen: Alert and awake, oriented to person, NAD HEENT: Anicteric sclerae, EOMI CV: RRR 3/6 systolic murmur at the apex nl S1S2 Pulm: CTAB no wcr Abd: +BS soft NT ND no masses or hernias Ext: No edema, 2+ DP pulses Skin: Diffuse fleshy large papules all over the body consistent with neurofibromatosis Neuro: Full strength throughout Laboratory values reviewed CT abdomen/pelvis reviewed ECG reviewed 85-year-old female here with left-sided ureterolithiasis, UTI, acute metabolic encephalopathy, mild renal insufficiency in the setting of CKD stage III. Plan outlined as above IV fluids, IV antibiotics Urology consultation Hopeful that mental status will improve with treatment of the above Follow BMP in the morning N.p.o. after midnight for likely ureteral stent placement tomorrow PG Care Time/CCT Total # of Minutes Spent Total Time Spent with Patient: Total time spent is greater than 50% in coordination of care (as documented) at patient's floor/unit and/or counseling patient: Coding Level of Care Code 29080 Initial Inpt Care Lvl 3 Diagnoses Ureterolithiasis N20.1 Acute UTI (urinary tract infection) N39.0 CKD (chronic kidney disease), stage III N18.32 Chronic kidney disease stage 3 subtype: stage 3b (GFR 30-44) Confusion R41.0 Transient ischemic attack (TIA) G45.8 Transient cerebral ischemia type: other Diabetes E11.22; N18.31; Z79.4 Chronic kidney disease stage: stage 3 (moderate) Chronic kidney disease stage 3 subtype: stage 3a (GFR 45-59) Diabetes mellitus complication detail: with chronic kidney disease Diabetes mellitus complication status: with kidney complications Diabetes mellitus fci insulin use: with technician terminal and repeater use Diabetes mellitus type: type 2 History of pancreatectomy Z90.410 Overactive bladder N32.81 Hyperlipidemia E78.5 Hyperlipidemia type: unspecified Hiatal hernia K44.9 DVT prophylaxis Z29.9 (1) Diabetes Chronic kidney disease stage: stage 3 (moderate) Chronic kidney disease stage 3 subtype: stage 3a (GFR 45-59) Diabetes mellitus complication detail: with chronic kidney disease Diabetes mellitus complication status: with kidney complications Diabetes mellitus technician terminal and repeater insulin use: with technician terminal and repeater use Diabetes mellitus type: type 2 Qualified Code(s): E11.22 - Type 2 diabetes mellitus with diabetic chronic kidney disease; N18.31 - Chronic kidney disease, stage 3a; Z79.4 - long term care administrator (current) use of insulin (2) CKD (chronic kidney disease), stage III Chronic kidney disease stage 3 subtype: stage 3b (GFR 30-44) Qualified Code(s): N18.32 - Chronic kidney disease, stage 3b (3) Hyperlipidemia Hyperlipidemia type: unspecified Qualified Code(s): E78.5 - Hyperlipidemia, unspecified (4) Transient ischemic attack (TIA) Transient cerebral ischemia type: other Qualified Code(s): G45.8 - Other transient cerebral ischemic attacks and related syndromes
[2021-02-03 19:17] LABS: Appearance Urine Cloudy (Clear); Bacteria Urine Automated Negative (Negative); Bilirubin Urine Negative (Negative); Blood Urine 3+ (Negative); Color Urine Yellow; Epithelial Cell Urine Auto >30 /lpf (0-5); Glucose Urine UA 2+ (Negative); Ketones Urine Negative (Negative); Leukocyte Esterase Urine 2+ (Negative); Nitrite Urine Negative (Negative); Protein Urine Negative (Negative); Specific Gravity Urine 1.017 (1.000-1.030); Urobilinogen Urine Negative (Negative); WBC Urine Automated >30 /hpf (0-5)
[2021-02-03] MEDS ORDERED: MoRPHine SULFATE 2 MG/ML CARP IV PRN (21:19)
[2021-02-03] MEDS ORDERED: GLUCAGON FOR INJ 1 MG VIAL SQ PRN (21:19)
[2021-02-03] MEDS ORDERED: GLUCOSE 10 TABS/TUBE PO PRN (21:19)
[2021-02-03] MEDS ORDERED: ACETAMINOPHEN 325 MG TAB PO PRN (21:19)
[2021-02-03] MEDS ORDERED: DOCUSATE SODIUM 100 MG CAP PO PRN (21:19)
[2021-02-03] MEDS ORDERED: DEXTROSE 50% 50 ML SYRINGE IV PRN (21:19)
[2021-02-03] MEDS ORDERED: ONDANSETRON INJ 2 MG/ML 2 ML VIAL IV PRN (21:19)
[2021-02-03] MEDS ORDERED: POLYETHYLENE (MIRALAX) 17 GM PACK PO PRN (21:19)
[2021-02-03] MEDS ORDERED: GLUCOSE 40% GEL 15 GM TUBE PO PRN (21:19)
[2021-02-03] MEDS ORDERED: PHARMACY GLYCEMIC MGMT CONSULT PRN (21:32)
[2021-02-03] MEDS ORDERED: MAGNESIUM SULFATE / D5W 1 GM/100 ML BAG IV ONE (22:00)
[2021-02-03] MEDS ORDERED: INSULIN DETEMIR FLEXPEN/FLEX TOUCH 100 UNITS/ML 3ML SC ONE (22:00)
[2021-02-03] MEDS: SODIUM CHLORIDE 0.9% 1000ML 1,000 ML IV SCH (22:18)
[2021-02-03] MEDS: MIRTAZAPINE TAB 15 MG TAB PO SCH (22:18)
[2021-02-03] MEDS: FAMOTIDINE 20 MG TAB PO SCH (22:19)
[2021-02-03] MEDS: HEPARIN SOD 5,000 UNIT/0.5 ML VIAL SQ SCH (22:19)
[2021-02-03] MEDS: INSULIN ASPART 100 UNITS/ML 3 ML PEN SC SCH (22:21)
[2021-02-04] MEDS: INSULIN ASPART 100 UNITS/ML 3 ML PEN SC SCH (05:47)
[2021-02-04 06:47] LABS: Basophils # (auto) 0.01 K/uL (0-0.2); Basophils % (auto) 0.1 %; Eosinophils # (auto) 0.01 K/uL (0-0.5); Eosinophils % (auto) 0.1 %; Hematocrit (blood only) 41.3 % (37-47); Hemoglobin 13.4 g/dL (12.0-16.0); Immature Granulocytes # (auto) 0.02 K/uL (0.00-0.02); Immature Granulocytes % (auto) 0.3 %; Lymphocytes # (auto) 0.51 K/uL (1.2-3.4); Lymphocytes % (auto) 7.4 %; Mean Corpuscular Hemoglobin 27.5 pg (25-34); Mean Corpuscular Hgb Conc 32.4 g/dL (32-36); Mean Corpuscular Volume 84.6 fL (80-100); Mean Platelet Volume 10.2 fL (7.4-10.4); Monocytes % (auto) 2.9 %; Neutrophils # (auto) 6.13 K/uL (1.4-6.5); Neutrophils % (auto) 89.2 %; Platelet Count 163 K/uL (130-400); RDW Coefficient of Variation 15.5 % (11.5-14.5); RDW Standard Deviation 48.4 fL (36.4-46.3); Red Blood Count 4.88 M/uL (4.2-5.4); White Blood Count 6.88 K/uL (4.8-10.8)
[2021-02-04] MEDS: HEPARIN SOD 5,000 UNIT/0.5 ML VIAL SQ SCH ×2 (07:08→22:06)
[2021-02-04 07:21] LABS: BUN Creatinine Ratio 14.3 (10-20); Calcium 9.2 mg/dl (8.5-10.1); Creatinine Clr Calc Pharmacy 17.4 ml/min; Est GFR (African American) 28.9; Est GFR (Non-African American) 24.9; Magnesium 2.1 mg/dl (1.8-2.4)
[2021-02-04] MEDS: PANCREAZE (LIPASE 10,500U) CAP PO SCH ×3 (08:52→17:13)
[2021-02-04] MEDS: ATORVASTATIN 40 MG TAB PO SCH (08:52)
[2021-02-04] MEDS: FAMOTIDINE 20 MG TAB PO SCH ×2 (08:52→22:06)
[2021-02-04] MEDS: INSULIN DETEMIR FLEXPEN/FLEX TOUCH 100 UNITS/ML 3ML SC SCH ×2 (08:56→22:07)
--- NOTE | 2021-02-04 10:35 | Urology Consultation ---
Date of Consultation February 04, 2021 Assessment & Plan (1) Calculus, ureter: Patient with left ureteral stone and infection - OR for stent placement on the left. Plan discussed including risks with patient and her family. History of Present Illness Attending Physician: Wai Mohaumd MD Patient presented via EMS with diffuse flank pain. She has had stones in the past. She had surgery on the right side for a stone about a year ago. She denies fever. No SOB or CP. She denies issues with urination. No history of bladder surgery. No POP or hysterectomy. She reports her pain to be less today. Her CT shows a 6mm left distal ureteral stone with nonobstructing bilateral calculi. + perinephric stranding on the left. No nausea or vomiting. Allergies Allergy/AdvReac Type Severity Reaction Status Date / Time No Known Drug Allergies Allergy Unknown Verified 02/03/21 16:01 Home Medications Medication Instructions Recorded Confirmed Type Creon 1 cap PO TIDM 06/11/19 02/03/21 History insulin aspart U-100 [Novolog See Rx Instructions .ROUTE .COMPLEX 06/11/19 02/03/21 History Flexpen U-100 Insulin] famotidine [Pepcid] 20 mg PO BID 01/17/20 02/03/21 History solifenacin [Vesicare] 10 mg PO HS 02/10/20 02/03/21 History aspirin [Aspirin Childrens] 81 mg PO DAILY #30 tab 08/11/20 02/03/21 Rx ticagrelor 90 mg tablet 90 mg PO BID #60 tab 08/15/20 02/03/21 Rx atorvastatin 40 mg tablet 40 mg PO DAILY tab 08/31/20 02/03/21 History insulin detemir U-100 100 unit/mL 12 unit SUBCUT HS ml 08/31/20 02/03/21 History subcutaneous solution calcium carbonate-vitamin D3 1 tab PO BID 02/03/21 02/03/21 History [Calcium 600 + D(3)] docusate sodium 100 mg PO BID PRN 02/03/21 02/03/21 History mirtazapine 7.5 mg PO HS 02/03/21 02/03/21 History sulfamethoxazole-trimethoprim 1 tab PO BID 02/03/21 02/03/21 History Patient History Medical History (Updated 02/04/21 @ 10:34 by Inna Phillips MD) CKD (chronic kidney disease), stage III Compression fracture of T11 vertebra s/p fall 12/2019 Diabetes mellitus, type 2 Exocrine pancreatic insufficiency GERD (gastroesophageal reflux disease) Hearing deficit Hiatal hernia History of TIAs NO RESIDUAL EFFECTS- 2014 per records Hx of fall HX: breast cancer LUMPECTOMY - LEFT BREAST; NO RADIATION, NO CHEMO; WAS ON TAMOXIFEN FOR 5 YR - NO LONGER TAKING Hyperlipidemia Kidney stones 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 [facility]. LMA #4. No issues. History of cystoscopy 02/10/2020 [facility] History of hemiarthroplasty of left hip History of lumpectomy of left breast History of pancreatectomy PARTIAL (WHIPPLE) History of ureter stent Hx of colonoscopy Family History Aunt Stroke Mother Stroke Father Heart disease Other No family history of allergies No family history of bleeding disorder No pertinent family history in first degree relatives Denies family history of Hearing loss Cancer Hypertension Asthma Social History Smoking Status: Never smoker Second Hand Exposure: No; Do You Dip or Chew Tobacco: No; Tobacco Cessation Education Requested by Patient: No Hx Alcohol Use: No Hx Substance Use: No Preferred Language: Faroese Communication Ability: Effective Applicator Sprayer Required: No Beliefs That Will Affect Care: None marital status: Unknown Current Living Situation: Alone current occupational status: retired Other Information That 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 Safety Concerns: Feels Safe At This Time Assistive Devices: Walker Review of Systems Review of Systems: All systems reviewed & are unremarkable except as noted in HPI & below Physical Exam Physical Exam: NAD slightly confused nonlabored soft NT ext with edema skin with follicular adenomas Results & Data ([facility]) Vital Signs (Past 12 Hours) Vital Signs Temp Pulse Pulse Resp BP Pulse Ox 02/04/21 07:45 37.2 C 74 14 116/65 94 02/03/21 23:48 36.6 C 65 20 100/61 92 PG Care Time/CCT Total # of Minutes Spent Total Time Spent with Patient: Total time spent is greater than 50% in coordination of care (as documented) at patient's floor/unit and/or counseling patient: [place] [address] Inpt Consult Level 4 Patient Type New Diagnoses Calculus, ureter N20.1 Time Spent (min) 30
[2021-02-04] MEDS ORDERED: PROPOFOL IV EMULSION 10 MG/ML 20 ML VIAL IV ONE (10:37)
[2021-02-04] MEDS ORDERED: fentaNYL citrate 100 MCG/2 ML VIAL ONE (10:37)
[2021-02-04] MEDS ORDERED: LIDOCAINE HCL 2% 2 ML VIAL/AMP(20MG/ML) INFIL ONE (10:37)
--- NOTE | 2021-02-04 10:42 | Anesthesiology Consultation ---
Date of Service February 04, 2021 Assessment & Plan Chart Review Chart Review: Acceptable Risk for Surgery and Patient NOT seen in Pre Admission Testing Consults Requested none ASA ASA3 Proposed Anesthesia Anesthesia Type: MAC Risk / Benefits Reviewed With: PT / POA / Parent / Guardian, Accepts Plan and Informed Consent Obtained History Surgery Operation Date: 02/04/21 10:30 Proposed Procedures p Cystoscopy(Left) - Inna Phillips MD Height/Weight Height: 5 ft 2 in Weight: 47.6 kg Allergies Allergy/AdvReac Type Severity Reaction Status Date / Time No Known Drug Allergies Allergy Unknown Verified 02/03/21 16:01 Medications Home Medications Medication Instructions Recorded Confirmed Last Taken Creon 1 cap PO TIDM 06/11/19 02/03/21 02/03/21 insulin aspart U-100 [Novolog See Rx Instructions .ROUTE .COMPLEX 06/11/19 02/03/21 02/03/21 Flexpen U-100 Insulin] famotidine [Pepcid] 20 mg PO BID 01/17/20 02/03/21 02/03/21 solifenacin [Vesicare] 10 mg PO HS 02/10/20 02/03/21 02/02/21 aspirin [Aspirin Childrens] 81 mg PO DAILY #30 tab 08/11/20 02/03/21 02/03/21 ticagrelor 90 mg tablet 90 mg PO BID #60 tab 08/15/20 02/03/21 02/03/21 atorvastatin 40 mg tablet 40 mg PO DAILY tab 08/31/20 02/03/21 02/03/21 insulin detemir U-100 100 unit/mL 12 unit SUBCUT HS ml 08/31/20 02/03/21 02/02/21 subcutaneous solution calcium carbonate-vitamin D3 1 tab PO BID 02/03/21 02/03/21 02/03/21 [Calcium 600 + D(3)] docusate sodium 100 mg PO BID PRN 02/03/21 02/03/21 02/03/21 mirtazapine 7.5 mg PO HS 02/03/21 02/03/21 02/02/21 sulfamethoxazole-trimethoprim 1 tab PO BID 02/03/21 02/03/21 02/03/21 Active Medications Generic Name Dose Route Start Last Admin Trade Name Freq PRN Reason Stop Dose Admin Lipase/Protease/Amylase 1 cap 02/04/21 08:00 02/04/21 08:52 Pancreaze (Lipase 10,500u) Cap PO 03/06/21 07:59 1 cap TIDM TUNDE Administration Atorvastatin Calcium 40 mg 02/04/21 09:00 02/04/21 08:52 Atorvastatin 40 Mg Tab PO 03/06/21 08:59 40 mg DAILY TUNDE Administration Famotidine 20 mg 02/03/21 22:00 02/04/21 08:52 Famotidine 20 Mg Tab PO 03/05/21 21:59 20 mg BID TUNDE Administration Heparin Sodium (Porcine) 5,000 units 02/03/21 22:00 02/04/21 07:08 Heparin Sod 5,000 Unit/0.5 Ml Vial SQ 03/05/21 21:59 Not Given Q12 TUNDE Sodium Chloride 1,000 mls @ 80 mls/hr 02/03/21 21:19 02/04/21 10:24 Nss 1000ml IV 03/05/21 21:18 0 mls/hr .[id number] TUDNE Infusion Insulin Aspart 0 units 02/03/21 22:00 02/04/21 05:47 Insulin Aspart 100 Units/Ml 3 Ml Pen SC 03/05/21 21:59 8 units Q6 TUNDE Administration Insulin Detemir 0 units 02/04/21 09:00 02/04/21 08:56 Insulin Detemir Flexpen/Flex Touch 100 Units/Ml 3ml SC 03/06/21 08:59 12 units BID TUNDE Administration Protocol Mirtazapine 7.5 mg 02/03/21 22:00 02/03/21 22:18 Mirtazapine Tab 15 Mg Tab PO 03/05/21 21:59 7.5 mg HS TUNDE Administration Miscellaneous 1 ea 02/04/21 00:00 02/04/21 08:51 Vesicare-Order Awaiting Action N/A 03/06/21 00:00 Not Given QS TUNDE NPO Date Last Intake of Fluids: 02/03/21 Time Last Intake of Fluids: 18:00 Date Last Intake of Solids: 02/03/21 Time Last Intake of Solids: 18:00 Past Medical History Medical History CKD (chronic kidney disease), stage III Compression fracture of T11 vertebra s/p fall 12/2019 Diabetes mellitus, type 2 Exocrine pancreatic insufficiency GERD (gastroesophageal reflux disease) Hearing deficit Hiatal hernia History of TIAs NO RESIDUAL EFFECTS- 2014 per records Hx of fall HX: breast cancer LUMPECTOMY - LEFT BREAST; NO RADIATION, NO CHEMO; WAS ON TAMOXIFEN FOR 5 YR - NO LONGER TAKING Hyperlipidemia Kidney stones 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 [facility]. LMA #4. No issues. History of cystoscopy 02/10/2020 [facility] History of hemiarthroplasty of left hip History of lumpectomy of left breast History of pancreatectomy PARTIAL ([place]) History of ureter stent Hx of colonoscopy Social History Smoking Status: Never smoker Do You Dip or Chew Tobacco: No Hx Alcohol Use: No Alcohol type: wine alcohol intake frequency: holidays/special occasions only Hx Substance Use: No substance use type: does not use Physical Exam Vital Signs Last Vital Signs Temp 37.2 C 02/04/21 07:45 Pulse 74 02/04/21 07:45 Resp 14 02/04/21 07:45 BP 116/65 02/04/21 07:45 Pulse Ox 94 02/04/21 07:45 Testing Laboratory Results 02/04/21 06:22 02/04/21 06:22 PT 10.0 Seconds (9.0-12.0) 02/03/21 15:43 INR 1.0 (0.9-1.1) 02/03/21 15:43 APTT 24.1 Seconds (21.0-31.0) 02/03/21 15:43 Urine Color Yellow 02/03/21 Unknown Urine Appearance Cloudy (Clear) A 02/03/21 Unknown Urine pH 5.0 (4.5-7.5) 02/03/21 Unknown Ur Specific Earp 1.017 (1.000-1.030) 02/03/21 Unknown Urine Protein Negative (Negative) 02/03/21 Unknown Urine Glucose (UA) 2+ (Negative) H 02/03/21 Unknown Urine Ketones Negative (Negative) 02/03/21 Unknown Urine Nitrite Negative (Negative) 02/03/21 Unknown Ur Leukocyte Esterase 2+ (Negative) H 02/03/21 Unknown Urine WBC (Auto) >30 /hpf (0-5) H 02/03/21 Unknown Urine RBC (Auto) 5-10 /hpf (0-4) H 02/03/21 Unknown U Hyaline Cast (Auto) 1-5 /lpf (0-5) 02/03/21 Unknown U Epithel Cells (Auto) >30 /lpf (0-5) H 02/03/21 Unknown Urine Bacteria (Auto) Negative (Negative) 02/03/21 Unknown 02/04/21 02/04/21 08:56 05:43 POC Glucose 276 H 288 H
--- NOTE | 2021-02-04 11:48 | Fluoroscopy Report ---
INTRAOPERATIVE RADIOGRAPHS CLINICAL HISTORY: Left ureteral stent placement. Fluoroscopy time: 17 seconds. FINDINGS: 2 spot fluoroscopic views of the left abdomen are correlated with abdominal CT dated . The images show the proximal and distal ends of a left ureteral stent in place. No calcification s are seen along the course of the stent. A left hip arthroplasty is in place. IMPRESSION: Intraoperative images from a left ureter stent placement procedure as above. Electronically signed by: Sandro Seth M.D. 02/04/2021 11:47 AM
[2021-02-04] MEDS ORDERED: INSULIN ASPART 100 UNITS/ML 3 ML PEN SC SCH (12:00)
--- NOTE | 2021-02-04 12:18 | Anesthesiology Progress Note ---
Date of Service February 04, 2021 Anesthesia Post Procedure Vital Signs Vital Signs: Temp Pulse Pulse Pulse Pulse Resp BP 02/04/21 12:05 59 L 20 02/04/21 11:55 58 L 16 02/04/21 11:45 63 20 02/04/21 11:35 36.7 C 58 L 19 02/04/21 11:25 73 20 02/04/21 11:19 36.5 C 67 16 02/04/21 07:45 37.2 C 74 14 02/03/21 23:48 36.6 C 65 20 02/03/21 21:20 80 16 108/48 L 02/03/21 21:05 37.1 C 85 16 02/03/21 20:20 95 H 12 02/03/21 20:10 95 H 18 02/03/21 20:00 88 19 105/52 L 02/03/21 19:50 87 20 02/03/21 19:40 93 H 16 02/03/21 19:30 73 17 96/60 L 02/03/21 19:20 83 23 02/03/21 19:10 88 18 02/03/21 19:02 86 21 02/03/21 19:01 74 19 02/03/21 19:00 77 22 02/03/21 18:51 121/71 02/03/21 18:50 84 21 02/03/21 18:40 73 19 02/03/21 18:30 86 16 02/03/21 18:23 84 15 02/03/21 17:50 82 20 02/03/21 17:40 82 23 02/03/21 17:30 82 21 106/49 L 02/03/21 17:20 87 19 02/03/21 17:10 78 22 02/03/21 17:06 86 22 107/58 L 02/03/21 16:50 80 22 02/03/21 16:40 78 15 02/03/21 16:30 70 23 02/03/21 16:20 84 14 02/03/21 16:10 66 23 02/03/21 16:00 73 18 02/03/21 15:50 88 24 02/03/21 15:40 66 23 02/03/21 15:37 81 19 02/03/21 15:34 72 18 02/03/21 15:25 36.8 C 66 16 97/71 L 03/13/21 15:07 36.8 C 90 105 H 20 99/71 L BP Pulse Ox 02/04/21 12:05 130/62 97 02/04/21 11:55 142/66 H 95 02/04/21 11:45 137/66 95 02/04/21 11:35 148/66 H 97 02/04/21 11:25 137/65 98 02/04/21 11:19 120/67 96 02/04/21 07:45 116/65 94 02/03/21 23:48 100/61 92 02/03/21 21:20 93 02/03/21 21:05 99/59 L 94 02/03/21 20:20 02/03/21 20:10 02/03/21 20:00 02/03/21 19:50 02/03/21 19:40 02/03/21 19:30 02/03/21 19:20 02/03/21 19:10 02/03/21 19:02 02/03/21 19:01 02/03/21 19:00 02/03/21 18:51 02/03/21 18:50 02/03/21 18:40 02/03/21 18:30 02/03/21 18:23 02/03/21 17:50 02/03/21 17:40 02/03/21 17:30 96 02/03/21 17:20 92 02/03/21 17:10 92 02/03/21 17:06 94 02/03/21 16:50 02/03/21 16:40 02/03/21 16:30 02/03/21 16:20 02/03/21 16:10 02/03/21 16:00 02/03/21 15:50 02/03/21 15:40 100 02/03/21 15:37 97 02/03/21 15:34 96 02/03/21 15:25 96 02/03/21 15:07 99/71 L 91 Transfer of Care Handoff Completed per policy Notes Mental Status: alert / awake / arousable and participated in evaluation Patient Amnestic to Procedure: Yes Nausea / Vomiting: adequately controlled Pain: adequately controlled Airway Patency, RR, SpO2: stable & adequate BP & HR: stable & adequate Hydration State: stable & adequate Anesthetic Complications: no major complications apparent
--- NOTE | 2021-02-04 12:28 | Post Operative Brief Note ---
PG Immediate Post Op with CF Date of Surgery February 04, 2021 Pre & Post Diagnosis Operation Date: 02/04/21 10:30 Pre-Op Diagnosis: KIDNEY STONE Post-Op Diagnosis: KIDNEY STONE I identified the patient and participated in the time-out.: Yes Procedure Operation Date: 02/04/21 10:30 Actual Procedures p Cystoscopy, Left ureteral stent placement(Left) - Inna Phillips MD Surgeon Inna Phillips MD Poising Inspector none Estimated Blood Loss 0 Findings Consistent with Post-Op Diagnosis
--- NOTE | 2021-02-04 12:32 | Operative Report ---
PG Post Operative Report Pre & Post Diagnosis Operation Date: 02/04/21 10:30 Pre-Op Diagnosis: left ureteral stone, UTI Post-Op Diagnosis: left ureteral stone, UTI I identified the patient and participated in the time-out.: Yes Procedure Operation Date: 02/04/21 10:30 Actual Procedures p Cystoscopy, Left ureteral stent placement(Left) - Inna Phillips MD The patient was brought to the operating room suite and underwent appropriate MAC anesthesia. She was placed in a dorsal lithotomy position and prepped and draped in a sterile fashion. A 21 Fr rigid cystoscope was used to examine the bladder and urethra. The bladder was within normal limits. A wire was passed into the left kidney without any issues. There was an efflux of purulent drainage from the left collecting system. I was able to pass a 6Fr x 24 cm stent over the wire and into the kidney. A coil was seen within the kidney and bladder. The bladder was drained. She was transferred to PACU in stable condition. Surgeon Inna Phillips MD Supervisor Drawing none Estimated Blood Loss 0 Findings Consistent with Post-Op Diagnosis Specimens none Description of Procedure The patient was brought to the operating room suite and underwent appropriate MAC anesthesia. She was placed in a dorsal lithotomy position and prepped and draped in a sterile fashion. A 21 Fr rigid cystoscope was used to examine the bladder and urethra. The bladder was within normal limits. A wire was passed into the left kidney without any issues. There was an efflux of purulent drainage from the left collecting system. I was able to pass a 6Fr x 24 cm stent over the wire and into the kidney. A coil was seen within the kidney and bladder. The bladder was drained. She was transferred to PACU in stable condition. I attest to the content of the Intraoperative Record and any orders documented therein. Any exceptions are noted below.
--- NOTE | 2021-02-04 12:36 | Electrocardiogram Report ---
Test Reason : Blood Pressure : / mmHG Vent. Rate : 078 BPM Atrial Rate : 078 BPM P-R Int : 216 ms QRS Dur : 072 ms QT Int : 398 ms P-R-T Axes : 073 -29 051 degrees QTc Int : 453 ms Sinus rhythm with 1st degree A-V block with occasional Premature ventricular complexes and Premature atrial complexes Poor R wave progression, consider anterior TN vs. lead placement vs. LVH Abnormal ECG When compared with ECG of 27-OCT-2020 00:02, Premature ventricular complexes are now Present Premature atrial complexes are now Present Confirmed by Artur Arreguin ([id number]) on 02/04/2021 12:36:08 PM Referred By: [facility] Confirmed By:Artur Arreguin
--- NOTE | 2021-02-04 13:33 | Pharmacy Report ---
Pharmacy Glycemic Short Note 2 - Date of Service February 04, 2021 - Glycemic Short BSG Results (Last 24 hours): 02/03/21 02/03/21 02/04/21 15:43 21:25 05:43 Glucose 128 H POC Glucose 250 H 288 H 02/04/21 02/04/21 02/04/21 06:22 08:56 11:35 Glucose 279 H POC Glucose 276 H 250 H 02/04/21 12:38 Glucose POC Glucose 274 H OUTPATIENT ANTIDIABETIC REGIMEN: * Levemir 12 units SC HS * Novolog TIDM 3 units + SSI (0-8 units based on BSG) * HbA1c: pending ASSESSMENT: * ER is an 85 year old female who presented to [facility] ED yesterday with complaints of increased weakness, confusion, and recent UTI * Patient subsequently found to have left ureteral stone * POD #0 s/p cystoscopy w/ left ureteral stent placement * BSGs elevated since last evening 250, 288, and 250 mg/dL * Patient now ordered diet postoperatively * Will base initial Novolog/Lantus parameters on previous hospital data from October 2020 * q4h Novolog for today given elevated BSGs PLAN FOR INPATIENT GLYCEMIC CONTROL: * Hold outpatient oral diabetes medications * Basal insulin * Lantus 9-12 units SQ BID (see EHR for details) * Bolus insulin * NovoLog per scale q4h * Goal Range: Low 110 mg/dL - High 140 mg/dL * Correction Factor: 20 mg/dL/unit * Nutritional / Prandial insulin per carb ratio of 1 unit per 5 grams CHO consumed PLAN FOR DISCHARGE: * tbd
--- NOTE | 2021-02-04 14:13 | Hospitalist Progress Note ---
Date of Service February 04, 2021 Assessment & Plan (1) Ureterolithiasis: Nonobstructing bilateral nephrolithiasis- - 5 mm nonobstructing calculus of the inferior pole right kidney. 3 nonobstructing calculi of the left kidney measure up to 9 mm. Moderate left- sided hydroureteronephrosis with reactive perinephric and periureteral stranding secondary to a 6 x 4 x 6 mm calculus of the distal left ureter approximately 2.5 cm proximal to the ureterovesicular junction. - Hold Brilinta and ASA for possible intervention- restart as soon as possible following procedure once hemostasis and stability is confirmed - Continue ceftriaxone - Urology consulted -> S/p left-sided stent placement on 02/04 (2) Acute UTI (urinary tract infection): Awaiting speciation from urine ( in our records), culture resent in the EMD. - Treatment as above (3) CKD (chronic kidney disease), stage III: Acute renal insufficiency in the setting of CKD III, secondary to obstructing stone and possible fever with insensible losses. Baseline Cr. ~1.1 - 1.3. - Gentle IVF - Avoid nephrotoxic agents and if needed minimize exposure - Today, Cr is 1.85. (4) Confusion: Acute metabolic encephalopathy - at this time likely related to her stones and infective process. 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 - Patient normally on ASA and Brilinta for treatment- hold for surgical evaluation. - Restart as above as soon as possible, once hemostasis and stability achieved. - Likely restart tomorrow. (6) Diabetes: DMII on insulin therapy. - Pharmacy glycemic control - Resume home regime when back to regular diet -> High blood sugars today. 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 - Continue Creon (8) Overactive bladder: No acute issues. - Continue solifenacin (9) Hyperlipidemia: Tchol 122, HDL 63, LDL 40 this admission. - Continue atorvastatin 40mg (10) Hiatal hernia: Contributing factor with GERD. - Continue famotidine (11) DVT prophylaxis: Heparin 5000 SQ Q12h Admission and Anticipated Discharge Date Admission Date: February 03, 2021 Subjective Seen after procedure. Reports feeling tired, but that the pain has improved. Reports no fevers/chills, chest pain, shortness of breath, abdominal pain, nausea, or vomiting. Physical Exam Constitutional: WD/WN, vitals as above Eyes: EOM intact bilaterally; no conjunctival abnormality ENMT: external ear and nose normal, oropharynx normal Neck: trachea midline, no thyromegaly normal visual inspection Respiratory: normal respiratory effort, lungs clear to auscultation no respiratory distress Cardiovascular: RRR, no murmur, no edema Gastrointestinal (Abdomen): Inspection/Auscultation: abdomen normal to inspection; abdomen not distended Musculoskeletal: no cyanosis or clubbing, extremities motor strength 5/5 Skin: no rashes, warm and dry Neurologic: moves all extremities and awake Psychiatric: Orientation: alert, oriented to person and cooperative Results & Data Results & Data ([facility]) Vital Signs (Past 12 Hours) Vital Signs Temp Pulse Pulse Resp BP Pulse Ox 02/04/21 13:28 36.9 C 60 15 139/75 90 02/04/21 13:01 36.7 C 61 16 127/68 97 02/04/21 12:35 36.5 C 60 16 140/71 96 02/04/21 12:20 58 L 16 138/67 95 02/04/21 12:05 59 L 20 130/62 97 02/04/21 11:55 58 L 16 142/66 H 95 02/04/21 11:45 63 20 137/66 95 02/04/21 11:35 36.7 C 58 L 19 148/66 H 97 02/04/21 11:25 73 20 137/65 98 02/04/21 11:19 36.5 C 67 16 120/67 96 02/04/21 07:45 37.2 C 74 14 116/65 94 PG Care Time/CCT Total # of Minutes Spent Total Time Spent with Patient: Total time spent is greater than 50% in coordination of care (as documented) at patient's floor/unit and/or counseling patient: Coding Level of Care Code 99327 Subseq Hosp Care Lvl 3 Diagnoses Ureterolithiasis N20.1 Acute UTI (urinary tract infection) N39.0 CKD (chronic kidney disease), stage III N18.32 Chronic kidney disease stage 3 subtype: stage 3b (GFR 30-44) Confusion R41.0 Transient ischemic attack (TIA) G45.8 Transient cerebral ischemia type: other Diabetes E11.22; N18.31; Z79.4 Chronic kidney disease stage: stage 3 (moderate) Chronic kidney disease stage 3 subtype: stage 3a (GFR 45-59) Diabetes mellitus complication detail: with chronic kidney disease Diabetes mellitus complication status: with kidney complications Diabetes mellitus utility technician insulin use: with utility technician use Diabetes mellitus type: type 2 History of pancreatectomy Z90.410 Overactive bladder N32.81 Hyperlipidemia E78.5 Hyperlipidemia type: unspecified Hiatal hernia K44.9 DVT prophylaxis Z29.9 (1) Diabetes Chronic kidney disease stage: stage 3 (moderate) Chronic kidney disease stage 3 subtype: stage 3a (GFR 45-59) Diabetes mellitus complication detail: with chronic kidney disease Diabetes mellitus complication status: with kidney complications Diabetes mellitus utility technician insulin use: with utility technician use Diabetes mellitus type: type 2 Qualified Code(s): E11.22 - Type 2 diabetes mellitus with diabetic chronic kidney disease; N18.31 - Chronic kidney disease, stage 3a; Z79.4 - halfway (current) use of insulin (2) CKD (chronic kidney disease), stage III Chronic kidney disease stage 3 subtype: stage 3b (GFR 30-44) Qualified Code(s): N18.32 - Chronic kidney disease, stage 3b (3) Hyperlipidemia Hyperlipidemia type: unspecified Qualified Code(s): E78.5 - Hyperlipidemia, unspecified (4) Transient ischemic attack (TIA) Transient cerebral ischemia type: other Qualified Code(s): G45.8 - Other transient cerebral ischemic attacks and related syndromes
[2021-02-04] MEDS: SODIUM CHLORIDE 0.9% 1000ML 1,000 ML IV SCH (14:23)
[2021-02-04] MEDS ORDERED: Nursing to Pharmacy Communication SCH (14:45)
[2021-02-04] MEDS: cefTRIAXone SODIUM 1,000 MG in DEXTROSE 5% 50 ML IV SCH (16:03)
[2021-02-04] MEDS: INSULIN ASPART 100 UNITS/ML 3 ML PEN SQ SCH ×2 (18:10→21:24)
[2021-02-04] MEDS: MIRTAZAPINE TAB 15 MG TAB PO SCH (22:05)
[2021-02-05] MEDS ORDERED: INSULIN ASPART 100 UNITS/ML 3 ML PEN SQ SCH ×2 (02:00)
[2021-02-05] MEDS: CARBOHYDRATES FOR HYPOGLYCEMIA PO PRN ×2 (02:15→02:32)
[2021-02-05] MEDS: SODIUM CHLORIDE 0.9% 1000ML 1,000 ML IV SCH (02:18)
[2021-02-05 05:58] LABS: Estimated Average Glucose 226 mg/dl; Hemoglobin A1C 9.5 % (4.5-5.6)
[2021-02-05] MEDS: PANCREAZE (LIPASE 10,500U) CAP PO SCH ×3 (07:31→16:46)
[2021-02-05 07:38] LABS: Basophils # (auto) 0.01 K/uL (0-0.2); Basophils % (auto) 0.2 %; Eosinophils # (auto) 0.05 K/uL (0-0.5); Eosinophils % (auto) 1.2 %; Hematocrit (blood only) 32.8 % (37-47); Hemoglobin 10.7 g/dL (12.0-16.0); Immature Granulocytes # (auto) 0.01 K/uL (0.00-0.02); Immature Granulocytes % (auto) 0.2 %; Lymphocytes # (auto) 0.96 K/uL (1.2-3.4); Lymphocytes % (auto) 23.2 %; Mean Corpuscular Hemoglobin 27.1 pg (25-34); Mean Corpuscular Hgb Conc 32.6 g/dL (32-36); Mean Platelet Volume 9.5 fL (7.4-10.4); Monocytes # (auto) 0.37 K/uL (0.11-0.59); Monocytes % (auto) 8.9 %; Neutrophils # (auto) 2.74 K/uL (1.4-6.5); Neutrophils % (auto) 66.3 %; Platelet Count 139 K/uL (130-400); RDW Coefficient of Variation 15.8 % (11.5-14.5); RDW Standard Deviation 48.6 fL (36.4-46.3); Red Blood Count 3.95 M/uL (4.2-5.4); White Blood Count 4.14 K/uL (4.8-10.8)
[2021-02-05] MEDS: FAMOTIDINE 20 MG TAB PO SCH ×2 (08:14→20:49)
[2021-02-05] MEDS: HEPARIN SOD 5,000 UNIT/0.5 ML VIAL SQ SCH ×2 (08:14→20:48)
[2021-02-05] MEDS: ATORVASTATIN 40 MG TAB PO SCH (08:14)
[2021-02-05 08:51] LABS: BUN Creatinine Ratio 15.7 (10-20); Calcium 7.3 mg/dl (8.5-10.1); Creatinine Clr Calc Pharmacy 22.6 ml/min; Est GFR (African American) 39.5; Est GFR (Non-African American) 34.1; Magnesium 1.8 mg/dl (1.8-2.4); Potassium 4.2 mmol/L (3.5-5.1)
--- NOTE | 2021-02-05 08:57 | Urology Progress Note ---
Date of Service February 05, 2021 Assessment & Plan (1) Ureterolithiasis: (2) Acute UTI (urinary tract infection): (3) RAMSES (acute kidney injury): 85 year-old female patient, with multiple comorbidities, admitted with obstructing 6 mm calculus of the left distal ureter and suspected UTI. -POD#1 cystoscopy, left ureteral stent placement. -Clinically progressing as expected. -Labs reviewed - white count stable, creatinine improving. -Urine culture with pinpoint growth, re-incubating. -Blood cultures no growth after 24 hours. -Continue with supportive care and antibiotic therapy. -Recommend home with at least 7-10 days of antibiotic therapy. -Will arrange follow-up with urology service for definitive stone management. -Order placed for KUB to obtain prior to discharge, assess visualization of stone. -Okay to discharge from perspective once medically stable. -Expected clinical course reviewed with patient, all questions answered. Thank you for allowing us to participate in the acute care of Mrs. Torres. Please reconsult us with additional questions, concerns or changes in patient status. Admission and Anticipated Discharge Date Admission Date: February 03, 2021 Subjective POD #1 cystoscopy, left ureteral stent placement. Patient examined at bedside. Awake, alert and comfortable. She reports she is feeling okay overall. Currently denies flank/abdominal pain. Does note some hematuria as expected with stent. States she has urinary frequency/urgency. Feels she is emptying her bladder well. Denies fevers or chills. Denies nausea or vomiting. Has been out of bed without dizziness/lightheadedness. Chart review: Afebrile Wbc 4.14 Hgb 10.7 Creatinine 1.42 (previously 1.84) Urine culture with pin-point growth, re-incubating. Blood cultures no growth after 24 hours, currently on IV Ceftriaxone. Denies additional urologic concerns today. Review of Systems Constitutional: as per Subjective / HPI; no fever and no chills Gastrointestinal: as per Subjective / HPI; no nausea and no vomiting Genitourinary: as per Subjective / HPI Physical Exam Constitutional: well developed and well nourished; no acute distress and not ill appearing Respiratory: normal respiratory effort and able to speak in complete sentences; no respiratory distress and no audible wheezes Gastrointestinal (Abdomen): Inspection/Auscultation: abdomen normal to inspection; abdomen not distended Percussion/Palpation: abdomen soft; abdomen nontender and no guarding Psychiatric: Orientation: alert, oriented x 3 and cooperative Affect: euthymic affect Genitourinary: no CVA tenderness Results & Data ([facility]) Vital Signs (Past 12 Hours) Vital Signs Temp Pulse Resp BP Pulse Ox 02/05/21 07:36 36.5 C 53 L 16 110/65 93 02/05/21 02:47 36.7 C 73 15 126/66 96 02/04/21 23:26 37.0 C 73 17 94/45 L 94 PG Care Time/CCT Total # of Minutes Spent Total Time Spent with Patient: Total time spent is greater than 50% in coordination of care (as documented) at patient's floor/unit and/or counseling patient: Coding Level of Care Code 47945 Subseq Hosp Care Lvl 2 Diagnoses Ureterolithiasis N20.1 Acute UTI (urinary tract infection) N39.0 RAMSES (acute kidney injury) N17.9
[2021-02-05] MEDS: INSULIN ASPART 100 UNITS/ML 3 ML PEN SQ SCH ×4 (09:45→20:53)
--- NOTE | 2021-02-05 10:34 | Pharmacy Report ---
Pharmacy Glycemic Short Note 2 - Date of Service February 05, 2021 - Glycemic Short BSG Results (Last 24 hours): 02/04/21 02/04/21 02/04/21 11:35 12:38 17:10 Glucose POC Glucose 250 H 274 H 225 H 02/04/21 02/05/21 02/05/21 20:43 02:01 02:03 Glucose POC Glucose 91 52 L* 58 L* 02/05/21 02/05/21 02/05/21 02:32 02:51 07:19 Glucose 84 POC Glucose 67 L* 71 02/05/21 07:39 Glucose POC Glucose 88 OUTPATIENT ANTIDIABETIC REGIMEN: * Levemir 12 units SC HS * Novolog TIDM 3 units + SSI (0-8 units based on BSG) * HbA1c: pending ASSESSMENT: 02/05 * Patient received total of 47 units of insulin yesterday, of which 21 units were basal insulin * Fasting BSG low at 52 mg/dL, likely related to larger basal dose given in setting of RAMSES - treated per hypoglycemia protocol. Will scale back on basal insulin today. Will hold AM basal and resume home Levemir dose for HS * Plan to loosen CF/CR today 02/04 * ER is an 85 year old female who presented to [facility] ED yesterday with complaints of increased weakness, confusion, and recent UTI * Patient subsequently found to have left ureteral stone * POD #0 s/p cystoscopy w/ left ureteral stent placement * BSGs elevated since last evening 250, 288, and 250 mg/dL * Patient now ordered diet postoperatively * Will base initial Novolog/Lantus parameters on previous hospital data from October 2020 * q4h Novolog for today given elevated BSGs PLAN FOR INPATIENT GLYCEMIC CONTROL: * Hold outpatient oral diabetes medications * Basal insulin * Levemir 12 units HS * Bolus insulin * NovoLog per scale q4h * Goal Range: Low 110 mg/dL - High 140 mg/dL * Correction Factor: 30 mg/dL/unit * Nutritional / Prandial insulin per carb ratio of 1 unit per 7 grams CHO consumed PLAN FOR DISCHARGE: * A1c 9.5% on admission - patient follows with [facility] group for diabetes management. Would recommend continued care and follow up with them post discharge
--- NOTE | 2021-02-05 12:54 | Hospitalist Progress Note ---
Date of Service February 05, 2021 Assessment & Plan (1) Ureterolithiasis: Nonobstructing bilateral nephrolithiasis- - 5 mm nonobstructing calculus of the inferior pole right kidney. 3 nonobstructing calculi of the left kidney measure up to 9 mm. Moderate left- sided hydroureteronephrosis with reactive perinephric and periureteral stranding secondary to a 6 x 4 x 6 mm calculus of the distal left ureter approximately 2.5 cm proximal to the ureterovesicular junction. - Hold Brilinta and ASA for possible intervention- restart as soon as possible following procedure once hemostasis and stability is confirmed - Continue ceftriaxone - Urology consulted -> S/p left-sided stent placement on 02/04 - On 02/03, blood and urine culture returned positive for yeast. Will re- culture blood before starting caspofungin. Will also consult ID. (2) Acute UTI (urinary tract infection): Yeast in urine culture as above. - Treatment as above (3) CKD (chronic kidney disease), stage III: Acute renal insufficiency in the setting of CKD III, secondary to obstructing stone and possible fever with insensible losses. Baseline Cr. ~1.1 - 1.3. - Avoid nephrotoxic agents and if needed minimize exposure - Today, Cr is 1.4. (4) Confusion: Acute metabolic encephalopathy - at this time likely related to her stones and infective process. 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 - Patient normally on ASA and Brilinta for treatment- hold for surgical evaluation. - Restart as above as soon as possible, once hemostasis and stability achieved. - Likely restart tomorrow. (6) Diabetes: DMII on insulin therapy. - Pharmacy glycemic control - Resume home regime when back to regular diet -> Overnight, bottomed out at blood sugar of 50. Will defer adjustment to pharmacy: Lowered long-acting dosage. 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 - Continue Creon (8) Overactive bladder: No acute issues. - Continue solifenacin (9) Hyperlipidemia: Tchol 122, HDL 63, LDL 40 this admission. - Continue atorvastatin 40mg (10) Hiatal hernia: Contributing factor with GERD. - Continue famotidine (11) DVT prophylaxis: Heparin 5000 SQ Q12h Admission and Anticipated Discharge Date Admission Date: February 03, 2021 Subjective Doing well today. Minimal pain. She reports she is "disappointed" she is still here because she has previously been up and moving quickly after procedures. Reports no fevers/chills, chest pain, shortness of breath, abdominal pain, nausea, or vomiting. Physical Exam Constitutional: WD/WN, vitals as above Eyes: EOM intact bilaterally; no conjunctival abnormality ENMT: external ear and nose normal, oropharynx normal Neck: trachea midline, no thyromegaly normal visual inspection Respiratory: normal respiratory effort, lungs clear to auscultation no respiratory distress Cardiovascular: RRR, no murmur, no edema Gastrointestinal (Abdomen): Inspection/Auscultation: abdomen normal to inspection; abdomen not distended Musculoskeletal: no cyanosis or clubbing, extremities motor strength 5/5 Skin: no rashes, warm and dry Neurologic: moves all extremities and awake Psychiatric: Orientation: alert, oriented to person and cooperative Results & Data Results & Data ([facility]) Vital Signs (Past 12 Hours) Vital Signs Temp Pulse Resp BP Pulse Ox 02/05/21 07:36 36.5 C 53 L 16 110/65 93 02/05/21 02:47 36.7 C 73 15 126/66 96 PG Care Time/CCT Total # of Minutes Spent Total Time Spent with Patient: Total time spent is greater than 50% in coordination of care (as documented) at patient's floor/unit and/or counseling patient: Coding Level of Care Code 48746 Subseq Hosp Care Lvl 3 Diagnoses Ureterolithiasis N20.1 Acute UTI (urinary tract infection) N39.0 CKD (chronic kidney disease), stage III N18.32 Chronic kidney disease stage 3 subtype: stage 3b (GFR 30-44) Confusion R41.0 Transient ischemic attack (TIA) G45.8 Transient cerebral ischemia type: other Diabetes E11.22; N18.31; Z79.4 Diabetes mellitus type: type 2 Diabetes mellitus fci insulin use: with fci use Diabetes mellitus complication status: with kidney complications Diabetes mellitus complication detail: with chronic kidney disease Chronic kidney disease stage: stage 3 (moderate) Chronic kidney disease stage 3 subtype: stage 3a (GFR 45-59) History of pancreatectomy Z90.410 Overactive bladder N32.81 Hyperlipidemia E78.5 Hyperlipidemia type: unspecified Hiatal hernia K44.9 DVT prophylaxis Z29.9 (1) CKD (chronic kidney disease), stage III Chronic kidney disease stage 3 subtype: stage 3b (GFR 30-44) Qualified Code(s): N18.32 - Chronic kidney disease, stage 3b (2) Transient ischemic attack (TIA) Transient cerebral ischemia type: other Qualified Code(s): G45.8 - Other transient cerebral ischemic attacks and related syndromes (3) Diabetes Diabetes mellitus type: type 2 Diabetes mellitus fci insulin use: 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
[2021-02-05] MEDS ORDERED: CASPOFUNGIN 70 MG in SODIUM CHLORIDE 0.9% 250 ML IV STA (12:57)
--- NOTE | 2021-02-05 13:41 | XRay Report ---
KUB CLINICAL HISTORY: left distal ureteral stone COMPARISON STUDY: CT of the abdomen and pelvis February 03, 2021. 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 Left h ip arthroplasty is partially imaged. Left ureteral stent is in place. There is a large amount of stoo l within the rectum. Bilateral renal calculi are noted. The largest is an 8 mm left renal calculus. T here is a 5 mm calculus within lower pole of the right kidney. A 5 mm distal left ureteral calculus i s noted. Additional pelvic calcifications reflect phleboliths. IMPRESSION: 1. Left ureteral stent in place. Redemonstration of a 5 mm distal left ureteral calculus. Slight prox imal migration since prior CT. 2. Bilateral nephrolithiasis. ACT 112: Negative or not required by law. Electronically signed by: Alvarez Valadez M.D. 02/05/2021 1:39 PM
[2021-02-05] MEDS: cefTRIAXone SODIUM 1,000 MG in DEXTROSE 5% 50 ML IV SCH (15:38)
[2021-02-05] MEDS: MIRTAZAPINE TAB 15 MG TAB PO SCH (20:49)
[2021-02-05] MEDS: INSULIN DETEMIR FLEXPEN/FLEX TOUCH 100 UNITS/ML 3ML SC SCH (20:52)
[2021-02-05] MEDS ORDERED: INSULIN DETEMIR FLEXPEN/FLEX TOUCH 100 UNITS/ML 3ML SC SCH (21:00)
[2021-02-06 07:25] LABS: Basophils # (auto) 0.02 K/uL (0-0.2); Basophils % (auto) 0.4 %; Eosinophils # (auto) 0.19 K/uL (0-0.5); Eosinophils % (auto) 3.7 %; Immature Granulocytes # (auto) 0.01 K/uL (0.00-0.02); Immature Granulocytes % (auto) 0.2 %; Lymphocytes # (auto) 1.16 K/uL (1.2-3.4); Lymphocytes % (auto) 22.4 %; Mean Corpuscular Hemoglobin 27.2 pg (25-34); Mean Corpuscular Hgb Conc 32.4 g/dL (32-36); Mean Corpuscular Volume 83.9 fL (80-100); Monocytes # (auto) 0.94 K/uL (0.11-0.59); Monocytes % (auto) 18.2 %; Neutrophils # (auto) 2.85 K/uL (1.4-6.5); Neutrophils % (auto) 55.1 %; Platelet Count 155 K/uL (130-400); RDW Coefficient of Variation 15.7 % (11.5-14.5); RDW Standard Deviation 48.4 fL (36.4-46.3); Red Blood Count 4.41 M/uL (4.2-5.4); White Blood Count 5.17 K/uL (4.8-10.8)
[2021-02-06 07:54] LABS: BUN Creatinine Ratio 14.3 (10-20); Calcium 7.9 mg/dl (8.5-10.1); Creatinine Clr Calc Pharmacy 25.2 ml/min; Est GFR (African American) 45.2; Magnesium 1.9 mg/dl (1.8-2.4); Potassium 3.9 mmol/L (3.5-5.1)
[2021-02-06] MEDS: FAMOTIDINE 20 MG TAB PO SCH ×2 (08:33→20:42)
[2021-02-06] MEDS: HEPARIN SOD 5,000 UNIT/0.5 ML VIAL SQ SCH ×2 (08:33→20:38)
[2021-02-06] MEDS: ATORVASTATIN 40 MG TAB PO SCH (08:33)
[2021-02-06] MEDS: PANCREAZE (LIPASE 10,500U) CAP PO SCH ×3 (08:33→17:43)
[2021-02-06] MEDS: INSULIN ASPART 100 UNITS/ML 3 ML PEN SQ SCH ×4 (08:44→20:40)
[2021-02-06] MEDS: CASPOFUNGIN 50 MG in SODIUM CHLORIDE 0.9% 250 ML IV SCH (08:47)
--- NOTE | 2021-02-06 13:30 | Pharmacy Report ---
Pharmacy Glycemic Short Note 2 - Date of Service February 06, 2021 - Glycemic Short BSG Results (Last 24 hours): 02/05/21 02/05/21 02/06/21 17:02 20:20 06:52 Glucose 97 POC Glucose 209 H 269 H 02/06/21 02/06/21 08:07 12:04 Glucose POC Glucose 91 221 H OUTPATIENT ANTIDIABETIC REGIMEN: * Levemir 12 units SC HS * Novolog TIDM 3 units + SSI (0-8 units based on BSG) * HbA1c: pending ASSESSMENT: 02/06 * Patient received total of 21 units of insulin yesterday, of which 12 were basal insulin * Fasting BSG 91 mg/dL - continue with scale for basal at HS. Appears patient eating more today, will increase basal slightly if BSGs trending up * Tighten CR for this morning 02/05 * Patient received total of 47 units of insulin yesterday, of which 21 units were basal insulin * Fasting BSG low at 52 mg/dL, likely related to larger basal dose given in setting of RAMSES - treated per hypoglycemia protocol. Will scale back on basal insulin today. Will hold AM basal and resume home Levemir dose for HS * Plan to loosen CF/CR today 02/04 * ER is an 85 year old female who presented to [facility] ED yesterday with complaints of increased weakness, confusion, and recent UTI * Patient subsequently found to have left ureteral stone * POD #0 s/p cystoscopy w/ left ureteral stent placement * BSGs elevated since last evening 250, 288, and 250 mg/dL * Patient now ordered diet postoperatively * Will base initial Novolog/Lantus parameters on previous hospital data from October 2020 * q4h Novolog for today given elevated BSGs PLAN FOR INPATIENT GLYCEMIC CONTROL: * Hold outpatient oral diabetes medications * Basal insulin * Levemir 12-15 units HS based upon BSG * Bolus insulin * NovoLog per scale q4h * Goal Range: Low 110 mg/dL - High 140 mg/dL * Correction Factor: 30 mg/dL/unit * Nutritional / Prandial insulin per carb ratio of 1 unit per 6 grams CHO consumed PLAN FOR DISCHARGE: * A1c 9.5% on admission - patient follows with [facility] group for diabetes management. Would recommend continued care and follow up with them post discharge
--- NOTE | 2021-02-06 14:36 | Hospitalist Progress Note ---
Date of Service February 06, 2021 Assessment & Plan (1) Ureterolithiasis: Nonobstructing bilateral nephrolithiasis- - 5 mm nonobstructing calculus of the inferior pole right kidney. 3 nonobstructing calculi of the left kidney measure up to 9 mm. Moderate left- sided hydroureteronephrosis with reactive perinephric and periureteral stranding secondary to a 6 x 4 x 6 mm calculus of the distal left ureter approximately 2.5 cm proximal to the ureterovesicular junction. - Hold Brilinta and ASA for possible intervention- restart as soon as possible following procedure once hemostasis and stability is confirmed - Continue ceftriaxone - Urology consulted -> S/p left-sided stent placement on 02/04 - On 02/03, blood and urine culture returned positive for yeast. Will re- culture blood before starting caspofungin. Will also consult ID. - Doing well today. ID consult still pending. Discussed with micro lab today, and will get speciation in several days. (2) Acute UTI (urinary tract infection): Yeast in urine culture as above. - Treatment as above (3) CKD (chronic kidney disease), stage III: Acute renal insufficiency in the setting of CKD III, secondary to obstructing stone and possible fever with insensible losses. Baseline Cr. ~1.1 - 1.3. - Avoid nephrotoxic agents and if needed minimize exposure - Today, Cr is 1.3. (4) Confusion: Acute metabolic encephalopathy - at this time likely related to her stones and infective process. - Delirium prevention; sleep hygiene, minimize nightly interruptions - Monitor -> Seems to be back to baseline today. 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 - Patient normally on ASA and Brilinta for treatment- hold for surgical evaluation. - Restart as above as soon as possible, once hemostasis and stability achieved. - Likely restart tomorrow. (6) Diabetes: DMII on insulin therapy. - Pharmacy glycemic control - Resume home regime when back to regular diet -> Eating better. Pharmacy tightening meal-time coverage. 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 - Continue Creon (8) Overactive bladder: No acute issues. - Continue solifenacin (9) Hyperlipidemia: Tchol 122, HDL 63, LDL 40 this admission. - Continue atorvastatin 40mg (10) Hiatal hernia: Contributing factor with GERD. - Continue famotidine (11) DVT prophylaxis: Heparin 5000 SQ Q12h Admission and Anticipated Discharge Date Admission Date: February 03, 2021 Subjective Feeling well today. Better today overall. Reports no fevers/chills, chest pain, shortness of breath, abdominal pain, nausea, or vomiting. Physical Exam Constitutional: WD/WN, vitals as above Eyes: EOM intact bilaterally; no conjunctival abnormality ENMT: external ear and nose normal, oropharynx normal Neck: trachea midline, no thyromegaly normal visual inspection Respiratory: normal respiratory effort, lungs clear to auscultation no respiratory distress Cardiovascular: RRR, no murmur, no edema Gastrointestinal (Abdomen): Inspection/Auscultation: abdomen normal to inspection; abdomen not distended Musculoskeletal: no cyanosis or clubbing, extremities motor strength 5/5 Skin: no rashes, warm and dry Neurologic: moves all extremities and awake Psychiatric: Orientation: alert, oriented to person and cooperative Results & Data Results & Data ([facility]) Vital Signs (Past 12 Hours) Vital Signs Temp Pulse Resp BP Pulse Ox 02/06/21 07:32 37.0 C 54 L 16 128/75 95 PG Care Time/CCT Total # of Minutes Spent Total Time Spent with Patient: Total time spent is greater than 50% in coordination of care (as documented) at patient's floor/unit and/or counseling patient: Coding Level of Care Code 70114 Subseq Hosp Care Lvl 2 Diagnoses Ureterolithiasis N20.1 Acute UTI (urinary tract infection) N39.0 CKD (chronic kidney disease), stage III N18.32 Chronic kidney disease stage 3 subtype: stage 3b (GFR 30-44) Confusion R41.0 Transient ischemic attack (TIA) G45.8 Transient cerebral ischemia type: other Diabetes E11.22; N18.31; Z79.4 Diabetes mellitus type: type 2 Diabetes mellitus nursing home insulin use: with terminal make up operator use Diabetes mellitus complication status: with kidney complications Diabetes mellitus complication detail: with chronic kidney disease Chronic kidney disease stage: stage 3 (moderate) Chronic kidney disease stage 3 subtype: stage 3a (GFR 45-59) History of pancreatectomy Z90.410 Overactive bladder N32.81 Hyperlipidemia E78.5 Hyperlipidemia type: unspecified Hiatal hernia K44.9 DVT prophylaxis Z29.9 (1) CKD (chronic kidney disease), stage III Chronic kidney disease stage 3 subtype: stage 3b (GFR 30-44) Qualified Code(s): N18.32 - Chronic kidney disease, stage 3b (2) Transient ischemic attack (TIA) Transient cerebral ischemia type: other Qualified Code(s): G45.8 - Other transient cerebral ischemic attacks and related syndromes (3) Diabetes Diabetes mellitus type: type 2 Diabetes mellitus terminal make up operator insulin use: with nursing home use Diabetes mellitus complication status: with kidney complications Diabetes mellitus complication detail: with chronic kidney disease Chronic kidney disease stage: stage 3 (moderate) Chronic kidney disease stage 3 subtype: stage 3a (GFR 45-59) Qualified Code(s): E11.22 - Type 2 diabetes mellitus with diabetic chronic kidney disease; N18.31 - Chronic kidney disease, stage 3a; Z79.4 - intermediate (current) use of insulin (4) Hyperlipidemia Hyperlipidemia type: unspecified Qualified Code(s): E78.5 - Hyperlipidemia, unspecified
[2021-02-06] MEDS: cefTRIAXone SODIUM 1,000 MG in DEXTROSE 5% 50 ML IV SCH (15:51)
[2021-02-06] MEDS ORDERED: INSULIN HUMAN REGULAR PER UNIT 3 UNITS in SYRINGE 2.97 ML IV ONE (17:45)
[2021-02-06] MEDS: INSULIN DETEMIR FLEXPEN/FLEX TOUCH 100 UNITS/ML 3ML SC SCH (20:39)
[2021-02-06] MEDS: MIRTAZAPINE TAB 15 MG TAB PO SCH (20:42)
[2021-02-07 06:18] LABS: Hematocrit (blood only) 34.8 % (37-47); Hemoglobin 11.3 g/dL (12.0-16.0); Mean Corpuscular Hemoglobin 27.4 pg (25-34); Mean Corpuscular Hgb Conc 32.5 g/dL (32-36); Mean Corpuscular Volume 84.5 fL (80-100); Mean Platelet Volume 9.7 fL (7.4-10.4); Platelet Count 163 K/uL (130-400); RDW Coefficient of Variation 15.6 % (11.5-14.5); RDW Standard Deviation 48.6 fL (36.4-46.3); Red Blood Count 4.12 M/uL (4.2-5.4); White Blood Count 6.24 K/uL (4.8-10.8)
[2021-02-07 06:45] LABS: BUN Creatinine Ratio 13.4 (10-20); Calcium 7.6 mg/dl (8.5-10.1); Est GFR (African American) 44.8; Est GFR (Non-African American) 38.6
[2021-02-07] MEDS: ATORVASTATIN 40 MG TAB PO SCH (08:55)
[2021-02-07] MEDS: PANCREAZE (LIPASE 10,500U) CAP PO SCH ×3 (08:55→16:33)
[2021-02-07] MEDS: FAMOTIDINE 20 MG TAB PO SCH ×2 (08:55→21:17)
[2021-02-07] MEDS: INSULIN ASPART 100 UNITS/ML 3 ML PEN SQ SCH ×4 (08:56→21:11)
[2021-02-07] MEDS: HEPARIN SOD 5,000 UNIT/0.5 ML VIAL SQ SCH ×2 (08:58→21:18)
[2021-02-07] MEDS: CASPOFUNGIN 50 MG in SODIUM CHLORIDE 0.9% 250 ML IV SCH (09:01)
--- NOTE | 2021-02-07 13:16 | Urology Progress Note ---
Date of Service February 07, 2021 Assessment & Plan (1) Ureterolithiasis: (2) Acute UTI (urinary tract infection): (3) RAMSES (acute kidney injury): 85 year-old female patient, with multiple comorbidities, admitted with obstructing 6 mm calculus of the left distal ureter and suspected UTI. -POD#3 cystoscopy, left ureteral stent placement. -Plan of care reviewed with Dr. Zhong. -Patient remains afebrile. -Labs reviewed - white count and creatinine stable. -Urine culture with >100,000 cfu yeast not Alysa Albicans/dubliniensis. -Preliminary blood cultures positive for yeast not Alysa Albicans/dubliniensis. -Recommend continuing with supportive care and IV antifungal. -Insert 3-way flores catheter. -Will initiate Amphotericin B bladder irrigations while inpatient, recommend total of 5 days. -Await recommendations from ID consult, planned for this afternoon. -Patient's niece, Ama, updated via phone call per patient request. All questions answered. -Will continue to follow while inpatient. Admission and Anticipated Discharge Date Admission Date: February 03, 2021 Subjective POD #3 cystoscopy, left ureteral stent placement. Patient examined at bedside. Awake, alert and comfortable. She reports she is feeling much better overall since admission. Currently denies flank/abdominal pain. Denies dysuria or hematuria. Denies urinary frequency/urgency. Feels she is emptying her bladder well. Denies fevers or chills. Denies nausea or vomiting. Has been out of bed without dizziness/lightheadedness. Chart review: Afebrile Wbc 6.24 Hgb 11.3 Creatinine 1.28 Urine culture with >100,000 cfu yeast not Alysa Albicans/dubliniensis. Preliminary blood cultures positive for yeast not Alysa Albicans/dubliniensis. Patient currently on IV Caspofungin and IV Ceftriaxone. Denies additional urologic concerns today. Review of Systems Constitutional: as per Subjective / HPI; no fever and no chills Gastrointestinal: as per Subjective / HPI; no nausea and no vomiting Genitourinary: as per Subjective / HPI Physical Exam Constitutional: well developed and well nourished; no acute distress and not ill appearing Respiratory: normal respiratory effort and able to speak in complete sente nces; no respiratory distress and no audible wheezes Gastrointestinal (Abdomen): Inspection/Auscultation: abdomen normal to inspection; abdomen not distended Percussion/Palpation: abdomen soft; abdomen nontender and no guarding Psychiatric: Orientation: alert, oriented x 3 and cooperative Affect: euthymic affect Results & Data ([facility]) Vital Signs (Past 12 Hours) Vital Signs Temp Pulse Resp BP Pulse Ox 02/07/21 07:52 36.4 C L 57 L 16 119/75 95 PG Care Time/CCT Total # of Minutes Spent Total Time Spent with Patient: Total time spent is greater than 50% in coordination of care (as documented) at patient's floor/unit and/or counseling patient: Coding Level of Care Code 54455 Subseq Hosp Care Lvl 3 Diagnoses Ureterolithiasis N20.1 Acute UTI (urinary tract infection) N39.0 RAMSES (acute kidney injury) N17.9
--- NOTE | 2021-02-07 15:00 | Pharmacy Report ---
Pharmacy Glycemic Short Note 2 - Date of Service February 07, 2021 - Glycemic Short BSG Results (Last 24 hours): 02/06/21 02/06/21 02/06/21 17:08 17:10 20:33 Glucose POC Glucose 341 H* 322 H* 200 H 02/07/21 02/07/21 02/07/21 06:03 08:19 12:09 Glucose 57 L POC Glucose 75 175 H OUTPATIENT ANTIDIABETIC REGIMEN: * Levemir 12 units SC HS * Novolog TIDM 3 units + SSI (0-8 units based on BSG) * HbA1c: pending ASSESSMENT: 02/07 * Patient received total of 47 units of insulin yesterday, of which 12 units were basal insulin * Fasting BSG low at 75 mg/dL (PRP 57 mg/dL) - no hypoglycemia per notes. * Patient's PO intake has been fluctuating, therefore insulin needs changing rapidly. Unclear if basal insulin is contributing to lower fasting BSGs or if correctional insulin at HS is reasoning. Will trial removing insulin coverage for HS time * Continue same CF/CR today, provide scale for HS levemir with decreased units 02/06 * Patient received total of 21 units of insulin yesterday, of which 12 were basal insulin * Fasting BSG 91 mg/dL - continue with scale for basal at HS. Appears patient eating more today, will increase basal slightly if BSGs trending up * Tighten CR for this morning PLAN FOR INPATIENT GLYCEMIC CONTROL: * Hold outpatient oral diabetes medications * Basal insulin * Levemir 9-12 units HS based upon BSG * Bolus insulin * NovoLog per scale - breakfast, lunch, dinner check only * Goal Range: Low 110 mg/dL - High 140 mg/dL * Correction Factor: 30 mg/dL/unit * Nutritional / Prandial insulin per carb ratio of 1 unit per 5 grams CHO consumed
[2021-02-07] MEDS: AMPHOTERICIN B 50 MG in WATER, STERILE 1,000 ML IR SCH (15:26)
[2021-02-07] MEDS: cefTRIAXone SODIUM 1,000 MG in DEXTROSE 5% 50 ML IV SCH (16:32)
--- NOTE | 2021-02-07 17:14 | Hospitalist Progress Note ---
Date of Service February 07, 2021 Assessment & Plan (1) Ureterolithiasis: Nonobstructing bilateral nephrolithiasis- - 5 mm nonobstructing calculus of the inferior pole right kidney. 3 nonobstructing calculi of the left kidney measure up to 9 mm. Moderate left- sided hydroureteronephrosis with reactive perinephric and periureteral stranding secondary to a 6 x 4 x 6 mm calculus of the distal left ureter approximately 2.5 cm proximal to the ureterovesicular junction. - Hold Brilinta and ASA for possible intervention- restart as soon as possible following procedure once hemostasis and stability is confirmed - Continue ceftriaxone - Urology consulted -> S/p left-sided stent placement on 02/04 - On 02/03, blood and urine culture returned positive for yeast. Will re- culture blood before starting caspofungin. - Doing well today. ID consult done. Will reach out to them. - TTE ordered. Repeat blood cultures ordered. (2) Acute UTI (urinary tract infection): Yeast in urine culture as above. - Treatment as above (3) CKD (chronic kidney disease), stage III: Acute renal insufficiency in the setting of CKD III, secondary to obstructing stone and possible fever with insensible losses. Baseline Cr. ~1.1 - 1.3. - Avoid nephrotoxic agents and if needed minimize exposure - Today, Cr is 1.3. (4) Confusion: Acute metabolic encephalopathy - at this time likely related to her stones and infective process. - Delirium prevention; sleep hygiene, minimize nightly interruptions - Monitor -> Seems to be back to baseline today. 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 Patient normally on ASA and Brilinta for treatment. - Restart as above as soon as possible. - Will defer for now given new catheter insertion. Will work with them to determine timing. (6) Diabetes: DMII on insulin therapy. - Pharmacy glycemic control - Resume home regime when back to regular diet -> Eating better. Pharmacy tightening meal-time coverage. 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 - Continue Creon (8) Overactive bladder: No acute issues. - Continue solifenacin (9) Hyperlipidemia: Tchol 122, HDL 63, LDL 40 this admission. - Continue atorvastatin 40mg (10) Hiatal hernia: Contributing factor with GERD. - Continue famotidine (11) DVT prophylaxis: Heparin 5000 SQ Q12h Admission and Anticipated Discharge Date Admission Date: February 03, 2021 Subjective Doing well today. No major concerns overall. No dysuria. Reports no fevers/chills, chest pain, shortness of breath, abdominal pain, nausea, or vomiting. Physical Exam Constitutional: WD/WN, vitals as above Eyes: EOM intact bilaterally; no conjunctival abnormality ENMT: external ear and nose normal, oropharynx normal Neck: trachea midline, no thyromegaly normal visual inspection Respiratory: normal respiratory effort, lungs clear to auscultation no respiratory distress Cardiovascular: RRR, no murmur, no edema Gastrointestinal (Abdomen): Inspection/Auscultation: abdomen normal to inspection; abdomen not distended Musculoskeletal: no cyanosis or clubbing, extremities motor strength 5/5 Skin: no rashes, warm and dry Neurologic: moves all extremities and awake Psychiatric: Orientation: alert, oriented to person and cooperative Results & Data Results & Data ([facility]) Vital Signs (Past 12 Hours) Vital Signs Temp Pulse Resp BP Pulse Ox 02/07/21 15:17 36.6 C 67 18 126/77 91 02/07/21 07:52 36.4 C L 57 L 16 119/75 95 PG Care Time/CCT Total # of Minutes Spent Total Time Spent with Patient: Total time spent is greater than 50% in coordination of care (as documented) at patient's floor/unit and/or counseling patient: Coding Level of Care Code 83505 Subseq Hosp Care Lvl 2 Diagnoses Ureterolithiasis N20.1 Acute UTI (urinary tract infection) N39.0 CKD (chronic kidney disease), stage III N18.32 Chronic kidney disease stage 3 subtype: stage 3b (GFR 30-44) Confusion R41.0 Transient ischemic attack (TIA) G45.8 Transient cerebral ischemia type: other Diabetes E11.22; N18.31; Z79.4 Diabetes mellitus type: type 2 Diabetes mellitus superintendent marine oil terminal insulin use: with half-way use Diabetes mellitus complication status: with kidney complications Diabetes mellitus complication detail: with chronic kidney disease Chronic kidney disease stage: stage 3 (moderate) Chronic kidney disease stage 3 subtype: stage 3a (GFR 45-59) History of pancreatectomy Z90.410 Overactive bladder N32.81 Hyperlipidemia E78.5 Hyperlipidemia type: unspecified Hiatal hernia K44.9 DVT prophylaxis Z29.9 (1) CKD (chronic kidney disease), stage III Chronic kidney disease stage 3 subtype: stage 3b (GFR 30-44) Qualified Code(s): N18.32 - Chronic kidney disease, stage 3b (2) Transient ischemic attack (TIA) Transient cerebral ischemia type: other Qualified Code(s): G45.8 - Other transient cerebral ischemic attacks and related syndromes (3) Diabetes Diabetes mellitus type: type 2 Diabetes mellitus superintendent marine oil terminal insulin use: with half-way use Diabetes mellitus complication status: with kidney complications Diabetes mellitus complication detail: with chronic kidney disease Chronic kidney disease stage: stage 3 (moderate) Chronic kidney disease stage 3 subtype: stage 3a (GFR 45-59) Qualified Code(s): E11.22 - Type 2 diabetes mellitus with diabetic chronic kidney disease; N18.31 - Chronic kidney disease, stage 3a; Z79.4 - termite control representative (current) use of insulin (4) Hyperlipidemia Hyperlipidemia type: unspecified Qualified Code(s): E78.5 - Hyperlipidemia, unspecified
[2021-02-07] MEDS ORDERED: INSULIN HUMAN REGULAR PER UNIT 4 UNITS in SYRINGE 3.96 ML IV ONE (17:30)
[2021-02-07] MEDS: INSULIN DETEMIR FLEXPEN/FLEX TOUCH 100 UNITS/ML 3ML SC SCH (18:10)
[2021-02-07] MEDS: MIRTAZAPINE TAB 15 MG TAB PO SCH (21:17)
[2021-02-08 08:17] LABS: Hematocrit (blood only) 34.9 % (37-47); Hemoglobin 11.2 g/dL (12.0-16.0); Mean Corpuscular Hgb Conc 32.1 g/dL (32-36); Mean Corpuscular Volume 84.1 fL (80-100); Mean Platelet Volume 9.8 fL (7.4-10.4); Platelet Count 174 K/uL (130-400); RDW Coefficient of Variation 15.7 % (11.5-14.5); RDW Standard Deviation 48.3 fL (36.4-46.3); Red Blood Count 4.15 M/uL (4.2-5.4); White Blood Count 5.56 K/uL (4.8-10.8)
[2021-02-08 08:48] LABS: BUN Creatinine Ratio 17.3 (10-20); Calcium 7.5 mg/dl (8.5-10.1); Creatinine Clr Calc Pharmacy 30.8 ml/min; Est GFR (African American) 57.5; Est GFR (Non-African American) 49.6; Potassium 4.3 mmol/L (3.5-5.1)
[2021-02-08] MEDS: INSULIN ASPART 100 UNITS/ML 3 ML PEN SQ SCH ×4 (08:51→21:21)
[2021-02-08] MEDS: PANCREAZE (LIPASE 10,500U) CAP PO SCH ×3 (08:52→17:54)
[2021-02-08] MEDS: ATORVASTATIN 40 MG TAB PO SCH (08:53)
[2021-02-08] MEDS: FAMOTIDINE 20 MG TAB PO SCH ×2 (08:53→21:15)
[2021-02-08] MEDS: HEPARIN SOD 5,000 UNIT/0.5 ML VIAL SQ SCH ×2 (08:53→21:15)
--- NOTE | 2021-02-08 09:04 | Urology Progress Note ---
Date of Service February 08, 2021 Assessment & Plan (1) Ureterolithiasis: (2) Acute UTI (urinary tract infection): (3) RAMSES (acute kidney injury): 85 year-old female patient, with multiple comorbidities, admitted with obstructing 6 mm calculus of the left distal ureter and suspected UTI. -POD#4 cystoscopy, left ureteral stent placement. -Patient remains afebrile. -Labs reviewed - white count and creatinine stable. -Urine culture with >100,000 cfu yeast not Alysa Albicans/dubliniensis. -Preliminary blood cultures positive for yeast not Alysa Albicans/dubliniensis. -Repeat blood cultures pending. -Recommend continuing with supportive care and IV antifungal. -ID recommendations reviewed, plan to await final for identification/sensitivity of yeast. -Continue Amphotericin B bladder irrigations, initiated 02/07, recommend total of 5 days. -Patient's niece, Ama, updated at bedside. All questions answered. -Will continue to follow while inpatient. Admission and Anticipated Discharge Date Admission Date: February 03, 2021 Subjective POD #4 cystoscopy, left ureteral stent placement. Patient examined at bedside. Awake, alert and comfortable. She continues to feel well overall. Currently denies flank/abdominal pain. Denies dysuria or hematuria. Three way flores catheter intact, draining cloudy yellow urine. Amphotericin B bladder irrigations infusing. Denies fevers or chills. Denies nausea or vomiting. Has been out of bed without dizziness/lightheadedness. Chart review: Afebrile Wbc 5.56 Hgb 11.2 Creatinine 1.04 Urine culture with >100,000 cfu yeast not Alysa Albicans/dubliniensis. Preliminary blood cultures positive for yeast not Alysa Albicans/dubliniensis. Repeat urine cultures pending. Patient currently on IV Caspofungin. Ceftriaxone discontinued. Denies additional urologic concerns today. Review of Systems Constitutional: as per Subjective / HPI; no fever and no chills Gastrointestinal: as per Subjective / HPI; no nausea and no vomiting Physical Exam Constitutional: well developed and well nourished; no acute distress and not ill appearing Respiratory: normal respiratory effort and able to speak in complete sentences; no respiratory distress and no audible wheezes Gastrointestinal (Abdomen): Inspection/Auscultation: abdomen normal to inspection; abdomen not distended Percussion/Palpation: abdomen soft; abdomen nontender and no guarding Psychiatric: Orientation: alert, oriented x 3 and cooperative Affect: euthymic affect Genitourinary: Three way flores catheter intact, patent draining cloudy yellow urine. Amphotericin B bladder irrigations infusing. Results & Data ([facility]) Vital Signs (Past 12 Hours) Vital Signs Temp Pulse Resp BP Pulse Ox 02/08/21 07:43 36.4 C L 73 18 136/66 90 02/07/21 22:45 36.9 C 68 16 94/60 L 95 PG Care Time/CCT Total # of Minutes Spent Total Time Spent with Patient: Total time spent is greater than 50% in coordination of care (as documented) at patient's floor/unit and/or counseling patient: Coding Level of Care Code 05500 Subseq Hosp Care Lvl 2 Diagnoses Ureterolithiasis N20.1 Acute UTI (urinary tract infection) N39.0 RAMSES (acute kidney injury) N17.9
[2021-02-08] MEDS: CASPOFUNGIN 50 MG in SODIUM CHLORIDE 0.9% 250 ML IV SCH (09:05)
[2021-02-08] MEDS: INSULIN DETEMIR FLEXPEN/FLEX TOUCH 100 UNITS/ML 3ML SC SCH ×2 (09:46→21:20)
--- NOTE | 2021-02-08 10:55 | Pharmacy Report ---
Pharmacy Glycemic Short Note 2 - Date of Service February 08, 2021 - Glycemic Short BSG Results (Last 24 hours): 02/07/21 02/07/21 02/07/21 12:09 16:58 16:59 Glucose POC Glucose 175 H 303 H* 330 H* 02/07/21 02/07/21 02/08/21 20:32 23:19 07:58 Glucose 253 H POC Glucose 313 H* 255 H 02/08/21 08:18 Glucose POC Glucose 272 H OUTPATIENT ANTIDIABETIC REGIMEN: * Levemir 12 units SC HS * Novolog TIDM 3 units + SSI (0-8 units based on BSG) * HbA1c: pending ASSESSMENT: 02/08 * Pt has received 41 units of insulin over the past 24hrs * 12 units of basal with Levemir * 29 units of bolus with NovoLog * BSGs 40-541-144-313-255 mg/dl * BSgs elevated prior to dinner and at HS yesterday. Pt self-administered insulin at lunch time and RN thinks that it is possible there was an error in administration and patient did not received the full dose (causing the high prior to dinner). However, patient did receive full dose at dinner and HS and BSGs still elevated. * Trend over the last 3 days has been eleavted BSGs prior to dinner and HS - it is likely that the Levemir is not lasting 24hrs; BID dosing it typical with Levemir. * AM fasting BSG elevated - will add AM dose of Levemir to increase dosing to BID 02/07 * Patient received total of 47 units of insulin yesterday, of which 12 units were basal insulin * Fasting BSG low at 75 mg/dL (PRP 57 mg/dL) - no hypoglycemia per notes. * Patient's PO intake has been fluctuating, therefore insulin needs changing rapidly. Unclear if basal insulin is contributing to lower fasting BSGs or if correctional insulin at HS is reasoning. Will trial removing insulin coverage for HS time * Continue same CF/CR today, provide scale for HS levemir with decreased units 02/06 * Patient received total of 21 units of insulin yesterday, of which 12 were basal insulin * Fasting BSG 91 mg/dL - continue with scale for basal at HS. Appears patient eating more today, will increase basal slightly if BSGs trending up * Tighten CR for this morning PLAN FOR INPATIENT GLYCEMIC CONTROL: * Hold outpatient oral diabetes medications * Basal insulin * Levemir 6 units SQ AM * Levemir 9-12 units HS based upon BSG * Bolus insulin * NovoLog per scale - breakfast, lunch, dinner check only * Goal Range: Low 110 mg/dL - High 140 mg/dL * Correction Factor: 30 mg/dL/unit * Nutritional / Prandial insulin per carb ratio of 1 unit per 5 grams CHO consumed * at HS only; CF = 45mg/dl/unit. No CR ordered.
--- NOTE | 2021-02-08 14:10 | XCELERA ---
[id number]
[2021-02-08] MEDS: AMPHOTERICIN B 50 MG in WATER, STERILE 1,000 ML IR SCH (15:04)
--- NOTE | 2021-02-08 19:01 | Hospitalist Progress Note ---
Date of Service February 08, 2021 Assessment & Plan (1) Ureterolithiasis: Nonobstructing bilateral nephrolithiasis- - 5 mm nonobstructing calculus of the inferior pole right kidney. 3 nonobstructing calculi of the left kidney measure up to 9 mm. Moderate left- sided hydroureteronephrosis with reactive perinephric and periureteral stranding secondary to a 6 x 4 x 6 mm calculus of the distal left ureter approximately 2.5 cm proximal to the ureterovesicular junction. - Hold Brilinta and ASA for possible intervention- restart as soon as possible following procedure once hemostasis and stability is confirmed - Was on ceftriaxone until 02/07; stopped per ID. - Urology consulted -> S/p left-sided stent placement on 02/04 - On 02/03, blood and urine culture returned positive for yeast NOT Alysa albicans/glabrata. - TTE on 02/08 was negative for consultation. - Discussed with ID on 02/07. Will have to await sensitivities. Right now, will need to continue caspofungin and amphotericin B bladder irrigation. Likely will be here for at least the weekend waiting results. (2) Acute UTI (urinary tract infection): Yeast in urine culture as above. - Treatment as above (3) CKD (chronic kidney disease), stage III: Acute renal insufficiency in the setting of CKD III, secondary to obstructing stone and possible fever with insensible losses. Baseline Cr. ~1.1 - 1.3. - Avoid nephrotoxic agents and if needed minimize exposure - Today, Cr is 1.05. (4) Confusion: Acute metabolic encephalopathy - at this time likely related to her stones and infective process. - Delirium prevention; sleep hygiene, minimize nightly interruptions - Monitor -> Seems to be back to baseline today. (5) Transient ischemic attack (TIA): History of multiple TIA and CVA with DIABETES SOLUTIONS SPECIALIST stenosis. Patient normally on ASA and Brilinta for treatment. - Restart as above as soon as possible. - Will defer for now given new catheter insertion. Will work with them to determine timing. (6) Diabetes: DMII on insulin therapy. - Pharmacy glycemic control - Resume home regime when back to regular diet -> Eating better. Pharmacy tightening meal-time coverage. 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 - Continue Creon (8) Overactive bladder: No acute issues. (Has triple-lumen catheter presently) - Will give solifenacin if niece brings it in (presently just skipping each day) (9) Hyperlipidemia: Tchol 122, HDL 63, LDL 40 this admission. - Continue atorvastatin 40mg (10) Hiatal hernia: Contributing factor with GERD. - Continue famotidine (11) DVT prophylaxis: Heparin 5000 SQ Q12h Admission and Anticipated Discharge Date Admission Date: February 03, 2021 Subjective Doing well today. No issues. Reports no fevers/chills, chest pain, shortness of breath, abdominal pain, nausea, or vomiting. Physical Exam Constitutional: WD/WN, vitals as above Eyes: EOM intact bilaterally; no conjunctival abnormality ENMT: external ear and nose normal, oropharynx normal Neck: trachea midline, no thyromegaly normal visual inspection Respiratory: normal respiratory effort, lungs clear to auscultation no respiratory distress Cardiovascular: RRR, no murmur, no edema Gastrointestinal (Abdomen): Inspection/Auscultation: abdomen normal to inspection; abdomen not distended Musculoskeletal: no cyanosis or clubbing, extremities motor strength 5/5 Skin: no rashes, warm and dry Neurologic: moves all extremities and awake Psychiatric: Orientation: alert, oriented to person and cooperative Results & Data Results & Data ([facility]) Vital Signs (Past 12 Hours) Vital Signs Temp Pulse Resp BP Pulse Ox 02/08/21 15:00 36.8 C 71 20 95/61 L 92 02/08/21 07:43 36.4 C L 73 18 136/66 90 PG Care Time/CCT Total # of Minutes Spent Total Time Spent with Patient: Total time spent is greater than 50% in coordination of care (as documented) at patient's floor/unit and/or counseling patient: Coding Level of Care Code 87679 Subseq Hosp Care Lvl 2 Diagnoses Ureterolithiasis N20.1 Acute UTI (urinary tract infection) N39.0 CKD (chronic kidney disease), stage III N18.32 Chronic kidney disease stage 3 subtype: stage 3b (GFR 30-44) Confusion R41.0 Transient ischemic attack (TIA) G45.8 Transient cerebral ischemia type: other Diabetes E11.22; N18.31; Z79.4 Diabetes mellitus type: type 2 Diabetes mellitus ad terminal makeup operator insulin use: with ad terminal makeup operator use Diabetes mellitus complication status: with kidney complications Diabetes mellitus complication detail: with chronic kidney disease Chronic kidney disease stage: stage 3 (moderate) Chronic kidney disease stage 3 subtype: stage 3a (GFR 45-59) History of pancreatectomy Z90.410 Overactive bladder N32.81 Hyperlipidemia E78.5 Hyperlipidemia type: unspecified Hiatal hernia K44.9 DVT prophylaxis Z29.9 (1) CKD (chronic kidney disease), stage III Chronic kidney disease stage 3 subtype: stage 3b (GFR 30-44) Qualified Code(s): N18.32 - Chronic kidney disease, stage 3b (2) Transient ischemic attack (TIA) Transient cerebral ischemia type: other Qualified Code(s): G45.8 - Other transient cerebral ischemic attacks and related syndromes (3) Diabetes Diabetes mellitus type: type 2 Diabetes mellitus ad terminal makeup operator insulin use: with prison use Diabetes mellitus complication status: with kidney complications Diabetes mellitus complication detail: with chronic kidney disease Chronic kidney disease stage: stage 3 (moderate) Chronic kidney disease stage 3 subtype: stage 3a (GFR 45-59) Qualified Code(s): E11.22 - Type 2 diabetes mellitus with diabetic chronic kidney disease; N18.31 - Chronic kidney disease, stage 3a; Z79.4 - [facility] (current) use of insulin (4) Hyperlipidemia Hyperlipidemia type: unspecified Qualified Code(s): E78.5 - Hyperlipidemia, unspecified
[2021-02-08] MEDS: MIRTAZAPINE TAB 15 MG TAB PO SCH (21:15)
[2021-02-09 06:38] LABS: Hematocrit (blood only) 34.2 % (37-47); Mean Corpuscular Hgb Conc 32.2 g/dL (32-36); Platelet Count 227 K/uL (130-400); RDW Coefficient of Variation 15.7 % (11.5-14.5); RDW Standard Deviation 48.6 fL (36.4-46.3); Red Blood Count 4.07 M/uL (4.2-5.4); White Blood Count 5.25 K/uL (4.8-10.8)
[2021-02-09 07:12] LABS: Calcium 7.6 mg/dl (8.5-10.1); Creatinine Clr Calc Pharmacy 25.4 ml/min; Est GFR (African American) 45.6; Est GFR (Non-African American) 39.4; Potassium 3.9 mmol/L (3.5-5.1)
[2021-02-09] MEDS: CARBOHYDRATES FOR HYPOGLYCEMIA PO PRN ×2 (07:31→07:48)
[2021-02-09] MEDS: INSULIN ASPART 100 UNITS/ML 3 ML PEN SQ SCH ×4 (08:15→21:55)
[2021-02-09] MEDS: PANCREAZE (LIPASE 10,500U) CAP PO SCH ×3 (08:39→18:01)
--- NOTE | 2021-02-09 08:52 | Urology Progress Note ---
Date of Service February 09, 2021 Assessment & Plan (1) Ureterolithiasis: (2) Acute UTI (urinary tract infection): (3) RAMSES (acute kidney injury): 85 year-old female patient, with multiple comorbidities, admitted with obstructing 6 mm calculus of the left distal ureter and suspected UTI. -POD#5 cystoscopy, left ureteral stent placement. -Patient remains afebrile. -Labs reviewed - white count, slight increase in creatinine. Continue to trend. -Urine culture with >100,000 cfu yeast not Alysa Albicans/dubliniensis. -Preliminary blood cultures positive for yeast not Alysa Albicans/dubliniensis. -Repeat blood cultures pending. -Recommend continuing with supportive care and IV antifungal. -Awaiting final cultures for identification/sensitivity of yeast. -Continue Amphotericin B bladder irrigations, initiated 02/07, recommend total of 5 days. -Expected clinical course reviewed with patient, all questions answered. -Will continue to follow while inpatient. Admission and Anticipated Discharge Date Admission Date: February 03, 2021 Subjective POD #5 cystoscopy, left ureteral stent placement. Patient awake, alert, and comfortable this morning. She reports she slept well overnight. She continues to feel well overall. Currently denies flank/abdominal pain. Denies dysuria or hematuria. Three way flores catheter intact, draining clear yellow urine. Amphotericin B bladder irrigations infusing. Denies fevers or chills. Denies nausea or vomiting. Has been out of bed without dizziness/lightheadedness. Chart review: Afebrile Wbc 5.25 Hgb 11.0 Creatinine 1.26 Urine culture with >100,000 cfu yeast not Alysa Albicans/dubliniensis. Preliminary blood cultures positive for yeast not Alysa Albicans/dubliniensis. Repeat urine cultures pending. Patient currently on IV Caspofungin. Ceftriaxone discontinued. Denies additional urologic concerns today. Review of Systems Constitutional: as per Subjective / HPI; no fever and no chills Gastrointestinal: as per Subjective / HPI; no nausea and no vomiting Genitourinary: as per Subjective / HPI Physical Exam Constitutional: well developed and well nourished; no acute distress and not ill appearing Respiratory: normal respiratory effort and able to speak in complete sentences; no respiratory distress and no audible wheezes Gastrointestinal (Abdomen): Inspection/Auscultation: abdomen normal to inspection; abdomen not distended Percussion/Palpation: abdomen soft; abdomen nontender and no guarding Psychiatric: Orientation: alert, oriented x 3 and cooperative Affect: euthymic affect Genitourinary: Three way flores catheter intact with Amphotericin B bladder irrigations. Urine clear yellow. Results & Data ([facility]) Vital Signs (Past 12 Hours) Vital Signs Temp Pulse Resp BP Pulse Ox 02/09/21 07:16 36.7 C 57 L 16 113/64 95 02/08/21 21:14 36.9 C 69 14 102/52 L 95 PG Care Time/CCT Total # of Minutes Spent Total Time Spent with Patient: Total time spent is greater than 50% in coordination of care (as documented) at patient's floor/unit and/or counseling patient: Coding Level of Care Code 64388 Subseq Hosp Care Lvl 2 Diagnoses Ureterolithiasis N20.1 Acute UTI (urinary tract infection) N39.0 RAMSES (acute kidney injury) N17.9
[2021-02-09] MEDS: INSULIN DETEMIR FLEXPEN/FLEX TOUCH 100 UNITS/ML 3ML SC SCH ×2 (09:26→21:53)
[2021-02-09] MEDS: HEPARIN SOD 5,000 UNIT/0.5 ML VIAL SQ SCH ×2 (09:27→21:50)
[2021-02-09] MEDS: FAMOTIDINE 20 MG TAB PO SCH ×2 (09:27→21:51)
[2021-02-09] MEDS: ATORVASTATIN 40 MG TAB PO SCH (09:27)
[2021-02-09] MEDS: CASPOFUNGIN 50 MG in SODIUM CHLORIDE 0.9% 250 ML IV SCH (10:05)
[2021-02-09] MEDS: AMPHOTERICIN B 50 MG in WATER, STERILE 1,000 ML IR SCH (13:52)
--- NOTE | 2021-02-09 15:18 | Pharmacy Report ---
Pharmacy Glycemic Short Note 2 - Date of Service February 09, 2021 - Glycemic Short BSG Results (Last 24 hours): 02/08/21 02/08/21 02/09/21 16:36 20:41 05:32 Glucose 54 L POC Glucose 260 H 207 H 02/09/21 02/09/21 02/09/21 07:29 07:52 08:42 Glucose POC Glucose 60 L* 63 L* 107 H 02/09/21 12:11 Glucose POC Glucose 274 H OUTPATIENT ANTIDIABETIC REGIMEN: * Levemir 12 units SC HS * Novolog TIDM 3 units + SSI (0-8 units based on BSG) * HbA1c: pending ASSESSMENT: 02/09: * Pt received total 47 units of insulin yesterday: 18 units basal and 29 units bolus. * Fasting BSG was low this AM at 54 mg/dl. Reduced basal insulin dose at HS tonight but continued the AM dose the same. * Post-prandial BSGs were all elevated above 200. Therefore Novolog CF was tightened with lunch today. 02/08 * Pt has received 41 units of insulin over the past 24hrs * 12 units of basal with Levemir * 29 units of bolus with NovoLog * BSGs 05-730-222-313-255 mg/dl * BSgs elevated prior to dinner and at HS yesterday. Pt self-administered insulin at lunch time and RN thinks that it is possible there was an error in administration and patient did not received the full dose (causing the high prior to dinner). However, patient did receive full dose at dinner and HS and BSGs still elevated. * Trend over the last 3 days has been eleavted BSGs prior to dinner and HS - it is likely that the Levemir is not lasting 24hrs; BID dosing it typical with Levemir. * AM fasting BSG elevated - will add AM dose of Levemir to increase dosing to BID 02/07 * Patient received total of 47 units of insulin yesterday, of which 12 units were basal insulin * Fasting BSG low at 75 mg/dL (PRP 57 mg/dL) - no hypoglycemia per notes. * Patient's PO intake has been fluctuating, therefore insulin needs changing rapidly. Unclear if basal insulin is contributing to lower fasting BSGs or if correctional insulin at HS is reasoning. Will trial removing insulin coverage for HS time * Continue same CF/CR today, provide scale for HS levemir with decreased units 02/06 * Patient received total of 21 units of insulin yesterday, of which 12 were basal insulin * Fasting BSG 91 mg/dL - continue with scale for basal at HS. Appears patient eating more today, will increase basal slightly if BSGs trending up * Tighten CR for this morning PLAN FOR INPATIENT GLYCEMIC CONTROL: * Basal insulin * Levemir 6 units SQ AM * Levemir 0-6 units HS based upon BSG * Bolus insulin: tightened CF at breakfast, lunch and dinner * NovoLog per scale - breakfast, lunch, dinner check only * Goal Range: Low 110 mg/dL - High 140 mg/dL * Correction Factor: 25 mg/dL/unit * Nutritional / Prandial insulin per carb ratio of 1 unit per 5 grams CHO consumed * at HS only; CF = 45mg/dl/unit. No CR ordered.
--- NOTE | 2021-02-09 20:37 | Hospitalist Progress Note ---
Date of Service February 09, 2021 Assessment & Plan (1) Fungemia: 02/03 blood cx's + for teresita glabrata with UTI as source. repeat blood cx's 02/08 neg to date. spoke with micro - teresita is being sent out for sensitivity testing. cont amphotericin bladder irrigation in meantime, and caspofungin IV daily. await sensitivities. echo w/o vegetations and patient stable hemodynamically. (2) Acute UTI (urinary tract infection): COMPLICATED, given kidney stones and ureteral stent. teresita species, most certainly teresita glabrata as blood cultures have such continue amphotericin bladder irrigation continue caspofungin (3) Ureterolithiasis: 6 x 4 x 6 mm calculus of the distal left ureter approximately 2.5 cm proximal to the ureterovesicular junction. s/p left-sided stent placement on 02/04/21. Doing well from urology standpoint. 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 Patient normally on ASA and Brilinta for treatment. Will d/w urology when these can be resumed. (7) Diabetes: labile pharmacy following and recommendations appreciated cont basal-bolus insulin (8) History of pancreatectomy: No acute issues. Continue Creon. (9) Hyperlipidemia: Continue atorvastatin 40mg (10) Hiatal hernia: Continue famotidine (11) DVT prophylaxis: Heparin 5000 SQ Q12h niece updated at bedside cont PT, OT Admission and Anticipated Discharge Date Admission Date: February 03, 2021 Subjective patient with mild pain related to flores but otherwise no back pain, flank pain, or abd pain eating better no other complaints niece at bedside ampho bladder irrigation continues w/o incident Review of Systems Constitutional: no fever Respiratory: no cough and no dyspnea Cardiovascular: no chest pain Gastrointestinal: no abdominal pain, no nausea, no vomiting and no diarrhea/loose stools Physical Exam Constitutional: no acute distress and no altered mental status ENMT: external ear and nose normal, oropharynx normal Respiratory: normal respiratory effort, lungs clear to auscultation Cardiovascular: Rate/Rhythm: regular rate and regular rhythm Heart Sounds: normal S1 and normal S2; no murmur Vessels: posterior tibial pulses present and dorsalis pedis pulses present; no JVD Extremities: no edema Gastrointestinal (Abdomen): normal bowel sounds, soft, nontender, no hepatosplenomegaly (no flank tenderness b/l ) 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 Psychiatric: Orientation: alert and oriented x 3 Results & Data Results & Data ([facility]) Vital Signs (Past 12 Hours) Vital Signs Temp Pulse Resp BP Pulse Ox 02/09/21 14:59 36.6 C 65 16 105/62 94 Laboratory Results Laboratory Results - last 24 hr 02/08/21 02/09/21 02/09/21 20:41 05:32 05:32 WBC 5.25 RBC 4.07 L Hgb 11.0 L Hct 34.2 L MCV 84.0 MCH 27.0 MCHC 32.2 RDW Std Deviation 48.6 H RDW Coeff of Flako 15.7 H Plt Count 227 MPV 10.0 Sodium 141 Potassium 3.9 Chloride 110 H Carbon Dioxide 27 Anion Gap 4.0 BUN 19 H Creatinine 1.26 H Est Cr Clr Drug Dosing 25.4 Est GFR ( Amer) 45.6 Est GFR (Non-Af Amer) 39.4 BUN/Creatinine Ratio 15.0 Glucose 54 L POC Glucose 207 H Calcium 7.6 L Magnesium 2.0 02/09/21 02/09/21 02/09/21 07:29 07:52 08:42 WBC RBC Hgb Hct MCV MCH MCHC RDW Std Deviation RDW Coeff of Flako Plt Count MPV Sodium Potassium Chloride Carbon Dioxide Anion Gap BUN Creatinine Est Cr Clr Drug Dosing Est GFR ( Amer) Est GFR (Non-Af Amer) BUN/Creatinine Ratio Glucose POC Glucose 60 L* 63 L* 107 H Calcium Magnesium 02/09/21 02/09/21 12:11 17:23 WBC RBC Hgb Hct MCV MCH MCHC RDW Std Deviation RDW Coeff of Flako Plt Count MPV Sodium Potassium Chloride Carbon Dioxide Anion Gap BUN Creatinine Est Cr Clr Drug Dosing Est GFR ( Amer) Est GFR (Non-Af Amer) BUN/Creatinine Ratio Glucose POC Glucose 274 H 84 Calcium Magnesium blood cx's - teresita glabrata, sens pending repeat blood cx's 02/08/21 neg to date PG Care Time/CCT Total # of Minutes Spent Total Time Spent with Patient: Total time spent is greater than 50% in coordination of care (as documented) at patient's floor/unit and/or counseling patient: Coding Level of Care Code 94275 Subseq Hosp Care Lvl 2 Diagnoses Fungemia B49 Acute UTI (urinary tract infection) N39.0 Ureterolithiasis N20.1 Chronic kidney disease, stage IV (severe) N18.4 Confusion R41.0 Transient ischemic attack (TIA) G45.8 Transient cerebral ischemia type: other Diabetes E11.22; N18.31; Z79.4 Chronic kidney disease stage: stage 3 (moderate) Chronic kidney disease stage 3 subtype: stage 3a (GFR 45-59) Diabetes mellitus complication detail: with chronic kidney disease Diabetes mellitus complication status: with kidney complications Diabetes mellitus watermelon inspector insulin use: with watermelon inspector use Diabetes mellitus type: type 2 History of pancreatectomy Z90.410 Hyperlipidemia E78.5 Hyperlipidemia type: unspecified Hiatal hernia K44.9 DVT prophylaxis Z29.9 (1) Diabetes Chronic kidney disease stage: stage 3 (moderate) Chronic kidney disease stage 3 subtype: stage 3a (GFR 45-59) Diabetes mellitus complication detail: with chronic kidney disease Diabetes mellitus complication status: with kidney complications Diabetes mellitus watermelon inspector insulin use: with prison use Diab etes mellitus type: type 2 Qualified Code(s): E11.22 - Type 2 diabetes mellitus with diabetic chronic kidney disease; N18.31 - Chronic kidney disease, stage 3a; Z79.4 - parts counterman (current) use of insulin (2) Hyperlipidemia Hyperlipidemia type: unspecified Qualified Code(s): E78.5 - Hyperlipidemia, unspecified (3) Transient ischemic attack (TIA) Transient cerebral ischemia type: other Qualified Code(s): G45.8 - Other transient cerebral ischemic attacks and related syndromes
[2021-02-09] MEDS: MIRTAZAPINE TAB 15 MG TAB PO SCH (21:50)
[2021-02-10] MEDS: INSULIN ASPART 100 UNITS/ML 3 ML PEN SQ SCH ×4 (09:19→20:57)
[2021-02-10] MEDS: FAMOTIDINE 20 MG TAB PO SCH ×2 (09:19→19:56)
[2021-02-10] MEDS: INSULIN DETEMIR FLEXPEN/FLEX TOUCH 100 UNITS/ML 3ML SC SCH ×2 (09:20→20:56)
[2021-02-10] MEDS: PANCREAZE (LIPASE 10,500U) CAP PO SCH ×3 (09:20→17:18)
[2021-02-10] MEDS: ATORVASTATIN 40 MG TAB PO SCH (09:21)
[2021-02-10] MEDS: HEPARIN SOD 5,000 UNIT/0.5 ML VIAL SQ SCH ×2 (09:21→19:53)
[2021-02-10] MEDS: CASPOFUNGIN 50 MG in SODIUM CHLORIDE 0.9% 250 ML IV SCH (09:26)
[2021-02-10] MEDS: AMPHOTERICIN B 50 MG in WATER, STERILE 1,000 ML IR SCH (14:45)
[2021-02-10] MEDS: CARBOHYDRATES FOR HYPOGLYCEMIA PO PRN ×2 (17:17→17:59)
[2021-02-10] MEDS: MIRTAZAPINE TAB 15 MG TAB PO SCH (19:53)
--- NOTE | 2021-02-10 22:37 | Hospitalist Progress Note ---
Date of Service February 10, 2021 Assessment & Plan (1) Fungemia: 02/03 blood cx's + for teresita glabrata with UTI as source. repeat blood cx's 02/08 continue to be negative to date. sensitivity testing for teresita glabrata sent out and is pending. cont amphotericin bladder irrigation in meantime, and caspofungin IV daily. day #4 of 5 of ampho irrigation. echo w/o vegetations and patient stable hemodynamically. (2) Acute UTI (urinary tract infection): COMPLICATED, given kidney stones and ureteral stent. teresita species, most certainly teresita glabrata as blood cultures have such continue amphotericin bladder irrigation - day #4 of 5 continue caspofungin await sensitivities of c. glabrata (3) Ureterolithiasis: 6 x 4 x 6 mm calculus of the distal left ureter approximately 2.5 cm proximal to the ureterovesicular junction. s/p left-sided stent placement on 02/04/21. Doing well from urology standpoint. 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 Patient normally on ASA and Brilinta for treatment. resume asa/brilinta tomorrow am (7) Diabetes: labile with lows today pharmacy following and recommendations appreciated cont basal-bolus insulin (8) History of pancreatectomy: No acute issues. Continue Creon. (9) Hyperlipidemia: Continue atorvastatin 40mg (10) Hiatal hernia: Continue famotidine (11) DVT prophylaxis: Heparin 5000 SQ Q12h niece updated at bedside yesterday cont PT, OT Admission and Anticipated Discharge Date Admission Date: February 03, 2021 Subjective patient sitting in chair by bedside no complaints today eating 100% meals feels "so much better" in comparison to several days ago asks about the plan Review of Systems Constitutional: no fever, no chills, no fatigue and no anorexia Respiratory: no dyspnea Cardiovascular: no chest pain Gastrointestinal: no abdominal pain Physical Exam Constitutional: no acute distress and no altered mental status ENMT: external ear and nose normal, oropharynx normal Respiratory: normal respiratory effort, lungs clear to auscultation Cardiovascular: Rate/Rhythm: regular rate and regular rhythm Heart Sounds: normal S1 and normal S2; no murmur Vessels: posterior tibial pulses present and dorsalis pedis pulses present; no JVD Extremities: no edema Gastrointestinal (Abdomen): normal bowel sounds, soft, nontender, no hepatosplenomegaly Skin: neurofibromas - diffuse - arms, legs, face, etc Psychiatric: Orientation: alert and oriented x 3 Results & Data Results & Data ([facility]) Vital Signs (Past 12 Hours) Vital Signs Temp Pulse Resp BP Pulse Ox 02/10/21 22:20 36.7 C 69 16 114/63 96 02/10/21 15:26 37.2 C 70 16 105/61 92 Laboratory Results Laboratory Results - last 24 hr 02/10/21 02/10/21 02/10/21 08:05 11:58 17:13 POC Glucose 131 H 194 H 47 L* 02/10/21 02/10/21 02/10/21 17:16 17:36 17:55 POC Glucose 50 L* 56 L* 68 L* 02/10/21 02/10/21 18:14 20:21 POC Glucose 101 H 256 H PG Care Time/CCT Total # of Minutes Spent Total Time Spent with Patient: Total time spent is greater than 50% in contract administration coordinator rdination of care (as documented) at patient's floor/unit and/or counseling patient: Coding Level of Care Code 79800 Subseq Hosp Care Lvl 2 Diagnoses Fungemia B49 Acute UTI (urinary tract infection) N39.0 Ureterolithiasis N20.1 Chronic kidney disease, stage IV (severe) N18.4 Confusion R41.0 Transient ischemic attack (TIA) G45.8 Transient cerebral ischemia type: other Diabetes E11.22; N18.31; Z79.4 Chronic kidney disease stage: stage 3 (moderate) Chronic kidney disease stage 3 subtype: stage 3a (GFR 45-59) Diabetes mellitus complication detail: with chronic kidney disease Diabetes mellitus complication status: with kidney complications Diabetes mellitus prison insulin use: with prison use Diabetes mellitus type: type 2 History of pancreatectomy Z90.410 Hyperlipidemia E78.5 Hyperlipidemia type: unspecified Hiatal hernia K44.9 DVT prophylaxis Z29.9 (1) Diabetes Chronic kidney disease stage: stage 3 (moderate) Chronic kidney disease stage 3 subtype: stage 3a (GFR 45-59) Diabetes mellitus complication detail: with chronic kidney disease Diabetes mellitus complication status: with kidney complications Diabetes mellitus exterminator insulin use: with prison use Diabetes mellitus type: type 2 Qualified Code(s): E11.22 - Type 2 diabetes mellitus with diabetic chronic kidney disease; N18.31 - Chronic kidney disease, stage 3a; Z79.4 - [facility] (current) use of insulin (2) Hyperlipidemia Hyperlipidemia type: unspecified Qualified Code(s): E78.5 - Hyperlipidemia, unspecified (3) Transient ischemic attack (TIA) Transient cerebral ischemia type: other Qualified Code(s): G45.8 - Other transient cerebral ischemic attacks and related syndromes
[2021-02-11 06:52] LABS: BUN Creatinine Ratio 17.5 (10-20); Calcium 8.2 mg/dl (8.5-10.1); Creatinine Clr Calc Pharmacy 26.5 ml/min; Est GFR (African American) 47.9; Est GFR (Non-African American) 41.3; Potassium 4.3 mmol/L (3.5-5.1)
[2021-02-11] MEDS: FAMOTIDINE 20 MG TAB PO SCH ×2 (08:40→21:10)
[2021-02-11] MEDS: HEPARIN SOD 5,000 UNIT/0.5 ML VIAL SQ SCH ×2 (08:40→21:12)
[2021-02-11] MEDS: ATORVASTATIN 40 MG TAB PO SCH (08:40)
[2021-02-11] MEDS: PANCREAZE (LIPASE 10,500U) CAP PO SCH ×3 (08:40→16:58)
[2021-02-11] MEDS: INSULIN ASPART 100 UNITS/ML 3 ML PEN SQ SCH ×5 (08:41→21:13)
[2021-02-11] MEDS: INSULIN DETEMIR FLEXPEN/FLEX TOUCH 100 UNITS/ML 3ML SC SCH ×2 (08:42→21:13)
[2021-02-11] MEDS: CASPOFUNGIN 50 MG in SODIUM CHLORIDE 0.9% 250 ML IV SCH (08:46)
[2021-02-11] MEDS: ASPIRIN 81 MG ECTAB PO SCH (10:14)
[2021-02-11] MEDS: TICAGRELOR 90 MG TAB PO SCH ×2 (10:14→21:09)
--- NOTE | 2021-02-11 10:37 | Pharmacy Report ---
Pharmacy Glycemic Short Note 2 - Date of Service February 11, 2021 - Glycemic Short BSG Results (Last 24 hours): 02/10/21 02/10/21 02/10/21 11:58 17:13 17:16 Glucose POC Glucose 194 H 47 L* 50 L* 02/10/21 02/10/21 02/10/21 17:36 17:55 18:14 Glucose POC Glucose 56 L* 68 L* 101 H 02/10/21 02/11/21 02/11/21 20:21 05:46 08:13 Glucose 139 H POC Glucose 256 H 160 H OUTPATIENT ANTIDIABETIC REGIMEN: * Levemir 12 units SC HS * Novolog TIDM 3 units + SSI (0-8 units based on BSG) * HbA1c: pending ASSESSMENT: 02/11 * Pt has received 37 units of insulin over the past 24hrs * 12 units of basal with Levemir * 25 units of bolus with NovoLog * BSGs 47-256 mg/dl * Blood sugars dropping prior to dinner the past two days, loosen CR at lunch and dinner to prevent further lows * Continue HS basal on scale to prevent hypoglycemia 02/09: * Pt received total 47 units of insulin yesterday: 18 units basal and 29 units bolus. * Fasting BSG was low this AM at 54 mg/dl. Reduced basal insulin dose at HS tonight but continued the AM dose the same. * Post-prandial BSGs were all elevated above 200. Therefore Novolog CF was tightened with lunch today. 02/08 * Pt has received 41 units of insulin over the past 24hrs * 12 units of basal with Levemir * 29 units of bolus with NovoLog * BSGs [phone] mg/dl * BSgs elevated prior to dinner and at HS yesterday. Pt self-administered insulin at lunch time and RN thinks that it is possible there was an error in administration and patient did not received the full dose (causing the high prior to dinner). However, patient did receive full dose at dinner and HS and BSGs still elevated. * Trend over the last 3 days has been eleavted BSGs prior to dinner and HS - it is likely that the Levemir is not lasting 24hrs; BID dosing it typical with Levemir. * AM fasting BSG elevated - will add AM dose of Levemir to increase dosing to BID 3/17 * Patient received total of 47 units of insulin yesterday, of which 12 units were basal insulin * Fasting BSG low at 75 mg/dL (PRP 57 mg/dL) - no hypoglycemia per notes. * Patient's PO intake has been fluctuating, therefore insulin needs changing rap idly. Unclear if basal insulin is contributing to lower fasting BSGs or if correctional insulin at HS is reasoning. Will trial removing insulin coverage for HS time * Continue same CF/CR today, provide scale for HS levemir with decreased units 02/06 * Patient received total of 21 units of insulin yesterday, of which 12 were basal insulin * Fasting BSG 91 mg/dL - continue with scale for basal at HS. Appears patient eating more today, will increase basal slightly if BSGs trending up * Tighten CR for this morning PLAN FOR INPATIENT GLYCEMIC CONTROL: * Basal insulin * Levemir 6 units SQ AM * Levemir 0-6 units HS based upon BSG * Bolus insulin: * NovoLog per scale * Goal Range: Low 110 mg/dL - High 140 mg/dL * Correction Factor: 25 mg/dL/unit * Nutritional / Prandial insulin per carb ratio of 1 unit per 5 grams CHO consumed at breakfast, 1 unit per 8 grams consumed at lunch and dinner * at HS only: CF = 45mg/dl/unit. No CR ordered.
[2021-02-11] MEDS: AMPHOTERICIN B 50 MG in WATER, STERILE 1,000 ML IR SCH (13:58)
--- NOTE | 2021-02-11 19:54 | Hospitalist Progress Note ---
Date of Service February 11, 2021 Assessment & Plan (1) Fungemia: clinically resolved. 02/03 blood cx's + for teresita glabrata with UTI as source. repeat blood cx's 02/08 continue to be negative to date. sensitivity testing for teresita glabrata sent out and is pending. cont amphotericin bladder irrigation in meantime, and caspofungin IV daily. day #5 of 5 of ampho irrigation --- stop date of 02/12/21 at about noon. once ampho is done can likely d/c flores as well. echo w/o vegetations and patient stable hemodynamically. once sensitivities are back reconsult telehealth via [facility]. (2) Acute UTI (urinary tract infection): COMPLICATED, given kidney stones and ureteral stent. teresita species, most certainly teresita glabrata as blood cultures have such continue amphotericin bladder irrigation - day #5 of 5; stop date 02/12/21 at about noon. continue caspofungin await sensitivities of c. glabrata (3) Ureterolithiasis: 6 x 4 x 6 mm calculus of the distal left ureter approximately 2.5 cm proximal to the ureterovesicular junction. s/p left-sided stent placement on 02/04/21 - POD #7. Doing well from urology standpoint. Will need stone and stent management when deeded ready by urology. 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 Patient normally on ASA and Brilinta for treatment. resume asa/brilinta today - ok with urology (7) Diabetes: labile with lows yesterday pharmacy following and recommendations appreciated cont basal-bolus insulin (8) History of pancreatectomy: No acute issues. Continue Creon. (9) Hyperlipidemia: Continue atorvastatin 40mg (10) Hiatal hernia: Continue famotidine (11) DVT prophylaxis: Heparin 5000 SQ Q12h niece updated by phone tonight cont PT, OT dispo - [facility] Admission and Anticipated Discharge Date Admission Date: February 03, 2021 Subjective patient feeling well no complaints - no back pain, no abdominal pain, no suprapubic pain eating well ambulating well Review of Systems Constitutional: no fever and no chills Respiratory: no dyspnea and no dyspnea on exertion Cardiovascular: no chest pain Gastrointestinal: no abdominal pain, no nausea and no vomiting Physical Exam Constitutional: no acute distress and no altered mental status ENMT: external ear and nose normal, oropharynx normal Respiratory: normal respiratory effort, lungs clear to auscultation Cardiovascular: Rate/Rhythm: regular rate and regular rhythm Heart Sounds: normal S1 and normal S2; no murmur Vessels: posterior tibial pulses present and dorsalis pedis pulses present; no JVD Extremities: no edema Gastrointestinal (Abdomen): normal bowel sounds, soft, nontender, no hepatosplenomegaly Skin: numerous (too numerous to count) neurofibromas over all portions of the body Psychiatric: Orientation: alert and oriented x 3 Results & Data Results & Data ([facility]) Vital Signs (Past 12 Hours) Vital Signs Temp Pulse Resp BP Pulse Ox 02/11/21 15:17 37.0 C 71 16 124/68 95 Laboratory Results Laboratory Results - last 24 hr 02/10/21 02/11/21 02/11/21 20:21 05:46 08:13 Sodium 138 Potassium 4.3 Chloride 106 Carbon Dioxide 28 Anion Gap 4.0 BUN 21 H Creatinine 1.21 H Est Cr Clr Drug Dosing 26.5 Est GFR ( Amer) 47.9 Est GFR (Non-Af Amer) 41.3 BUN/Creatinine Ratio 17.5 Glucose 139 H POC Glucose 256 H 160 H Calcium 8.2 L 02/11/21 02/11/21 12:03 17:00 Sodium Potassium Chloride Carbon Dioxide Anion Gap BUN Creatinine Est Cr Clr Drug Dosing Est GFR ( Amer) Est GFR (Non-Af Amer) BUN/Creatinine Ratio Glucose POC Glucose 172 H 123 H Calcium PG Care Time/CCT Total # of Minutes Spent Total Time Spent with Patient: Total time spent is greater than 50% in coordination of care (as documented) at patient's floor/unit and/or counseling patient: Coding Level of Care Code 39925 Subseq Hosp Care Lvl 2 Diagnoses Fungemia B49 Acute UTI (urinary tract infection) N39.0 Ureterolithiasis N20.1 Chronic kidney disease, stage IV (severe) N18.4 Confusion R41.0 Transient ischemic attack (TIA) G45.8 Transient cerebral ischemia type: other Diabetes E11.22; N18.31; Z79.4 Chronic kidney disease stage: stage 3 (moderate) Chronic kidney disease stage 3 subtype: stage 3a (GFR 45-59) Diabetes mellitus complication detail: with chronic kidney disease Diabetes mellitus complication status: with kidney complications Diabetes mellitus detention insulin use: with intermission coordinator use Diabetes mellitus type: type 2 History of pancreatectomy Z90.410 Hyperlipidemia E78.5 Hyperlipidemia type: unspecified Hiatal hernia K44.9 DVT prophylaxis Z29.9 (1) Diabetes Chronic kidney disease stage: stage 3 (moderate) Chronic kidney disease stage 3 subtype: stage 3a (GFR 45-59) Diabetes mellitus complication detail: with chronic kidney disease Diabetes mellitus complication status: with kidney complications Diabetes mellitus intermission coordinator insulin use: with intermission coordinator use Diabetes mellitus type: type 2 Qualified Code(s): E11.22 - Type 2 diabetes mellitus with diabetic chronic kidney disease; N18.31 - Chronic kidney disease, stage 3a; Z79.4 - termite helper (current) use of insulin (2) Hyperlipidemia Hyperlipidemia type: unspecified Qualified Code(s): E78.5 - Hyperlipidemia, unspecified (3) Transient ischemic attack (TIA) Transient cerebral ischemia type: other Qualified Code(s): G45.8 - Other transient cerebral ischemic attacks and related syndromes
[2021-02-11] MEDS: MIRTAZAPINE TAB 15 MG TAB PO SCH (21:10)
[2021-02-12] MEDS: FAMOTIDINE 20 MG TAB PO SCH ×2 (07:37→20:33)
[2021-02-12] MEDS: PANCREAZE (LIPASE 10,500U) CAP PO SCH ×3 (07:37→17:37)
[2021-02-12] MEDS: ASPIRIN 81 MG ECTAB PO SCH (07:37)
[2021-02-12] MEDS: ATORVASTATIN 40 MG TAB PO SCH (07:38)
[2021-02-12] MEDS: TICAGRELOR 90 MG TAB PO SCH ×2 (07:38→20:33)
[2021-02-12] MEDS: INSULIN DETEMIR FLEXPEN/FLEX TOUCH 100 UNITS/ML 3ML SC SCH ×2 (07:39→21:16)
[2021-02-12] MEDS: HEPARIN SOD 5,000 UNIT/0.5 ML VIAL SQ SCH ×2 (07:41→20:34)
[2021-02-12] MEDS: INSULIN ASPART 100 UNITS/ML 3 ML PEN SQ SCH ×4 (09:04→21:16)
--- NOTE | 2021-02-12 09:39 | Urology Progress Note ---
Date of Service February 12, 2021 Assessment & Plan (1) Ureterolithiasis: (2) Acute UTI (urinary tract infection): 85 year-old female patient, with multiple comorbidities, admitted with obstructing 6 mm calculus of the left distal ureter and suspected UTI. -POD#8 cystoscopy, left ureteral stent placement. -Patient remains afebrile. -No new labs today, creatinine 1.21 yesterday. -Urine culture with >100,000 cfu yeast not Alysa Albicans/dubliniensis. -Blood culture from 3 with Alysa glabrata, no sensitivities. -Repeat blood cultures preliminary with no growth, await final. -No further acute intervention indicated at this time. -Continue Amphotericin B bladder irrigations, to be completed later today. -Recommend removal of flores catheter after completion of amphotericin bladder irrigation. -Continue supportive care and antifungals per infectious disease recommendations. -Expected clinical course reviewed with patient, all questions answered. -Will arrange outpatient follow-up with urology service for stone and stent management. Thank you for allowing us to participate in the acute care of Mrs. Torres. Please reconsult us with additional questions, concerns or changes in patient status. Admission and Anticipated Discharge Date Admission Date: February 03, 2021 Subjective POD #8 cystoscopy, left ureteral stent placement. Pt examined at bedside this AM. Awake, resting in bed on arrival. She continues to feel well overall. Currently denies flank/abdominal pain. Denies dysuria or hematuria. Three way flores catheter intact, draining clear yellow urine. Amphotericin B bladder irrigations infusing. Denies fevers or chills. Denies nausea or vomiting. Has been out of bed without dizziness/lightheadedness. Chart review: Afebrile, creatinine 1.21 (02/11) Urine culture 02/03 - with >100,000 cfu yeast not Alysa Albicans/dubliniensis. Blood culture 02/03- Alyas glabrata no sensitivities Repeat blood cultures 02/08 - preliminary no growth Patient currently on IV Caspofungin daily. Day #5 of 5 of amphotericin bladder irrigation --- stop date of 02/12/21 Review of Systems Constitutional: as per Subjective / HPI Gastrointestinal: as per Subjective / HPI Genitourinary: as per Subjective / HPI Physical Exam Constitutional: well developed and well nourished; no acute distress and not ill appearing Respiratory: normal respiratory effort and able to speak in complete sentences; no labored breathing Cardiovascular: Extremities: no calf tenderness Gastrointestinal (Abdomen): Percussion/Palpation: abdomen soft; abdomen nontender and no guarding Neurologic: moves all extremities and awake Psychiatric: A+Ox3, euthymic affect Genitourinary: Flores catheter intact, draining clear yellow urine. Amphotericin bladder irrigation infusion Results & Data ([facility]) Vital Signs (Past 12 Hours) Vital Signs Temp Pulse Resp BP Pulse Ox 02/12/21 07:24 36.6 C 57 L 16 146/76 H 95 02/11/21 21:59 36.7 C 57 L 15 132/77 93 PG Care Time/CCT Total # of Minutes Spent Total Time Spent with Patient: Total time spent is greater than 50% in coordin ation of care (as documented) at patient's floor/unit and/or counseling patient: Coding Level of Care Code 44932 Subseq Hosp Care Lvl 2 Diagnoses Ureterolithiasis N20.1 Acute UTI (urinary tract infection) N39.0
[2021-02-12] MEDS: CASPOFUNGIN 50 MG in SODIUM CHLORIDE 0.9% 250 ML IV SCH (10:27)
--- NOTE | 2021-02-12 14:09 | Pharmacy Report ---
Pharmacy Glycemic Short Note 2 - Date of Service February 12, 2021 - Glycemic Short BSG Results (Last 24 hours): 02/11/21 02/11/21 02/12/21 17:00 20:53 08:05 POC Glucose 123 H 281 H 111 H 02/12/21 12:06 POC Glucose 237 H OUTPATIENT ANTIDIABETIC REGIMEN: * Levemir 12 units SC HS * Novolog TIDM 3 units + SSI (0-8 units based on BSG) * HbA1c: pending ASSESSMENT: 02/12 * Pt received total of 41 units of insulin yesterday, of which 12 units were basal * Fasting BSG w/in range at 111 mg/dL * Continue with tighter CR at breakfast looser throughout the day 02/11 * Pt has received 37 units of insulin over the past 24hrs * 12 units of basal with Levemir * 25 units of bolus with NovoLog * BSGs 47-256 mg/dl * Blood sugars dropping prior to dinner the past two days, loosen CR at lunch and dinner to prevent further lows * Continue HS basal on scale to prevent hypoglycemia PLAN FOR INPATIENT GLYCEMIC CONTROL: * Basal insulin * Levemir 6 units SQ AM * Levemir 0-6 units HS based upon BSG * Bolus insulin: * NovoLog per scale * Goal Range: Low 110 mg/dL - High 140 mg/dL * Correction Factor: 30 mg/dL/unit * Nutritional / Prandial insulin per carb ratio of 1 unit per 5 grams CHO consumed at breakfast, 1 unit per 8 grams consumed at lunch and dinner * at HS only: CF = 45mg/dl/unit. No CR ordered.
--- NOTE | 2021-02-12 19:57 | Hospitalist Progress Note ---
Date of Service February 12, 2021 Assessment & Plan (1) Fungemia: clinically resolved. 02/03 blood cx's + for teresita glabrata with UTI as source. repeat blood cx's 02/08 continue to be negative to date. sensitivity testing for teresita glabrata sent out and is pending. cont amphotericin bladder irrigation in meantime, and caspofungin IV daily. day #5 of 5 of ampho irrigation --- stop date of 02/12/21 at about noon. once ampho is done can likely d/c flores as well. echo w/o vegetations and patient stable hemodynamically. once sensitivities are back reconsult telehealth via [email or web address]. 3- flores removed, ampho stopped still on caspofungin cultures stating "no susceptibilities to follow" for teresita albicans and glabrata will likely switch to fluconazole pending ID approval (2) Acute UTI (urinary tract infection): COMPLICATED, given kidney stones and ureteral stent. teresita species, most certainly teresita glabrata as blood cultures have such continue amphotericin bladder irrigation - day #5 of 5; stop date 02/12/21 at about noon. continue caspofungin await sensitivities of c. glabrata 02-12 flores out, ampho stopped. no susceptibilites pending (3) Ureterolithiasis: 6 x 4 x 6 mm calculus of the distal left ureter approximately 2.5 cm proximal to the ureterovesicular junction. s/p left-sided stent placement on 02/04/21 - POD #7. Doing well from urology standpoint. Will need stone and stent management when deeded ready by urology. 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 Patient normally on ASA and Brilinta for treatment. resume asa/brilinta today - ok with urology (7) Diabetes: labile with lows yesterday pharmacy following and recommendations appreciated cont basal-bolus insulin (8) History of pancreatectomy: No acute issues. Continue Creon. (9) Hyperlipidemia: Continue atorvastatin 40mg (10) Hiatal hernia: Continue famotidine (11) DVT prophylaxis: Heparin 5000 SQ Q12h niece updated by phone tonight cont PT, OT dispo [facility] Admission and Anticipated Discharge Date Admission Date: February 03, 2021 Subjective Patient eager for discharge Tolerating diet Flores was removed -- has not voided yet No difficulty with bowels No complaints Review of Systems Constitutional: no fever, no chills, no fatigue, no weakness, no anorexia, no weight loss and no weight gain Ear, Nose, Mouth, Throat: no nasal congestion, no sore throat and no dysphagia Respiratory: no cough and no dyspnea Cardiovascular: no chest pain, no dyspnea on exertion, no orthopnea and no palpitations Gastrointestinal: no abdominal pain, no nausea, no vomiting, no hematemesis, no dysphagia, no constipation, no diarrhea/loose stools, no blood in stools and no melena Genitourinary: no dysuria, no urinary frequency, no hematuria and no flank pain Musculoskeletal: no back pain, no joint pain, no myalgia and no muscle weakness Integumentary: no rash, no lesions, no skin ulcer, no erythema, no dry skin and no pruritus Neurologic: no falls, no localized weakness, no generalized weakness, no numbness, no paresthesia, no tremor(s) and no headache(s) Psychiatric: no depression, no suicidal ideation, no homicidal ideation and no anxiety Endocrine: no cold intolerance and no heat intolerance Hematologic / Lymphatic: no easy bleeding and no easy bruising Physical Exam Constitutional: well developed and well nourished; no acute distress Eyes: PERRL, conjunctivae normal, anicteric sclerae ENMT: Mouth: oral mucous membranes not dry Respiratory: normal respiratory effort; no respiratory distress and no labored breathing Auscultation: lungs clear to auscultation bilaterally; no crackles, no rales, no rhonchi and no wheezes Cardiovascular: Rate/Rhythm: regular rate and regular rhythm Heart Sounds: no murmur and no cardiac rub Vessels: normal peripheral pulses and radial pulses present; no JVD Extremities: no edema Gastrointestinal (Abdomen): Inspection/Auscultation: abdomen normal to inspection and normal bowel sounds; abdomen not distended Percussion/Palpation: abdomen soft; abdomen nontender, no guarding, abdomen not rigid and no hepatosplenomegaly Musculoskeletal: Head/Neck/Chest: normocephalic and head atraumatic Spine: no cervical spinal tenderness, no cervical muscular tenderness, no thoracic spinal tenderness and no lumbar spinal tenderness Skin: no rashes, warm and dry Neurologic: CN's II-XI intact bilaterally and moves all extremities Motor/Sensory: no tremor and no sensory deficit Psychiatric: Orientation: alert, oriented to person, oriented to place and oriented to time Apperance: appropriately groomed; not disheveled Affect: euthymic affect; no anxious affect and no tearful affect Genitourinary: no CVA tenderness no Flores catheter Results & Data Results & Data ([facility]) Vital Signs (Past 12 Hours) Vital Signs Temp Pulse Resp BP Pulse Ox 02/12/21 14:50 36.6 C 67 16 147/88 H 96 PG Care Time/CCT Total # of Minutes Spent Total Time Spent with Patient: Total time spent is greater than 50% in coordination of care (as documented) at patient's floor/unit and/or counseling patient: Coding Level of Care Code 84517 Subseq Hosp Care Lvl 2 Diagnoses Fungemia B49 Acute UTI (urinary tract infection) N39.0 Ureterolithiasis N20.1 Chronic kidney disease, stage IV (severe) N18.4 Confusion R41.0 Transient ischemic attack (TIA) G45.8 Transient cerebral ischemia type: other Diabetes E11.22; N18.31; Z79.4 Diabetes mellitus type: type 2 Diabetes mellitus halfway insulin use: with halfway use Diabetes mellitus complication status: with kidney complications Diabetes mellitus complication detail: with chronic kidney disease Chronic kidney disease stage: stage 3 (moderate) Chronic kidney disease stage 3 subtype: stage 3a (GFR 45-59) History of pancreatectomy Z90.410 Hyperlipidemia E78.5 Hyperlipidemia type: unspecified Hiatal hernia K44.9 DVT prophylaxis Z29.9 (1) Transient ischemic attack (TIA) Transient cerebral ischemia type: other Qualified Code(s): G45.8 - Other transient cerebral ischemic attacks and related syndromes (2) Diabetes Diabetes mellitus type: type 2 Diabetes mellitus staff development educator insulin use: with staff development educator use Diabetes mellitus complication status: with kidney complications Diabetes mellitus complication detail: with chronic kidney disease Chronic kidney disease stage: stage 3 (moderate) Chronic kidney disease stage 3 subtype: stage 3a (GFR 45-59) Qualified Code(s): E11.22 - Type 2 diabetes mellitus with diabetic chronic kidney disease; N18.31 - Chronic kidney disease, stage 3a; 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
[2021-02-12] MEDS: MIRTAZAPINE TAB 15 MG TAB PO SCH (20:33)
[2021-02-13 08:12] LABS: Hematocrit (blood only) 40.4 % (37-47); Mean Corpuscular Hemoglobin 27.4 pg (25-34); Mean Corpuscular Hgb Conc 32.2 g/dL (32-36); Mean Corpuscular Volume 85.1 fL (80-100); Mean Platelet Volume 9.3 fL (7.4-10.4); Platelet Count 330 K/uL (130-400); RDW Coefficient of Variation 15.9 % (11.5-14.5); RDW Standard Deviation 49.4 fL (36.4-46.3); Red Blood Count 4.75 M/uL (4.2-5.4); White Blood Count 7.17 K/uL (4.8-10.8)
[2021-02-13 08:42] LABS: BUN Creatinine Ratio 17.8 (10-20); Calcium 9.6 mg/dl (8.5-10.1); Est GFR (African American) 33.9; Est GFR (Non-African American) 29.3; Potassium 4.7 mmol/L (3.5-5.1)
[2021-02-13] MEDS: ATORVASTATIN 40 MG TAB PO SCH (08:51)
[2021-02-13] MEDS: ASPIRIN 81 MG ECTAB PO SCH (08:51)
[2021-02-13] MEDS: PANCREAZE (LIPASE 10,500U) CAP PO SCH ×3 (08:51→17:42)
[2021-02-13] MEDS: FAMOTIDINE 20 MG TAB PO SCH ×2 (08:52→21:11)
[2021-02-13] MEDS: TICAGRELOR 90 MG TAB PO SCH ×2 (08:52→21:12)
[2021-02-13] MEDS: INSULIN DETEMIR FLEXPEN/FLEX TOUCH 100 UNITS/ML 3ML SC SCH ×2 (08:53→21:16)
[2021-02-13] MEDS: INSULIN ASPART 100 UNITS/ML 3 ML PEN SQ SCH ×4 (08:54→21:04)
[2021-02-13] MEDS: HEPARIN SOD 5,000 UNIT/0.5 ML VIAL SQ SCH ×2 (08:56→21:12)
[2021-02-13] MEDS: CASPOFUNGIN 50 MG in SODIUM CHLORIDE 0.9% 250 ML IV SCH (09:02)
[2021-02-13] MEDS ORDERED: INSULIN DETEMIR FLEXPEN/FLEX TOUCH 100 UNITS/ML 3ML SC ONE (09:15)
--- NOTE | 2021-02-13 10:34 | Pharmacy Report ---
Pharmacy Glycemic Short Note 2 - Date of Service February 13, 2021 - Glycemic Short BSG Results (Last 24 hours): 02/12/21 02/12/21 02/12/21 12:06 17:04 17:06 Glucose POC Glucose 237 H 328 H* 346 H* 02/12/21 02/13/21 02/13/21 20:32 07:53 08:22 Glucose 251 H POC Glucose 101 H 235 H OUTPATIENT ANTIDIABETIC REGIMEN: * Levemir 12 units SC HS * Novolog TIDM 3 units + SSI (0-8 units based on BSG) * HbA1c: pending ASSESSMENT: 02/13 * Pt has received 46 units of insulin over the past 24hrs * 6 units of basal with Levemir * 40 units of bolus with NovoLog * BSGs 111-237-346/238-101-235 mg/dl * AM fasting BSG is elevated d/t Levemir being held last night per order for HS BSG of 101. Will make up half of missed dose from last night and then resume 6 units SQ BID this evening. * More CHO coverage needed in the morning and then taper off throughout the day. No CHO coverage at HS 02/12 * Pt received total of 41 units of insulin yesterday, of which 12 units were basal * Fasting BSG w/in range at 111 mg/dL * Continue with tighter CR at breakfast looser throughout the day 02/11 * Pt has received 37 units of insulin over the past 24hrs * 12 units of basal with Levemir * 25 units of bolus with NovoLog * BSGs 47-256 mg/dl * Blood sugars dropping prior to dinner the past two days, loosen CR at lunch and dinner to prevent further lows * Continue HS basal on scale to prevent hypoglycemia PLAN FOR INPATIENT GLYCEMIC CONTROL: * Basal insulin * Levemir 10 units SQ x 1 dose this AM (making up 4 units from last night since Levemir was held per BSG) * Levemir 6 units SQ BID starting this evening * Bolus insulin: * NovoLog per scale * Goal Range: Low 110 mg/dL - High 140 mg/dL * Correction Factor: 30 mg/dL/unit * Nutritional / Prandial insulin per carb ratio of 1 unit per 4 grams CHO consumed at breakfast, 1 unit per 5 grams consumed at lunch and dinner * at HS only: CF = 45mg/dl/unit. No CR ordered.
--- NOTE | 2021-02-13 18:05 | Hospitalist Progress Note ---
Date of Service February 13, 2021 Assessment & Plan (1) Fungemia: clinically resolved. 02/03 blood cx's + for teresita glabrata with UTI as source. repeat blood cx's 02/08 continue to be negative to date. sensitivity testing for teresita glabrata sent out and is pending. cont amphotericin bladder irrigation in meantime, and caspofungin IV daily. day #5 of 5 of ampho irrigation --- stop date of 02/12/21 at about noon. once ampho is done can likely d/c flores as well. echo w/o vegetations and patient stable hemodynamically. once sensitivities are back reconsult telehealth via [employer]. 3 flores removed, ampho stopped still on caspofungin 02-13 still awaiting susceptibilities for teresita glabrata cont caspofungin for 14 days from clear blood cultures no vegetations on echo -- confirmed with Dr. Goldberg setting up outpatient antibx consented for PICC (2) Acute UTI (urinary tract infection): COMPLICATED, given kidney stones and ureteral stent. teresita species, most certainly teresita glabrata as blood cultures have such continue amphotericin bladder irrigation - day #5 of 5; stop date 02/12/21 at about noon. continue caspofungin await sensitivities of c. glabrata 02-12 flores out, ampho stopped. no susceptibilites pending (3) Ureterolithiasis: 6 x 4 x 6 mm calculus of the distal left ureter approximately 2.5 cm proximal to the ureterovesicular junction. s/p left-sided stent placement on 02/04/21 - POD #7. Doing well from urology standpoint. Will need stone and stent management when deeded ready by urology. 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 Patient normally on ASA and Brilinta for treatment. resume asa/brilinta today - ok with urology (7) Diabetes: labile with lows yesterday pharmacy following and recommendations appreciated cont basal-bolus insulin (8) History of pancreatectomy: No acute issues. Continue Creon. (9) Hyperlipidemia: Continue atorvastatin 40mg (10) Hiatal hernia: Continue famotidine (11) DVT prophylaxis: Heparin 5000 SQ Q12h niece updated by phone carol randhawa PT, OT dispo - [facility] Admission and Anticipated Discharge Date Admission Date: February 03, 2021 Subjective Patient still eager for discharge -- wants to go to [facility] Tolerating diet Flores was removed yesterday. Able to urinate today No difficulty with bowels No complaints Review of Systems Constitutional: no fever, no chills, no fatigue, no weakness, no anorexia, no weight loss and no weight gain Ear, Nose, Mouth, Throat: no nasal congestion, no sore throat and no dysphagia Respiratory: no cough and no dyspnea Cardiovascular: no chest pain, no dyspnea on exertion, no orthopnea and no palpitations Gastrointestinal: no abdominal pain, no nausea, no vomiting, no hematemesis, no dysphagia, no constipation, no diarrhea/loose stools, no blood in stools and no melena Genitourinary: no dysuria, no urinary frequency, no hematuria and no flank pain Musculoskeletal: no back pain, no joint pain, no myalgia and no muscle weakness Integumentary: no rash, no lesions, no skin ulcer, no erythema, no dry skin and no pruritus Neurologic: no falls, no localized weakness, no generalized weakness, no numbness, no paresthesia, no tremor(s) and no headache(s) Psychiatric: no depression, no suicidal ideation, no homicidal ideation and no anxiety Endocrine: no cold intolerance and no heat intolerance Hematologic / Lymphatic: no easy bleeding and no easy bruising Physical Exam Constitutional: well developed and well nourished; no acute distress Eyes: PERRL, conjunctivae normal, anicteric sclerae ENMT: Mouth: oral mucous membranes not dry Respiratory: normal respiratory effort; no respiratory distress and no labored breathing Auscultation: lungs clear to auscultation bilaterally; no crackles, no rales, no rhonchi and no wheezes Cardiovascular: Rate/Rhythm: regular rate and regular rhythm Heart Sounds: no murmur and no cardiac rub Vessels: normal peripheral pulses and radial pulses present; no JVD Extremities: no edema Gastrointestinal (Abdomen): Inspection/Auscultation: abdomen normal to inspection and normal bowel sounds; abdomen not distended Percussion/Palpation: abdomen soft; abdomen nontender, no guarding, abdomen not rigid and no hepatosplenomegaly Musculoskeletal: Head/Neck/Chest: normocephalic and head atraumatic Spine: no cervical spinal tenderness, no cervical muscular tenderness, no thoracic spinal tenderness and no lumbar spinal tenderness Skin: no rashes, warm and dry Neurologic: CN's II-XI intact bilaterally and moves all extremities Motor/Sensory: no tremor and no sensory deficit Psychiatric: Orientation: alert, oriented to person, oriented to place and oriented to time Apperance: appropriately groomed; not disheveled Affect: euthymic affect; no anxious affect and no tearful affect Genitourinary: no CVA tenderness Results & Data Results & Data ([facility]) Vital Signs (Past 12 Hours) Vital Signs Temp Pulse Pulse Resp BP Pulse Ox 02/13/21 16:00 36.5 C 83 20 123/66 96 02/13/21 07:43 36.3 C L 70 16 154/77 H 97 PG Care Time/CCT Total # of Minutes Spent Total Time Spent with Patient: Total time spent is greater than 50% in coordination of care (as documented) at patient's floor/unit and/or counseling patient: Coding Level of Care Code 00421 Subseq Hosp Care Lvl 2 Diagnoses Fungemia B49 Acute UTI (urinary tract infection) N39.0 Ureterolithiasis N20.1 Chronic kidney disease, stage IV (severe) N18.4 Confusion R41.0 Transient ischemic attack (TIA) G45.8 Transient cerebral ischemia type: other Diabetes E11.22; N18.31; Z79.4 Diabetes mellitus type: type 2 Diabetes mellitus intermodal customer service insulin use: with intermodal customer service use Diabetes mellitus complication status: with kidney complications Diabetes mellitus complication detail: with chronic kidney disease Chronic kidney disease stage: stage 3 (moderate) Chronic kidney disease stage 3 subtype: stage 3a (GFR 45-59) History of pancreatectomy Z90.410 Hyperlipidemia E78.5 Hyperlipidemia type: unspecified Hiatal hernia K44.9 DVT prophylaxis Z29.9 (1) Transient ischemic attack (TIA) Transient cerebral ischemia type: other Qualified Code(s): G45.8 - Other transient cerebral ischemic attacks and related syndromes (2) Diabetes Diabetes mellitus type: type 2 Diabetes mellitus intermodal customer service insulin use: with prison use Diabetes mellitus complication status: with kidney complications Diabetes mellitus complication detail: with chronic kidney disease Chronic kidney disease stage: stage 3 (moderate) Chronic kidney disease stage 3 subtype: stage 3a (GFR 45-59) Qualified Code(s): E11.22 - Type 2 diabetes mellitus with diabetic chronic kidney disease; N18.31 - Chronic kidney disease, stage 3a; 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
[2021-02-13] MEDS: CARBOHYDRATES FOR HYPOGLYCEMIA PO PRN (20:52)
[2021-02-13] MEDS: MIRTAZAPINE TAB 15 MG TAB PO SCH (21:11)
[2021-02-14 07:07] LABS: Hematocrit (blood only) 37.4 % (37-47); Hemoglobin 11.9 g/dL (12.0-16.0); Mean Corpuscular Hgb Conc 31.8 g/dL (32-36); Mean Platelet Volume 9.1 fL (7.4-10.4); Platelet Count 309 K/uL (130-400); RDW Coefficient of Variation 16.1 % (11.5-14.5); RDW Standard Deviation 50.4 fL (36.4-46.3); White Blood Count 7.17 K/uL (4.8-10.8)
[2021-02-14 07:36] LABS: BUN Creatinine Ratio 18.5 (10-20); Calcium 8.8 mg/dl (8.5-10.1); Creatinine Clr Calc Pharmacy 19.1 ml/min; Est GFR (African American) 34.2; Est GFR (Non-African American) 29.5; Magnesium 2.1 mg/dl (1.8-2.4); Potassium 4.7 mmol/L (3.5-5.1)
[2021-02-14] MEDS: TICAGRELOR 90 MG TAB PO SCH (08:51)
[2021-02-14] MEDS: PANCREAZE (LIPASE 10,500U) CAP PO SCH ×2 (08:51→12:52)
[2021-02-14] MEDS: ATORVASTATIN 40 MG TAB PO SCH (08:52)
[2021-02-14] MEDS: HEPARIN SOD 5,000 UNIT/0.5 ML VIAL SQ SCH (08:52)
[2021-02-14] MEDS: ASPIRIN 81 MG ECTAB PO SCH (08:52)
[2021-02-14] MEDS: FAMOTIDINE 20 MG TAB PO SCH (08:52)
[2021-02-14] MEDS: INSULIN DETEMIR FLEXPEN/FLEX TOUCH 100 UNITS/ML 3ML SC SCH (08:58)
[2021-02-14] MEDS: INSULIN ASPART 100 UNITS/ML 3 ML PEN SQ SCH ×2 (08:58→12:55)
[2021-02-14] MEDS: CASPOFUNGIN 50 MG in SODIUM CHLORIDE 0.9% 250 ML IV SCH (09:05)
--- NOTE | 2021-02-14 11:09 | Pharmacy Report ---
Pharmacy Glycemic Short Note 2 - Date of Service February 14, 2021 - Glycemic Short BSG Results (Last 24 hours): 02/13/21 02/13/21 02/13/21 11:54 11:56 17:24 Glucose POC Glucose 369 H* 367 H* 189 H 02/13/21 02/13/21 02/13/21 20:47 20:48 21:09 Glucose POC Glucose 61 L* 59 L* 83 02/14/21 02/14/21 02/14/21 00:19 06:33 08:27 Glucose 184 H POC Glucose 223 H 176 H OUTPATIENT ANTIDIABETIC REGIMEN: * Levemir 12 units SC HS * Novolog TIDM 3 units + SSI (0-8 units based on BSG) * HbA1c: pending ASSESSMENT: 02/14 * Patient received total of 64 units of insulin yesterday, of which 16 units were basal insulin * Fasting BSG 176 mg/dL - continue with 6 units bid. Missed basal dose on 02/12 PM, made up dose yesterday * BSGs yesterday trending downward throughout the day, plan to loosen CR - adjust goal range to 110-160 to hopefully eliminate any lower BSGs at bedtime 02/13 * Pt has received 46 units of insulin over the past 24hrs * 6 units of basal with Levemir * 40 units of bolus with NovoLog * BSGs 111-237-346/238-101-235 mg/dl * AM fasting BSG is elevated d/t Levemir being held last night per order for HS BSG of 101. Will make up half of missed dose from last night and then resume 6 units SQ BID this evening. * More CHO coverage needed in the morning and then taper off throughout the day. No CHO coverage at HS PLAN FOR INPATIENT GLYCEMIC CONTROL: * Basal insulin * Levemir 6 units bid * Bolus insulin: * NovoLog per scale * Goal Range: Low 110 mg/dL - High 140 mg/dL * Correction Factor: 20-30 mg/dL/unit * Nutritional / Prandial insulin per carb ratio of 1 unit per 4 grams CHO consumed at breakfast, 1 unit per 6 grams consumed at lunch and dinner * at HS only: CF = 45mg/dl/unit. No CR ordered.
--- NOTE | 2021-02-14 14:04 | Discharge Summary ---
Date of Service February 14, 2021 Admission HPI Per Admitting Provider 85 YOF independent resident at [facility]; with past medical history of ductal carcinoma of the breast, CKD, renal stones with lithotripsy and stents, CAD, DM II on insulin, HLD, HTN, whipple, TIA, CVA, vascular dementia, neurofibromatosis, falls with hip fracture and arthroplasty Dec , compression fracture of T11. Patient was brought to the emergency room today by EMS. EMS was called by [facility] for concerns of altered mental status (confusion) this morning. The patient had been recently diagnosed with a UTI and started on Bactrim 2 days ago. The patient states that about on she was having back pain that was across the whole back. The pain was "very sharp" in nature and was associated with fevers, and nausea. She felt like she was going to throw up but did not. She reports that her fevers and nausea are gone and that her pain is much improved since coming here. The patient's confusion remains, but she for the most part is accurate and correct for short term events. She is poor historian about her health review. Evaluation in the emergency room identified a left renal stone via CT of abdomen and Dr. Phillips of urology was notified by Dr. Dent. Urology would like the patient to be admitted for evaluation and keep NPO after midnight. Patient had received 1L 0.9% saline in the EMD and Rocephin. CT of the head shows no acute process. Discharge Exam Constitutional well developed and well nourished; no acute distress Eyes PERRL, conjunctivae normal, anicteric sclerae ENMT Mouth: oral mucous membranes not dry Respiratory normal respiratory effort; no respiratory distress and no labored breathing Auscultation: lungs clear to auscultation bilaterally; no crackles, no rales, no rhonchi and no wheezes Cardiovascular Rate/Rhythm: regular rate and regular rhythm Heart Sounds: no murmur and no cardiac rub Vessels: normal peripheral pulses and radial pulses present; no JVD Extremities: no edema Gastrointestinal (Abdomen) Inspection/Auscultation: abdomen normal to inspection and normal bowel sounds; abdomen not distended Percussion/Palpation: abdomen soft; abdomen nontender, no guarding, abdomen not rigid and no hepatosplenomegaly Musculoskeletal Head/Neck/Chest: normocephalic and head atraumatic Spine: no cervical spinal tenderness, no cervical muscular tenderness, no thoracic spinal tenderness and no lumbar spinal tenderness Skin no rashes, warm and dry Neurologic CN's II-XI intact bilaterally and moves all extremities Motor/Sensory: no tremor and no sensory deficit Psychiatric Orientation: alert, oriented to person, oriented to place and oriented to time Apperance: appropriately groomed; not disheveled Affect: euthymic affect; no anxious affect and no tearful affect Genitourinary no CVA tenderness Discharge Data Allergies Allergy/AdvReac Type Severity Reaction Status Date / Time No Known Drug Allergies Allergy Unknown Verified 02/03/21 16:01 Consultations 02/03/21 17:54 ED Decision to Admit Stat 02/03/21 21:19 Consult Urology Routine 02/05/21 12:55 Consult Infectious Diseases Routine Procedures Performed Operation Date: 02/04/21 10:30 Actual Procedures p Cystoscopy, Left ureteral stent placement(Left) - nIna Phillips MD Ordered Studies 02/03/21 15:18 CT abd pelvis wo con Stat CT head/brain wo con Stat 02/04/21 10:58 FL retrograde includes kub Routine Diabetes Follow up Diabetes Follow-up Needed for HgbA1c >9% Hospital Course (1) Fungemia: clinically resolved. 02/03 blood cx's + for teresita glabrata with UTI as source. repeat blood cx's 02/08 continue to be negative to date. sensitivity testing for teresita glabrata sent out and is pending. cont amphotericin bladder irrigation in meantime, and caspofungin IV daily. day #5 of 5 of ampho irrigation --- stop date of 02/12/21 at about noon. once ampho is done can likely d/c flores as well. echo w/o vegetations and patient stable hemodynamically. once sensitivities are back reconsult telehealth via [employer] [facility]. 02-12 flores removed, ampho stopped still on caspofungin 02-13 still awaiting susceptibilities for teresita glabrata cont caspofungin for 14 days from clear blood cultures no vegetations on echo -- confirmed with Dr. Goldberg setting up outpatient antibx consented for PICC (2) Acute UTI (urinary tract infection): COMPLICATED, given kidney stones and ureteral stent. teresita species, most certainly teresita glabrata as blood cultures have such continue amphotericin bladder irrigation - day #5 of 5; stop date 02/12/21 at about noon. continue caspofungin await sensitivities of c. glabrata 02-12 flores out, ampho stopped. no susceptibilites pending (3) Ureterolithiasis: 6 x 4 x 6 mm calculus of the distal left ureter approximately 2.5 cm proximal to the ureterovesicular junction. s/p left-sided stent placement on 02/04/21 - POD #7. Doing well from urology standpoint. Will need stone and stent management when deeded ready by urology. 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 Patient normally on ASA and Brilinta for treatment. resume asa/brilinta today - ok with urology (7) Diabetes: labile with lows yesterday pharmacy following and recommendations appreciated cont basal-bolus insulin (8) History of pancreatectomy: No acute issues. Continue Creon. (9) Hyperlipidemia: Continue atorvastatin 40mg (10) Hiatal hernia: Continue famotidine (11) DVT prophylaxis: Heparin 5000 SQ Q12h niece updated by phone tonight cont PT, OT dispo - [facility] Discharge Plan Discharge Items Patient Disposition: Home - Home Health Services Reason For Visit: KIDNEY STONE Discharge Diagnosis: fungemia teresita UTI Activity: Resume your previous activity Non-emergency contact: Primary Care Provider Call non-emergency contact if: you have any medication questions Follow-up/Referrals: Melody Grider CRNP [Nurse Practitioner] - 02/21/21 1:00 pm (TO DISCUSS STONE MANAGEMENT) Joyce Rasmussen CRNP [Primary Care Provider] - 02/20/21 8:50 am ([facility]) Diet: Regular Addtl Attending Provider Instructions: You are being treated for fungal infection in your blood stream. The infection started in your bladder and spread to your blood. You need 6 more days of IV antifungal called caspofungin. Pending Studies at Discharge: No Stand-Alone Forms: My [facility], Smoking Cessation Medications and DC Order Prescriptions: Continued Brilinta 90 mg tablet 90 mg PO BID Qty: 60 RF: 11 insulin aspart U-100 [Novolog Flexpen U-100 Insulin] 100 unit/mL (3 mL) Insulin Pen See Rx Instructions .ROUTE .COMPLEX RF: 0 Creon 12,000-38,000 -60,000 unit Capsule,Delayed Release(Dr/Ec) 1 cap PO TIDM RF: 0 Levemir U-100 Insulin 100 unit/mL solution 12 unit SUBCUT HS RF: 0 famotidine [Pepcid] 20 mg tablet 20 mg PO BID RF: 0 atorvastatin 40 mg tablet 40 mg PO DAILY RF: 0 solifenacin [Vesicare] 10 mg tablet 10 mg PO HS RF: 0 aspirin [Aspirin Childrens] 81 mg tablet,chewable 81 mg PO DAILY Qty: 30 RF: 0 calcium carbonate-vitamin D3 [Calcium 600 + D(3)] 600 mg(1,500mg) -200 unit Tablet 1 tab PO BID RF: 0 docusate sodium 100 mg Capsule 100 mg PO BID PRN (Reason: Constipation) RF: 0 mirtazapine 7.5 mg tablet 7.5 mg PO HS RF: 0 Discontinued sulfamethoxazole-trimethoprim 800-160 mg tablet 1 tab PO BID RF: 0 Discharge Orders: Discharge Order (Routine); Ordered 02/14/21 Ordered By: Brittney Romero/Other Patient Handouts: Caspofungin injection Admission Data Admit Date/Time: 02/03/21 18:29 Attending Provider: Brittney Conde Admit Provider: Mitali Kumar Primary Care Provider: Joyce Rasmussen Other Providers: Wai Mohamud ; Mitali Kumar ; Inna Phillips ; Alejandro Borges ; Michael Mejía ; Reese Araiza I. ; Lloyd Hermosillo II ; Xiomara Ellsworth ; Anders Campos ; Wilma,Fax ; [facility] Other Interventions: Discharge Summary Assessment (RN) Last Done: 02/14/21 13:31 Coding Diagnoses Fungemia B49 Acute UTI (urinary tract infection) N39.0 Ureterolithiasis N20.1 Chronic kidney disease, stage IV (severe) N18.4 Confusion R41.0 Transient ischemic attack (TIA) G45.8 Transient cerebral ischemia type: other Diabetes E11.22; N18.31; Z79.4 Diabetes mellitus type: type 2 Diabetes mellitus termite control representative insulin use: with alf use Diabetes mellitus complication status: with kidney complications Diabetes mellitus complication detail: with chronic kidney disease Chronic kidney disease stage: stage 3 (moderate) Chronic kidney disease stage 3 subtype: stage 3a (GFR 45-59) History of pancreatectomy Z90.410 Hyperlipidemia E78.5 Hyperlipidemia type: unspecified Hiatal hernia K44.9 DVT prophylaxis Z29.9
--- NOTE | 2021-02-14 14:16 | Discharge Summary ---
Date of Service February 14, 2021 Admission HPI Per Admitting Provider 85 YOF independent resident at [facility]; with past medical history of ductal carcinoma of the breast, CKD, renal stones with lithotripsy and stents, CAD, DM II on insulin, HLD, HTN, whipple, TIA, CVA, vascular dementia, neurofibromatosis, falls with hip fracture and arthroplasty Dec , compression fracture of T11. Patient was brought to the emergency room today by EMS. EMS was called by [facility] for concerns of altered mental status (confusion) this morning. The patient had been recently diagnosed with a UTI and started on Bactrim 2 days ago. The patient states that about on she was having back pain that was across the whole back. The pain was "very sharp" in nature and was associated with fevers, and nausea. She felt like she was going to throw up but did not. She reports that her fevers and nausea are gone and that her pain is much improved since coming here. The patient's confusion remains, but she for the most part is accurate and correct for short term events. She is poor historian about her health review. Evaluation in the emergency room identified a left renal stone via CT of abdomen and Dr. Phillips of urology was notified by Dr. Dent. Urology would like the patient to be admitted for evaluation and keep NPO after midnight. Patient had received 1L 0.9% saline in the EMD and Rocephin. CT of the head shows no acute process. Principal Diagnosis fungemia Discharge Exam Constitutional well developed and well nourished; no acute distress Eyes PERRL, conjunctivae normal, anicteric sclerae ENMT Mouth: oral mucous membranes not dry Respiratory normal respiratory effort; no respiratory distress and no labored breathing Auscultation: lungs clear to auscultation bilaterally; no crackles, no rales, no rhonchi and no wheezes Cardiovascular Rate/Rhythm: regular rate and regular rhythm Heart Sounds: no murmur and no cardiac rub Vessels: normal peripheral pulses and radial pulses present; no JVD Extremities: no edema Gastrointestinal (Abdomen) Inspection/Auscultation: abdomen normal to inspection and normal bowel sounds; abdomen not distended Percussion/Palpation: abdomen soft; abdomen nontender, no guarding, abdomen not rigid and no hepatosplenomegaly Musculoskeletal Head/Neck/Chest: normocephalic and head atraumatic Spine: no cervical spinal tenderness, no cervical muscular tenderness, no thoracic spinal tenderness and no lumbar spinal tenderness Skin no rashes, warm and dry + subcutaneous nodules (over all body surfaces) Neurologic CN's II-XI intact bilaterally and moves all extremities Motor/Sensory: no tremor and no sensory deficit Psychiatric Orientation: alert, oriented to person, oriented to place and oriented to time Apperance: appropriately groomed; not disheveled Affect: euthymic affect; no anxious affect and no tearful affect Genitourinary no CVA tenderness Discharge Data Allergies Allergy/AdvReac Type Severity Reaction Status Date / Time No Known Drug Allergies Allergy Unknown Verified 02/03/21 16:01 Consultations 02/03/21 17:54 ED Decision to Admit Stat 02/03/21 21:19 Consult Urology Routine 02/05/21 12:55 Consult Infectious Diseases Routine Procedures Performed Operation Date: 02/04/21 10:30 Actual Procedures p Cystoscopy, Left ureteral stent placement(Left) - Inna Phillips MD Ordered Studies 02/03/21 15:18 CT abd pelvis wo con Stat CT head/brain wo con Stat 02/04/21 10:58 FL retrograde includes kub Routine Diabetes Follow up Diabetes Follow-up Needed for HgbA1c >9% Hospital Course (1) Fungemia: clinically resolved. 02/03 blood cx's + for teresita glabrata with UTI as source. repeat blood cx's 02/08 continue to be negative to date. sensitivity testing for teresita glabrata sent out and is pending. cont amphotericin bladder irrigation in meantime, and caspofungin IV daily. day #5 of 5 of ampho irrigation --- stop date of 02/12/21 at about noon. once ampho is done can likely d/c flores as well. echo w/o vegetations and patient stable hemodynamically. once sensitivities are back reconsult telehealth via [employer] ID. 02-12 flores removed, ampho stopped still on caspofungin 02-13 still awaiting susceptibilities for teresita glabrata cont caspofungin for 14 days from clear blood cultures no vegetations on echo -- confirmed with Dr. Goldberg setting up outpatient antibx consented for PICC 3-24 peripheral IV placed for caspofungin discharge home with neice for remainder of antifungal course (2) Acute UTI (urinary tract infection): COMPLICATED, given kidney stones and ureteral stent. teresita species, most certainly teresita glabrata as blood cultures have such continue amphotericin bladder irrigation - day #5 of 5; stop date 02/12/21 at about noon. continue caspofungin await sensitivities of c. glabrata 02-12 flores out, ampho stopped. susceptibilites pending 02-14 see above (3) Ureterolithiasis: 6 x 4 x 6 mm calculus of the distal left ureter approximately 2.5 cm proximal to the ureterovesicular junction. s/p left-sided stent placement on 02/04/21 - POD #7. Doing well from urology standpoint. Will need stone and stent management when deeded ready by urology. 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 Patient normally on ASA and Brilinta for treatment. resume asa/brilinta today - ok with urology (7) Diabetes: pharmacy following and recommendations appreciated cont basal-bolus insulin (8) History of pancreatectomy: No acute issues. Continue Creon. (9) Hyperlipidemia: Continue atorvastatin 40mg (10) Hiatal hernia: Continue famotidine (11) DVT prophylaxis: Heparin 5000 SQ Q12h niece updated by phone tonight cont PT, OT dispo - [facility] Total Time Total Time Spent Total Time Spent (In Minutes): 35 Total Time Includes: Examination of the Patient, Discharge Planning, Medication Reconciliation and Communication With Other Providers Discharge Plan Discharge Items Patient Disposition: Home - Home Health Services Reason For Visit: KIDNEY STONE Discharge Diagnosis: fungemia teresita UTI Activity: Resume your previous activity Non-emergency contact: Primary Care Provider Call non-emergency contact if: you have any medication questions Follow-up/Referrals: Melody Grider CRNP [Nurse Practitioner] - 02/21/21 1:00 pm (TO DISCUSS STONE MANAGEMENT) Joyce Rasmussen CRNP [Primary Care Provider] - 02/20/21 8:50 am ([facility]) Diet: Regular Addtl Attending Provider Instructions: You are being treated for fungal infection in your blood stream. The infection started in your bladder and spread to your blood. You need 6 more days of IV antifungal called caspofungin. Pending Studies at Discharge: No Stand-Alone Forms: My [facility], Smoking Cessation Medications and DC Order Prescriptions: Continued Brilinta 90 mg tablet 90 mg PO BID Qty: 60 RF: 11 insulin aspart U-100 [Novolog Flexpen U-100 Insulin] 100 unit/mL (3 mL) Insulin Pen See Rx Instructions .ROUTE .COMPLEX RF: 0 Creon 12,000-38,000 -60,000 unit Capsule,Delayed Release(Dr/Ec) 1 cap PO TIDM RF: 0 Levemir U-100 Insulin 100 unit/mL solution 12 unit SUBCUT HS RF: 0 famotidine [Pepcid] 20 mg tablet 20 mg PO BID RF: 0 atorvastatin 40 mg tablet 40 mg PO DAILY RF: 0 solifenacin [Vesicare] 10 mg tablet 10 mg PO HS RF: 0 aspirin [Aspirin Childrens] 81 mg tablet,chewable 81 mg PO DAILY Qty: 30 RF: 0 calcium carbonate-vitamin D3 [Calcium 600 + D(3)] 600 mg(1,500mg) -200 unit Tablet 1 tab PO BID RF: 0 docusate sodium 100 mg Capsule 100 mg PO BID PRN (Reason: Constipation) RF: 0 mirtazapine 7.5 mg tablet 7.5 mg PO HS RF: 0 Discontinued sulfamethoxazole-trimethoprim 800-160 mg tablet 1 tab PO BID RF: 0 Discharge Orders: Discharge Order (Routine); Ordered 02/14/21 Ordered By: Brittney Romero/Other Patient Handouts: Caspofungin injection Admission Data Admit Date/Time: 02/03/21 18:29 Attending Provider: Brittney Conde Admit Provider: Mitali Kumar Primary Care Provider: Joyce Rasmussen Other Providers: Wai Mohamud ; Mitali Kumar ; Inna Phillips ; Alejandro Borges ; Michael Mejía ; Reese Araiza I. ; Lloyd Hermosillo II ; Xiomara Ellsworth ; Anders Campos ; Wilma,Fax ; [facility] Other Interventions: Discharge Summary Assessment (RN) Last Done: 02/14/21 13:31 Coding Level of Care Code D/C Day Management >30 mins Diagnoses Fungemia B49 Acute UTI (urinary tract infection) N39.0 Ureterolithiasis N20.1 Chronic kidney disease, stage IV (severe) N18.4 Confusion R41.0 Transient ischemic attack (TIA) G45.8 Transient cerebral ischemia type: other Diabetes E11.22; N18.31; Z79.4 Diabetes mellitus type: type 2 Diabetes mellitus ocean transportation intermediary insulin use: with ocean transportation intermediary use Diabetes mellitus complication status: with kidney complications Diabetes mellitus complication detail: with chronic kidney disease Chronic kidney disease stage: stage 3 (moderate) Chronic kidney disease stage 3 subtype: stage 3a (GFR 45-59) History of pancreatectomy Z90.410 Hyperlipidemia E78.5 Hyperlipidemia type: unspecified Hiatal hernia K44.9 DVT prophylaxis Z29.9
== END 2021-02-14 15:27 | disposition home health service (06) | DRG 659 ==
LOC: ED 14:55 → SUATTDRO 18:29 → 3N 18:29

== ENCOUNTER 2021-03-13 21:14 | Inpatient (IN) ==
--- NOTE | 2021-03-13 22:13 | Emergency Department Note ---
Impression & Plan Confusion, Feels feverish, Elevated troponin I level ED Provider Note Provider: Rodríguez Jesus MD DATE OF SERVICE: 03/13/2021 CHIEF COMPLAINT: Fever, confusion HISTORY OF PRESENT ILLNESS: Patient is a 85-year-old female with a past medical history of CKD, CAD, hypertension, hyperlipidemia, vascular dementia, type 2 diabetes, TIA, neurofibromatosis, recent left-sided kidney stone with fungemia and UTI who had a urological procedure yesterday for her left-sided kidney stone presenting with niece today with concerns for fever and some confusion today. Reading the operative report from yesterday evidently patient had a Banegas catheter placed for drainage and laser was used to pulverize stones but it appears that a stent was placed in the left kidney. Niece states she had a little bit a urine yesterday yellow urine earlier and that little bit of pinkish slightly bloody urine this evening. States she was trying to use her fork in her glass and seem to be having some hallucinations talking about people who were not present. Patient herself denies remembering this and states she feels okay. She denies fevers or pain. Denies nausea or weakness or fatigue. Niece reports the patient had a temperature of 101 orally prior to arrival and she did not give any medications for this. Niece states the patient also looks somewhat flushed at that time. Came here for further evaluation is quite concerned that her aunt is getting ill again. No new traumas reported. Patient not currently on antimicrobials but had a dose of caspofungin and cefepime yesterday. Did several days ago have a dose of condoms all as well as ampicillin since discharge at the end of January. REVIEW OF SYSTEMS: A total of 10 review of systems was obtained and negative except as stated above in the HPI. PAST MEDICAL HISTORY: As noted above MEDICATIONS: Reviewed home medications list SOCIAL HISTORY: Non-smoker, currently residing at [facility] although staying the last night with her niece PHYSICAL EXAM: GENERAL: alert and oriented in no acute distress on stretcher although not the best historian of recent events tonight. Temperature 37.8 C orally taken by myself. Head: normocephalic and atraumatic EYES: No injection, discharge or icterus. PERRL NECK: Trachea midline. Supple. LUNGS: Airway patent. No retractions. Breath sounds clear with good air entry bilaterally. HEART: Regular rate and rhythm. No chest wall tenderness ABDOMEN: Soft and non-tender, without guarding or rebound. Banegas catheter draining some slightly tinged urine. BACK: No bilateral flank tenderness. SKIN: Acyanotic, warm, dry, with diffuse multiple neurofibromas across her body EXTREMITIES: Without swelling, tenderness or deformity NEUROLOGICAL: No focal deficits. No aphasia. No facial droop or slurred speech. EK bpm with a believe represents a normal sinus rhythm with frequent PVCs and occasional PAC without acute ST segment elevation appreciated with a QTC of 442. CONTINUOUS CARDIAC MONITORING: was ordered and showed a heart rate of bpm in 1 view chest x-ray: Per my interpretation no evidence of acute pneumothorax or pneumonia. No significant pleural effusion or free air under the diaphragm noted. Multiple overlying skin neurofibromas are noted. 1 view abdomen/KUB per my interpretation shows no evidence of free air or bowel obstruction. Left-sided ureteral stent appears in appropriate position. Patient's laboratory studies and imaging reviewed. Differential includes Viral syndrome, otitis, pharyngitis, pneumonia, influenza, meningitis, urinary tract infection, sepsis, bacteremia, as well as other pathologies. IMPRESSION/MEDICAL DECISION MAKING: Patient presents mild to simple commands without focal deficits although reports of some hallucinations and confusions even by the knees. Febrile at home with a borderline temperature of 37.8 here. Significant complex past medical history including kidney stone, recent urological procedure, and recent fungal infection. Patient denies significant pain. Blood work, cultures, lactate, x- rays, and a CT of the head were obtained. Lower suspicion for acute CVA and the patient has no Cholestin Wells not a candidate for TPA. Again low suspicion for stroke. Likely more infectious or metabolically related. Could be possible postanesthetic as well. Discussed microbiology given the complex case with pharmacy she does have a history of some resistant Enterococcus. Without antipyretics again fever has improved here. Some slight hematuria noted the patient is on antiplatelet agents and had recent procedure this is not highly concerning to me. Patient does not appear grossly meningitic and doubt this is BIG 6 DEALER infection. X-ray shows appropriate stent placement is no evidence of significant pulmonary pathology per my interpretation. Blood work shows slight rise in white blood cell count to 10 today without anemia. INR is 1. Lactate not elevated 1.9. Renal function appears at baseline with creatinine 1.6. Stable borderline hyponatremia of 135. No hyperkalemia noted. No transaminitis noted. Troponin is slightly elevated 0.079 which is somewhat higher than previous. Patient is without significant chest discomfort at this time. Believe this is likely related to possible demand ischemia from illness and recent surgery. Patient on antiplatelet medications currently. No believe she would be a candidate unless significant change for full anticoagulation. CT report as below without significant acute findings and again does not seem that consistent with acute CVA. Flu and Covid tested were negative. Procalcitonin 0.17. Urinalysis returns with a somewhat difficult interpretation given the stenting and procedures and Banegas with some blood, leuk esterase, greater than 30 white cells, 5-10 but feels cells, and 1+ bacteria. No reported yeast were noted in the urinalysis. Question of some of the confusion or hallucinations earlier related to infectious cause versus postanesthetic or delirium issue. Discussion with the patient as well as her niece who she is staying with there are some concerns about this and believe that further observation here in the hospital would be reasonable. Discussed with the hospitalist initiating antimicrobial therapy given the urine findings. DIAGNOSIS: Fever, confusion, elevated troponin DISPOSITION: Hospitalist will evaluate Patient and niece were agreeable with this plan. Preliminary Findings Only See Final Report For Complete Findings CT HEAD: No ICH, mass effect or edema. No evidence of acute cortical stroke. Involutional changes with small vessel ischemic change. Cataract surgery Visualized sinuses and mastoid air cells are clear. Radiologist: Svetlana Perales M.D. 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 [facility]. LMA #4. No issues. History of cystoscopy 02/10/2020 [facility] History of hemiarthroplasty of left hip History of lumpectomy of left breast History of pancreatectomy PARTIAL ([place]) History of ureter stent Hx of colonoscopy Family History Aunt Stroke Mother Stroke Father Heart disease Family/Other Family history of diabetes mellitus Grandmother (Maternal) Family history of diabetes mellitus Other No family history of allergies No family history of bleeding disorder No pertinent family history in first degree relatives Denies family history of Hearing loss Cancer Hypertension Asthma Social History Smoking Status: Never smoker Second Hand Exposure: No; Hx Alcohol Use: No Hx Substance Use: No Preferred Language: Citizen Of [place] Communication Ability: Impaired Furnace Checker Required: No Beliefs That Will Affect Care: None marital status: Unknown Current Living Situation: Alone Current Living Situation Comment: PT CURRENTLY AT [facility] SINCE 12/2020 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: Yes Assistive Devices: None Allergies Allergies Allergy/AdvReac Type Severity Reaction Status Date / Time No Known Drug Allergies Allergy Unknown Unknown Verified 03/13/21 21:59 Home Meds Home Medications Medication Instructions Recorded Confirmed Creon 1 cap PO TIDM 06/11/19 03/13/21 insulin aspart U-100 [Novolog See Rx Instructions .ROUTE .COMPLEX 06/11/19 03/13/21 Flexpen U-100 Insulin] famotidine [Pepcid] 20 mg PO BID 01/17/20 03/13/21 solifenacin [Vesicare] 10 mg PO HS 02/10/20 03/13/21 atorvastatin 40 mg tablet 40 mg PO QPM tab 08/31/20 03/13/21 calcium carbonate-vitamin D3 1 tab PO QAM 02/03/21 03/13/21 [Calcium 600 + D(3)] docusate sodium 100 mg PO BID PRN 02/03/21 03/13/21 mirtazapine 7.5 mg PO HS 02/03/21 03/13/21 aspirin [Aspirin Childrens] 81 mg PO QAM 03/01/21 03/13/21 Previous Rx's Medication Instructions Recorded ticagrelor 90 mg tablet 90 mg PO BID #60 tab 08/15/20 insulin detemir U-100 100 unit/mL 12 unit SUBCUT HS 90 Days #10.8 ml 03/12/21 subcutaneous solution Novofine Autocover 30 gauge x 1/3" #200 ea NS 03/13/21 needle Results & Data (ED) Vital Signs Vital Signs - 24 hr 03/13/21 21:15 03/13/21 21:20 03/13/21 21:55 Temperature 37.6 C H 37.8 C H Temperature Source Oral Oral Pulse Rate 80 84 Pulse Rate from SpO2 Sensor 83 Respiratory Rate 20 23 Respiratory Depth Normal Blood Pressure 136/70 123/78 Blood Pressure Mean 92 93 Pulse Oximetry 93 96 Oxygen Delivery Method Room Air Room Air Sepsis Recent Fever Within 48 Hours No Sepsis New/Unexplained Change in Mental Status N/A Sepsis Action Taken by Nursing No Action Required 03/13/21 23:27 Temperature Temperature Source Pulse Rate 88 Pulse Rate from SpO2 Sensor 78 Respiratory Rate 20 Respiratory Depth Blood Pressure 145/52 H Blood Pressure Mean 83 Pulse Oximetry 96 Oxygen Delivery Method Room Air Sepsis Recent Fever Within 48 Hours Sepsis New/Unexplained Change in Mental Status Sepsis Action Taken by Nursing Laboratory Data Result diagrams: 03/13/21 22:43 03/13/21 22:43 Lab Results 03/13/21 03/13/21 03/13/21 Range/Units 22:41 22:41 22:43 WBC 10.02 (4.8-10.8) K/uL RBC 4.35 (4.2-5.4) M/uL Hgb 12.0 (12.0-16.0) g/dL Hct 36.2 L (37-47) % MCV 83.2 (80-100) fL MCH 27.6 (25-34) pg MCHC 33.1 (32-36) g/dL RDW Std Deviation 48.6 H (36.4-46.3) fL RDW Coeff of Flako 16.0 H (11.5-14.5) % Plt Count 208 (130-400) K/uL MPV 9.8 (7.4-10.4) fL Immature Gran % (Auto) 0.2 % Neut % (Auto) 81.4 % Lymph % (Auto) 7.5 % [place] % (Auto) 10.1 % Eos % (Auto) 0.7 % Baso % (Auto) 0.1 % Neut # (Auto) 8.16 H (1.4-6.5) K/uL Lymph # (Auto) 0.75 L (1.2-3.4) K/uL [place] # (Auto) 1.01 H (0.11-0.59) K/uL Eos # (Auto) 0.07 (0-0.5) K/uL Baso # (Auto) 0.01 (0-0.2) K/uL Immature Gran # (Auto) 0.02 (0.00-0.02) K/uL PT (9.0-12.0) Seconds INR (0.9-1.1) Sodium (136-145) mmol/L Potassium (3.5-5.1) mmol/L Chloride (98-107) mmol/L Carbon Dioxide (21-32) mmol/L Anion Gap (3-11) BUN (7-18) mg/dl Creatinine (0.6-1.2) mg/dl Est Cr Clr Drug Dosing ml/min Est GFR ( Amer) Est GFR (Non-Af Amer) BUN/Creatinine Ratio (10-20) Glucose (70-99) mg/dl Lactate (0.4-2.0) mmol/L Calcium (8.5-10.1) mg/dl Total Bilirubin (0.2-1) mg/dl AST (15-37) U/L ALT (12-78) U/L Alkaline Phosphatase (45-117) U/L Troponin I (0-0.045) ng/ml Total Protein (6.4-8.2) gm/dl Albumin (3.4-5.0) gm/dl Globulin (2.5-4.0) gm/dl Albumin/Globulin Ratio (0.9-2) Procalcitonin (0-0.5) ng/ml Urine Color Urine Appearance (Clear) Urine pH (4.5-7.5) Ur Specific [place] (1.000-1.030) Urine Protein (Negative) Urine Glucose (UA) (Negative) Urine Ketones (Negative) Urine Blood (Negative) Urine Nitrite (Negative) Urine Bilirubin (Negative) Urine Urobilinogen (Negative) Ur Leukocyte Esterase (Negative) COVID-19 Eval Order CovFluRsv at [facility] SARS-CoV-2 (PCR) NEGATIVE (Negative) Influenza Type A (PCR) Negative (Neg) Influenza Type B (PCR) Negative (Neg) RSV (RT-PCR) Negative (Neg) 03/13/21 03/13/21 03/13/21 Range/Units 22:43 22:43 22:43 WBC (4.8-10.8) K/uL RBC (4.2-5.4) M/uL Hgb (12.0-16.0) g/dL Hct (37-47) % MCV (80-100) fL MCH (25-34) pg MCHC (32-36) g/dL RDW Std Deviation (36.4-46.3) fL RDW Coeff of Flako (11.5-14.5) % Plt Count (130-400) K/uL MPV (7.4-10.4) fL Immature Gran % (Auto) % Neut % (Auto) % Lymph % (Auto) % [place] % (Auto) % Eos % (Auto) % Baso % (Auto) % Neut # (Auto) (1.4-6.5) K/uL Lymph # (Auto) (1.2-3.4) K/uL [place] # (Auto) (0.11-0.59) K/uL Eos # (Auto) (0-0.5) K/uL Baso # (Auto) (0-0.2) K/uL Immature Gran # (Auto) (0.00-0.02) K/uL PT 10.4 (9.0-12.0) Seconds INR 1.0 (0.9-1.1) Sodium 135 L (136-145) mmol/L Potassium 4.3 (3.5-5.1) mmol/L Chloride 103 (98-107) mmol/L Carbon Dioxide 24 (21-32) mmol/L Anion Gap 8.0 (3-11) BUN 27 H (7-18) mg/dl Creatinine 1.60 H (0.6-1.2) mg/dl Est Cr Clr Drug Dosing 20.8 ml/min Est GFR ( Amer) 34.2 Est GFR (Non-Af Amer) 29.5 BUN/Creatinine Ratio 16.8 (10-20) Glucose 280 H (70-99) mg/dl Lactate 1.9 (0.4-2.0) mmol/L Calcium 9.0 (8.5-10.1) mg/dl Total Bilirubin 0.3 (0.2-1) mg/dl AST 7 L (15-37) U/L ALT 15 (12-78) U/L Alkaline Phosphatase 89 (45-117) U/L Troponin I 0.079 H* (0-0.045) ng/ml Total Protein 6.7 (6.4-8.2) gm/dl Albumin 2.6 L (3.4-5.0) gm/dl Globulin 4.1 H (2.5-4.0) gm/dl Albumin/Globulin Ratio 0.6 L (0.9-2) Procalcitonin (0-0.5) ng/ml Urine Color Urine Appearance (Clear) Urine pH (4.5-7.5) Ur Specific [place] (1.000-1.030) Urine Protein (Negative) Urine Glucose (UA) (Negative) Urine Ketones (Negative) Urine Blood (Negative) Urine Nitrite (Negative) Urine Bilirubin (Negative) Urine Urobilinogen (Negative) Ur Leukocyte Esterase (Negative) COVID-19 Eval Order SARS-CoV-2 (PCR) (Negative) Influenza Type A (PCR) (Neg) Influenza Type B (PCR) (Neg) RSV (RT-PCR) (Neg) 03/13/21 03/13/21 Range/Units 22:43 23:30 WBC (4.8-10.8) K/uL RBC (4.2-5.4) M/uL Hgb (12.0-16.0) g/dL Hct (37-47) % MCV (80-100) fL MCH (25-34) pg MCHC (32-36) g/dL RDW Std Deviation (36.4-46.3) fL RDW Coeff of Flako (11.5-14.5) % Plt Count (130-400) K/uL MPV (7.4-10.4) fL Immature Gran % (Auto) % Neut % (Auto) % Lymph % (Auto) % [place] % (Auto) % Eos % (Auto) % Baso % (Auto) % Neut # (Auto) (1.4-6.5) K/uL Lymph # (Auto) (1.2-3.4) K/uL [place] # (Auto) (0.11-0.59) K/uL Eos # (Auto) (0-0.5) K/uL Baso # (Auto) (0-0.2) K/uL Immature Gran # (Auto) (0.00-0.02) K/uL PT (9.0-12.0) Seconds INR (0.9-1.1) Sodium (136-145) mmol/L Potassium (3.5-5.1) mmol/L Chloride (98-107) mmol/L Carbon Dioxide (21-32) mmol/L Anion Gap (3-11) BUN (7-18) mg/dl Creatinine (0.6-1.2) mg/dl Est Cr Clr Drug Dosing ml/min Est GFR ( Amer) Est GFR (Non-Af Amer) BUN/Creatinine Ratio (10-20) Glucose (70-99) mg/dl Lactate (0.4-2.0) mmol/L Calcium (8.5-10.1) mg/dl Total Bilirubin (0.2-1) mg/dl AST (15-37) U/L ALT (12-78) U/L Alkaline Phosphatase (45-117) U/L Troponin I (0-0.045) ng/ml Total Protein (6.4-8.2) gm/dl Albumin (3.4-5.0) gm/dl Globulin (2.5-4.0) gm/dl Albumin/Globulin Ratio (0.9-2) Procalcitonin 0.17 (0-0.5) ng/ml Urine Color Yellow Urine Appearance Cloudy A (Clear) Urine pH 5.0 (4.5-7.5) Ur Specific [place] 1.013 (1.000-1.030) Urine Protein 1+ H (Negative) Urine Glucose (UA) Trace H (Negative) Urine Ketones Negative (Negative) Urine Blood 3+ H (Negative) Urine Nitrite Negative (Negative) Urine Bilirubin Negative (Negative) Urine Urobilinogen Negative (Negative) Ur Leukocyte Esterase 3+ H (Negative) COVID-19 Eval Order SARS-CoV-2 (PCR) (Negative) Influenza Type A (PCR) (Neg) Influenza Type B (PCR) (Neg) RSV (RT-PCR) (Neg) Administered Medications Discontinued Medications Sodium Chloride (Nss) 500 mls @ 999 mls/hr IV .Q31M ONE Stop: 03/13/21 23:22 Last Admin: 03/13/21 23:36 Dose: 999 mls/hr Documented by: [id number] Discharge Plan Visit Data Chief Complaint: Fever Stated Complaint: fever, blood in urine ED Provider: Rodríguez Jesus Discharge Problem: Confusion, Feels feverish, Elevated troponin I level Patient Disposition: Being Evaluated by Hospitalist Forms Stand Alone Forms: [facility] Prescriptions Prescriptions: No Action Levemir U-100 Insulin 100 unit/mL solution 12 unit SUBCUT HS 90 Days Qty: 10.8 RF: 3 (DME) Novofine Autocover 30 gauge x 1/3" needle See Rx Instructions .ROUTE .MEDSUPPLY Qty: 200 RF: 11 Brilinta 90 mg tablet 90 mg PO BID Qty: 60 RF: 11 insulin aspart U-100 [Novolog Flexpen U-100 Insulin] 100 unit/mL (3 mL) Insulin Pen See Rx Instructions .ROUTE .COMPLEX RF: 0 Creon 12,000-38,000 -60,000 unit Capsule,Delayed Release(Dr/Ec) 1 cap PO TIDM RF: 0 famotidine [Pepcid] 20 mg tablet 20 mg PO BID RF: 0 atorvastatin 40 mg tablet 40 mg PO QPM RF: 0 solifenacin [Vesicare] 10 mg tablet 10 mg PO HS RF: 0 calcium carbonate-vitamin D3 [Calcium 600 + D(3)] 600 mg(1,500mg) -200 unit Tablet 1 tab PO QAM RF: 0 docusate sodium 100 mg Capsule 100 mg PO BID PRN (Reason: Constipation) RF: 0 mirtazapine 7.5 mg tablet 7.5 mg PO HS RF: 0 aspirin [Aspirin Childrens] 81 mg tablet,chewable 81 mg PO QAM RF: 0 Referrals Referrals: ASHWIN PizarroH [Non-Staff] -
[2021-03-13] MEDS ORDERED: SODIUM CHLORIDE 0.9% 500 ML IV ONE (22:52)
[2021-03-13 23:00] LABS: Basophils # (auto) 0.01 K/uL (0-0.2); Basophils % (auto) 0.1 %; Eosinophils # (auto) 0.07 K/uL (0-0.5); Eosinophils % (auto) 0.7 %; Hematocrit (blood only) 36.2 % (37-47); Immature Granulocytes # (auto) 0.02 K/uL (0.00-0.02); Immature Granulocytes % (auto) 0.2 %; Lymphocytes # (auto) 0.75 K/uL (1.2-3.4); Lymphocytes % (auto) 7.5 %; Mean Corpuscular Hemoglobin 27.6 pg (25-34); Mean Corpuscular Hgb Conc 33.1 g/dL (32-36); Mean Corpuscular Volume 83.2 fL (80-100); Mean Platelet Volume 9.8 fL (7.4-10.4); Monocytes # (auto) 1.01 K/uL (0.11-0.59); Monocytes % (auto) 10.1 %; Neutrophils # (auto) 8.16 K/uL (1.4-6.5); Neutrophils % (auto) 81.4 %; Platelet Count 208 K/uL (130-400); RDW Standard Deviation 48.6 fL (36.4-46.3); Red Blood Count 4.35 M/uL (4.2-5.4); White Blood Count 10.02 K/uL (4.8-10.8)
[2021-03-13 23:09] LABS: Prothrombin Time 10.4 Seconds (9.0-12.0)
[2021-03-13 23:21] LABS: Albumin Level 2.6 gm/dl (3.4-5.0); BUN Creatinine Ratio 16.8 (10-20); Creatinine Clr Calc Pharmacy 20.8 ml/min; Est GFR (African American) 34.2; Est GFR (Non-African American) 29.5; Potassium 4.3 mmol/L (3.5-5.1)
[2021-03-13 23:28] LABS: Albumin Globulin Ratio 0.6 (0.9-2); Bilirubin,Total 0.3 mg/dl (0.2-1); Globulin 4.1 gm/dl (2.5-4.0); Total Protein 6.7 gm/dl (6.4-8.2); Troponin I 0.079 ng/ml (0-0.045)
[2021-03-13 23:41] LABS: Influenza A virus by PCR Negative (Neg); Influenza B virus by PCR Negative (Neg); RSV by PCR Negative (Neg); SARS CoV2 RNA(COVID-19) InHosp NEGATIVE (Negative)
[2021-03-13 23:44] LABS: Appearance Urine Cloudy (Clear); Bilirubin Urine Negative (Negative); Blood Urine 3+ (Negative); Color Urine Yellow; Glucose Urine UA Trace (Negative); Ketones Urine Negative (Negative); Leukocyte Esterase Urine 3+ (Negative); Nitrite Urine Negative (Negative); Protein Urine 1+ (Negative); Specific Gravity Urine 1.013 (1.000-1.030); Urobilinogen Urine Negative (Negative); WBC Urine Automated >30 /hpf (0-5)
[2021-03-14 00:04] LABS: Bacteria Urine Automated 1+ (Negative); RBC Urine Automated >30 /hpf (0-4)
[2021-03-14] MEDS ORDERED: PIPERACILL/TAZOBAC CONSULT ACTIVE PRN (00:20)
[2021-03-14] MEDS ORDERED: PIPERACILLIN/TAZOBACTAM 4.5 GM/120 ML BAG IV ONE (00:20)
--- NOTE | 2021-03-14 01:40 | History & Physical Report ---
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 of TIA, DM II, CKD here for fever after recent urologic procedure Fever, unclear etiology but likely UTI after stent catheter exchange on 03/12 recent fungal infection, holding off on anifungal treatment until cultures come back Hemodynamically stable f/u KUB read - started on Pip-Tazo - IVF - f/u U. culture and B. culture Elevated troponin, potentially demand ischemia and CKD; no current chest pain - f/u with another troponin - if next troponin is increasing would consider transfer to tele DM II - SSI Hx. TIA - continue ASA and Ticagrelor Pancreatic insufficiency - continue Creon GERD - continue famotidine Mood disorder - continue Mirtazapine Code: full Diet: CC DMII DVT prophylaxis: Heparin History of Present Illness Chief Complaint: fever Primary Care Provider: CONRADO Ponce Rosalba Torres is here with daughter for fever. On 03/12 she had a ureter calculi laser destruction and extraction with left sided exchange of stent catheter. She developed a fever and fatigue on 03/13. She did not have any chills, sweats or night sweats. She has a urinary catheter in place and does not note any changes in urine output or color. She has not had any chest pain, sick contacts, worsening of any cough or cold symptoms. She has no abdominal pain or back pain. Daughter notes some neck stiffness on the left side. Allergies Allergy/AdvReac Type Severity Reaction Status Date / Time No Known Drug Allergies Allergy Unknown Unknown Verified 03/13/21 21:59 Home Medications Medication Instructions Recorded Confirmed Type Creon 1 cap PO TIDM 06/11/19 03/13/21 History insulin aspart U-100 [Novolog See Rx Instructions .ROUTE .COMPLEX 06/11/19 03/13/21 History Flexpen U-100 Insulin] famotidine [Pepcid] 20 mg PO BID 01/17/20 03/13/21 History solifenacin [Vesicare] 10 mg PO HS 02/10/20 03/13/21 History ticagrelor 90 mg tablet 90 mg PO BID #60 tab 08/15/20 03/13/21 Rx atorvastatin 40 mg tablet 40 mg PO QPM tab 08/31/20 03/13/21 History calcium carbonate-vitamin D3 1 tab PO QAM 02/03/21 03/13/21 History [Calcium 600 + D(3)] docusate sodium 100 mg PO BID PRN 02/03/21 03/13/21 History mirtazapine 7.5 mg PO HS 02/03/21 03/13/21 History aspirin [Aspirin Childrens] 81 mg PO QAM 03/01/21 03/13/21 History insulin detemir U-100 100 unit/mL 12 unit SUBCUT HS 90 Days #10.8 ml 03/12/21 03/13/21 Rx subcutaneous solution Novofine Autocover 30 gauge x 11/26" #200 ea NS 03/13/21 03/13/21 Rx needle Past Med/Surg History Medical History Chronic kidney disease Stage IV Compression fracture of T11 vertebra s/p fall 12/2019 Diabetes mellitus, type 2 Exocrine pancreatic insufficiency GERD (gastroesophageal reflux disease) Hearing deficit Hiatal hernia HX: breast cancer S/p LUMPECTOMY - LEFT BREAST; NO RADIATION, NO CHEMO; WAS ON TAMOXIFEN FOR 5 YR - NO LONGER TAKING Hyperlipidemia Kidney stones 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 [facility]. LMA #4. No issues. History of cystoscopy 02/10/2020 [facility] History of hemiarthroplasty of left hip History of lumpectomy of left breast History of pancreatectomy PARTIAL ([place]) History of ureter stent Hx of colonoscopy Family History Aunt Stroke Mother Stroke Father Heart disease Family/Other Family history of diabetes mellitus Grandmother (Maternal) Family history of diabetes mellitus Other No family history of allergies No family history of bleeding disorder No pertinent family history in first degree relatives Denies family history of Hearing loss Cancer Hypertension Asthma Social History Smoking Status: Never smoker Second Hand Exposure: No; Hx Alcohol Use: No Hx Substance Use: No Preferred Language: Iranian Communication Ability: Effective Recreation Facility Manager Required: No Beliefs That Will Affect Care: None marital status: Unknown Current Living Situation: Personal Care Facility Current Living Situation Comment: PT CURRENTLY AT [facility] SINCE 12/2020 current occupational status: retired Other Information That 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 Assistive Devices: Walker Review of Systems Review of Systems: All systems reviewed & are unremarkable except as noted in HPI & below Physical Exam Constitutional: WD/WN, vitals as above Eyes: - PERRL - no hamartoma appreciated ENMT: external ear and nose normal, oropharynx normal Neck: normal visual inspection Respiratory: normal respiratory effort, lungs clear to auscultation Cardiovascular: RRR, no murmur, no edema Gastrointestinal (Abdomen): normal bowel sounds, soft, nontender, no hepatosplenomegaly Skin: - multiple soft tissue masses consistent with neurofibromas Neurologic: no focal motor deficits Psychiatric: Orientation: alert Affect: + depressed affect Results & Data Results & Data ([facility]) Vital Signs (Past 12 Hours) Vital Signs Temp Pulse Pulse Resp BP BP Pulse Ox 03/14/21 00:59 86 17 145/52 H 93 03/13/21 23:27 88 20 145/52 H 96 03/13/21 21:55 84 23 123/78 96 03/13/21 21:20 37.8 C H 80 20 136/70 93 03/13/21 21:15 37.6 C H Laboratory Results Lab Results 03/13/21 03/13/21 03/13/21 Range/Units 22:41 22:41 22:43 WBC 10.02 (4.8-10.8) K/uL RBC 4.35 (4.2-5.4) M/uL Hgb 12.0 (12.0-16.0) g/dL Hct 36.2 L (37-47) % MCV 83.2 (80-100) fL MCH 27.6 (25-34) pg MCHC 33.1 (32-36) g/dL RDW Std Deviation 48.6 H (36.4-46.3) fL RDW Coeff of Flako 16.0 H (11.5-14.5) % Plt Count 208 (130-400) K/uL MPV 9.8 (7.4-10.4) fL Immature Gran % (Auto) 0.2 % Neut % (Auto) 81.4 % Lymph % (Auto) 7.5 % [place] % (Auto) 10.1 % Eos % (Auto) 0.7 % Baso % (Auto) 0.1 % Neut # (Auto) 8.16 H (1.4-6.5) K/uL Lymph # (Auto) 0.75 L (1.2-3.4) K/uL [place] # (Auto) 1.01 H (0.11-0.59) K/uL Eos # (Auto) 0.07 (0-0.5) K/uL Baso # (Auto) 0.01 (0-0.2) K/uL Immature Gran # (Auto) 0.02 (0.00-0.02) K/uL PT (9.0-12.0) Seconds INR (0.9-1.1) Sodium (136-145) mmol/L Potassium (3.5-5.1) mmol/L Chloride (98-107) mmol/L Carbon Dioxide (21-32) mmol/L Anion Gap (3-11) BUN (7-18) mg/dl Creatinine (0.6-1.2) mg/dl Est Cr Clr Drug Dosing ml/min Est GFR ( Amer) Est GFR (Non-Af Amer) BUN/Creatinine Ratio (10-20) Glucose (70-99) mg/dl POC Glucose (70-99) mg/dl Lactate (0.4-2.0) mmol/L Calcium (8.5-10.1) mg/dl Total Bilirubin (0.2-1) mg/dl AST (15-37) U/L ALT (12-78) U/L Alkaline Phosphatase (45-117) U/L Troponin I (0-0.045) ng/ml Total Protein (6.4-8.2) gm/dl Albumin (3.4-5.0) gm/dl Globulin (2.5-4.0) gm/dl Albumin/Globulin Ratio (0.9-2) Procalcitonin (0-0.5) ng/ml Urine Color Urine Appearance (Clear) Urine pH (4.5-7.5) Ur Specific Addison (1.000-1.030) Urine Protein (Negative) Urine Glucose (UA) (Negative) Urine Ketones (Negative) Urine Blood (Negative) Urine Nitrite (Negative) Urine Bilirubin (Negative) Urine Urobilinogen (Negative) Ur Leukocyte Esterase (Negative) Urine WBC (Auto) (0-5) /hpf Urine RBC (Auto) (0-4) /hpf U Hyaline Cast (Auto) (0-5) /lpf U Epithel Cells (Auto) (0-5) /lpf Urine Bacteria (Auto) (Negative) Urine Yeast COVID-19 Eval Order CovFluRsv at [facility] SARS-CoV-2 (PCR) NEGATIVE (Negative) Influenza Type A (PCR) Negative (Neg) Influenza Type B (PCR) Negative (Neg) RSV (RT-PCR) Negative (Neg) 03/13/21 03/13/21 03/13/21 Range/Units 22:43 22:43 22:43 WBC (4.8-10.8) K/uL RBC (4.2-5.4) M/uL Hgb (12.0-16.0) g/dL Hct (37-47) % MCV (80-100) fL MCH (25-34) pg MCHC (32-36) g/dL RDW Std Deviation (36.4-46.3) fL RDW Coeff of Flako (11.5-14.5) % Plt Count (130-400) K/uL MPV (7.4-10.4) fL Immature Gran % (Auto) % Neut % (Auto) % Lymph % (Auto) % [place] % (Auto) % Eos % (Auto) % Baso % (Auto) % Neut # (Auto) (1.4-6.5) K/uL Lymph # (Auto) (1.2-3.4) K/uL [place] # (Auto) (0.11-0.59) K/uL Eos # (Auto) (0-0.5) K/uL Baso # (Auto) (0-0.2) K/uL Immature Gran # (Auto) (0.00-0.02) K/uL PT 10.4 (9.0-12.0) Seconds INR 1.0 (0.9-1.1) Sodium 135 L (136-145) mmol/L Potassium 4.3 (3.5-5.1) mmol/L Chloride 103 (98-107) mmol/L Carbon Dioxide 24 (21-32) mmol/L Anion Gap 8.0 (3-11) BUN 27 H (7-18) mg/dl Creatinine 1.60 H (0.6-1.2) mg/dl Est Cr Clr Drug Dosing 20.8 ml/min Est GFR ( Amer) 34.2 Est GFR (Non-Af Amer) 29.5 BUN/Creatinine Ratio 16.8 (10-20) Glucose 280 H (70-99) mg/dl POC Glucose (70-99) mg/dl Lactate 1.9 (0.4-2.0) mmol/L Calcium 9.0 (8.5-10.1) mg/dl Total Bilirubin 0.3 (0.2-1) mg/dl AST 7 L (15-37) U/L ALT 15 (12-78) U/L Alkaline Phosphatase 89 (45-117) U/L Troponin I 0.079 H* (0-0.045) ng/ml Total Protein 6.7 (6.4-8.2) gm/dl Albumin 2.6 L (3.4-5.0) gm/dl Globulin 4.1 H (2.5-4.0) gm/dl Albumin/Globulin Ratio 0.6 L (0.9-2) Procalcitonin (0-0.5) ng/ml Urine Color Urine Appearance (Clear) Urine pH (4.5-7.5) Ur Specific [place] (1.000-1.030) Urine Protein (Negative) Urine Glucose (UA) (Negative) Urine Ketones (Negative) Urine Blood (Negative) Urine Nitrite (Negative) Urine Bilirubin (Negative) Urine Urobilinogen (Negative) Ur Leukocyte Esterase (Negative) Urine WBC (Auto) (0-5) /hpf Urine RBC (Auto) (0-4) /hpf U Hyaline Cast (Auto) (0-5) /lpf U Epithel Cells (Auto) (0-5) /lpf Urine Bacteria (Auto) (Negative) Urine Yeast COVID-19 Eval Order SARS-CoV-2 (PCR) (Negative) Influenza Type A (PCR) (Neg) Influenza Type B (PCR) (Neg) RSV (RT-PCR) (Neg) 03/13/21 03/13/21 03/14/21 Range/Units 22:43 23:30 03:01 WBC (4.8-10.8) K/uL RBC (4.2-5.4) M/uL Hgb (12.0-16.0) g/dL Hct (37-47) % MCV (80-100) fL MCH (25-34) pg MCHC (32-36) g/dL RDW Std Deviation (36.4-46.3) fL RDW Coeff of Flako (11.5-14.5) % Plt Count (130-400) K/uL MPV (7.4-10.4) fL Immature Gran % (Auto) % Neut % (Auto) % Lymph % (Auto) % [place] % (Auto) % Eos % (Auto) % Baso % (Auto) % Neut # (Auto) (1.4-6.5) K/uL Lymph # (Auto) (1.2-3.4) K/uL [place] # (Auto) (0.11-0.59) K/uL Eos # (Auto) (0-0.5) K/uL Baso # (Auto) (0-0.2) K/uL Immature Gran # (Auto) (0.00-0.02) K/uL PT (9.0-12.0) Seconds INR (0.9-1.1) Sodium (136-145) mmol/L Potassium (3.5-5.1) mmol/L Chloride (98-107) mmol/L Carbon Dioxide (21-32) mmol/L Anion Gap (3-11) BUN (7-18) mg/dl Creatinine (0.6-1.2) mg/dl Est Cr Clr Drug Dosing ml/min Est GFR ( Amer) Est GFR (Non-Af Amer) BUN/Creatinine Ratio (10-20) Glucose (70-99) mg/dl POC Glucose 178 H (70-99) mg/dl Lactate (0.4-2.0) mmol/L Calcium (8.5-10.1) mg/dl Total Bilirubin (0.2-1) mg/dl AST (15-37) U/L ALT (12-78) U/L Alkaline Phosphatase (45-117) U/L Troponin I (0-0.045) ng/ml Total Protein (6.4-8.2) gm/dl Albumin (3.4-5.0) gm/dl Globulin (2.5-4.0) gm/dl Albumin/Globulin Ratio (0.9-2) Procalcitonin 0.17 (0-0.5) ng/ml Urine Color Yellow Urine Appearance Cloudy A (Clear) Urine pH 5.0 (4.5-7.5) Ur Specific [place] 1.013 (1.000-1.030) Urine Protein 1+ H (Negative) Urine Glucose (UA) Trace H (Negative) Urine Ketones Negative (Negative) Urine Blood 3+ H (Negative) Urine Nitrite Negative (Negative) Urine Bilirubin Negative (Negative) Urine Urobilinogen Negative (Negative) Ur Leukocyte Esterase 3+ H (Negative) Urine WBC (Auto) >30 H (0-5) /hpf Urine RBC (Auto) >30 H (0-4) /hpf U Hyaline Cast (Auto) 1-5 (0-5) /lpf U Epithel Cells (Auto) 5-10 H (0-5) /lpf Urine Bacteria (Auto) 1+ H (Negative) Urine Yeast Not Reportable COVID-19 Eval Order SARS-CoV-2 (PCR) (Negative) Influenza Type A (PCR) (Neg) Influenza Type B (PCR) (Neg) RSV (RT-PCR) (Neg) Code Status & VTE Plan VTE Prophylaxis Plan VTE Prophylaxis will be ordered: Yes Supervising Physician Co-Signing Physician Notes Patient seen and examined, chart reviewed, case discussed with Dr. Germain and I agree with his assessment and plan as documented above. Briefly, patient is an 85yo female with recent retrograde pyelogram with pablito destruction and e xtraction of stone performed on 03/12/21. Patient with fever and fatigue. Recent fungemia s/p treatment with Caspofungin On exam she is afebrile, HD stable, NAD Skin - intact, no rash HEENT - NC/AT, PERRL, EOMI, MMM Heart - +S1/S2, regular, no m/r/g Lungs - CTA Abd - +BS, soft, NT/ND Ext - No edema Neuro - Nonfocal Labs and images reviewed. Significant for CKD with BUN=27, Cr=1.6, UMR=712, Tr oponin = 0-.077, UA suggestive of infection Assessment/Plan: Follow blood and urine culture Zosyn for now Trend troponin. Patient with no complaint of chest pain Remainder of plan as above
[2021-03-14] MEDS ORDERED: DOCUSATE SODIUM 100 MG CAP PO PRN (02:26)
[2021-03-14] MEDS ORDERED: GLUCOSE 10 TABS/TUBE PO PRN (02:26)
[2021-03-14] MEDS ORDERED: DEXTROSE 50% 50 ML SYRINGE IV PRN (02:26)
[2021-03-14] MEDS ORDERED: GLUCOSE 40% GEL 15 GM TUBE PO PRN (02:26)
[2021-03-14] MEDS ORDERED: POLYETHYLENE (MIRALAX) 17 GM PACK PO PRN (02:26)
[2021-03-14] MEDS ORDERED: GLUCAGON FOR INJ 1 MG VIAL SQ PRN (02:26)
[2021-03-14] MEDS ORDERED: ACETAMINOPHEN 325 MG TAB PO PRN (02:26)
[2021-03-14] MEDS: SODIUM CHLORIDE 0.9% 1000ML 1,000 ML IV SCH ×2 (03:08→18:38)
--- NOTE | 2021-03-14 03:54 | Billing Data ---
Date of Service March 14, 2021 Coding Level of Care Code 01023 OBS Care - Level 3
[2021-03-14] MEDS: INSULIN ASPART 100 UNITS/ML 3 ML PEN SC SCH ×5 (04:13→20:52)
[2021-03-14] MEDS: PIPERACILLIN/TAZOBACTAM 3.375 GM in DEXTROSE 5% 100 ML IV SCH ×3 (05:14→21:03)
--- NOTE | 2021-03-14 07:10 | CT Scan Report ---
CT SCAN OF THE BRAIN WITHOUT IV CONTRAST CLINICAL HISTORY: Generalized weakness. Hallucinations. Fever. COMPARISON STUDY: CT of the brain dated 02/03/2021. TECHNIQUE: Unenhanced axial CT scan of the brain is performed from the vertex to the skull base. A do se lowering technique was utilized adhering to the principles of ALARA. CT DOSE: 614.27 mGy.cm FINDINGS: Brain parenchyma: There are age-related involutional changes noting advanced confluent subcortical a nd periventricular microangiopathic change. There is no hemorrhage, mass effect, or evidence of acute territorial ischemia by CT criteria. Small chronic lacunar infarcts are noted in the right caudate h ead and the basal ganglia. Colon-white matter differentiation is preserved. No extra-axial fluid colle ction is seen. Ventricles, sulci, cisterns: Prominent secondary to involutional change. Intracranial vasculature: There is atherosclerotic calcification of the cavernous carotid and vertebr al arteries. Calvarium: Unremarkable. Soft tissues: There are numerous skin tags identified. Sinuses and mastoids: The visualized paranasal sinuses are clear. The mastoid air cells are well pneu matized. Orbits: The bony orbits are grossly intact. There are bilateral ocular lens implants. IMPRESSION: There is no hemorrhage, mass effect, or evidence of acute territorial ischemia by CT les [place]. ACT 112: Negative or not required by law. Electronically signed by: Sandro Seth M.D. 03/14/2021 7:09 AM
--- NOTE | 2021-03-14 07:46 | XRay Report ---
KUB CLINICAL HISTORY: Nephrolithiasis and renal stent. FINDINGS: An AP supine abdominal radiograph is compared to study dated 02/05/2021 and correlated with abdominal CT dated 02/03/2021. Suture material projects over the left upper quadrant. There is a nonob structed abdominal bowel gas pattern. A left ureteral stent is unchanged in position. No calcificatio ns are seen along the course of the stent. There are at least 3 calculi projecting over the lower yeison e of the left kidney measuring up to 7 mm. No calcifications are clearly seen projecting over the rig ht kidney or along the course of the right ureter. Small phleboliths are noted in the pelvis. The ske letal structures are osteopenic and appear intact. There is moderate lumbosacral spondylosis. A left hip arthroplasty is in place. Numerous skin tags are noted. IMPRESSION: 1. A left ureteral stent is unchanged in position. No calcifications are seen along the course of the stent. 2. Nonobstructing left renal calculi as above. Electronically signed by: Sandro Seth M.D. 03/14/2021 7:45 AM
--- NOTE | 2021-03-14 07:53 | XRay Report ---
SINGLE VIEW CHEST CLINICAL HISTORY: Fever. FINDINGS: An AP, portable, upright chest radiograph is compared to study dated 02/03/2021. The examina tion is degraded by portable technique and patient rotation. The heart is enlarged noting atheroscl erotic calcification of the thoracic aorta. The pulmonary vasculature is noncongested. Chronic inters titial thickening similar to previous. There is bibasilar scarring/atelectasis. No airspace consolida tion or large pleural effusion is identified. No pneumothorax is seen. The skeletal structures are os teopenic. The bony thorax is grossly intact. Numerous skin tags are again noted. IMPRESSION: Mild cardiomegaly with no acute cardiopulmonary abnormality. ACT 112: Negative or not required by law. Electronically signed by: Sandro Seth M.D. 03/14/2021 7:52 AM
[2021-03-14] MEDS: HEPARIN SOD 5,000 UNIT/0.5 ML VIAL SQ SCH ×2 (08:54→20:48)
[2021-03-14] MEDS: FAMOTIDINE 20 MG TAB PO SCH ×2 (08:54→20:49)
[2021-03-14] MEDS: PANCREAZE (LIPASE 10,500U) CAP PO SCH ×3 (08:54→18:37)
--- NOTE | 2021-03-14 10:34 | Urology Consultation ---
Date of Consultation March 14, 2021 Assessment & Plan (1) UTI (urinary tract infection): 85 year old female admitted for fever and confusion; suspected UTI s/p left ureteroscopy, stone treatment, stent exchange. - Pt s/p left ureteroscopy, stone treatment, stent exchange on 03/12 - Patient seen with Dr. 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 Guaman, pt's primary urologist - Hospital course, imaging and lab work reviewed as well as past medical/surgical history - Afebrile, nontoxic, VSS. Lab work reviewed and no new lab work at time of visit - KUB shows left ureteral stent in good position, no ureteral calculi - Urine and blood cultures from admission are pending. IV Zosyn started on admission. Follow cultures. - She has not been started on antifungals - Intraop culture of kidney aspirate on 03/12 is showing yeast - Her prior fungal C&S from 02/03 showed Alysa glabrata with sensitivity to IV Caspofungin - Given her history of fungemia with Alysa glabrata, recommend starting IV Caspofungin now - Recommend ID consult for further recommendations and ongoing management - Continue supportive care and management per primary team - No acute urological intervention at this time - Will continue to follow closely Supervising Physician Co-Signing Physician Notes pt seen agree with starting capsofungin now History of Present Illness Reason for Consultation: post procedure fever Requesting Physician: Dr. Germain Attending Physician: Venu Morse History of Present Illness 85 year old female admitted for fever and confusion; suspected UTI s/p left uret eroscopy, stone treatment, stent exchange. PMHx of fungemia, nephrolithiasis, neurofibromatosis, chronic kidney disease, exocrine pancreatic insufficiency, hyperlipidemia, diabetes, breast cancer. Patient known to our service for history of nephrolithiasis. Recently s/p left ureteroscopy, laser lithotripsy and left ureteral stent exchange for left ureteral stone on 03/12/[address] Guaman, treated with Caspofungin and Cefepime intraoperatively. She was hospitalized at [facility] from 02/03 - 02/14/21 for fungemia. She had a left ureteral stent placed during that admission secondary to left ureteral stones, UTI. Of note, her blood cultures at that time grew out Alysa glabrata, treated with Amphotericin B bladder instillations and IV Caspofungin. The sensitivity report from 02/03 culture showed sensitivity to Caspofungin. She presented to [facility] ED on 03/13/21 with c/o fever and confusion. Afebrile on arrival. Lab work: creatinine 1.60, WBC 10.02, Hgb 12.0, lactate 1.9. UA showed 3+ leukocytes, >30 WBCs, >30 RBCs, 1+ bacteria; negative nitrates. Urine and blood cultures obtained. She was started on IV Zosyn on admission. Of note, her operative culture of kidney aspirate on 03/12 is showing yeast. Preop urine culture from 03/07 showed yeast not Alysa albicans. KUB showing left ureteral stent in good position, no ureteral stones; left nephrolithiasis. She had a head CT showing no acute findings. She was admitted by hospital medicine for further evaluation and management. Our service is consulted for postoperative fever. Chart review: Afebrile No new labs at time of exam BCx pending UC&S pending On IV Zosyn Patient seen and examined at bedside with Dr. Zhong. She is awake and resting in bed. No flank or abdominal pain. Subjectively feeling better than yesterday. Banegas catheter intact, patent and draining clear yellow urine with some sediment in tubing. No nausea or vomiting. No fever or chills. No additional concerns today. Allergies Allergy/AdvReac Type Severity Reaction Status Date / Time No Known Drug Allergies Allergy Unknown Unknown Verified 03/13/21 21:59 Home Medications Medication Instructions Recorded Confirmed Type Creon 1 cap PO TIDM 06/11/19 03/13/21 History insulin aspart U-100 [Novolog See Rx Instructions .ROUTE .COMPLEX 06/11/19 03/13/21 History Flexpen U-100 Insulin] famotidine [Pepcid] 20 mg PO BID 01/17/20 03/13/21 History solifenacin [Vesicare] 10 mg PO HS 02/10/20 03/13/21 History ticagrelor 90 mg tablet 90 mg PO BID #60 tab 08/15/20 03/13/21 Rx atorvastatin 40 mg tablet 40 mg PO QPM tab 08/31/20 03/13/21 History calcium carbonate-vitamin D3 1 tab PO QAM 02/03/21 03/13/21 History [Calcium 600 + D(3)] docusate sodium 100 mg PO BID PRN 02/03/21 03/13/21 History mirtazapine 7.5 mg PO HS 02/03/21 03/13/21 History aspirin [Aspirin Childrens] 81 mg PO QAM 03/01/21 03/13/21 History insulin detemir U-100 100 unit/mL 12 unit SUBCUT HS 90 Days #10.8 ml 03/12/21 03/13/21 Rx subcutaneous solution Novofine Autocover 30 gauge x 1/3" #200 ea NS 03/14/21 Rx needle Patient History Medical History Chronic kidney disease Stage IV Compression fracture of T11 vertebra s/p fall 12/2019 Diabetes mellitus, type 2 Exocrine pancreatic insufficiency GERD (gastroesophageal reflux disease) Hearing deficit Hiatal hernia HX: breast cancer S/p LUMPECTOMY - LEFT BREAST; NO RADIATION, NO CHEMO; WAS ON TAMOXIFEN FOR 5 YR - NO LONGER TAKING Hyperlipidemia Kidney stones 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 [facility]. LMA #4. No issues. History of cystoscopy 02/10/2020 [facility] History of hemiarthroplasty of left hip History of lumpectomy of left breast History of pancreatectomy PARTIAL ([place]) History of ureter stent Hx of colonoscopy Family History Aunt Stroke Mother Stroke Father Heart disease Family/Other Family history of diabetes mellitus Grandmother (Maternal) Family history of diabetes mellitus Other No family history of allergies No family history of bleeding disorder No pertinent family history in first degree relatives Denies family history of Hearing loss Cancer Hypertension Asthma Social History (Reviewed 03/14/21 @ 11:19 by TIFFANY Yeung Smoking Status: Never smoker Second Hand Exposure: No; Hx Alcohol Use: No Hx Substance Use: No Preferred Language: Tajik Communication Ability: Effective Printed [employer] Panels Deburrer Required: No Beliefs That Will Affect Care: None marital status: Unknown Current Living Situation: Personal Care Facility Current Living Situation Comment: PT CURRENTLY AT [facility] 12/2020 current occupational status: retired Other Information 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 Assistive Devices: None Review of Systems Constitutional: as per Subjective / HPI Respiratory: no problem reported Cardiovascular: no problem reported Gastrointestinal: as per Subjective / HPI Genitourinary: as per Subjective / HPI Musculoskeletal: no problem reported Neurologic: no problem reported Psychiatric: no problem reported Physical Exam Constitutional: well developed and well nourished; no acute distress and not ill appearing Eyes: no scleral abnormality Neck: normal visual inspection Respiratory: normal respiratory effort and able to speak in complete sentences; no respiratory distress and no labored breathing Cardiovascular: Extremities: no pedal edema Gastrointestinal (Abdomen): Inspection/Auscultation: abdomen normal to inspection; abdomen not distended Percussion/Palpation: abdomen soft; abdomen nontender Musculoskeletal: Head/Neck/Chest: normocephalic and head atraumatic Neurologic: moves all extremities and awake Psychiatric: A+Ox3, euthymic affect Genitourinary: Banegas intact, patent and draining clear yellow urine with some sediment in tubing Results & Data ([facility]) Vital Signs (Past 12 Hours) Vital Signs Temp Pulse Pulse Pulse Resp BP BP 03/14/21 07:01 36.6 C 43 L 20 125/65 03/14/21 02:57 68 03/14/21 02:20 37.5 C 124 H 16 120/66 03/14/21 01:00 79 17 145/52 H 03/14/21 00:59 86 17 145/52 H 03/13/21 23:27 88 20 145/52 H Pulse Ox 03/14/21 07:01 97 03/14/21 02:57 03/14/21 02:20 91 03/14/21 01:00 95 03/14/21 00:59 93 03/13/21 23:27 96 PG Care Time/CCT Total # of Minutes Spent Total Time Spent with Patient: Total time spent is greater than 50% in coordination of care (as documented) at patient's floor/unit and/or counseling patient: Coding Level of Care Code 68156 Initial Inpt Care Lvl 3 Diagnoses UTI (urinary tract infection) N39.0
[2021-03-14] MEDS ORDERED: CASPOFUNGIN 70 MG in SODIUM CHLORIDE 0.9% 250 ML IV ONE (11:42)
--- NOTE | 2021-03-14 15:22 | Electrocardiogram Report ---
Test Reason : Blood Pressure : / mmHG Vent. Rate : 094 BPM Atrial Rate : 094 BPM P-R Int : 000 ms QRS Dur : 074 ms QT Int : 354 ms P-R-T Axes : 000 -29 036 degrees QTc Int : 442 ms Poor data quality, interpretation may be adversely affected Sinus rhythm with atrial ectopy, some conducted aberrantly Low voltage QRS Abnormal ECG Confirmed by Gregorio Gayle ([id number]) on 03/14/2021 3:21:38 PM Referred By: Blayne Duarte Confirmed By:Jono Gayle
[2021-03-14] MEDS: ATORVASTATIN 40 MG TAB PO SCH (20:50)
[2021-03-14] MEDS: MIRTAZAPINE TAB 15 MG TAB PO SCH (20:50)
--- NOTE | 2021-03-14 23:01 | Hospitalist Progress Note ---
Date of Service March 14, 2021 Assessment & Plan (1) Sepsis: 2nd UTI caspofungin added as she has fungal UTI cont zosyn - growing strep species from 03/12 urine cx as well; likely to be enterococcus follow all prior and current cx's (2) Urinary tract infection: 2nd to yeast 2nd to strep species both growing from intra-op left-sided kidney culture 03/12/21 caspofungin for yeast zosyn for strep she had fungemia and fungal UTI in January suspect she seeded her prior left-sided stent and the stone itself thus potentially never cleared the fungus either way stone is now gone s/p litho stent ultimately to be removed (3) Kidney stone: left s/p litho on 03/12 no plans for additional urological intervention appreciate urology consult (4) Uncontrolled diabetes mellitus, with long-term current use of insulin: add lantus adjust novolog the high BSGs likely made her more susceptible to fungal UTI (5) Chronic kidney disease, stage IV (severe): baseline CrCL 20s BMP am gentle fluids (6) Neurofibromatosis: (7) Exocrine pancreatic insufficiency: cont creon (8) Elevated troponin I level: no ACS echo 01/2021 wnl likely myocardial demand ischemia in setting of sepsis/UTI (9) Acute metabolic encephalopathy: 2nd to sepsis/UTI antibiotics antifungals supportive care (10) DVT prophylaxis: heparin 5000 BID updated pt's kishor Serrato extensively by phone (20 min phone call) total care time today 35 min Admission and Anticipated Discharge Date Admission Date: March 14, 2021 Subjective patient quite sleepy during the visit denies pain in any location states "I feel ok" denies dyspnea or cp eating ok Review of Systems Constitutional: + fatigue and + weakness; no fever and no chills Respiratory: no cough and no dyspnea Cardiovascular: no chest pain Gastrointestinal: no abdominal pain, no nausea and no vomiting Physical Exam Constitutional: + ill appearing and + altered mental status (mild); no acute distress ENMT: Mouth: + dry oral mucous membranes Respiratory: normal respiratory effort, lungs clear to auscultation Cardiovascular: Rate/Rhythm: regular rate and regular rhythm Heart Sounds: normal S1 and normal S2 Gastrointestinal (Abdomen): normal bowel sounds, soft, nontender, no hepatosplenomegaly Skin: too numerous to count neurofibromas over most of skin Psychiatric: Orientation: alert, oriented to person and oriented to place; + not oriented to time Results & Data Results & Data ([facility]) Vital Signs (Past 12 Hours) Vital Signs Temp Pulse Resp BP Pulse Ox 03/14/21 14:50 36.7 C 67 14 97/58 L 95 Laboratory Results Laboratory Results - last 24 hr 03/13/21 03/13/21 03/13/21 22:41 22:41 22:43 WBC 10.02 RBC 4.35 Hgb 12.0 Hct 36.2 L MCV 83.2 MCH 27.6 MCHC 33.1 RDW Std Deviation 48.6 H RDW Coeff of Flako 16.0 H Plt Count 208 MPV 9.8 Immature Gran % (Auto) 0.2 Neut % (Auto) 81.4 Lymph % (Auto) 7.5 Sac % (Auto) 10.1 Eos % (Auto) 0.7 Baso % (Auto) 0.1 Neut # (Auto) 8.16 H Lymph # (Auto) 0.75 L Sac # (Auto) 1.01 H Eos # (Auto) 0.07 Baso # (Auto) 0.01 Immature Gran # (Auto) 0.02 PT INR Sodium Potassium Chloride Carbon Dioxide Anion Gap BUN Creatinine Est Cr Clr Drug Dosing Est GFR ( Amer) Est GFR (Non-Af Amer) BUN/Creatinine Ratio Glucose POC Glucose Lactate Calcium Total Bilirubin AST ALT Alkaline Phosphatase Troponin I Total Protein Albumin Globulin Albumin/Globulin Ratio Procalcitonin Urine Color Urine Appearance Urine pH Ur Specific [place] Urine Protein Urine Glucose (UA) Urine Ketones Urine Blood Urine Nitrite Urine Bilirubin Urine Urobilinogen Ur Leukocyte Esterase Urine WBC (Auto) Urine RBC (Auto) U Hyaline Cast (Auto) U Epithel Cells (Auto) Urine Bacteria (Auto) Urine Yeast COVID-19 Eval Order CovFluRsv at [facility] SARS-CoV-2 (PCR) NEGATIVE Influenza Type A (PCR) Negative Influenza Type B (PCR) Negative RSV (RT-PCR) Negative 03/13/21 03/13/21 03/13/21 22:43 22:43 22:43 WBC RBC Hgb Hct MCV MCH MCHC RDW Std Deviation RDW Coeff of [place]ako Plt Count MPV Immature Gran % (Auto) Neut % (Auto) Lymph % (Auto) Sac % (Auto) Eos % (Auto) Baso % (Auto) Neut # (Auto) Lymph # (Auto) Sac # (Auto) Eos # (Auto) Baso # (Auto) Immature Gran # (Auto) PT 10.4 INR 1.0 Sodium 135 L Potassium 4.3 Chloride 103 Carbon Dioxide 24 Anion Gap 8.0 BUN 27 H Creatinine 1.60 H Est Cr Clr Drug Dosing 20.8 Est GFR ( Amer) 34.2 Est GFR (Non-Af Amer) 29.5 BUN/Creatinine Ratio 16.8 Glucose 280 H POC Glucose Lactate 1.9 Calcium 9.0 Total Bilirubin 0.3 AST 7 L ALT 15 Alkaline Phosphatase 89 Troponin I 0.079 H* Total Protein 6.7 Albumin 2.6 L Globulin 4.1 H Albumin/Globulin Ratio 0.6 L Procalcitonin Urine Color Urine Appearance Urine pH Ur Specific [place] Urine Protein Urine Glucose (UA) Urine Ketones Urine Blood Urine Nitrite Urine Bilirubin Urine Urobilinogen Ur Leukocyte Esterase Urine WBC (Auto) Urine RBC (Auto) U Hyaline Cast (Auto) U Epithel Cells (Auto) Urine Bacteria (Auto) Urine Yeast COVID-19 Eval Order SARS-CoV-2 (PCR) Influenza Type A (PCR) Influenza Type B (PCR) RSV (RT-PCR) 03/13/21 03/13/21 03/14/21 22:43 23:30 03:01 WBC RBC Hgb Hct MCV MCH MCHC RDW Std Deviation RDW Coeff of [place]ako Plt Count MPV Immature Gran % (Auto) Neut % (Auto) Lymph % (Auto) Sac % (Auto) Eos % (Auto) Baso % (Auto) Neut # (Auto) Lymph # (Auto) Sac # (Auto) Eos # (Auto) Baso # (Auto) Immature Gran # (Auto) PT INR Sodium Potassium Chloride Carbon Dioxide Anion Gap BUN Creatinine Est Cr Clr Drug Dosing Est GFR ( Amer) Est GFR (Non-Af Amer) BUN/Creatinine Ratio Glucose POC Glucose 178 H Lactate Calcium Total Bilirubin AST ALT Alkaline Phosphatase Troponin I Total Protein Albumin Globulin Albumin/Globulin Ratio Procalcitonin 0.17 Urine Color Yellow Urine Appearance Cloudy A Urine pH 5.0 Ur Specific [place] 1.013 Urine Protein 1+ H Urine Glucose (UA) Trace H Urine Ketones Negative Urine Blood 3+ H Urine Nitrite Negative Urine Bilirubin Negative Urine Urobilinogen Negative Ur Leukocyte Esterase 3+ H Urine WBC (Auto) >30 H Urine RBC (Auto) >30 H U Hyaline Cast (Auto) 1-5 U Epithel Cells (Auto) 5-10 H Urine Bacteria (Auto) 1+ H Urine Yeast Not Reportable COVID-19 Eval Order SARS-CoV-2 (PCR) Influenza Type A (PCR) Influenza Type B (PCR) RSV (RT-PCR) 03/14/21 03/14/21 03/14/21 08:05 12:20 16:54 WBC RBC Hgb Hct MCV MCH MCHC RDW Std Deviation RDW Coeff of Flako Plt Count MPV Immature Gran % (Auto) Neut % (Auto) Lymph % (Auto) Sac % (Auto) Eos % (Auto) Baso % (Auto) Neut # (Auto) Lymph # (Auto) Sac # (Auto) Eos # (Auto) Baso # (Auto) Immature Gran # (Auto) PT INR Sodium Potassium Chloride Carbon Dioxide Anion Gap BUN Creatinine Est Cr Clr Drug Dosing Est GFR ( Amer) Est GFR (Non-Af Amer) BUN/Creatinine Ratio Glucose POC Glucose 138 H 118 H 203 H Lactate Calcium Total Bilirubin AST ALT Alkaline Phosphatase Troponin I Total Protein Albumin Globulin Albumin/Globulin Ratio Procalcitonin Urine Color Urine Appearance Urine pH Ur Specific [place] Urine Protein Urine Glucose (UA) Urine Ketones Urine Blood Urine Nitrite Urine Bilirubin Urine Urobilinogen Ur Leukocyte Esterase Urine WBC (Auto) Urine RBC (Auto) U Hyaline Cast (Auto) U Epithel Cells (Auto) Urine Bacteria (Auto) Urine Yeast COVID-19 Eval Order SARS-CoV-2 (PCR) Influenza Type A (PCR) Influenza Type B (PCR) RSV (RT-PCR) 03/14/21 20:35 WBC RBC Hgb Hct MCV MCH MCHC RDW Std Deviation RDW Coeff of Flako Plt Count MPV Immature Gran % (Auto) Neut % (Auto) Lymph % (Auto) Sac % (Auto) Eos % (Auto) Baso % (Auto) Neut # (Auto) Lymph # (Auto) Sac # (Auto) Eos # (Auto) Baso # (Auto) Immature Gran # (Auto) PT INR Sodium Potassium Chloride Carbon Dioxide Anion Gap BUN Creatinine Est Cr Clr Drug Dosing Est GFR ( Amer) Est GFR (Non-Af Amer) BUN/Creatinine Ratio Glucose POC Glucose 172 H Lactate Calcium Total Bilirubin AST ALT Alkaline Phosphatase Troponin I Total Protein Albumin Globulin Albumin/Globulin Ratio Procalcitonin Urine Color Urine Appearance Urine pH Ur Specific [place] Urine Protein Urine Glucose (UA) Urine Ketones Urine Blood Urine Nitrite Urine Bilirubin Urine Urobilinogen Ur Leukocyte Esterase Urine WBC (Auto) Urine RBC (Auto) U Hyaline Cast (Auto) U Epithel Cells (Auto) Urine Bacteria (Auto) Urine Yeast COVID-19 Eval Order SARS-CoV-2 (PCR) Influenza Type A (PCR) Influenza Type B (PCR) RSV (RT-PCR) 03/12 urine cx - yeast and strep especies PG Care Time/CCT Total # of Minutes Spent Total Time Spent with Patient: Total time spent is greater than 50% in coordination of care (as documented) at patient's floor/unit and/or counseling patient: Coding Level of Care Code 36291 Subseq Hosp Care Lvl 3 Diagnoses Sepsis A41.9 Urinary tract infection N39.0 Kidney stone N20.0 Uncontrolled diabetes mellitus, with long-term current use of insulin E11.65; Z79.4 Chronic kidney disease, stage IV (severe) N18.4 Neurofibromatosis Q85.00 Exocrine pancreatic insufficiency K86.81 Elevated troponin I level R77.8 Acute metabolic encephalopathy G93.41 DVT prophylaxis Z29.9
[2021-03-15] MEDS: PIPERACILLIN/TAZOBACTAM 3.375 GM in DEXTROSE 5% 100 ML IV SCH (05:58)
[2021-03-15] MEDS: HEPARIN SOD 5,000 UNIT/0.5 ML VIAL SQ SCH ×2 (08:46→20:36)
[2021-03-15] MEDS: PANCREAZE (LIPASE 10,500U) CAP PO SCH ×3 (08:46→17:53)
[2021-03-15] MEDS: FAMOTIDINE 20 MG TAB PO SCH ×2 (08:47→20:36)
[2021-03-15] MEDS: INSULIN ASPART 100 UNITS/ML 3 ML PEN SC SCH ×4 (08:55→20:36)
[2021-03-15 09:20] LABS: BUN Creatinine Ratio 14.7 (10-20); Calcium 7.7 mg/dl (8.5-10.1); Creatinine Clr Calc Pharmacy 16.3 ml/min; Est GFR (African American) 28.7; Est GFR (Non-African American) 24.7; Potassium 3.8 mmol/L (3.5-5.1)
[2021-03-15 09:25] LABS: Troponin I 0.029 ng/ml (0-0.045)
[2021-03-15] MEDS: CASPOFUNGIN 50 MG in SODIUM CHLORIDE 0.9% 250 ML IV SCH (09:40)
[2021-03-15] MEDS: INSULIN GLARGINE SOLOSTAR 100 UNITS/ML 3 ML PEN SC SCH ×2 (10:01→20:36)
--- NOTE | 2021-03-15 12:45 | Urology Progress Note ---
Date of Service March 15, 2021 Assessment & Plan (1) Acute UTI (urinary tract infection): 85 year old female admitted for fever and confusion; suspected UTI s/p left ureteroscopy, stone treatment, stent exchange. - Pt s/p left ureteroscopy, stone treatment, stent exchange on 03/12 - She remains afebrile, nontoxic, VSS. - Labs reviewed, creatinine up to 1.84 today - Will continue to trend - Intraop culture of kidney aspirate on 03/12 is preliminary with yeast and enterococcus - Urine and blood cultures from admission are preliminary no growth. - Recommend continue IV Caspofungin and IV Zosyn. Follow cultures. - Recommend ID consult for further recommendations and ongoing management - Continue supportive care and management per primary team - Maintain Banegas catheter - No acute urological intervention at this time - Will continue to follow closely Admission and Anticipated Discharge Date Admission Date: March 14, 2021 Subjective Pt examined at bedside this AM. Awake, sitting in bedside chair on arrival. Denies any pain or discomfort at this time. Banegas catheter intact, draining yellow urine. No fevers or chills. Tolerating diet, no nausea or vomiting. Chart review: Afebrile Cr 1.84 Urine and blood cultures from admission preliminary no growth Intraop culture of kidney aspirate on 03/12 is showing yeast and enterococcus Continues on IV Zosyn and IV Capsofungin. Review of Systems Constitutional: as per Subjective / HPI Gastrointestinal: as per Subjective / HPI Genitourinary: as per Subjective / HPI Physical Exam Constitutional: well developed and well nourished; no acute distress Respiratory: no respiratory distress and no labored breathing Cardiovascular: Extremities: no calf tenderness Gastrointestinal (Abdomen): Percussion/Palpation: abdomen soft; abdomen nontender and no guarding Musculoskeletal: Head/Neck/Chest: normocephalic Skin: no rashes, warm and dry neurofibromatosis noted on face and hands Neurologic: moves all extremities and awake Psychiatric: Orientation: alert, oriented to person and oriented to place Affect: euthymic affect Genitourinary: Banegas catheter intact Results & Data ([facility]) Vital Signs (Past 12 Hours) Vital Signs Temp Pulse Pulse Resp BP Pulse Ox 03/15/21 07:30 36.5 C 58 L 18 119/65 94 03/15/21 07:05 37.2 C 68 16 101/62 92 PG Care Time/CCT Total # of Minutes Spent Total Time Spent with Patient: Total time spent is greater than 50% in coordination of care (as documented) at patient's floor/unit and/or counseling patient: Coding Level of Care Code 15030 Subseq Hosp Care Lvl 2 Diagnoses Acute UTI (urinary tract infection) N39.0
[2021-03-15] MEDS ORDERED: PIPERACILLIN/TAZOBACTAM 3.375 GM in DEXTROSE 5% 100 ML IV SCH (18:00)
[2021-03-15] MEDS: ATORVASTATIN 40 MG TAB PO SCH (20:36)
[2021-03-15] MEDS: MIRTAZAPINE TAB 15 MG TAB PO SCH (20:36)
--- NOTE | 2021-03-15 22:02 | Hospitalist Progress Note ---
Date of Service March 15, 2021 Assessment & Plan (1) Sepsis: 2nd UTI improved afebrile mental status improved blood cx's neg to date urine cx 03/12 with yeast and enterococcus (2) Urinary tract infection: 2nd to yeast 2nd to enterococcus both grew from intra-op left-sided kidney culture 03/12/21 caspofungin for yeast change zosyn to augmentin for enterococcus she had fungemia and fungal UTI in January suspect she seeded her prior left-sided stent and the stone itself thus potentially never cleared the fungus either way stone is now gone s/p litho stent ultimately to be removed I called and spoke with microbiology - will have yeast speciated and also obtain sensitivities on the yeast (3) Kidney stone: left s/p litho on 03/12 no plans for additional urological intervention during this stay appreciate urology consult (4) Uncontrolled diabetes mellitus, with long-term current use of insulin: add lantus 10 units BID adjust novolog once again uncontrolled chronically with high a1c for years (5) Chronic kidney disease, stage IV (severe): baseline CrCL 20s Cr slightly higher today than yesterday repeat BMP am (6) Neurofibromatosis: (7) Exocrine pancreatic insufficiency: cont creon (8) Elevated troponin I level: no ACS echo 01/2021 wnl likely myocardial demand ischemia in setting of sepsis/UTI (9) Acute metabolic encephalopathy: 2nd to sepsis/UTI antibiotics antifungals supportive care overall improved today (10) Bradycardia: EKG obtained late in the afternoon - NSR with bigeminy pattern transfer to PCU for tele monitoring - rule out slow a.fib, rule out AV block / pauses, rule out idioventricular escape rhythms, etc most recent TSH wnl (11) DVT prophylaxis: heparin 5000 BID updated pt's kishor Serrato extensively by phone 03/14/21 Admission and Anticipated Discharge Date Admission Date: March 14, 2021 Subjective patient sitting in the chair comfortably she feels better today denies any back or abd pain eating better less confused staff report that on her remote pulse oximetry (which gives HR as well) she has had bradycardia, sustained, sometimes lasting 1 minute or longer patient denies any dizziness or palpitations Review of Systems Constitutional: no fever and no chills Respiratory: no cough and no dyspnea Cardiovascular: no chest pain Physical Exam Constitutional: no acute distress, not ill appearing and no altered mental status (improved today ) ENMT: external ear and nose normal, oropharynx normal Respiratory: normal respiratory effort, lungs clear to auscultation Cardiovascular: Rate/Rhythm: + bradycardic and + irregularly irregular Heart Sounds: normal S1 and normal S2; no murmur Vessels: posterior tibial pulses present and dorsalis pedis pulses present; no JVD Extremities: no edema Gastrointestinal (Abdomen): normal bowel sounds, soft, nontender, no hepatosplenomegaly Psychiatric: Orientation: alert, oriented to person, oriented to place and oriented to time Results & Data Results & Data ([facility]) Vital Signs (Past 12 Hours) Vital Signs Temp Pulse Pulse Resp BP BP Pulse Ox 03/15/21 20:09 36.9 C 71 16 123/74 96 03/15/21 18:42 36.9 C 70 16 134/79 97 03/15/21 17:15 60 03/15/21 17:13 35 L 16 95 03/15/21 16:00 36.2 C L 60 20 110/66 91 Laboratory Results Laboratory Results - last 24 hr 03/15/21 03/15/21 03/15/21 08:20 08:55 12:13 Sodium 137 Potassium 3.8 Chloride 109 H Carbon Dioxide 21 Anion Gap 6.0 BUN 27 H Creatinine 1.84 H Est Cr Clr Drug Dosing 16.3 Est GFR ( Amer) 28.7 Est GFR (Non-Af Amer) 24.7 BUN/Creatinine Ratio 14.7 Glucose 222 H POC Glucose 245 H 323 H* Calcium 7.7 L Troponin I 0.029 03/15/21 03/15/21 03/15/21 12:16 16:57 20:30 Sodium Potassium Chloride Carbon Dioxide Anion Gap BUN Creatinine Est Cr Clr Drug Dosing Est GFR ( Amer) Est GFR (Non-Af Amer) BUN/Creatinine Ratio Glucose POC Glucose 300 H 199 H 209 H Calcium Troponin I Diagnostic Findings urine cx from 03/12: yeast enterococcus faecalis, sens to amp and PCN blood cx's negative to date PG Care Time/CCT Total # of Minutes Spent Total Time Spent with Patient: Total time spent is greater than 50% in coordination of care (as documented) at patient's floor/unit and/or counseling patient: Coding Level of Care Code 20033 Subseq Hosp Care Lvl 3 Diagnoses Sepsis A41.9 Urinary tract infection N39.0 Kidney stone N20.0 Uncontrolled diabetes mellitus, with long-term current use of insulin E11.65; Z79.4 Chronic kidney disease, stage IV (severe) N18.4 Neurofibromatosis Q85.00 Exocrine pancreatic insufficiency K86.81 Elevated troponin I level R77.8 Acute metabolic encephalopathy G93.41 Bradycardia R00.1 DVT prophylaxis Z29.9
[2021-03-16 07:43] LABS: Calcium 7.9 mg/dl (8.5-10.1); Creatinine Clr Calc Pharmacy 17.4 ml/min; Est GFR (African American) 30.9; Est GFR (Non-African American) 26.6; Magnesium 1.9 mg/dl (1.8-2.4)
[2021-03-16] MEDS: INSULIN ASPART 100 UNITS/ML 3 ML PEN SC SCH ×4 (08:03→20:49)
[2021-03-16] MEDS: INSULIN GLARGINE SOLOSTAR 100 UNITS/ML 3 ML PEN SC SCH ×2 (08:04→20:48)
[2021-03-16] MEDS: ADVANCED PROBIOTIC 1250 MG CAPSULE PO SCH (08:05)
[2021-03-16] MEDS: AMOXICILLIN/CLAVULANATE 500 MG TAB PO SCH ×2 (08:05→17:10)
[2021-03-16] MEDS: PANCREAZE (LIPASE 10,500U) CAP PO SCH ×3 (08:05→17:10)
[2021-03-16] MEDS: FAMOTIDINE 20 MG TAB PO SCH ×2 (08:06→19:41)
[2021-03-16] MEDS: HEPARIN SOD 5,000 UNIT/0.5 ML VIAL SQ SCH ×2 (08:06→19:41)
[2021-03-16] MEDS: CASPOFUNGIN 50 MG in SODIUM CHLORIDE 0.9% 250 ML IV SCH (08:07)
--- NOTE | 2021-03-16 08:38 | Urology Progress Note ---
Date of Service March 16, 2021 Assessment & Plan (1) Acute UTI (urinary tract infection): 85 year old female admitted for fever and confusion; suspected UTI s/p left ureteroscopy, stone treatment, stent exchange. - Pt s/p left ureteroscopy, stone treatment, stent exchange on 03/12 - She remains afebrile, nontoxic, VSS. - Labs reviewed, creatinine 1.73 today - continue to trend - Intraop culture of kidney aspirate on 03/12 is preliminary with Alysa glabrata and Enterococcus - Urine and blood cultures from admission are preliminary no growth - Recommend continue IV Caspofungin and IV antibiotics - follow cultures - Recommend bowel regimen prn - Case reviewed with Dr. Guaman, clay preparation supervisor urologist - Strongly recommend ID consult for further recommendations and ongoing management due to chronic resistance and high risk infections - Patient will likely need prolonged IV antibiotic/antifungal therapy - Continue supportive care and management per primary team - Maintain Banegas catheter on discharge for maximum drainage, can arrange exchange with our clinic or [facility] depending on dispo - No acute urological intervention at this time - Will arrange appropriate outpatient follow-up with our service Thank you for allowing us to participate in the acute care of Ms. Torres. Please reconsult us with additional questions, concerns or changes in patient status. Admission and Anticipated Discharge Date Admission Date: March 14, 2021 Subjective Pt examined at bedside this AM. Awake, sitting up in bed finishing breakfast. Feels better than yesterday. Denies any flank or abdominal pain. Banegas catheter intact, patent, draining yellow urine. Tolerating diet, appetite good, no nausea or vomiting. Last BM about 3 days ago, reports feeling bloated but no discomfort. Nursing is present during exam and says that she has prn Miralax that can be given. No fevers or chills. No additional concerns today. Chart review: Afebrile Cr 1.74 Urine culture (03/13) preliminary no growth Blood cultures (03/13) NGTD Intraop culture of kidney aspirate on 03/12 is showing Alysa glabrata complex and enterococcus Continues on IV Zosyn and IV Capsofungin. Review of Systems Constitutional: as per Subjective / HPI Gastrointestinal: as per Subjective / HPI Genitourinary: as per Subjective / HPI Physical Exam Constitutional: comfortable; no acute distress and not ill appearing Respiratory: normal respiratory effort and able to speak in complete sentences; no respiratory distress and no labored breathing Cardiovascular: Extremities: no pedal edema Gastrointestinal (Abdomen): Inspection/Auscultation: abdomen normal to inspection; abdomen not distended Percussion/Palpation: abdomen soft; abdomen nontender Musculoskeletal: Head/Neck/Chest: normocephalic and head atraumatic Neurologic: moves all extremities and awake Psychiatric: Orientation: alert and oriented x 3 Genitourinary: no CVA tenderness Banegas catheter intact, patent and draining clear yellow urine Results & Data ([facility]) Vital Signs (Past 12 Hours) Vital Signs Temp Pulse Pulse Pulse Resp BP BP 03/16/21 07:48 36.7 C 78 17 140/70 03/16/21 05:19 36.8 C 59 L 16 120/68 03/16/21 00:28 36.6 C 69 16 117/61 03/15/21 23:36 63 Pulse Ox 03/16/21 07:48 93 03/16/21 05:19 95 03/16/21 00:28 95 03/15/21 23:36 PG Care Time/CCT Total # of Minutes Spent Total Time Spent with Patient: Total time spent is greater than 50% in coordination of care (as documented) at patient's floor/unit and/or counseling patient: Coding Level of Care Code 83721 Subseq Hosp Care Lvl 2 Diagnoses Acute UTI (urinary tract infection) N39.0
[2021-03-16] MEDS ORDERED: INSULIN GLARGINE SOLOSTAR 100 UNITS/ML 3 ML PEN SC ONE (09:15)
[2021-03-16] MEDS ORDERED: DOCUSATE SODIUM SYRUP 100 MG/10 ML UDC PO STA (09:40)
[2021-03-16] MEDS: POLYETHYLENE (MIRALAX) 17 GM PACK PO SCH (11:07)
--- NOTE | 2021-03-16 13:01 | Electrocardiogram Report ---
Test Reason : Blood Pressure : / mmHG Vent. Rate : 066 BPM Atrial Rate : 066 BPM P-R Int : 210 ms QRS Dur : 072 ms QT Int : 406 ms P-R-T Axes : 058 -18 043 degrees QTc Int : 425 ms Sinus rhythm with marked sinus arrhythmia with 1st degree A-V block with occasional Premature ventric ular complexes Otherwise normal ECG Confirmed by Gregorio Gayle ([id number]) on 03/16/2021 1:00:46 PM Referred By: Blayne Duarte Confirmed By:Jono Gayle
[2021-03-16] MEDS: MIRTAZAPINE TAB 15 MG TAB PO SCH (19:40)
[2021-03-16] MEDS: DOCUSATE SODIUM 100 MG CAP PO SCH (19:41)
[2021-03-16] MEDS: ATORVASTATIN 40 MG TAB PO SCH (19:41)
--- NOTE | 2021-03-16 22:05 | Hospitalist Progress Note ---
Date of Service March 16, 2021 Assessment & Plan (1) Sepsis: 2nd UTI sepsis resolved blood cx's neg to date urine cx 03/12 with teresita glabrata and enterococcus - see below (2) Urinary tract infection: 2nd to teresita glabrata 2nd to enterococcus both grew from intra-op left-sided kidney culture 03/12/21 these also grew in January caspofungin for teresita glabrata augmentin for enterococcus she had fungemia and fungal UTI in January suspect she seeded her prior left-sided stent and the stone itself thus potentially never cleared the fungus either way stone is now gone s/p litho stent ultimately to be removed - timing of such?? sensitivity panel for teresita glabrata sent to outside lab; however, teresita glabrata in January was SENSITIVE to caspofungin [facility] telehealth consult requested to determine lengthy of abx/antifungal course, etc (3) Kidney stone: left s/p litho on 03/12 along with stent exchange no plans for additional urological intervention during this stay appreciate urology consult leave flores in place (4) Uncontrolled diabetes mellitus, with long-term current use of insulin: still poorly controlled increase lantus to 15 units BID adjust novolog once again - correction & carb ratio uncontrolled chronically with high a1c for years 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 type 1 diabetic given her pancreatic insufficiency (5) Chronic kidney disease, stage IV (severe): baseline CrCL 20s Cr slightly better today at 1.7 BMP am (6) Neurofibromatosis: (7) Exocrine pancreatic insufficiency: cont creon (8) Elevated troponin I level: no ACS echo 01/2021 wnl likely myocardial demand ischemia in setting of sepsis/UTI (9) Acute metabolic encephalopathy: 2nd to sepsis/UTI improving antibiotics antifungals supportive care just about resolved (10) Bradycardia: patient transferred to PCU on 03/15/21 due to concern of such fortunately her lowest HR has been about 60 on monitoring no AV block, no pauses, no bradycardia occasional bigeminy but typically brief and no symptoms from such watch 1 more day on tele (11) DVT prophylaxis: heparin 5000 BID updated pt's niece Ama extensively by phone 03/14/21 and 03/16/21 Admission and Anticipated Discharge Date Admission Date: March 14, 2021 Subjective patient sitting in chair during visit offered no complaints feeling good no back or abd pain eating well a little confused, but did better today, getting day of week and year correct (thought it was January, however) tele overnight - lowest documented HR about 60 NO bradycardia or AV block seen on tele NO pauses occasional brief run of bigeminy only Review of Systems Constitutional: + fatigue; no fever, no chills and no anorexia Respiratory: no cough and no dyspnea Cardiovascular: no chest pain Gastrointestinal: no abdominal pain, no nausea and no vomiting Physical Exam Constitutional: no acute distress, not ill appearing and no altered mental status (mild) ENMT: external ear and nose normal, oropharynx normal Respiratory: normal respiratory effort, lungs clear to auscultation Cardiovascular: Rate/Rhythm: regular rate and + irregularly irregular (extra beats ) Heart Sounds: normal S1 and normal S2; no murmur Vessels: posterior tibial pulses present and dorsalis pedis pulses present; no JVD Extremities: no edema Gastrointestinal (Abdomen): normal bowel sounds, soft, nontender, no hepatosplenomegaly Skin: copious neurofibromas on all aspects of skin Psychiatric: Orientation: alert, oriented to person, oriented to place and oriented to time Genitourinary: flores in place, clear urine Results & Data Results & Data ([facility]) Vital Signs (Past 12 Hours) Vital Signs Temp Pulse Pulse Pulse Resp BP BP 03/16/21 19:26 36.7 C 63 19 104/64 03/16/21 15:38 37.1 C 64 18 93/58 L 03/16/21 14:20 79 03/16/21 11:57 36.7 C 60 18 155/78 H Pulse Ox 03/16/21 19:26 95 03/16/21 15:38 95 03/16/21 14:20 03/16/21 11:57 95 Laboratory Results Laboratory Results - last 24 hr 03/16/21 03/16/21 03/16/21 06:57 07:36 11:18 Sodium 139 Potassium 4.0 Chloride 111 H Carbon Dioxide 23 Anion Gap 5.0 BUN 24 H Creatinine 1.73 H Est Cr Clr Drug Dosing 17.4 Est GFR ( Amer) 30.9 Est GFR (Non-Af Amer) 26.6 BUN/Creatinine Ratio 14.0 Glucose 229 H POC Glucose 228 H 371 H* Calcium 7.9 L Magnesium 1.9 03/16/21 03/16/21 03/16/21 11:19 16:15 20:18 Sodium Potassium Chloride Carbon Dioxide Anion Gap BUN Creatinine Est Cr Clr Drug Dosing Est GFR ( Amer) Est GFR (Non-Af Amer) BUN/Creatinine Ratio Glucose POC Glucose 388 H* 97 86 Calcium Magnesium 03/12/21 culture: urine cx - enterococcus, sens to amp/PCN teresita glabrata - sens pending 03/13 blood and urine cx's all negative PG Care Time/CCT Total # of Minutes Spent Total Time Spent with Patient: Total time spent is greater than 50% in coordination of care (as documented) at patient's floor/unit and/or counseling patient: Coding Level of Care Code 61941 Subseq Hosp Care Lvl 3 Diagnoses Sepsis A41.9 Urinary tract infection N39.0 Kidney stone N20.0 Uncontrolled diabetes mellitus, with long-term current use of insulin E11.65; Z79.4 Chronic kidney disease, stage IV (severe) N18.4 Neurofibromatosis Q85.00 Exocrine pancreatic insufficiency K86.81 Elevated troponin I level R77.8 Acute metabolic encephalopathy G93.41 Bradycardia R00.1 DVT prophylaxis Z29.9
[2021-03-17 06:41] LABS: Hematocrit (blood only) 33.8 % (37-47); Hemoglobin 11.3 g/dL (12.0-16.0); Mean Corpuscular Hgb Conc 33.4 g/dL (32-36); Mean Corpuscular Volume 83.7 fL (80-100); Platelet Count 209 K/uL (130-400); RDW Coefficient of Variation 16.4 % (11.5-14.5); RDW Standard Deviation 50.7 fL (36.4-46.3); Red Blood Count 4.04 M/uL (4.2-5.4); White Blood Count 6.68 K/uL (4.8-10.8)
[2021-03-17 07:15] LABS: BUN Creatinine Ratio 14.3 (10-20); Calcium 8.1 mg/dl (8.5-10.1); Creatinine Clr Calc Pharmacy 19.5 ml/min; Est GFR (African American) 35.5; Est GFR (Non-African American) 30.7
[2021-03-17] MEDS: FAMOTIDINE 20 MG TAB PO SCH ×2 (08:07→20:48)
[2021-03-17] MEDS: PANCREAZE (LIPASE 10,500U) CAP PO SCH ×3 (08:07→16:40)
[2021-03-17] MEDS: POLYETHYLENE (MIRALAX) 17 GM PACK PO SCH (08:07)
[2021-03-17] MEDS: ADVANCED PROBIOTIC 1250 MG CAPSULE PO SCH (08:07)
[2021-03-17] MEDS: AMOXICILLIN/CLAVULANATE 500 MG TAB PO SCH ×2 (08:07→16:40)
[2021-03-17] MEDS: HEPARIN SOD 5,000 UNIT/0.5 ML VIAL SQ SCH ×2 (08:07→20:48)
[2021-03-17] MEDS: INSULIN GLARGINE SOLOSTAR 100 UNITS/ML 3 ML PEN SC SCH ×2 (08:08→20:44)
[2021-03-17] MEDS: INSULIN ASPART 100 UNITS/ML 3 ML PEN SC SCH ×4 (08:10→20:43)
[2021-03-17] MEDS: DOCUSATE SODIUM 100 MG CAP PO SCH ×2 (08:15→20:48)
[2021-03-17] MEDS: CASPOFUNGIN 50 MG in SODIUM CHLORIDE 0.9% 250 ML IV SCH (08:15)
[2021-03-17] MEDS: CARBOHYDRATES FOR HYPOGLYCEMIA PO PRN ×2 (16:37→16:55)
--- NOTE | 2021-03-17 19:49 | Hospitalist Progress Note ---
Date of Service March 17, 2021 Assessment & Plan (1) Sepsis: 2nd candidal UTI sepsis resolved blood cx's neg to date urine cx 03/12 with teresita glabrata and enterococcus - see below (2) Urinary tract infection: COMPLICATED. 2nd to indwelling ureteral stent and recent urological procedure. pathogens -- teresita glabrata enterococcus both grew from intra-op left-sided kidney culture 03/12/21 these same pathogens also grew in January caspofungin for teresita glabrata - day #5 of such augmentin for enterococcus - day #3 of such (did receive IV zosyn for 2 days prior to switch to augmentin) she had fungemia and fungal UTI in January suspect she seeded her prior left-sided stent and the stone itself thus potentially never cleared the fungus either way stone is now gone s/p lithotripsy stent ultimately to be removed - timing of such?? sensitivity panel for teresita glabrata sent to outside lab; however, teresita glabrata in January was SENSITIVE to caspofungin [facility] telehealth consult requested to determine length of abx/antifungal course, etc (3) Kidney stone: left s/p lithotripsy on 03/12 along with stent exchange no plans for additional urological intervention during this stay appreciate urology consult leave flores in place at least for this weekend (4) Uncontrolled diabetes mellitus, with long-term current use of insulin: still poorly controlled I believe she is a type 1 diabetic given her pancreatic insufficiency lantus 13 units BID adjust novolog correction & carb ratio uncontrolled chronically with high a1c for years (5) Chronic kidney disease, stage IV (severe): baseline CrCL 20s Cr improved to 1.5 today BMP am (6) Neurofibromatosis: (7) Exocrine pancreatic insufficiency: cont creon (8) Elevated troponin I level: no ACS echo 01/2021 wnl likely myocardial demand ischemia in setting of sepsis/UTI (9) Acute metabolic encephalopathy: 2nd to sepsis/UTI improving mental status nearly at baseline today (10) Bradycardia: patient transferred to PCU on 03/15/21 due to concern of bradycardia fortunately her lowest HR has been about 60 on monitoring continues to have no AV block, pauses, or bradycardia occasional bigeminy but typically brief and no symptoms from such d/c telemetry - transfer to med/surg (11) DVT prophylaxis: heparin 5000 BID updated pt's niece Ama extensively this week on several occasions Admission and Anticipated Discharge Date Admission Date: March 14, 2021 Subjective tele overnight - no AV block, pauses, or bradycardia occasional bigeminy that is usually brief ectopy no sustained dysrhythmia (a.fib, etc) while visiting her she offered no complaints no back pain, abd pain, nausea, emesis feels good eating well Review of Systems Constitutional: no fever, no chills, no fatigue and no anorexia Respiratory: no cough and no dyspnea Cardiovascular: no chest pain Physical Exam Constitutional: no acute distress, not ill appearing and no altered mental status ENMT: external ear and nose normal, oropharynx normal Respiratory: normal respiratory effort, lungs clear to auscultation Cardiovascular: Rate/Rhythm: regular rate and + irregularly irregular (extra beats ) Heart Sounds: normal S1 and normal S2; no murmur Vessels: posterior tibial pulses present and dorsalis pedis pulses present; no JVD Extremities: no edema Gastrointestinal (Abdomen): normal bowel sounds, soft, nontender, no hepatosplenomegaly Skin: innumerable neurofibromas of skin - all skin regions affected Psychiatric: Orientation: alert, oriented to person, oriented to place and oriented to time Results & Data Results & Data ([facility]) Vital Signs (Past 12 Hours) Vital Signs Temp Pulse Pulse Resp BP BP Pulse Ox 03/17/21 17:48 36.8 C 74 16 138/74 95 03/17/21 16:00 36.8 C 68 18 131/76 95 03/17/21 15:30 64 03/17/21 12:00 36.4 C L 64 16 126/76 96 03/17/21 09:00 57 L Laboratory Results Laboratory Results - last 24 hr 03/16/21 03/17/21 03/17/21 20:18 02:35 06:08 WBC 6.68 RBC 4.04 L Hgb 11.3 L Hct 33.8 L MCV 83.7 MCH 28.0 MCHC 33.4 RDW Std Deviation 50.7 H RDW Coeff of Flako 16.4 H Plt Count 209 MPV 10.0 Sodium Potassium Chloride Carbon Dioxide Anion Gap BUN Creatinine Est Cr Clr Drug Dosing Est GFR ( Amer) Est GFR (Non-Af Amer) BUN/Creatinine Ratio Glucose POC Glucose 86 116 H Calcium 03/17/21 03/17/21 03/17/21 06:08 07:27 11:19 WBC RBC Hgb Hct MCV MCH MCHC RDW Std Deviation RDW Coeff of Flako Plt Count MPV Sodium 140 Potassium 4.0 Chloride 110 H Carbon Dioxide 26 Anion Gap 5.0 BUN 22 H Creatinine 1.54 H Est Cr Clr Drug Dosing 19.5 Est GFR ( Amer) 35.5 Est GFR (Non-Af Amer) 30.7 BUN/Creatinine Ratio 14.3 Glucose 91 POC Glucose 90 231 H Calcium 8.1 L 03/17/21 03/17/21 03/17/21 16:32 16:33 16:53 WBC RBC Hgb Hct MCV MCH MCHC RDW Std Deviation RDW Coeff of Flako Plt Count MPV Sodium Potassium Chloride Carbon Dioxide Anion Gap BUN Creatinine Est Cr Clr Drug Dosing Est GFR ( Amer) Est GFR (Non-Af Amer) BUN/Creatinine Ratio Glucose POC Glucose 61 L* 67 L* 64 L* Calcium 03/17/21 17:13 WBC RBC Hgb Hct MCV MCH MCHC RDW Std Deviation RDW Coeff of Flako Plt Count MPV Sodium Potassium Chloride Carbon Dioxide Anion Gap BUN Creatinine Est Cr Clr Drug Dosing Est GFR ( Amer) Est GFR (Non-Af Amer) BUN/Creatinine Ratio Glucose POC Glucose 74 Calcium blood cx's neg urine cx from time of this admission negative PG Care Time/CCT Total # of Minutes Spent Total Time Spent with Patient: Total time spent is greater than 50% in coordination of care (as documented) at patient's floor/unit and/or counseling patient: Coding Level of Care Code 44996 Subseq Hosp Care Lvl 2 Diagnoses Sepsis A41.9 Urinary tract infection N39.0 Kidney stone N20.0 Uncontrolled diabetes mellitus, with long-term current use of insulin E11.65; Z79.4 Chronic kidney disease, stage IV (severe) N18.4 Neurofibromatosis Q85.00 Exocrine pancreatic insufficiency K86.81 Elevated troponin I level R77.8 Acute metabolic encephalopathy G93.41 Bradycardia R00.1 DVT prophylaxis Z29.9
[2021-03-17] MEDS: MIRTAZAPINE TAB 15 MG TAB PO SCH (20:48)
[2021-03-17] MEDS: ATORVASTATIN 40 MG TAB PO SCH (20:48)
[2021-03-18 07:08] LABS: Calcium 8.1 mg/dl (8.5-10.1); Creatinine Clr Calc Pharmacy 20.9 ml/min; Est GFR (African American) 38.6; Est GFR (Non-African American) 33.3
[2021-03-18] MEDS: INSULIN ASPART 100 UNITS/ML 3 ML PEN SC SCH ×4 (09:01→21:05)
[2021-03-18] MEDS: INSULIN GLARGINE SOLOSTAR 100 UNITS/ML 3 ML PEN SC SCH ×2 (09:02→21:04)
[2021-03-18] MEDS: HEPARIN SOD 5,000 UNIT/0.5 ML VIAL SQ SCH ×2 (09:06→21:01)
[2021-03-18] MEDS: POLYETHYLENE (MIRALAX) 17 GM PACK PO SCH (09:08)
[2021-03-18] MEDS: ADVANCED PROBIOTIC 1250 MG CAPSULE PO SCH (09:08)
[2021-03-18] MEDS: AMOXICILLIN/CLAVULANATE 500 MG TAB PO SCH ×2 (09:08→18:07)
[2021-03-18] MEDS: PANCREAZE (LIPASE 10,500U) CAP PO SCH ×3 (09:09→18:07)
[2021-03-18] MEDS: FAMOTIDINE 20 MG TAB PO SCH ×2 (09:09→21:15)
[2021-03-18] MEDS: CASPOFUNGIN 50 MG in SODIUM CHLORIDE 0.9% 250 ML IV SCH (09:15)
[2021-03-18] MEDS: DOCUSATE SODIUM 100 MG CAP PO SCH ×2 (09:16→21:15)
[2021-03-18] MEDS: ATORVASTATIN 40 MG TAB PO SCH (21:00)
[2021-03-18] MEDS: MIRTAZAPINE TAB 15 MG TAB PO SCH (21:00)
--- NOTE | 2021-03-19 01:20 | Hospitalist Progress Note ---
Date of Service March 18, 2021 Assessment & Plan (1) Sepsis: 2nd candidal UTI/enterococcal UTI sepsis resolved blood cx's neg to date urine cx 03/12 with teresita glabrata and enterococcus - see below (2) Urinary tract infection: COMPLICATED. 2nd to indwelling ureteral stent and recent urological procedure. pathogens -- teresita glabrata enterococcus both grew from intra-op left-sided kidney culture 03/12/21 these same pathogens also grew in January caspofungin for teresita glabrata - day #4 of such augmentin for enterococcus - day #3 of such (did receive IV zosyn for 2 days prior to switch to augmentin) she had fungemia and fungal UTI in January suspect she seeded her prior left-sided ureteral stent and the stone itself thus potentially never cleared the fungus either way stone is now gone s/p lithotripsy prior to admission stent ultimately to be removed - timing of such?? defer to urology sensitivity panel for teresita glabrata sent to outside lab; however, teresita glabrata in January was SENSITIVE to caspofungin [facility] telehealth consult requested to determine length of abx/antifungal course, etc (3) Kidney stone: left s/p lithotripsy on 03/12 along with stent exchange no plans for additional urological intervention during this stay appreciate urology consult leave flores in place at least for this weekend d/c flores Fri/Friday if ok with urology?? (4) Uncontrolled diabetes mellitus, with long-term current use of insulin: still poorly controlled I believe she is a type 1 diabetic given her pancreatic insufficiency quite brittle with severe lability in readings lantus 13 units BID; leave as is, AM sugars generally speaking are excellent cont novolog correction of 20 & carb ratio of 1:7 will get diabetes education to see; has poor control at home uncontrolled chronically with high a1c for years (5) Chronic kidney disease, stage IV (severe): baseline CrCL 20s Cr improved to 1.4 today BMP am (6) Neurofibromatosis: (7) Exocrine pancreatic insufficiency: cont creon no diarrhea (8) Elevated troponin I level: no ACS echo 01/2021 wnl likely myocardial demand ischemia in setting of sepsis/UTI (9) Acute metabolic encephalopathy: 2nd to sepsis/UTI resolved mental status at baseline today (10) Bradycardia: patient transferred to PCU on 03/15/21 due to question of bradycardia fortunately her lowest HR was about 60 on monitoring no AV block, pauses, or bradycardia seen had occasional bigeminy but typically brief and no symptoms from such d/c telemetry - transferred back to med/surg (11) DVT prophylaxis: heparin 5000 BID updated pt's niece Ama extensively this week on several occasions Admission and Anticipated Discharge Date Admission Date: March 14, 2021 Subjective patient resting comfortably no complaints wants flores out eating well no fevers/chills feeling much better than previous Review of Systems Constitutional: no fever and no chills Respiratory: no cough, no dyspnea and no dyspnea on exertion Cardiovascular: no chest pain Gastrointestinal: no abdominal pain, no nausea, no vomiting and no diarrhea/loose stools Physical Exam Constitutional: no acute distress, not ill appearing and no altered mental status (Thought it was 2021 rather than 2020) ENMT: external ear and nose normal, oropharynx normal Respiratory: normal respiratory effort, lungs clear to auscultation Cardiovascular: Rate/Rhythm: regular rate and + irregularly irregular (extra beats ) Heart Sounds: normal S1 and normal S2; no murmur Vessels: posterior tibial pulses present and dorsalis pedis pulses present; no JVD Extremities: no edema Gastrointestinal (Abdomen): normal bowel sounds, soft, nontender, no hepatosplenomegaly Skin: extensive neurofibromas covering entire body Psychiatric: Orientation: alert, oriented to person, oriented to place and oriented to time Results & Data Results & Data ([facility]) Vital Signs (Past 12 Hours) Vital Signs Temp Pulse Resp BP Pulse Ox 03/18/21 23:00 36.8 C 16 109/64 94 03/18/21 14:59 36.9 C 71 16 115/71 94 Laboratory Results Laboratory Results - last 24 hr 03/18/21 03/18/21 03/18/21 06:06 08:27 11:57 Sodium 138 Potassium 4.0 Chloride 109 H Carbon Dioxide 25 Anion Gap 5.0 BUN 20 H Creatinine 1.44 H Est Cr Clr Drug Dosing 20.9 Est GFR ( Amer) 38.6 Est GFR (Non-Af Amer) 33.3 BUN/Creatinine Ratio 14.0 Glucose 111 H POC Glucose 127 H 325 H* Calcium 8.1 L 03/18/21 03/18/21 03/18/21 11:59 17:42 20:37 Sodium Potassium Chloride Carbon Dioxide Anion Gap BUN Creatinine Est Cr Clr Drug Dosing Est GFR ( Amer) Est GFR (Non-Af Amer) BUN/Creatinine Ratio Glucose POC Glucose 324 H* 94 153 H Calcium 03/13 blood cx's negative 03/13 urine cx negative 03/12 urine culture - teresita glabrata, sens pending; enterococcus - sens to amp/PCN PG Care Time/CCT Total # of Minutes Spent Total Time Spent with Patient: Total time spent is greater than 50% in coordination of care (as documented) at patient's floor/unit and/or counseling patient: Coding Level of Care Code 99903 Subseq Hosp Care Lvl 2 Diagnoses Sepsis A41.9 Urinary tract infection N39.0 Kidney stone N20.0 Uncontrolled diabetes mellitus, with long-term current use of insulin E11.65; Z79.4 Chronic kidney disease, stage IV (severe) N18.4 Neurofibromatosis Q85.00 Exocrine pancreatic insufficiency K86.81 Elevated troponin I level R77.8 Acute metabolic encephalopathy G93.41 Bradycardia R00.1 DVT prophylaxis Z29.9
[2021-03-19 06:52] LABS: BUN Creatinine Ratio 12.8 (10-20); Calcium 8.4 mg/dl (8.5-10.1); Est GFR (Non-African American) 25.9; Potassium 4.6 mmol/L (3.5-5.1)
[2021-03-19] MEDS: FAMOTIDINE 20 MG TAB PO SCH ×2 (08:04→21:39)
[2021-03-19] MEDS: DOCUSATE SODIUM 100 MG CAP PO SCH ×2 (08:04→21:39)
[2021-03-19] MEDS: ADVANCED PROBIOTIC 1250 MG CAPSULE PO SCH (08:04)
[2021-03-19] MEDS: PANCREAZE (LIPASE 10,500U) CAP PO SCH ×3 (08:04→17:16)
[2021-03-19] MEDS: CASPOFUNGIN 50 MG in SODIUM CHLORIDE 0.9% 250 ML IV SCH (08:04)
[2021-03-19] MEDS: AMOXICILLIN/CLAVULANATE 500 MG TAB PO SCH (08:04)
[2021-03-19] MEDS: HEPARIN SOD 5,000 UNIT/0.5 ML VIAL SQ SCH ×2 (08:04→21:38)
[2021-03-19] MEDS: POLYETHYLENE (MIRALAX) 17 GM PACK PO SCH (08:05)
[2021-03-19] MEDS: INSULIN ASPART 100 UNITS/ML 3 ML PEN SC SCH ×4 (08:51→21:03)
[2021-03-19] MEDS: INSULIN GLARGINE SOLOSTAR 100 UNITS/ML 3 ML PEN SC SCH ×2 (08:52→21:27)
[2021-03-19] MEDS: CARBOHYDRATES FOR HYPOGLYCEMIA PO PRN (20:57)
[2021-03-19] MEDS: MIRTAZAPINE TAB 15 MG TAB PO SCH (21:37)
[2021-03-19] MEDS: ATORVASTATIN 40 MG TAB PO SCH (21:37)
--- NOTE | 2021-03-19 21:45 | Hospitalist Progress Note ---
Date of Service March 19, 2021 Assessment & Plan (1) Sepsis: 2nd candidal UTI/enterococcal UTI sepsis resolved blood cx's neg to date urine cx 03/12 with teresita glabrata and enterococcus - see below (2) Urinary tract infection: COMPLICATED. 2nd to indwelling ureteral stent and recent urological procedure. pathogens -- teresita glabrata enterococcus both grew from intra-op left-sided kidney culture 03/12/21 these same pathogens also grew in January caspofungin for teresita glabrata - day #4 of such augmentin for enterococcus - day #3 of such (did receive IV zosyn for 2 days prior to switch to augmentin) she had fungemia and fungal UTI in January suspect she seeded her prior left-sided ureteral stent and the stone itself thus potentially never cleared the fungus either way stone is now gone s/p lithotripsy prior to admission stent ultimately to be removed - timing of such?? defer to urology sensitivity panel for teresita glabrata sent to outside lab; however, teresita glabrata in January was SENSITIVE to caspofungin [facility] telehealth consult requested to determine length of abx/antifungal course, etc Appreciate input from ID. will stop antibiotics and antifungal meds. Given that patient is doing well, will only treat amphotericin B if needed, however patient has CKD stage 4. This may worsen her kidney function if treated with amphotericin B. D/W family who is agreeable. (3) Kidney stone: left s/p lithotripsy on 03/12 along with stent exchange no plans for additional urological intervention during this stay appreciate urology consult leave flores in place at least for this weekend d/c flores Fri/Friday if ok with urology?? (4) Uncontrolled diabetes mellitus, with long-term current use of insulin: still poorly controlled I believe she is a type 1 diabetic given her pancreatic insufficiency quite brittle with severe lability in readings lantus 13 units BID; leave as is, AM sugars generally speaking are excellent cont novolog correction of 20 & carb ratio of 1:7 will get diabetes education to see; has poor control at home uncontrolled chronically with high a1c for years (5) Chronic kidney disease, stage IV (severe): baseline CrCL 20s Cr improved to 1.4 today BMP am (6) Neurofibromatosis: (7) Exocrine pancreatic insufficiency: cont creon no diarrhea (8) Elevated troponin I level: no ACS echo 01/2021 wnl likely myocardial demand ischemia in setting of sepsis/UTI (9) Acute metabolic encephalopathy: 2nd to sepsis/UTI resolved mental status at baseline today (10) Bradycardia: patient transferred to PCU on 03/15/21 due to question of bradycardia fortunately her lowest HR was about 60 on monitoring no AV block, pauses, or bradycardia seen had occasional bigeminy but typically brief and no symptoms from such d/c telemetry - transferred back to med/surg (11) DVT prophylaxis: heparin 5000 BID updated pt's niece Ama extensively this week on several occasions Admission and Anticipated Discharge Date Admission Date: March 14, 2021 Subjective Patient is having no new complaints. Review of Systems Review of Systems: All systems reviewed & are unremarkable except as noted in HPI & below Physical Exam Physical Exam: Constitutional: no acute distress, not ill appearing and no altered mental status (Thought it was 2021 rather than 2020) ENMT: external ear and nose normal, oropharynx normal Respiratory: normal respiratory effort, lungs clear to auscultation Cardiovascular: Rate/Rhythm: regular rate and + irregularly irregular (extra beats ) Heart Sounds: normal S1 and normal S2; no murmur Vessels: posterior tibial pulses present and dorsalis pedis pulses present; no JVD Extremities: no edema Gastrointestinal (Abdomen): normal bowel sounds, soft, nontender, no hepatosplenomegaly Skin: extensive neurofibromas covering entire body Psychiatric: Orientation: alert, oriented to person, oriented to place and oriented to time Results & Data Results & Data ([facility]) Vital Signs (Past 12 Hours) Vital Signs Temp Pulse Resp BP Pulse Ox 03/19/21 17:21 69 03/19/21 16:49 37.0 C 40 L 16 118/72 94 PG Care Time/CCT Total # of Minutes Spent Total Time Spent with Patient: Total time spent is greater than 50% in coordination of care (as documented) at patient's floor/unit and/or counseling patient: Coding Level of Care Code 94219 Subseq Hosp Care Lvl 3 Diagnoses Sepsis A41.9 Urinary tract infection N39.0 Kidney stone N20.0 Uncontrolled diabetes mellitus, with long-term current use of insulin E11.65; Z79.4 Chronic kidney disease, stage IV (severe) N18.4 Neurofibromatosis Q85.00 Exocrine pancreatic insufficiency K86.81 Elevated troponin I level R77.8 Acute metabolic encephalopathy G93.41 Bradycardia R00.1 DVT prophylaxis Z29.9 Time Spent (min) 35
[2021-03-20 07:47] LABS: Hematocrit (blood only) 34.2 % (37-47); Hemoglobin 11.3 g/dL (12.0-16.0); Mean Corpuscular Hemoglobin 27.6 pg (25-34); Mean Corpuscular Volume 83.4 fL (80-100); Mean Platelet Volume 9.4 fL (7.4-10.4); Platelet Count 250 K/uL (130-400); RDW Coefficient of Variation 16.5 % (11.5-14.5); RDW Standard Deviation 50.4 fL (36.4-46.3); White Blood Count 6.81 K/uL (4.8-10.8)
[2021-03-20] MEDS: INSULIN ASPART 100 UNITS/ML 3 ML PEN SC SCH ×2 (08:50→12:54)
[2021-03-20] MEDS: PANCREAZE (LIPASE 10,500U) CAP PO SCH ×2 (08:52→12:54)
[2021-03-20] MEDS: HEPARIN SOD 5,000 UNIT/0.5 ML VIAL SQ SCH (08:53)
[2021-03-20] MEDS: INSULIN GLARGINE SOLOSTAR 100 UNITS/ML 3 ML PEN SC SCH (08:54)
[2021-03-20] MEDS: ADVANCED PROBIOTIC 1250 MG CAPSULE PO SCH (08:55)
[2021-03-20] MEDS: POLYETHYLENE (MIRALAX) 17 GM PACK PO SCH (08:59)
[2021-03-20] MEDS: FAMOTIDINE 20 MG TAB PO SCH (11:14)
[2021-03-20] MEDS: DOCUSATE SODIUM 100 MG CAP PO SCH (11:14)
--- NOTE | 2021-03-27 13:52 | Discharge Summary ---
Date of Service March 20, 2021 Admission HPI Per Admitting Provider Rosalba Torres is here with daughter for fever. On 03/12 she had a ureter calculi laser destruction and extraction with left sided exchange of stent catheter. She developed a fever and fatigue on 03/13. She did not have any chills, sweats or night sweats. She has a urinary catheter in place and does not note any changes in urine output or color. She has not had any chest pain, sick contacts, worsening of any cough or cold symptoms. She has no abdominal pain or back pain. Daughter notes some neck stiffness on the left side. Principal Diagnosis sepsis Discharge Exam Constitutional: no acute distress, not ill appearing and no altered mental status (Thought it was 2021 rather than 2020) ENMT: external ear and nose normal, oropharynx normal Respiratory: normal respiratory effort, lungs clear to auscultation Cardiovascular: Rate/Rhythm: regular rate and + irregularly irregular (extra beats ) Heart Sounds: normal S1 and normal S2; no murmur Vessels: posterior tibial pulses present and dorsalis pedis pulses present; no JVD Extremities: no edema Gastrointestinal (Abdomen): normal bowel sounds, soft, nontender, no hepatosplenomegaly Skin: extensive neurofibromas covering entire body Psychiatric: Orientation: alert, oriented to person, oriented to place and oriented to time Discharge Data Allergies Allergy/AdvReac Type Severity Reaction Status Date / Time No Known Drug Allergies Allergy Unknown Unknown Verified 03/13/21 21:59 Consultations 03/14/21 00:03 ED Decision to Admit Stat 03/14/21 02:26 Consult Urology Routine 03/16/21 14:30 Consult Infectious Diseases Routine Ordered Studies 03/13/21 21:59 CT head/brain wo con Urgent Hospital Course (1) Sepsis: 2nd candidal UTI/enterococcal UTI sepsis resolved blood cx's neg to date urine cx 03/12 with teresita glabrata and enterococcus - see below (2) Urinary tract infection: COMPLICATED. 2nd to indwelling ureteral stent and recent urological procedure. pathogens -- teresita glabrata enterococcus both grew from intra-op left-sided kidney culture 03/12/21 these same pathogens also grew in January Patient had caspofungin for teresita glabrata - day #5 augmentin for enterococcus - day #4 (did receive IV zosyn for 2 days prior to switch to augmentin) she had fungemia and fungal UTI in January suspect she seeded her prior left-sided ureteral stent and the stone itself thus potentially never cleared the fungus either way stone is now gone s/p lithotripsy prior to admission stent ultimately to be removed - timing of such?? defer to urology sensitivity panel for teresita glabrata sent to outside lab; however, teresita glabrata in January was SENSITIVE to caspofungin [facility] telehealth consult requested to determine length of abx/antifungal course, etc Appreciate input from ID. will stop antibiotics and antifungal meds. Given that patient is doing well, will only treat amphotericin B if needed, however patient has CKD stage 4. This may worsen her kidney function if treated with amphotericin B. D/W family who is agreeable. Gave family information of Infectious Disease docotr for followup and for second opinion. will monitor for now as an outpatient. She is agreeable to discharge. (3) Kidney stone: left s/p lithotripsy on 03/12 along with stent exchange no plans for additional urological intervention during this stay appreciate urology consult leave flores in place at least for this weekend d/c flores Fri/Friday if ok with urology?? (4) Uncontrolled diabetes mellitus, with long-term current use of insulin: still poorly controlled I believe she is a type 1 diabetic given her pancreatic insufficiency quite brittle with severe lability in readings lantus 13 units BID; leave as is, AM sugars generally speaking are excellent cont novolog correction of 20 & carb ratio of 1:7 will get diabetes education to see; has poor control at home uncontrolled chronically with high a1c for years (5) Chronic kidney disease, stage IV (severe): baseline CrCL 20s Cr improved to 1.4 (6) Neurofibromatosis: (7) Exocrine pancreatic insufficiency: cont creon no diarrhea (8) Elevated troponin I level: no ACS echo 01/2021 wnl likely myocardial demand ischemia in setting of sepsis/UTI (9) Acute metabolic encephalopathy: 2nd to sepsis/UTI resolved mental status at baseline today (10) Bradycardia: patient transferred to PCU on 03/15/21 due to question of bradycardia fortunately her lowest HR was about 60 on monitoring no AV block, pauses, or bradycardia seen had occasional bigeminy but typically brief and no symptoms from such (11) DVT prophylaxis: heparin 5000 BID updated pt's niece Ama extensively this week on several occasions Total Time Total Time Spent Total Time Spent (In Minutes): 32 Total Time Includes: Examination of the Patient, Discharge Planning and Medication Reconciliation Discharge Plan Discharge Items Patient Disposition: Personal Snf Reason For Visit: FEVER Discharge Diagnosis: FEVER Activity: Resume your previous activity Non-emergency contact: Primary Care Provider Call non-emergency contact if: you have any medication questions Follow-up/Referrals: Joyce Rasmussen, CONRADO [Primary Care Provider] - Neville Valladares DO [Physician] - Diet: Carb Consistent or DM2 Addtl Attending Provider Instructions: You have been hospitalized for an acute medical problem. During your stay at [facility], we have made an effort to correct the problem that brought you to the hospital while keeping you as comfortable as possible. Medications were used to bring your condition under control and your discharge instructions will include directions for any medications you should take after leaving the hospital. Please make sure you see your Primary Care Provider as part of your follow up plan. You were treated for a possible bacterial UTI and treatment has been completed especially given negative urine analysis. In regards to your fungal infection, this is more difficult to treat given the resistance of the bug , and the only option would be amphotericin B. However this may be difficult to use due to her CKD stage 4. Currently she is doing well. will use s a last resort. Family requesting second opinion, may have her followup with Dr. Valladares for ID as an outpatient. Needs followup with Urology as an outpatient for catheter exchange. Urology is getting this scheduled. Infectious Disease Doctor that saw your Aunt was Dr. Reese Araiza. He works at [employer]. Office number is [phone] He will be back in the office tomorrow and will be there through Friday. Pending Studies at Discharge: No Stand-Alone Forms: [facility] [employer], Smoking Cessation Skilled Items Patient informed of condition?: No DNR: No Discharge Level of Care: Other Communicable Disease: No Discharge Prognosis: Stable Lines: None Urinary Catheter: Yes Medications and DC Order Prescriptions: Continued Levemir U-100 Insulin 100 unit/mL solution 12 unit SUBCUT HS 90 Days Qty: 10.8 RF: 3 (DME) Novofine Autocover 30 gauge x 1/3" needle See Rx Instructions .ROUTE .MEDSUPPLY Qty: 200 RF: 11 Brilinta 90 mg tablet 90 mg PO BID Qty: 60 RF: 11 insulin aspart U-100 [Novolog Flexpen U-100 Insulin] 100 unit/mL (3 mL) Insulin Pen See Rx Instructions .ROUTE .COMPLEX RF: 0 Creon 12,000-38,000 -60,000 unit Capsule,Delayed Release(Dr/Ec) 1 cap PO TIDM RF: 0 famotidine [Pepcid] 20 mg tablet 20 mg PO BID RF: 0 atorvastatin 40 mg tablet 40 mg PO QPM RF: 0 solifenacin [Vesicare] 10 mg tablet 10 mg PO HS RF: 0 calcium carbonate-vitamin D3 [Calcium 600 + D(3)] 600 mg(1,500mg) -200 unit Tablet 1 tab PO QAM RF: 0 docusate sodium 100 mg Capsule 100 mg PO BID PRN (Reason: Constipation) RF: 0 mirtazapine 7.5 mg tablet 7.5 mg PO HS RF: 0 aspirin [Aspirin Childrens] 81 mg tablet,chewable 81 mg PO QAM RF: 0 Discharge Orders: Discharge Order (Routine); Ordered 03/20/21 Ordered By: Gurpreet Romero/Other Patient Handouts: Emptying and Cleaning Your ..., Discharge Instructions Caring for ... Admission Data Admit Date/Time: 03/14/21 18:49 Attending Provider: Gurpreet Payan Admit Provider: Venu Morse Primary Care Provider: Joyce Rasmussen Other Providers: Abundio Germain ; Kenisha Araiza ; Erickson Zhong ; Vivek Guaman ; Reese Araiza I. Other Interventions: Discharge Summary Assessment (RN) Last Done: 03/20/21 13:07 Coding Level of Care Code D/C Day Management >30 mins Diagnoses Sepsis A41.9 Urinary tract infection N39.0 Kidney stone N20.0 Uncontrolled diabetes mellitus, with long-term current use of insulin E11.65; Z79.4 Chronic kidney disease, stage IV (severe) N18.4 Neurofibromatosis Q85.00 Exocrine pancreatic insufficiency K86.81 Elevated troponin I level R77.8 Acute metabolic encephalopathy G93.41 Bradycardia R00.1 DVT prophylaxis Z29.9 Time Spent (min) 32
== END 2021-03-20 14:34 | disposition home or self-care (01) | DRG 853 ==
LOC: ED 21:14 → 3N 21:14 → SUATTDRO 03-14 01:15 → 3N 03-14 02:00 → SUATTDRO 03-14 18:49 → 2S 03-15 17:36 → 3W 03-17 15:22

== ENCOUNTER 2021-06-27 17:32 | Inpatient (IN) ==
--- NOTE | 2021-06-27 18:15 | Emergency Department Note ---
Impression & Plan Urinary tract infection, Fever, Hypoxia ED Provider Note NAME: SOLANGE TURNER AGE: 86 SEX: F : 1935 ARRIVES VIA: Ambulance INFORMANT: Patient, ED PROVIDER(S): Artur Pleitez DO CHIEF COMPLAINT: Difficulty breathing HPI: The patient is an 86-year-old female who presented to the emergency department for an evaluation of difficulty breathing. The patient started having low-grade fever. She does have a recent urinary tract infection. She was treated with lithotripsy for kidney stones but also was found to have yeast in her urine so she was treated with a bladder washout with her primary urologist. She denies having any dysuria or frequency but did start having cough and difficulty breathing over the last 2 days. She was recently tested for COVID-19. She was -3 weeks ago. She does live in a personal correction. She started having difficulty breathing as well as confusion over the last few days. She was sent to the emergency department for further evaluation. The patient denies having any nausea or vomiting. She denies having any chest pain. She does complain of a nonproductive cough. She denies having any lower extremity swelling or pain. The patient is taking Macrobid for urinary tract infection. She states symptoms are worsened with exertion. She did not take any medication for fever recently. ROS: See above HPI for pertinent positives & negatives. A total of 10 systems reviewed and were otherwise negative. PAST MEDICAL HISTORY: See Below PAST SURGICAL HISTORY: See Below FAMILY HISTORY: See Below SOCIAL HISTORY: See Below HOME MEDICATIONS: See Below ALLERGIES: See Below VITALS: See Below PHYSICAL EXAMINATION: GENERAL: Patient is awake and alert. She is nonanxious appearing. EYES: The conjunctivae are clear. The pupils are round and reactive. EARS, NOSE, MOUTH AND THROAT: The nose is without any evidence of any deformity. NECK: The neck is nontender and supple. RESPIRATORY: Diminished breath sounds are noted in the right lung field. There were rales and crackles in the left lung field. There is no tachypnea or conversational dyspnea. CARDIOVASCULAR: Regular rate and rhythm noted there no murmurs rubs or gallops normal S1 normal S2. GASTROINTESTINAL: The abdomen is soft. Abdomen is nontender. MUSCULOSKELETAL/EXTREMITIES: There is no evidence of gross deformity full range of motion is noted in the hips and shoulders. SKIN: No significant pedal edema was noted. NEUROLOGIC: Patient is awake alert and oriented x3. MEDICAL DECISION MAKING: The patient is an 86-year-old female who presented to the emergency department for an evaluation of generalized weakness. The patient presented with a family member who states that her condition has been worsening over the course the last few days. She has been coughing and having difficulty breathing. The patient was noted to have fever as well. The patient was found to have abnormal lung sounds. She was placed on supplemental oxygen and her oxygen saturation improved. The patient was also found to have a very significant urinary tract infection on urinalysis. She was started on IV antibiotics. I did review the patient's most recent urinary cultures. She does have a multidrug-resistant organism and in fact has multiple organisms in her urine. The patient had recent instrumentation. The patient was feeling much better on subsequent reevaluation. Her chest x-ray does appear to be consistent with some degree of pulmonary edema. I discussed the patient's condition with her and I feel she may require inpatient management especially given the abnormal urine. The [facility] hospitalist was notified about the patient. Triage Nursing notes reviewed. Prior medical records reviewed Vital Signs: reviewed and remarkable for elevated blood pressure and hypoxia Differential diagnosis: Viral syndrome, otitis, pharyngitis, pneumonia, influenza, meningitis, urinary tract infection, sepsis, bacteremia, as well as other pathologies. ER treatment provided: See below Diagnostics interpreted by me: ECG: EKG was obtained in the emergency department. My interpretation is sinus tachycardia at 102 bpm. First-degree AV block was noted. PVCs were noted. This was compared to a tracing from March 152020. No significant changes were noted. Cardiac Monitoring: An order was placed for continuous cardiac monitoring. The monitor shows a rate of 105 bpm with sinus tachycardia rhythm. Laboratory studies: As stated above and show below. Imaging studies: See below Consultation(s): Dr. Gutierrez was notified about the patient. He will evaluate the patient in the emergency department for further management and disposition. 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 [facility]. LMA #4. No issues. History of cystoscopy 02/10/2020 [facility] History of hemiarthroplasty of left hip History of lumpectomy of left breast History of pancreatectomy PARTIAL ([place]) History of ureter stent Hx of colonoscopy Family History Aunt Stroke Mother Stroke Father Heart disease Family/Other Family history of diabetes mellitus Grandmother (Maternal) Family history of diabetes mellitus Other No family history of allergies No family history of bleeding disorder No pertinent family history in first degree relatives Denies family history of Hearing loss Cancer Hypertension Asthma Social History Smoking Status: Never smoker Second Hand Exposure: No; Hx Alcohol Use: No Hx Substance Use: No Preferred Language: Faroese Communication Ability: Effective Vocational Nurse Required: No Beliefs That Will Affect Care: None marital status: Unknown Current Living Situation: Personal Care Facility Current Living Situation Comment: PT CURRENTLY AT [facility] [employer] SINCE 12/2020 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: Yes Assistive Devices: Walker Allergies Allergies Allergy/AdvReac Type Severity Reaction Status Date / Time No Known Drug Allergies Allergy Unknown Unknown Verified 06/27/21 18:44 Home Meds Home Medications Medication Instructions Recorded Confirmed insulin aspart U-100 100 unit/mL See Rx Instructions .ROUTE .COMPLEX 06/11/19 06/27/21 (3 mL) subcutaneous pen (Novolog Flexpen U-100 Insulin aspart) [id number] 1 cap PO TIDM 06/11/19 06/27/21 12,000-38,000-60,000 unit capsule,delayed rel (Creon) famotidine 20 mg tablet (Pepcid) 20 mg PO BID 01/17/20 06/27/21 solifenacin 10 mg tablet (Vesicare) 10 mg PO HS 02/10/20 06/27/21 atorvastatin 40 mg tablet 40 mg PO QPM tab 08/31/20 06/27/21 calcium carbonate 600 mg (1,500 1 tab PO QAM 02/03/21 06/27/21 mg)-vitamin D3 200 unit tablet (Calcium 600 + D(3)) docusate sodium 100 mg capsule 100 mg PO BID PRN 02/03/21 06/27/21 mirtazapine 7.5 mg tablet 7.5 mg PO HS 02/03/21 06/27/21 aspirin 81 mg chewable tablet 81 mg PO QAM 03/01/21 06/27/21 (Aspirin Childrens) acetaminophen 500 mg tablet 500 - 1,000 mg PO Q4 PRN MDD 3g 06/11/21 06/27/21 amoxicillin 500 mg capsule 2,000 mg PO ONCE PRN 06/27/21 06/27/21 ticagrelor 90 mg tablet (Brilinta) 90 mg PO BID 06/27/21 06/27/21 Previous Rx's Medication Instructions Recorded insulin detemir U-100 100 unit/mL 12 unit SUBCUT HS 90 Days #10.8 ml 03/12/21 subcutaneous solution (Levemir U-100 Insulin) Novofine Autocover 30 gauge x 1/3" #200 ea NS 03/14/21 needle (pen needle, diabetic, safety) phenazopyridine 200 mg tablet 200 mg PO Q8H PRN #10 tab 06/14/21 (Pyridium) tamsulosin 0.4 mg capsule 0.4 mg PO HS #30 cap 06/14/21 nitrofurantoin 100 mg PO Q12H 10 Days #20 cap 06/19/21 monohydrate/macrocrystals 100 mg capsule (Macrobid) Results & Data (ED) Vital Signs Vital Signs - 24 hr 06/27/21 17:38 06/27/21 17:44 06/27/21 18:24 Temperature 37.5 C Temperature Source Oral Pulse Rate 105 H Pulse Rhythm Regular Pulse Strength Normal Respiratory Rate 20 22 Respiratory Effort / Characteristics Non-Labored Spontaneous Non-Labored Spontaneous Respiratory Depth Normal Respiratory Pattern Regular Blood Pressure 163/60 H Blood Pressure Mean 94 Blood Pressure Position Sitting Pulse Oximetry 90 90 96 Oxygen Delivery Method Room Air Room Air Nasal Cannula Oxygen Flow Rate 2 Sepsis Recent Fever Within 48 Hours No Sepsis New/Unexplained Change in Mental Status No Sepsis Action Taken by Nursing No Action Required Oxygen Flow Rate - Titration 2 Pulse Oximetry Post Tiitration 94 Home Medications Current Medication List: was personally reviewed by me Laboratory Data Attestation: I reviewed the patient's lab results. Result diagrams: 06/27/21 18:18 06/27/21 18:18 Lab Results 06/27/21 06/27/21 06/27/21 Range/Units 18:02 18:16 18:16 WBC (4.8-10.8) K/uL RBC (4.2-5.4) M/uL Hgb (12.0-16.0) g/dL Hct (37-47) % MCV (80-100) fL MCH (25-34) pg MCHC (32-36) g/dL RDW Std Deviation (36.4-46.3) fL RDW Coeff of Flako (11.5-14.5) % Plt Count (130-400) K/uL MPV (7.4-10.4) fL Immature Gran % (Auto) % Neut % (Auto) % Lymph % (Auto) % Teller % (Auto) % Eos % (Auto) % Baso % (Auto) % Neut # (Auto) (1.4-6.5) K/uL Lymph # (Auto) (1.2-3.4) K/uL Teller # (Auto) (0.11-0.59) K/uL Eos # (Auto) (0-0.5) K/uL Baso # (Auto) (0-0.2) K/uL Immature Gran # (Auto) (0.00-0.02) K/uL PT (9.0-12.0) Seconds INR (0.9-1.1) APTT (21.0-31.0) Seconds PTT Ratio VBG pH (7.36-7.41) VBG pCO2 (38-50) mmHg VBG pO2 mmHg VBG HCO3 mmol/L VBG O2 Saturation % VBG Base Excess mEq/L Barometric Pressure mm/Hg Sodium (136-145) mmol/L Potassium (3.5-5.1) mmol/L Chloride (98-107) mmol/L Carbon Dioxide (21-32) mmol/L Anion Gap (3-11) BUN (7-18) mg/dl Creatinine (0.6-1.2) mg/dl Est Cr Clr Drug Dosing ml/min Est GFR ( Amer) ml/min Est GFR (Non-Af Amer) ml/min BUN/Creatinine Ratio (10-20) Glucose (70-99) mg/dl Lactate (0.4-2.0) mmol/L Calcium (8.5-10.1) mg/dl Magnesium (1.8-2.4) mg/dl Total Bilirubin (0.2-1) mg/dl AST (15-37) U/L ALT (12-78) U/L Alkaline Phosphatase (45-117) U/L Troponin I (0-0.045) ng/ml NT-Pro-B Natriuret Pep (0-1800) pg/ml Total Protein (6.4-8.2) gm/dl Albumin (3.4-5.0) gm/dl Globulin (2.5-4.0) gm/dl Albumin/Globulin Ratio (0.9-2) Procalcitonin (0-0.5) ng/ml Urine Color Yellow Urine Appearance Turbid A (Clear) Urine pH 5.5 (4.5-7.5) Ur Specific [place] 1.011 (1.000-1.030) Urine Protein 1+ H (Negative) Urine Glucose (UA) Negative (Negative) Urine Ketones Negative (Negative) Urine Blood 3+ H (Negative) Urine Nitrite Negative (Negative) Urine Bilirubin Negative (Negative) Urine Urobilinogen Negative (Negative) Ur Leukocyte Esterase 3+ H (Negative) Urine WBC (Auto) >30 H (0-5) /hpf Urine RBC (Auto) >30 H (0-4) /hpf U Hyaline Cast (Auto) 1-5 (0-5) /lpf U Epithel Cells (Auto) 20-30 H (0-5) /lpf Urine Bacteria (Auto) Negative (Negative) COVID-19 Eval Order Covid19 at [facility] SARS-CoV-2 (PCR) NEGATIVE (Negative) 06/27/21 06/27/21 06/27/21 Range/Units 18:18 18:18 18:18 WBC (4.8-10.8) K/uL RBC (4.2-5.4) M/uL Hgb (12.0-16.0) g/dL Hct (37-47) % MCV (80-100) fL MCH (25-34) pg MCHC (32-36) g/dL RDW Std Deviation (36.4-46.3) fL RDW Coeff of Flako (11.5-14.5) % Plt Count (130-400) K/uL MPV (7.4-10.4) fL Immature Gran % (Auto) % Neut % (Auto) % Lymph % (Auto) % Teller % (Auto) % Eos % (Auto) % Baso % (Auto) % Neut # (Auto) (1.4-6.5) K/uL Lymph # (Auto) (1.2-3.4) K/uL Teller # (Auto) (0.11-0.59) K/uL Eos # (Auto) (0-0.5) K/uL Baso # (Auto) (0-0.2) K/uL Immature Gran # (Auto) (0.00-0.02) K/uL PT (9.0-12.0) Seconds INR (0.9-1.1) APTT (21.0-31.0) Seconds PTT Ratio VBG pH 7.42 H (7.36-7.41) VBG pCO2 40 (38-50) mmHg VBG pO2 25 mmHg VBG HCO3 25 mmol/L VBG O2 Saturation < 60.0 % VBG Base Excess 0.8 mEq/L Barometric Pressure 734.3 mm/Hg Sodium 137 (136-145) mmol/L Potassium 3.8 (3.5-5.1) mmol/L Chloride 107 (98-107) mmol/L Carbon Dioxide 26 (21-32) mmol/L Anion Gap 4.0 (3-11) BUN 21 H (7-18) mg/dl Creatinine 1.65 H (0.6-1.2) mg/dl Est Cr Clr Drug Dosing 17.1 ml/min Est GFR ( Amer) 32.7 ml/min Est GFR (Non-Af Amer) 28.2 ml/min BUN/Creatinine Ratio 12.7 (10-20) Glucose 145 H (70-99) mg/dl Lactate (0.4-2.0) mmol/L Calcium 9.5 (8.5-10.1) mg/dl Magnesium 2.1 (1.8-2.4) mg/dl Total Bilirubin 0.5 (0.2-1) mg/dl AST 13 L (15-37) U/L ALT 14 (12-78) U/L Alkaline Phosphatase 102 (45-117) U/L Troponin I < 0.015 (0-0.045) ng/ml NT-Pro-B Natriuret Pep 898 (0-1800) pg/ml Total Protein 7.7 (6.4-8.2) gm/dl Albumin 3.0 L (3.4-5.0) gm/dl Globulin 4.7 H (2.5-4.0) gm/dl Albumin/Globulin Ratio 0.6 L (0.9-2) Procalcitonin 0.05 (0-0.5) ng/ml Urine Color Urine Appearance (Clear) Urine pH (4.5-7.5) Ur Specific [place] (1.000-1.030) Urine Protein (Negative) Urine Glucose (UA) (Negative) Urine Ketones (Negative) Urine Blood (Negative) Urine Nitrite (Negative) Urine Bilirubin (Negative) Urine Urobilinogen (Negative) Ur Leukocyte Esterase (Negative) Urine WBC (Auto) (0-5) /hpf Urine RBC (Auto) (0-4) /hpf U Hyaline Cast (Auto) (0-5) /lpf U Epithel Cells (Auto) (0-5) /lpf Urine Bacteria (Auto) (Negative) COVID-19 Eval Order SARS-CoV-2 (PCR) (Negative) 06/27/21 06/27/21 06/27/21 Range/Units 18:18 18:18 18:18 WBC 8.63 (4.8-10.8) K/uL RBC 4.56 (4.2-5.4) M/uL Hgb 13.1 (12.0-16.0) g/dL Hct 40.2 (37-47) % MCV 88.2 (80-100) fL MCH 28.7 (25-34) pg MCHC 32.6 (32-36) g/dL RDW Std Deviation 48.0 H (36.4-46.3) fL RDW Coeff of Flako 15.0 H (11.5-14.5) % Plt Count 242 (130-400) K/uL MPV 9.9 (7.4-10.4) fL Immature Gran % (Auto) 0.2 % Neut % (Auto) 72.4 % Lymph % (Auto) 8.0 % Teller % (Auto) 9.4 % Eos % (Auto) 9.8 % Baso % (Auto) 0.2 % Neut # (Auto) 6.24 (1.4-6.5) K/uL Lymph # (Auto) 0.69 L (1.2-3.4) K/uL Teller # (Auto) 0.81 H (0.11-0.59) K/uL Eos # (Auto) 0.85 H (0-0.5) K/uL Baso # (Auto) 0.02 (0-0.2) K/uL Immature Gran # (Auto) 0.02 (0.00-0.02) K/uL PT 10.0 (9.0-12.0) Seconds INR 1.0 (0.9-1.1) APTT 23.7 (21.0-31.0) Seconds PTT Ratio 0.9 VBG pH (7.36-7.41) VBG pCO2 (38-50) mmHg VBG pO2 mmHg VBG HCO3 mmol/L VBG O2 Saturation % VBG Base Excess mEq/L Barometric Pressure mm/Hg Sodium (136-145) mmol/L Potassium (3.5-5.1) mmol/L Chloride (98-107) mmol/L Carbon Dioxide (21-32) mmol/L Anion Gap (3-11) BUN (7-18) mg/dl Creatinine (0.6-1.2) mg/dl Est Cr Clr Drug Dosing ml/min Est GFR ( Amer) ml/min Est GFR (Non-Af Amer) ml/min BUN/Creatinine Ratio (10-20) Glucose (70-99) mg/dl Lactate 1.5 (0.4-2.0) mmol/L Calcium (8.5-10.1) mg/dl Magnesium (1.8-2.4) mg/dl Total Bilirubin (0.2-1) mg/dl AST (15-37) U/L ALT (12-78) U/L Alkaline Phosphatase (45-117) U/L Troponin I (0-0.045) ng/ml NT-Pro-B Natriuret Pep (0-1800) pg/ml Total Protein (6.4-8.2) gm/dl Albumin (3.4-5.0) gm/dl Globulin (2.5-4.0) gm/dl Albumin/Globulin Ratio (0.9-2) Procalcitonin (0-0.5) ng/ml Urine Color Urine Appearance (Clear) Urine pH (4.5-7.5) Ur Specific [place] (1.000-1.030) Urine Protein (Negative) Urine Glucose (UA) (Negative) Urine Ketones (Negative) Urine Blood (Negative) Urine Nitrite (Negative) Urine Bilirubin (Negative) Urine Urobilinogen (Negative) Ur Leukocyte Esterase (Negative) Urine WBC (Auto) (0-5) /hpf Urine RBC (Auto) (0-4) /hpf U Hyaline Cast (Auto) (0-5) /lpf U Epithel Cells (Auto) (0-5) /lpf Urine Bacteria (Auto) (Negative) COVID-19 Eval Order SARS-CoV-2 (PCR) (Negative) Administered Medications Discontinued Medications Ceftriaxone Sodium (Rocephin) 1,000 mg in 50 mls @ 100 mls/hr IV NOW STA Stop: 06/27/21 19:47 Last Infusion: 06/27/21 20:13 Dose: 0 mls/hr Documented by: [id number] Admin: 06/27/21 19:27 Dose: 100 mls/hr Documented by: [id number] Daptomycin 300 mg/ Syringe 6 mls @ 3 mls/min IV NOW ONE; Protocol Stop: 06/27/21 19:19 Last Admin: 06/27/21 20:17 Dose: 3 mls/min Documented by: [id number] Imaging Data Radiologist's Impression: Chest X-Ray 06/27/21 18:01 XR chest 1V portable HISTORY: 86 years-old Female SEPSIS acute sepsis COMPARISON: CT abdomen and pelvis 05/23/2021, chest radiograph 03/13/2021 TECHNIQUE: Portable AP view of the chest FINDINGS: Cardiac silhouette is enlarged. Pulmonary vascular congestion. The patient is rotated. No pneumothorax or large pleural effusion. Mild bibasilar densities. Degenerative changes of the shoulders and spine with numerous bilateral skin nodules. Partially imaged left ureteral stent. IMPRESSION: 1. Cardiomegaly with pulmonary vascular congestion. 2. Mild bibasilar densities suggestive of atelectasis. Pneumonitis considered less likely. ACT 112: Negative or not required by law. The above report was generated using voice recognition software. It may contain grammatical, syntax or spelling errors. Electronically signed by: Evert Solitario M.D. 06/27/2021 6:58 PM Discharge Plan Visit Data Chief Complaint: Illness Stated Complaint: AMS, FEVER ED Provider: Artur Pleitez Discharge Problem: Urinary tract infection, Fever, Hypoxia Patient Disposition: Being Evaluated by Hospitalist Condition: Good Forms Stand Alone Forms: [facility] Easy-Point Prescriptions Prescriptions: No Action Levemir U-100 Insulin 100 unit/mL solution 12 unit SUBCUT HS 90 Days Qty: 10.8 RF: 3 (DME) Novofine Autocover 30 gauge x 1/3" needle See Rx Instructions .ROUTE .MEDSUPPLY Qty: 200 RF: 11 nitrofurantoin monohyd/m-cryst [Macrobid] 100 mg capsule 100 mg PO Q12H 10 Days Qty: 20 RF: 0 insulin aspart U-100 [Novolog Flexpen U-100 Insulin] 100 unit/mL (3 mL) Insulin Pen See Rx Instructions .ROUTE .COMPLEX RF: 0 Creon 12,000-38,000 -60,000 unit Capsule,Delayed Release(Dr/Ec) 1 cap PO TIDM RF: 0 famotidine [Pepcid] 20 mg tablet 20 mg PO BID RF: 0 atorvastatin 40 mg tablet 40 mg PO QPM RF: 0 solifenacin [Vesicare] 10 mg tablet 10 mg PO HS RF: 0 calcium carbonate-vitamin D3 [Calcium 600 + D(3)] 600 mg(1,500mg) -200 unit Tablet 1 tab PO QAM RF: 0 docusate sodium 100 mg Capsule 100 mg PO BID PRN (Reason: Constipation) RF: 0 mirtazapine 7.5 mg tablet 7.5 mg PO HS RF: 0 amoxicillin 500 mg capsule 2,000 mg PO ONCE PRN (Reason: dental procedure) RF: 0 Brilinta 90 mg tablet 90 mg PO BID RF: 0 aspirin [Aspirin Childrens] 81 mg tablet,chewable 81 mg PO QAM RF: 0 acetaminophen 500 mg Tablet 500 - 1,000 mg PO Q4 MDD 3g PRN (Reason: Fever Or Pain) RF: 0 tamsulosin 0.4 mg capsule 0.4 mg PO HS Qty: 30 RF: 0 phenazopyridine [Pyridium] 200 mg tablet 200 mg PO Q8H PRN (Reason: pain) Qty: 10 RF: 0 Referrals Referrals: Jocye Rasmussen CRNP [Primary Care Provider] -
[2021-06-27 18:32] LABS: Base Excess VBG 0.8 mEq/L; HCO3 VBG 25 mmol/L; PCO2 VBG 40 mmHg (38-50); PO2 VBG 25 mmHg; pH VBG 7.42 (7.36-7.41)
[2021-06-27 18:33] LABS: Oxygen Saturation VBG < 60.0 %
[2021-06-27 18:38] LABS: Basophils # (auto) 0.02 K/uL (0-0.2); Basophils % (auto) 0.2 %; Eosinophils # (auto) 0.85 K/uL (0-0.5); Eosinophils % (auto) 9.8 %; Hematocrit (blood only) 40.2 % (37-47); Hemoglobin 13.1 g/dL (12.0-16.0); Immature Granulocytes # (auto) 0.02 K/uL (0.00-0.02); Immature Granulocytes % (auto) 0.2 %; Lymphocytes # (auto) 0.69 K/uL (1.2-3.4); Mean Corpuscular Hemoglobin 28.7 pg (25-34); Mean Corpuscular Hgb Conc 32.6 g/dL (32-36); Mean Corpuscular Volume 88.2 fL (80-100); Mean Platelet Volume 9.9 fL (7.4-10.4); Monocytes # (auto) 0.81 K/uL (0.11-0.59); Monocytes % (auto) 9.4 %; Neutrophils # (auto) 6.24 K/uL (1.4-6.5); Neutrophils % (auto) 72.4 %; Platelet Count 242 K/uL (130-400); Red Blood Count 4.56 M/uL (4.2-5.4); White Blood Count 8.63 K/uL (4.8-10.8)
[2021-06-27 18:49] LABS: Partial Thromboplastin Ratio 0.9; Partial Thromboplastin Time 23.7 Seconds (21.0-31.0)
--- NOTE | 2021-06-27 19:00 | XRay Report ---
XR chest 1V portable HISTORY: 86 years-old Female SEPSIS acute sepsis COMPARISON: CT abdomen and pelvis 05/23/2021, chest radiograph 03/13/2021 TECHNIQUE: Portable AP view of the chest FINDINGS: Cardiac silhouette is enlarged. Pulmonary vascular congestion. The patient is rotated. No pneumothora x or large pleural effusion. Mild bibasilar densities. Degenerative changes of the shoulders and spin e with numerous bilateral skin nodules. Partially imaged left ureteral stent. IMPRESSION: 1. Cardiomegaly with pulmonary vascular congestion. 2. Mild bibasilar densities suggestive of atelectasis. Pneumonitis considered less likely. ACT 112: Negative or not required by law. The above report was generated using voice recognition software. It may contain grammatical, syntax o r spelling errors. Electronically signed by: Evert Solitario M.D. 06/27/2021 6:58 PM
[2021-06-27 19:04] LABS: Alanine Aminotransferase 14 U/L (12-78); Aspartate Aminotransferase 13 U/L (15-37); BUN Creatinine Ratio 12.7 (10-20); Blood Urea Nitrogen 21 mg/dl (7-18); Calcium 9.5 mg/dl (8.5-10.1); Carbon Dioxide 26 mmol/L (21-32); Chloride 107 mmol/L (98-107); Creatinine Clr Calc Pharmacy 17.1 ml/min; Est GFR (African American) 32.7 ml/min; Est GFR (Non-African American) 28.2 ml/min; Glucose 145 mg/dl (70-99); Magnesium 2.1 mg/dl (1.8-2.4); Potassium 3.8 mmol/L (3.5-5.1); Sodium 137 mmol/L (136-145)
[2021-06-27 19:05] LABS: Appearance Urine Turbid (Clear); Bacteria Urine Automated Negative (Negative); Bilirubin Urine Negative (Negative); Blood Urine 3+ (Negative); Color Urine Yellow; Epithelial Cell Urine Auto 20-30 /lpf (0-5); Glucose Urine UA Negative (Negative); Ketones Urine Negative (Negative); Leukocyte Esterase Urine 3+ (Negative); Nitrite Urine Negative (Negative); Protein Urine 1+ (Negative); RBC Urine Automated >30 /hpf (0-4); Specific Gravity Urine 1.011 (1.000-1.030); Urobilinogen Urine Negative (Negative); WBC Urine Automated >30 /hpf (0-5); pH Urine 5.5 (4.5-7.5)
[2021-06-27 19:10] LABS: Albumin Globulin Ratio 0.6 (0.9-2); Alkaline Phosphatase 102 U/L (45-117); Bilirubin,Total 0.5 mg/dl (0.2-1); Globulin 4.7 gm/dl (2.5-4.0); NT Pro B Type Natriuretic Pept 898 pg/ml (0-1800); Total Protein 7.7 gm/dl (6.4-8.2); Troponin I < 0.015 ng/ml (0-0.045)
[2021-06-27] MEDS ORDERED: cefTRIAXone SODIUM 1,000 MG/50 ML BAG IV STA (19:18)
[2021-06-27] MEDS ORDERED: DAPTOmycin 300 MG in SYRINGE 0 ML IV ONE (19:18)
--- NOTE | 2021-06-27 20:54 | History & Physical Report ---
Date of Service June 27, 2021 Assessment & Plan (1) Urinary tract infection: Plan: On 06/14/2021, urine cultures grew Klebsiella pneumoniae ,VRE and Alysa glabrata. Continue daptomycin IV and ceftriaxone IV begun in ED follow results of repeat urine culture sensitivities this evening Hold on treating Alyas glabrata for now Consult her urologist Dr. Guaman (2) Diabetes: Plan: Continue insulin detemir 12 units subcu at bedtime. Place on Accu-Cheks before meals and at bedtime with NovoLog coverage for scale Check hemoglobin A1c (3) High cholesterol: Plan: Continue toward statin 40 mg in the evening (4) Exocrine pancreatic insufficiency: Plan: Continue pancreatic enzymes Creon 3 times daily with meals (5) Chronic kidney disease, stage III (moderate): Plan: Creatinine 1.65 upon admission, with range 1.44-1.77 Follow serially (6) Confusion: Plan: Likely secondary to UTI. Would avoid use of nitrofurantoin, as it may potentially cause her symptoms of confusion and kidney dysfunction History of Present Illness Chief Complaint: The patient presents to the emergency department due to generalized weakness, confusion, fatigue over the past 2 days, and today developed a low-grade fever. Primary Care Provider: CONRADO Ponce The patient is an 86-year-old female with a past medical history including Alysa glabrata UTI, diabetes mellitus, hyperlipidemia, breast cancer, neurofibromatosis, kidney stone, obstructive uropathy, recurrent urinary tract infections, TIA, T11 compression fracture, acute renal failure, CKD, cervical spine fracture, bradycardia, dysuria, had a hernia and exocrine pancreatic insufficiency. She most recently underwent lithotripsy for kidney stones, and underwent bladder irrigation due to yeast UTI with Alysa glabrata. She lives in a personal detention, and was thought in addition today to have some early difficulty with breathing, and is referred to the emergency department for assessment for all the above symptoms. Allergies Allergy/AdvReac Type Severity Reaction Status Date / Time No Known Drug Allergies Allergy Unknown Unknown Verified 06/27/21 18:44 Home Medications Medication Instructions Recorded Confirmed Type insulin aspart U-100 100 unit/mL See Rx Instructions .ROUTE .COMPLEX 06/11/19 06/27/21 History (3 mL) subcutaneous pen (Novolog Flexpen U-100 Insulin aspart) [id number] 1 cap PO TIDM 06/11/19 06/27/21 History 12,000-38,000-60,000 unit capsule,delayed rel (Creon) famotidine 20 mg tablet (Pepcid) 20 mg PO BID 01/17/20 06/27/21 History solifenacin 10 mg tablet (Vesicare) 10 mg PO HS 02/10/20 06/27/21 History atorvastatin 40 mg tablet 40 mg PO QPM tab 08/31/20 06/27/21 History calcium carbonate 600 mg (1,500 1 tab PO QAM 02/03/21 06/27/21 History mg)-vitamin D3 200 unit tablet (Calcium 600 + D(3)) docusate sodium 100 mg capsule 100 mg PO BID PRN 02/03/21 06/27/21 History mirtazapine 7.5 mg tablet 7.5 mg PO HS 02/03/21 06/27/21 History aspirin 81 mg chewable tablet 81 mg PO QAM 03/01/21 06/27/21 History (Aspirin Childrens) insulin detemir U-100 100 unit/mL 12 unit SUBCUT HS 90 Days #10.8 ml 03/12/21 06/27/21 Rx subcutaneous solution (Levemir U-100 Insulin) Novofine Autocover 30 gauge x 1/3" #200 ea NS 03/14/21 06/27/21 Rx needle (pen needle, diabetic, safety) acetaminophen 500 mg tablet 500 - 1,000 mg PO Q4 PRN MDD 3g 06/11/21 06/27/21 History phenazopyridine 200 mg tablet 200 mg PO Q8H PRN #10 tab 06/14/21 06/27/21 Rx (Pyridium) tamsulosin 0.4 mg capsule 0.4 mg PO HS #30 cap 06/14/21 06/27/21 Rx nitrofurantoin 100 mg PO Q12H 10 Days #20 cap 06/19/21 06/27/21 Rx monohydrate/macrocrystals 100 mg capsule (Macrobid) amoxicillin 500 mg capsule 2,000 mg PO ONCE PRN 06/27/21 06/27/21 History ticagrelor 90 mg tablet (Brilinta) 90 mg PO BID 06/27/21 06/27/21 History Past Med/Surg History Medical History Chronic kidney disease, stage III (moderate) Compression fracture of T11 vertebra Hx s/p fall 12/2019 CVA (cerebral vascular accident) Hx of previous remote CVA- exact date unknown- "several old lacunar infarcts on MRI of brain" per 07/2020 admission- on ASA and Brilinta Diabetes mellitus, type 2 IDDM Dysuria Exocrine pancreatic insufficiency GERD (gastroesophageal reflux disease) Hearing deficit Hiatal hernia HX: breast cancer s/p lumpectomy- left breast, was on tamoxifen x 5 years (discontinued) Hyperlipidemia Kidney stones 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 [facility]. LMA #4. No issues. History of cystoscopy 02/10/2020 [facility] History of hemiarthroplasty of left hip History of lumpectomy of left breast History of pancreatectomy PARTIAL (WHIPPLE) History of ureter stent Hx of colonoscopy Family History Aunt Stroke Mother Stroke Father Heart disease Family/Other Family history of diabetes mellitus Grandmother (Maternal) Family history of diabetes mellitus Other No family history of allergies No family history of bleeding disorder No pertinent family history in first degree relatives Denies family history of Hearing loss Cancer Hypertension Asthma Social History Smoking Status: Never smoker Second Hand Exposure: No; Hx Alcohol Use: No Hx Substance Use: No Preferred Language: Tajik Communication Ability: Effective Society Editor Required: No Beliefs That Will Affect Care: None marital status: Unknown Current Living Situation: Personal Care Facility Current Living Situation Comment: PT CURRENTLY AT [facility] SINCE 12/2020 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: Yes Assistive Devices: Hearing Aid - Bilateral, Oxygen - Continuous and Walker Review of Systems Review of Systems: The patient denies chest pain, palpitations, shortness of breath, dyspnea on exertion, cough, lower extremity swelling, sore throat, fevers, chills, sweats, nausea, vomiting, diarrhea , constipation, abdominal pain, pelvic pain, blood in urine or stool, lightheadedness, dizziness, headache, loss of consciousness, rash, abnormal bruising or bleeding, focal weakness, numbness or tingling in arms or legs, generalized arthralgias or myalgias, back or neck pain, or night sweats. The review of systems is otherwise negative other than for that already noted above, and at least 10 systems have been reviewed. Physical Exam Physical Exam: The patient is awake, alert and oriented 3, well developed and well nourished, normocephalic and atraumatic, lying in bed and in no acute distress. HEENT--PERRL, EOMI, mucous membranes and oropharynx dry. Neck--supple. No JVD. No bruits. Thyroid normal, trachea midline, no adenopathy. Heart--normal S1 and S2. No murmurs, rubs or gallops. Lungs--clear bilaterally, no respiratory distress, no accessory muscle use. Abdomen--normal bowel sounds and soft. Nontender. Nondistended. Extremities--no cyanosis or clubbing. No edema. Dermatologic--skin is mildly dry Neurologic--cranial nerves II through XII grossly intact. Rheumatologic--normal range of motion. Psychiatric--normal affect. Results & Data Results & Data ([facility]) Vital Signs (Past 12 Hours) Vital Signs Temp Pulse Resp BP Pulse Ox 06/27/21 18:24 22 96 06/27/21 17:44 90 06/27/21 17:38 99.5 F 105 H 20 163/60 H 90 Laboratory Results Laboratory Results WBC 8.63 K/uL (4.8-10.8) 06/27/21 18:18 RBC 4.56 M/uL (4.2-5.4) 06/27/21 18:18 Hgb 13.1 g/dL (12.0-16.0) 06/27/21 18:18 Hct 40.2 % (37-47) 06/27/21 18:18 MCV 88.2 fL (80-100) 06/27/21 18:18 MCH 28.7 pg (25-34) 06/27/21 18:18 MCHC 32.6 g/dL (32-36) 06/27/21 18:18 RDW Std Deviation 48.0 fL (36.4-46.3) H 06/27/21 18:18 RDW Coeff of [place] 15.0 % (11.5-14.5) H 06/27/21 18:18 Plt Count 242 K/uL (130-400) 06/27/21 18:18 MPV 9.9 fL (7.4-10.4) 06/27/21 18:18 Immature Gran % (Auto) 0.2 % 06/27/21 18:18 Neut % (Auto) 72.4 % 06/27/21 18:18 Lymph % (Auto) 8.0 % 06/27/21 18:18 [place] % (Auto) 9.4 % 06/27/21 18:18 Eos % (Auto) 9.8 % 06/27/21 18:18 Baso % (Auto) 0.2 % 06/27/21 18:18 Neut # (Auto) 6.24 K/uL (1.4-6.5) 06/27/21 18:18 Lymph # (Auto) 0.69 K/uL (1.2-3.4) L 06/27/21 18:18 [place] # (Auto) 0.81 K/uL (0.11-0.59) H 06/27/21 18:18 Eos # (Auto) 0.85 K/uL (0-0.5) H 06/27/21 18:18 Baso # (Auto) 0.02 K/uL (0-0.2) 06/27/21 18:18 Immature Gran # (Auto) 0.02 K/uL (0.00-0.02) 06/27/21 18:18 PT 10.0 Seconds (9.0-12.0) 06/27/21 18:18 INR 1.0 (0.9-1.1) 06/27/21 18:18 APTT 23.7 Seconds (21.0-31.0) 06/27/21 18:18 PTT Ratio 0.9 06/27/21 18:18 VBG pH 7.42 (7.36-7.41) H 06/27/21 18:18 VBG pCO2 40 mmHg (38-50) 06/27/21 18:18 VBG pO2 25 mmHg 06/27/21 18:18 VBG HCO3 25 mmol/L 06/27/21 18:18 VBG O2 Saturation < 60.0 % 06/27/21 18:18 VBG Base Excess 0.8 mEq/L 06/27/21 18:18 Barometric Pressure 734.3 mm/Hg 06/27/21 18:18 Sodium 137 mmol/L (136-145) 06/27/21 18:18 Potassium 3.8 mmol/L (3.5-5.1) 06/27/21 18:18 Chloride 107 mmol/L (98-107) 06/27/21 18:18 Carbon Dioxide 26 mmol/L (21-32) 06/27/21 18:18 Anion Gap 4.0 (3-11) 06/27/21 18:18 BUN 21 mg/dl (7-18) H 06/27/21 18:18 Creatinine 1.65 mg/dl (0.6-1.2) H 06/27/21 18:18 Est Cr Clr Drug Dosing 17.1 ml/min 06/27/21 18:18 Est GFR ( Amer) 32.7 ml/min 06/27/21 18:18 Est GFR (Non-Af Amer) 28.2 ml/min 06/27/21 18:18 BUN/Creatinine Ratio 12.7 (10-20) 06/27/21 18:18 Glucose 145 mg/dl (70-99) H 06/27/21 18:18 POC Glucose 216 mg/dl (70-99) H 06/27/21 23:40 Lactate 1.5 mmol/L (0.4-2.0) 06/27/21 18:18 Calcium 9.5 mg/dl (8.5-10.1) 06/27/21 18:18 Magnesium 2.1 mg/dl (1.8-2.4) 06/27/21 18:18 Total Bilirubin 0.5 mg/dl (0.2-1) 06/27/21 18:18 AST 13 U/L (15-37) L 06/27/21 18:18 ALT 14 U/L (12-78) 06/27/21 18:18 Alkaline Phosphatase 102 U/L (45-117) 06/27/21 18:18 Troponin I < 0.015 ng/ml (0-0.045) 06/27/21 18:18 NT-Pro-B Natriuret Pep 898 pg/ml (0-1800) 06/27/21 18:18 Total Protein 7.7 gm/dl (6.4-8.2) 06/27/21 18:18 Albumin 3.0 gm/dl (3.4-5.0) L 06/27/21 18:18 Globulin 4.7 gm/dl (2.5-4.0) H 06/27/21 18:18 Albumin/Globulin Ratio 0.6 (0.9-2) L 06/27/21 18:18 Procalcitonin 0.05 ng/ml (0-0.5) 06/27/21 18:18 Urine Color Yellow 06/27/21 18:02 Urine Appearance Turbid (Clear) A 06/27/21 18:02 Urine pH 5.5 (4.5-7.5) 06/27/21 18:02 Ur Specific [place] 1.011 (1.000-1.030) 06/27/21 18:02 Urine Protein 1+ (Negative) H 06/27/21 18:02 Urine Glucose (UA) Negative (Negative) 06/27/21 18: Urine Ketones Negative (Negative) 06/27/21 18:02 Urine Blood 3+ (Negative) H 06/27/21 18:02 Urine Nitrite Negative (Negative) 06/27/21 18: Urine Bilirubin Negative (Negative) 06/27/21 18:02 Urine Urobilinogen Negative (Negative) 06/27/21 18:02 Ur Leukocyte Esterase 3+ (Negative) H 06/27/21 18:02 Urine WBC (Auto) >30 /hpf (0-5) H 06/27/21 18:02 Urine RBC (Auto) >30 /hpf (0-4) H 06/27/21 18:02 U Hyaline Cast (Auto) 1-5 /lpf (0-5) 06/27/21 18:02 U Epithel Cells (Auto) 20-30 /lpf (0-5) H 06/27/21 18:02 Urine Bacteria (Auto) Negative (Negative) 06/27/21 18:02 COVID-19 Eval Order Covid19 at [facility] 06/27/21 18:16 SARS-CoV-2 (PCR) NEGATIVE (Negative) 06/27/21 18:16 Impressions Chest X-Ray 06/27/21 18:01 XR chest 1V portable HISTORY: 86 years-old Female SEPSIS acute sepsis COMPARISON: CT abdomen and pelvis 05/23/2021, chest radiograph 03/13/2021 TECHNIQUE: Portable AP view of the chest FINDINGS: Cardiac silhouette is enlarged. Pulmonary vascular congestion. The patient is rotated. No pneumothorax or large pleural effusion. Mild bibasilar densities. Degenerative changes of the shoulders and spine with numerous bilateral skin nodules. Partially imaged left ureteral stent. IMPRESSION: 1. Cardiomegaly with pulmonary vascular congestion. 2. Mild bibasilar densities suggestive of atelectasis. Pneumonitis considered less likely. ACT 112: Negative or not required by law. The above report was generated using voice recognition software. It may contain grammatical, syntax or spelling errors. Electronically signed by: Evert Soltiario M.D. 06/27/2021 6:58 PM Code Status & VTE Plan Code Status Full code VTE Prophylaxis Plan VTE Prophylaxis will be ordered: Yes PG Care Time/CCT Total # of Minutes Spent Total Time Spent with Patient: Total time spent is greater than 50% in coordination of care (as documented) at patient's floor/unit and/or counseling patient: Coding Level of Care Code 20151 Initial Inpt Care Lvl 2 Diagnoses Urinary tract infection N39.0 Hematuria presence: without hematuria Urinary tract infection type: site unspecified Diabetes E11.22; N18.31; Z79.4 Diabetes mellitus type: type 2 Diabetes mellitus exterminator helper insulin use: with exterminator helper use Diabetes mellitus complication status: with kidney complications Diabetes mellitus complication detail: with chronic kidney disease Chronic kidney disease stage: stage 3 (moderate) Chronic kidney disease stage 3 subtype: stage 3a (GFR 45-59) High cholesterol E78.00 Exocrine pancreatic insufficiency K86.81 Chronic kidney disease, stage III (moderate) N18.30 Confusion R41.0 (1) Urinary tract infection Hematuria presence: without hematuria Urinary tract infection type: site unspecified Qualified Code(s): N39.0 - Urinary tract infection, site not specified (2) Diabetes Diabetes mellitus type: type 2 Diabetes mellitus prison insulin use: with prison use Diabetes mellitus complication status: with kidney complications Diabetes mellitus complication detail: with chronic kidney disease Chronic kidney disease stage: stage 3 (moderate) Chronic kidney disease stage 3 subtype: stage 3a (GFR 45-59) Qualified Code(s): E11.22 - Type 2 diabetes mellitus with diabetic chronic kidney disease; N18.31 - Chronic kidney disease, stage 3a; Z79.4 - jail (current) use of insulin
[2021-06-27] MEDS ORDERED: GLUCOSE 40% GEL 15 GM TUBE PO PRN (23:28)
[2021-06-27] MEDS ORDERED: PHENAZOPYRIDINE HCL 200 MG TAB PO PRN (23:28)
[2021-06-27] MEDS ORDERED: GLUCOSE 10 TABS/TUBE PO PRN (23:28)
[2021-06-27] MEDS ORDERED: ACETAMINOPHEN 325 MG TAB PO PRN (23:28)
[2021-06-27] MEDS ORDERED: ONDANSETRON INJ 2 MG/ML 2 ML VIAL IV PRN (23:28)
[2021-06-27] MEDS ORDERED: DOCUSATE SODIUM 100 MG CAP PO PRN (23:28)
[2021-06-27] MEDS ORDERED: GLUCAGON FOR INJ 1 MG VIAL SQ PRN (23:28)
[2021-06-27] MEDS ORDERED: DEXTROSE 50% 50 ML SYRINGE IV PRN (23:28)
[2021-06-28] MEDS: VESICARE: ORDER AWAITING ACTION SCH ×3 (00:12→15:31)
[2021-06-28] MEDS: INSULIN ASPART 100 UNITS/ML 3 ML PEN SC SCH ×5 (00:16→20:15)
[2021-06-28] MEDS: TAMSULOSIN HCL 0.4 MG CAP PO SCH ×2 (00:18→20:21)
[2021-06-28] MEDS: MIRTAZAPINE TAB 15 MG TAB PO SCH ×2 (00:18→20:21)
[2021-06-28] MEDS: FAMOTIDINE 20 MG TAB PO SCH ×3 (00:18→20:21)
[2021-06-28] MEDS: TICAGRELOR 90 MG TAB PO SCH ×3 (00:19→20:21)
[2021-06-28] MEDS: ATORVASTATIN 40 MG TAB PO SCH ×2 (00:19→20:21)
[2021-06-28] MEDS: PANCREAZE (LIPASE 10,500U) CAP PO SCH ×3 (08:19→17:18)
[2021-06-28] MEDS: ASPIRIN 81 MG ECTAB PO SCH (08:20)
[2021-06-28] MEDS: CALCIUM 600MG + VIT D 400 IU TAB PO SCH (08:20)
[2021-06-28 08:24] LABS: Basophils # (auto) 0.04 K/uL (0-0.2); Basophils % (auto) 0.7 %; Eosinophils # (auto) 0.77 K/uL (0-0.5); Eosinophils % (auto) 13.3 %; Hematocrit (blood only) 35.6 % (37-47); Hemoglobin 11.4 g/dL (12.0-16.0); Immature Granulocytes # (auto) 0.02 K/uL (0.00-0.02); Immature Granulocytes % (auto) 0.3 %; Lymphocytes # (auto) 1.01 K/uL (1.2-3.4); Lymphocytes % (auto) 17.4 %; Mean Corpuscular Hemoglobin 28.4 pg (25-34); Mean Corpuscular Volume 88.8 fL (80-100); Mean Platelet Volume 10.1 fL (7.4-10.4); Monocytes # (auto) 0.81 K/uL (0.11-0.59); Neutrophils # (auto) 3.15 K/uL (1.4-6.5); Neutrophils % (auto) 54.3 %; Platelet Count 216 K/uL (130-400); RDW Coefficient of Variation 15.2 % (11.5-14.5); RDW Standard Deviation 49.6 fL (36.4-46.3); Red Blood Count 4.01 M/uL (4.2-5.4)
[2021-06-28 09:03] LABS: Albumin Level 2.3 gm/dl (3.4-5.0); Calcium 9.1 mg/dl (8.5-10.1); Creatinine Clr Calc Pharmacy 20.3 ml/min; Est GFR (African American) 39.5 ml/min; Est GFR (Non-African American) 34.1 ml/min; Magnesium 1.7 mg/dl (1.8-2.4); Potassium 4.1 mmol/L (3.5-5.1)
[2021-06-28 09:11] LABS: Albumin Globulin Ratio 0.6 (0.9-2); Bilirubin,Total 0.6 mg/dl (0.2-1); Globulin 4.1 gm/dl (2.5-4.0); Total Protein 6.4 gm/dl (6.4-8.2)
[2021-06-28 09:41] LABS: Estimated Average Glucose 214 mg/dl; Hemoglobin A1C 9.1 % (4.5-5.6)
--- NOTE | 2021-06-28 10:37 | Urology Consultation ---
Date of Consultation June 28, 2021 Assessment & Plan (1) Urinary tract infection: 86 year old female with multiple comorbidities admitted for hypoxia and suspected urinary tract infection; s/p urological procedure on 06/14/21. - Plan of care reviewed with Dr. Guaman, urologist site damage prevention technician - Pt with complex hx of stones and recurrent UTI/fungemia; recently s/p L ESWL, cystoscopy, L RGP, urine aspiration, Amphotericin B irrigation, and Left Stent Exchange on 06/14/[address] Guaman - Afebrile since arrival, nontoxic, lab work reviewed - creatinine 1.41, no leukocytosis - Urine culture and BCx pending - Continue IV Daptomycin and Ceftriaxone per primary service - follow cultures - No acute urological intervention planned at this time - Recommend imaging with CT abd/pelvis without con for further evaluation - order placed - Continue supportive care, antibiotics, and management per primary service - Recommend follow-up with her ID specialist for ongoing management of resistant organisms/fungemia - Will continue to follow History of Present Illness Reason for Consultation: Recurrent UTI Requesting Physician: Dr. Cota Attending Physician: Wai Mohamud MD History of Present Illness 86 year old female with past medical history of kidney stones, diabetes, breast CA, neurofibromatosis, exocrine pancreatic insufficiency, TIA, CKD, hyperlipidemia, hx of recurrent UTI and fungemia admitted for hypoxia and suspected urinary tract infection; s/p urological procedure on 06/14. Patient is known to our service, follows with Dr. Guaman for history of stones, obstructive uropathy; history of UTI and fungemia, following with Infectious disease. She is recently s/p Left ESWL, cystoscopy, left RGP, aspiration of urine, Instillation/irrigation with Amphotericin B, and Left Stent Exchange on 06/14/[address] Guaman. Her intraoperative urine aspirate grew out Klebsiella pneumoniae, Enterococcus faecium VRE, Yeast not Alysa albicans/dub, Bifidobacterium species. She was treated with IV antibiotics pre- op and then treated with Macrobid and Cephalexin outpatient. She presented to [facility] ED on 06/27/21 with complaint of difficulty breathing, cough, confusion and low grade fever. Afebrile on arrival. Lab work showed creatinine 1.65, WBC 8.63, Hgb 13.1, Lactate 1.5. UA 3+ leukocytes, >30 WBCs, >30 RBCs, negative for nitrates and bacteria. Urine and blood cultures collected. CXR impression showed cardiomegaly with pulmonary vascular congestio n, mild bibasilar densities suggestive of atelectasis, pneumonitis considered less likely. She had hypoxia on arrival which improved with supplemental oxygen. She was treated with IV Daptomycin and Ceftriaxone in ED and admitted to hospital medicine service for further evaluation and management. Our service is consulted for recurrent UTI. Chart review: Afebrile Creatinine 1.41 WBC 5.80 Hgb 11.4 UC&S pending BCx pending On IV Daptomycin and Ceftriaxone Patient resting in bed upon my arrival, arouses easily to her name. Reports feeling tired, but overall improved since arrival. Reports no shortness of breath or difficulty with breathing, currently on room air. Endorses some dysuria, no hematuria. Feels she is emptying her bladder. No abdominal, flank, or bladder pain. No nausea or vomiting. No fever or chills. No additional concerns at this time. Allergies Allergy/AdvReac Type Severity Reaction Status Date / Time No Known Drug Allergies Allergy Unknown Unknown Verified 06/27/21 18:44 Home Medications Medication Instructions Recorded Confirmed Type insulin aspart U-100 100 unit/mL See Rx Instructions .ROUTE .COMPLEX 06/11/19 06/27/21 History (3 mL) subcutaneous pen (Novolog Flexpen U-100 Insulin aspart) aotwxa-omrufosf-qohzzmr 1 cap PO TIDM 06/11/19 06/27/21 History 12,000-38,000-60,000 unit capsule,delayed rel (Creon) famotidine 20 mg tablet (Pepcid) 20 mg PO BID 01/17/20 06/27/21 History solifenacin 10 mg tablet (Vesicare) 10 mg PO HS 02/10/20 06/27/21 History atorvastatin 40 mg tablet 40 mg PO QPM tab 08/31/20 06/27/21 History calcium carbonate 600 mg (1,500 1 tab PO QAM 02/03/21 06/27/21 History mg)-vitamin D3 200 unit tablet (Calcium 600 + D(3)) docusate sodium 100 mg capsule 100 mg PO BID PRN 02/03/21 06/27/21 History mirtazapine 7.5 mg tablet 7.5 mg PO HS 02/03/21 06/27/21 History aspirin 81 mg chewable tablet 81 mg PO QAM 03/01/21 06/27/21 History (Aspirin Childrens) insulin detemir U-100 100 unit/mL 12 unit SUBCUT HS 90 Days #10.8 ml 03/12/21 06/27/21 Rx subcutaneous solution (Levemir U-100 Insulin) Novofine Autocover 30 gauge x 1/3" #200 ea NS 03/14/21 06/27/21 Rx needle (pen needle, diabetic, safety) acetaminophen 500 mg tablet 500 - 1,000 mg PO Q4 PRN MDD 3g 06/11/21 06/27/21 History phenazopyridine 200 mg tablet 200 mg PO Q8H PRN #10 tab 06/14/21 06/27/21 Rx (Pyridium) tamsulosin 0.4 mg capsule 0.4 mg PO HS #30 cap 06/14/21 06/27/21 Rx nitrofurantoin 100 mg PO Q12H 10 Days #20 cap 06/19/21 06/27/21 Rx monohydrate/macrocrystals 100 mg capsule (Macrobid) amoxicillin 500 mg capsule 2,000 mg PO ONCE PRN 06/27/21 06/27/21 History ticagrelor 90 mg tablet (Brilinta) 90 mg PO BID 06/27/21 06/27/21 History Patient History Medical History Chronic kidney disease, stage III (moderate) Compression fracture of T11 vertebra Hx s/p fall 12/2019 CVA (cerebral vascular accident) Hx of previous remote CVA- exact date unknown- "several old lacunar infarcts on MRI of brain" per 07/2020 admission- on ASA and Brilinta Diabetes mellitus, type 2 IDDM Dysuria Exocrine pancreatic insufficiency GERD (gastroesophageal reflux disease) Hearing deficit Hiatal hernia HX: breast cancer s/p lumpectomy- left breast, was on tamoxifen x 5 years (discontinued) Hyperlipidemia Kidney stones 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 [facility]. LMA #4. No issues. History of cystoscopy 02/10/2020 [facility] History of hemiarthroplasty of left hip History of lumpectomy of left breast History of pancreatectomy PARTIAL ([facility]IP[facility]) History of ureter stent Hx of colonoscopy Family History Aunt Stroke Mother Stroke Father Heart disease Family/Other Family history of diabetes mellitus Grandmother (Maternal) Family history of diabetes mellitus Other No family history of allergies No family history of bleeding disorder No pertinent family history in first degree relatives Denies family history of Hearing loss Cancer Hypertension Asthma Social History Smoking Status: Never smoker Second Hand Exposure: No; Hx Alcohol Use: No Hx Substance Use: No Preferred Language: Kyrgyz Communication Ability: Effective Hydraulic Chair Assembler Required: No Beliefs That Will Affect Care: None marital status: Unknown Current Living Situation: Personal Care Facility Current Living Situation Comment: PT CURRENTLY AT [facility] SINCE 12/2020 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: Yes Assistive Devices: Walker Review of Systems Constitutional: as per Subjective / HPI Eyes: no problem reported Respiratory: as per Subjective / HPI and + cough Cardiovascular: no problem reported Gastrointestinal: as per Subjective / HPI Genitourinary: as per Subjective / HPI Musculoskeletal: no problem reported Physical Exam Constitutional: well developed and well nourished; no acute distress and not ill appearing Neck: normal visual inspection Respiratory: normal respiratory effort and able to speak in complete sentences; no respiratory distress and no labored breathing on room air during exam Cardiovascular: Extremities: no pedal edema Gastrointestinal (Abdomen): Inspection/Auscultation: abdomen normal to inspection; abdomen not distended Percussion/Palpation: abdomen soft; abdomen nontender and no guarding Neurologic: moves all extremities and awake Psychiatric: Orientation: alert and oriented to person Genitourinary: no CVA tenderness Results & Data ([facility]) Vital Signs (Past 12 Hours) Vital Signs Temp Pulse Pulse Pulse Resp BP BP 08/05/21 07:03 36.5 C 67 18 121/73 06/28/21 07:00 61 06/28/21 05:38 69 16 06/28/21 03:21 36.8 C 82 18 06/28/21 00:24 95 H 06/27/21 23:28 06/27/21 23:00 36.7 C 83 16 06/27/21 22:48 163/60 H 06/27/21 22:45 BP Pulse Ox Pulse Ox 06/28/21 07:03 93 06/28/21 07:00 06/28/21 05:38 118/67 94 06/28/21 03:21 90/61 L 94 06/28/21 00:24 06/27/21 23:28 95 06/27/21 23:00 120/72 90 06/27/21 22:48 06/27/21 22:45 163/60 H PG Care Time/CCT Total # of Minutes Spent Total Time Spent with Patient: Total time spent is greater than 50% in coordination of care (as documented) at patient's floor/unit and/or counseling patient: Coding Level of Care Code 78272 Initial Inpt Care Lvl 3 Diagnoses Urinary tract infection N39.0 Hematuria presence: without hematuria Urinary tract infection type: site unspecified (1) Urinary tract infection Hematuria presence: without hematuria Urinary tract infection type: site unspecified Qualified Code(s): N39.0 - Urinary tract infection, site not specified
[2021-06-28] MEDS ORDERED: PANCREAZE (LIPASE 10,500U) CAP PO SCH (12:00)
--- NOTE | 2021-06-28 12:40 | CT Scan Report ---
CT OF THE ABDOMEN AND PELVIS WITHOUT CONTRAST CLINICAL HISTORY: left ureteral stent in place, history of stones COMPARISON STUDY: CT of the abdomen and pelvis May 23, 2021. TECHNIQUE: Axial images of the abdomen and pelvis were obtained without IV contrast. Images were revi ewed in the axial, sagittal, and coronal planes. Automated exposure control was utilized for the pravin dy. A dose lowering technique was utilized adhering to the principles of ALARA. FINDINGS: Innumerable skin lesions are again noted. This suggests neurofibromatosis. No pneumatosis, free air or portal venous gas is present. Pneumobilia is again noted. The spleen, adrenal glands are unremarkable. There is pancreatic glandular atrophy. There is no evidence for a bowel obstruction. Th is exam is compromised by motion artifact. Old T11 compression fracture is unchanged. Apparent coloni c wall thickening is likely due to underdistention. Several left renal calculi measure up to 9 mm. 4 mm right renal calculus is present. Left ureteral stent is in place. There are no ureteral calculi. T here is no hydronephrosis. Dilatation of the left renal pelvis is unchanged. IMPRESSION: 1. Bilateral nephrolithiasis. 2. Left ureteral stent in place. No ureteral calculi. Stable dilatation of the left renal pelvis with out hydronephrosis. 3. Exam mildly compromised by motion artifact. ACT 112: Negative or not required by law. Electronically signed by: Alvarez Valadez M.D. 06/28/2021 12:39 PM
[2021-06-28] MEDS ORDERED: MAGNESIUM OXIDE 400 MG TAB PO SCH (13:30)
--- NOTE | 2021-06-28 14:08 | Hospitalist Progress Note ---
Date of Service June 28, 2021 Assessment & Plan (1) Urinary tract infection: Plan: MDR/Polymicrobial UTI On 06/14/2021, urine cultures grew Klebsiella pneumoniae ,VRE and Teresita (not albicans/dub with known h/o glabrata) Continue daptomycin IV and ceftriaxone IV (appropriate based on culture data) add Micafungin per prior culture data BC/UC pending consult ID--? appreciate recommendations Patient's established urologist [Dr. Guaman] has been consulted-- appreciate recommendations follow labs to trend (2) Diabetes: Plan: Continue insulin detemir subcu at bedtime but increase to 16 U as pt with hyperglycemia and an A1C of 9.1 (* to successfully treat her teresita infx, her BS need to be controlled as yeast thrive in hyperglycemic state and this increases risk of fungemia) cont Accu-Cheks before meals and at bedtime with NovoLog coverage for scale (3) High cholesterol: Plan: Continue statin 40 mg in the evening (4) Exocrine pancreatic insufficiency: Plan: Continue pancreatic enzymes Creon 3 times daily with meals (5) Chronic kidney disease, stage III (moderate): Plan: at baseline (1.4-1.7) pharmacy on board to help with renal adjustment of medications (6) Confusion: Plan: Likely secondary to UTI/ infectiour encephalopathy-- mentation currently clear. Plan: plan of care will be D/W Dr. Mohamud. Further orders as warrented. Admission and Anticipated Discharge Date Admission Date: June 27, 2021 Subjective Mrs. Torres is an 86-year-old white female with a past medical history of IDDM, HLD, breast CA, neurofibromatosis, recurrent nephrolithiasis with obstructive uropathy, TIAs, CKD, exogenous pancreatic insufficiency, and recurrent UTIs. She was hospitalized yesterday after presenting to the ED with urinary complaints. Follows urology. On 06/14/21- had lithrotripsy along with cystoscopy with left retrograde pyelogram (with urine aspiration) and instillation of amphotericin B (given h/o teresita funguria seen on culture in 05/14) along with left stent exchange. 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 Patient was discharged back to personal care on MAcrobid. Has had persistent dysuria, urgency, and new incontinence. Denied F/C, N/V/GI symptoms. There was report of her having increased confusion- however, today her mentation is rather clear. She is answering all questions and is appropriate with today's interview. In addition, there was report of her c/o SOB. Does denies these complaints. Denies F/C, cough, orthopnea or PND. Pulse ox starble at 98% on RA. While in the ED, her urine culture from her recent kidney aspiration (with her 06/14 procedure) showing a MDR/polymicrobial UTI (klebsiella, VRE, Teresita NOT albicans/dub and bifidobacterium). Patient had kidney urine C&S in February showing glabrata with limited sensitivity. Patient was subsequently hospitalized for IV abx (currently on Daptomycin and Rocephin--> based on prior culture data). Patient's creatinine was 1.65--> is 1.4 today (baseline 1.4-1.8) Patient is HD stable, afebrile and her WBC is normal at 5.8. Lactic acid is not elevated (1.5) Review of Systems Review of Systems: All systems reviewed and are unremarkable except as noted in HPI and below Denies fevers, chills, headache, nasal congestion, sore throat, cough, chest pain, shortness of breath, abdominal pain, nausea, vomiting, hematuria Physical Exam Constitutional: General: Resting comfortably in her bedside chair. NAD. Neck: No JVD. Negative hepatojugular reflex Cardiac: RRR with 1/6 SAMANTHA Lungs: CTA without W/R/R Abdomen: Normoactive X4. Soft and nontender in all quadrants.. No CVA tenderness. Extremities: No peripheral clubbing cyanosis or edema Neuro: A&O X4 cranial nerves II through XII are grossly intact no focal neuro deficits Skin: Diffuse flesh-colored lesions consistent with neurofibromatosis Results & Data Results & Data ([facility]) Vital Signs (Past 12 Hours) Vital Signs Temp Pulse Pulse Pulse Resp BP BP 06/28/21 11:08 36.6 C 85 20 116/76 06/28/21 07:03 36.5 C 67 18 121/73 06/28/21 07:00 61 06/28/21 05:38 69 16 118/67 06/28/21 03:21 36.8 C 82 18 90/61 L Pulse Ox 06/28/21 11:08 98 06/28/21 07:03 93 06/28/21 07:00 06/28/21 05:38 94 06/28/21 03:21 94 Laboratory Results Covid test: negative 06/28/21 07:27 06/28/21 07:27 Aero/Vickie Cult Final 06/19/21-1108 Organism 1 Klebsiella pneumoniae Quantity Moderate Sens Sensitivities to Follow Organism 2 Enterococcus faecium VRE Quantity Few Sens Sensitivities to Follow Organism 3 Yeast not Teresita albicans/dub Quantity Few Sens No Sensitivities to Follow Organism 4 Bifidobacterium species Quantity Few Sens No Sensitivities to Follow Kleb pneum VRE E fa RX M.I.C. RX M.I.C. --- --------- --- --------- Amox/Clav S <=8/4 Ampicillin R >8 Amp/Sul S <=8/4 Cefazolin S <=2 Cefepime S <=2 Ceftriaxone S <=1 Ciprofloxacin S <=0.25 R >2 Daptomycin S 2 Ertapenem S <=0.5 Gentamicin S <=4 Gent Synergy S <=500 Levofloxacin S <=0.5 R >4 Meropenem S <=1 Nitrofurantoin S <=32 S <=32 Penicillin R >8 Strep Synergy S <=1000 Tetracycline R >8 Tobramycin S <=4 Trimeth/Sulfa S <=2/38 Pip/Tazo S <=16 Vancomycin R >16 Urine culture from 03/14 reviewed (yeast isolate with sensitivities) Caspofungin: R Fluconazole: SDD (with JANNET of 16) Micafungin: S Diagnostic Findings CXR reviewed: no acute cardiopulmonary process CT of the A/P: FINDINGS: Innumerable skin lesions are again noted. This suggests neuro fibromatosis. No pneumatosis, free air or portal venous gas is present. Pneumobilia is again noted. The spleen, adrenal glands are unremarkable. There is pancreatic glandular atrophy. There is no evidence for a bowel obstruction. This exam is compromised by motion artifact. Old T11 compression fracture is unchanged. Apparent colonic wall thickening is likely due to underdistention. Several left renal calculi measure up to 9 mm. 4 mm right renal calculus is present. Left ureteral stent is in place. There are no ureteral calculi. There is no hydronephrosis. Dilatation of the left renal pelvis is unchanged. IMPRESSION: 1. Bilateral nephrolithiasis. 2. Left ureteral stent in place. No ureteral calculi. Stable dilatation of the left renal pelvis without hydronephrosis. 3. Exam mildly compromised by motion artifact. PG Care Time/CCT Total # of Minutes Spent Total Time Spent with Patient: Total time spent is greater than 50% in coordination of care (as documented) at patient's floor/unit and/or counseling patient: [place] [address] Subseq Hosp Care Lvl 3 Patient Type Established History Detailed Exam Detailed Medical Decision Making High Complexity Diagnoses Urinary tract infection N39.0 Hematuria presence: without hematuria Urinary tract infection type: site unspecified Diabetes E11.22; N18.31; Z79.4 Diabetes mellitus type: type 2 Diabetes mellitus superintendent container terminal insulin use: with senior care use Diabetes mellitus complication status: with kidney complications Diabetes mellitus complication detail: with chronic kidney disease Chronic kidney disease stage: stage 3 (moderate) Chronic kidney disease stage 3 subtype: stage 3a (GFR 45-59) High cholesterol E78.00 Exocrine pancreatic insufficiency K86.81 Chronic kidney disease, stage III (moderate) N18.30 Confusion R41.0 (1) Urinary tract infection Hematuria presence: without hematuria Urinary tract infection type: site unspecified Qualified Code(s): N39.0 - Urinary tract infection, site not specified (2) Diabetes Diabetes mellitus type: type 2 Diabetes mellitus superintendent container terminal insulin use: with senior care use Diabetes mellitus complication status: with kidney complications Diabetes mellitus complication detail: with chronic kidney disease Chronic kid cameron disease stage: stage 3 (moderate) Chronic kidney disease stage 3 subtype: stage 3a (GFR 45-59) Qualified Code(s): E11.22 - Type 2 diabetes mellitus with diabetic chronic kidney disease; N18.31 - Chronic kidney disease, stage 3a; Z79.4 - long-term (current) use of insulin
[2021-06-28] MEDS: cefTRIAXone SODIUM 1,000 MG in DEXTROSE 5% 50 ML IV SCH (20:00)
[2021-06-28] MEDS ORDERED: PHARMACY GLYCEMIC MGMT CONSULT PRN (20:47)
[2021-06-28] MEDS ORDERED: INSULIN DETEMIR FLEXPEN/FLEX TOUCH 100 UNITS/ML 3ML SC SCH ×2 (21:00)
[2021-06-28] MEDS ORDERED: STAT IV Infusion **Titration per Protocol STA (21:10)
[2021-06-28] MEDS ORDERED: INSULIN HUMAN REGULAR IV BOLUS 1.5 UNITS in SYRINGE 0 ML IV ONE (21:15)
[2021-06-28] MEDS ORDERED: INSULIN REGULAR 250 UNITS in SODIUM CHLORIDE 0.9% 247.5 ML IV SCH (21:15)
[2021-06-29] MEDS: VESICARE: ORDER AWAITING ACTION SCH ×3 (01:50→17:02)
[2021-06-29] MEDS: CARBOHYDRATES FOR HYPOGLYCEMIA PO PRN ×2 (03:58→04:20)
[2021-06-29] MEDS: INSULIN ASPART 100 UNITS/ML 3 ML PEN SC SCH ×5 (04:00→20:21)
[2021-06-29] MEDS ORDERED: INSULIN ASPART 100 UNITS/ML 3 ML PEN SC SCH (07:30)
[2021-06-29 07:46] LABS: Basophils # (auto) 0.01 K/uL (0-0.2); Basophils % (auto) 0.2 %; Eosinophils # (auto) 0.83 K/uL (0-0.5); Eosinophils % (auto) 12.6 %; Hematocrit (blood only) 35.2 % (37-47); Hemoglobin 11.3 g/dL (12.0-16.0); Immature Granulocytes # (auto) 0.01 K/uL (0.00-0.02); Immature Granulocytes % (auto) 0.2 %; Lymphocytes # (auto) 1.84 K/uL (1.2-3.4); Lymphocytes % (auto) 27.8 %; Mean Corpuscular Hemoglobin 28.1 pg (25-34); Mean Corpuscular Hgb Conc 32.1 g/dL (32-36); Mean Corpuscular Volume 87.6 fL (80-100); Mean Platelet Volume 9.9 fL (7.4-10.4); Monocytes # (auto) 0.66 K/uL (0.11-0.59); Neutrophils # (auto) 3.26 K/uL (1.4-6.5); Neutrophils % (auto) 49.2 %; Platelet Count 215 K/uL (130-400); RDW Coefficient of Variation 14.8 % (11.5-14.5); RDW Standard Deviation 47.9 fL (36.4-46.3); Red Blood Count 4.02 M/uL (4.2-5.4); White Blood Count 6.61 K/uL (4.8-10.8)
[2021-06-29 08:14] LABS: Albumin Level 2.3 gm/dl (3.4-5.0); BUN Creatinine Ratio 20.4 (10-20); Calcium 8.5 mg/dl (8.5-10.1); Creatinine Clr Calc Pharmacy 17.2 ml/min; Est GFR (African American) 32.5 ml/min; Magnesium 2.1 mg/dl (1.8-2.4); Potassium 4.3 mmol/L (3.5-5.1)
[2021-06-29 08:17] LABS: Albumin Globulin Ratio 0.6 (0.9-2); Bilirubin,Total 0.3 mg/dl (0.2-1); Total Protein 6.3 gm/dl (6.4-8.2)
[2021-06-29] MEDS: ASPIRIN 81 MG ECTAB PO SCH (08:53)
[2021-06-29] MEDS: PANCREAZE (LIPASE 10,500U) CAP PO SCH ×3 (08:53→17:43)
[2021-06-29] MEDS: CALCIUM 600MG + VIT D 400 IU TAB PO SCH (08:53)
[2021-06-29] MEDS: TICAGRELOR 90 MG TAB PO SCH ×2 (08:53→20:19)
[2021-06-29] MEDS: MAGNESIUM OXIDE 400 MG TAB PO SCH (08:53)
[2021-06-29] MEDS: FAMOTIDINE 20 MG TAB PO SCH ×2 (08:54→20:18)
[2021-06-29] MEDS ORDERED: MICAFUNGIN IV SCH (09:00)
--- NOTE | 2021-06-29 10:48 | Urology Progress Note ---
Date of Service June 29, 2021 Assessment & Plan (1) Urinary tract infection: Plan: 86 year old female with multiple comorbidities admitted for hypoxia and suspected urinary tract infection; s/p urological procedure on 06/14/21. - Plan of care reviewed with Dr. Guaman, urologist admissions consultant - Pt with complex hx of stones and recurrent UTI with VRE/fungemia; recently s/p L ESWL, cystoscopy, L RGP, urine aspiration, Amphotericin B irrigation, and Left Stent Exchange on 06/14/[address] Guaman - Afebrile since arrival, nontoxic, lab work reviewed - creatinine 1.66, no leukocytosis - Subjectively feeling better, mentating clearer today - CTAP personally reviewed with Dr. Guaman - b/l renal stones with large amount of layered debris in lower pole of left kidney, likely dusting from stone treatment as well as small calcifications, left stent in good position; no ureteral stones. - UC&S showing prelim pin point growth, BCx NGTD - on IV Daptomycin and Ceftriaxone per primary service - follow cultures - ID consult reviewed - recommended considering transition to Augmentin, continue Daptomycin, hold antifungals at present - No acute urological intervention planned at this time - Continue supportive care, antibiotics, and management per primary service - Recommend follow-up with her ID specialist for ongoing management of recurrent UTI VRE/fungemia - Keep outpatient urology follow-up as scheduled. Will need to discuss with pt and family ongoing management considerations including chronic stent exchanges vs removal of stent vs stone treatment. Concern at this point is chronic obstruction vs obstruction from stone. Also consideration that stent contributes to infection. Thank you for allowing us to participate in the acute care of Ms. Torres. Please reconsult us with additional questions, concerns or changes in patient status. Admission and Anticipated Discharge Date Admission Date: June 27, 2021 Subjective Patient awake and resting in bed. No issues overnight. Subjectively feeling better today. Reports she does not feel confused today. Reports dysuria, no hematuria. Feels she is emptying her bladder well most of the time. Ambulated in hallway today. No abdominal, flank or suprapubic pain. No nausea or vomiting. No fever or chills. Chart review: Afebrile Lab work Creatinine 1.66 WBC 6.61 Hgb 11.3. UC&S prelim pin point growth BCx no growth x 24 hours. On IV Ceftriaxone, Daptomycin ID consult reviewed CTAP personally reviewed with Dr. Deniz Layton b/l renal stones with large amount of layered debris in lower pole of left kidney, likely dusting from stone treatment as well as small calcifications, left stent in good position; no ureteral stones. No additional concerns today. Review of Systems Constitutional: as per Subjective / HPI Gastrointestinal: as per Subjective / HPI Genitourinary: as per Subjective / HPI Psychiatric: as per Subjective / HPI Physical Exam Constitutional: well developed and well nourished; no acute distress and not ill appearing Neck: normal visual inspection Respiratory: normal respiratory effort and able to speak in complete sentences; no respiratory distress and no labored breathing Cardiovascular: Extremities: no pedal edema Gastrointestinal (Abdomen): Inspection/Auscultation: abdomen normal to inspection; abdomen not distended Percussion/Palpation: abdomen soft; abdomen nontender and no guarding Skin: skin lesions - neurofibromatosis Neurologic: moves all extremities and awake Psychiatric: Orientation: alert, oriented to person and oriented to place mentation better today Genitourinary: no CVA tenderness Results & Data ([facility]) Vital Signs (Past 12 Hours) Vital Signs Temp Pulse Pulse Resp BP Pulse Ox 06/29/21 07:44 64 06/29/21 07:34 36.4 C L 72 18 109/69 91 06/29/21 03:29 36.3 C L 67 18 114/64 93 06/29/21 01:16 85 06/28/21 23:00 36.4 C L 82 16 108/67 96 PG Care Time/CCT Total # of Minutes Spent Total Time Spent with Patient: Total time spent is greater than 50% in coordination of care (as documented) at patient's floor/unit and/or counseling patient: Coding Level of Care Code 53203 Subseq Hosp Care Lvl 2 Diagnoses Urinary tract infection N39.0 Hematuria presence: without hematuria Urinary tract infection type: site unspecified (1) Urinary tract infection Hematuria presence: without hematuria Urinary tract infection type: site unspecified Qualified Code(s): N39.0 - Urinary tract infection, site not specified
--- NOTE | 2021-06-29 12:49 | Pharmacy Report ---
Pharmacy Glycemic Short Note 2 - Date of Service June 29, 2021 - Glycemic Short BSG Results (Last 24 hours): 06/28/21 06/28/21 06/28/21 16:28 16:30 20:08 Glucose POC Glucose 365 H* 373 H* 433 H* 06/28/21 06/28/21 06/29/21 20:08 23:29 00:31 Glucose POC Glucose 456 H* 209 H 165 H 06/29/21 06/29/21 06/29/21 01:30 03:50 03:52 Glucose POC Glucose 104 H 58 L* 62 L* 06/29/21 06/29/21 06/29/21 04:13 04:35 07:05 Glucose 111 H POC Glucose 64 L* 88 06/29/21 06/29/21 07:39 11:39 Glucose POC Glucose 109 H 196 H OUTPATIENT ANTIDIABETIC REGIMEN: * Levemir 12 units SQ HS * NovoLog SSI * A1c = 9.1% on 06/28/21 ASSESSMENT: * 86yo T2DM female with near-adequate degree of outpatient control based on age/co-morbidities * Pt with severe sustained hyperglycemia secondary to illness/infection- possibly suboptimal insulin dosing * Pt required IV insulin infusion last night for SEVERE hyperglycemia and basal insulin was increased * Hyperglycemia resolved and subsequent hypoglycemia resulted. * Will stop IV insulin infusion and adjust insulin orders to prevent further hypo PLAN FOR INPATIENT GLYCEMIC CONTROL: * Basal insulin: decrease * Levemir 14 units SQ HS * Bolus insulin * NovoLog per scale ACHS or Q6hrs while NPO * Goal Range: Low 100 mg/dL - High 150 mg/dL * Correction Factor: 35 mg/dL/unit * Nutritional / Prandial insulin per carb ratio of 1 unit per 9 grams CHO consumed
--- NOTE | 2021-06-29 14:44 | Hospitalist Progress Note ---
Date of Service June 29, 2021 Assessment & Plan (1) Urinary tract infection: Plan: MDR/Polymicrobial UTI On 06/14/2021, urine cultures grew Klebsiella pneumoniae ,VRE and Teresita (not albicans/dub with known h/o glabrata) - Continue daptomycin IV and ceftriaxone IV (appropriate based on culture data) - Initially thought to add micafungin per prior culture data, but Daisha OSVALDO recommends holding for now. - BC/UC pending - Patient's established urologist [Dr. Guaman] has been consulted-- appreciate recommendations - Will reach out to Neville Valladares, her usual ID doctor on Friday. (Emailed on Friday to alert her.) (2) Diabetes: Plan: Continue insulin detemir subcu at bedtime but increase to 16 U as pt with hyperglycemia and an A1C of 9.1 (* to successfully treat her teresita infx, her BS need to be controlled as yeast thrive in hyperglycemic state and this increases risk of fungemia) cont Accu-Cheks before meals and at bedtime with NovoLog coverage for scale - Some low blood sugars. Will loosen sliding scale. (3) High cholesterol: Plan: Continue statin 40 mg in the evening (4) Exocrine pancreatic insufficiency: Plan: Continue pancreatic enzymes Creon 3 times daily with meals (5) Chronic kidney disease, stage III (moderate): Plan: at baseline (1.4-1.7) pharmacy on board to help with renal adjustment of medications (6) Confusion: Plan: Likely secondary to UTI/ infectiour encephalopathy-- mentation currently clear. Admission and Anticipated Discharge Date Admission Date: June 27, 2021 Subjective Still having dysuria. Reports no fevers/chills, chest pain, shortness of breath, abdominal pain, nausea, or vomiting. Physical Exam Constitutional: WD/WN, vitals as above Eyes: EOM intact bilaterally; no conjunctival abnormality ENMT: external ear and nose normal, oropharynx normal Neck: trachea midline, no thyromegaly normal visual inspection Respiratory: normal respiratory effort, lungs clear to auscultation no respiratory distress Cardiovascular: RRR, no murmur, no edema Gastrointestinal (Abdomen): Inspection/Auscultation: abdomen normal to inspection; abdomen not distended Musculoskeletal: no cyanosis or clubbing, extremities motor strength 5/5 Skin: no rashes, warm and dry Fibromas throughout Neurologic: moves all extremities and awake Psychiatric: Orientation: alert, oriented to person and cooperative Results & Data Results & Data ([facility]) Vital Signs (Past 12 Hours) Vital Signs Temp Pulse Pulse Resp BP Pulse Ox 06/29/21 10:58 36.4 C L 73 18 110/72 96 06/29/21 07:44 64 06/29/21 07:34 36.4 C L 72 18 109/69 91 06/29/21 03:29 36.3 C L 67 18 114/64 93 PG Care Time/CCT Total # of Minutes Spent Total Time Spent with Patient: Total time spent is greater than 50% in coordination of care (as documented) at patient's floor/unit and/or counseling patient: Coding Level of Care Code 41117 Subseq Hosp Care Lvl 2 Diagnoses Urinary tract infection N39.0 Hematuria presence: without hematuria Urinary tract infection type: site unspecified Diabetes E11.22; N18.31; Z79.4 Diabetes mellitus type: type 2 Diabetes mellitus long lines operator insulin use: with snf use Diabetes mellitus complication status: with kidney complications Diabetes mellitus complication detail: with chronic kidney disease Chronic kidney disease stage: stage 3 (moderate) Chronic kidney disease stage 3 subtype: stage 3a (GFR 45-59) High cholesterol E78.00 Exocrine pancreatic insufficiency K86.81 Chronic kidney disease, stage III (moderate) N18.30 Confusion R41.0 (1) Urinary tract infection Hematuria presence: without hematuria Urinary tract infection type: site unspecified Qualified Code(s): N39.0 - Urinary tract infection, site not specified (2) Diabetes Diabetes mellitus type: type 2 Diabetes mellitus long lines operator insulin use: with snf use Diabetes mellitus complication status: with kidney complications Diabetes mellitus complication detail: with chronic kidney disease Chronic kidney disease stage: stage 3 (moderate) Chronic kidney disease stage 3 subtype: stage 3a (GFR 45-59) Qualified Code(s): E11.22 - Type 2 diabetes mellitus with diabetic chronic kidney disease; N18.31 - Chronic kidney disease, stage 3a; Z79.4 - intermediate frame tender (current) use of insulin
--- NOTE | 2021-06-29 17:40 | Electrocardiogram Report ---
Test Reason : Blood Pressure : / mmHG Vent. Rate : 102 BPM Atrial Rate : 102 BPM P-R Int : 216 ms QRS Dur : 080 ms QT Int : 338 ms P-R-T Axes : 056 -39 058 degrees QTc Int : 440 ms Sinus tachycardia with 1st degree A-V block with occasional Premature ventricular complexes and Fusio n complexes Left axis deviation Low voltage QRS Septal infarct , age undetermined Poor R wave progression, consider anterior CO vs. lead placement vs. LVH Abnormal ECG When compared with ECG of 15-MAR-2021 17:25, Fusion complexes are now Present Vent. rate has increased BY 36 BPM Confirmed by Rory Goldberg ([id number]) on 06/29/2021 5:40:05 PM Referred By: REFERRED SELF Confirmed By:Rory Goldberg
[2021-06-29] MEDS: cefTRIAXone SODIUM 1,000 MG in DEXTROSE 5% 50 ML IV SCH (19:09)
[2021-06-29] MEDS ORDERED: DAPTOmycin 350 MG in SYRINGE 0 ML IV SCH (20:00)
[2021-06-29] MEDS ORDERED: DAPTOmycin 275 MG in SYRINGE 0 ML IV SCH (20:00)
[2021-06-29] MEDS: MIRTAZAPINE TAB 15 MG TAB PO SCH (20:18)
[2021-06-29] MEDS: TAMSULOSIN HCL 0.4 MG CAP PO SCH (20:19)
[2021-06-29] MEDS: ATORVASTATIN 40 MG TAB PO SCH (20:19)
[2021-06-29] MEDS ORDERED: INSULIN DETEMIR FLEXPEN/FLEX TOUCH 100 UNITS/ML 3ML SC SCH ×2 (21:00)
[2021-06-30] MEDS: VESICARE: ORDER AWAITING ACTION SCH ×2 (01:31→09:54)
[2021-06-30 06:47] LABS: Basophils # (auto) 0.02 K/uL (0-0.2); Basophils % (auto) 0.4 %; Eosinophils # (auto) 0.69 K/uL (0-0.5); Eosinophils % (auto) 12.1 %; Hematocrit (blood only) 34.6 % (37-47); Immature Granulocytes # (auto) 0.01 K/uL (0.00-0.02); Immature Granulocytes % (auto) 0.2 %; Lymphocytes # (auto) 1.28 K/uL (1.2-3.4); Lymphocytes % (auto) 22.5 %; Mean Corpuscular Hemoglobin 28.1 pg (25-34); Mean Corpuscular Hgb Conc 31.8 g/dL (32-36); Mean Corpuscular Volume 88.3 fL (80-100); Mean Platelet Volume 9.5 fL (7.4-10.4); Monocytes % (auto) 10.6 %; Neutrophils # (auto) 3.08 K/uL (1.4-6.5); Neutrophils % (auto) 54.2 %; Platelet Count 226 K/uL (130-400); RDW Coefficient of Variation 14.9 % (11.5-14.5); RDW Standard Deviation 48.6 fL (36.4-46.3); Red Blood Count 3.92 M/uL (4.2-5.4); White Blood Count 5.68 K/uL (4.8-10.8)
[2021-06-30 07:02] LABS: Albumin Level 2.4 gm/dl (3.4-5.0); Calcium 8.4 mg/dl (8.5-10.1); Creatinine Clr Calc Pharmacy 18.9 ml/min; Est GFR (African American) 36.4 ml/min; Est GFR (Non-African American) 31.4 ml/min; Magnesium 2.5 mg/dl (1.8-2.4); Potassium 4.1 mmol/L (3.5-5.1)
[2021-06-30 07:05] LABS: Albumin Globulin Ratio 0.6 (0.9-2); Bilirubin,Total 0.3 mg/dl (0.2-1); Globulin 3.9 gm/dl (2.5-4.0); Total Protein 6.3 gm/dl (6.4-8.2)
[2021-06-30] MEDS: INSULIN ASPART 100 UNITS/ML 3 ML PEN SC SCH ×2 (09:53→12:56)
[2021-06-30] MEDS: PANCREAZE (LIPASE 10,500U) CAP PO SCH ×2 (09:54→12:55)
[2021-06-30] MEDS: MAGNESIUM OXIDE 400 MG TAB PO SCH (09:55)
[2021-06-30] MEDS: ASPIRIN 81 MG ECTAB PO SCH (09:55)
[2021-06-30] MEDS: FAMOTIDINE 20 MG TAB PO SCH (09:55)
[2021-06-30] MEDS: CALCIUM 600MG + VIT D 400 IU TAB PO SCH (09:55)
[2021-06-30] MEDS: TICAGRELOR 90 MG TAB PO SCH (09:56)
--- NOTE | 2021-06-30 14:57 | Pharmacy Report ---
Pharmacy Glycemic Short Note 2 - Date of Service June 30, 2021 - Glycemic Short BSG Results (Last 24 hours): 06/29/21 06/29/21 06/30/21 16:45 20:03 06:31 Glucose 108 H POC Glucose 167 H 164 H 06/30/21 06/30/21 07:51 11:38 Glucose POC Glucose 94 234 H OUTPATIENT ANTIDIABETIC REGIMEN: * Levemir 12 units SQ HS * NovoLog SSI * A1c = 9.1% on 06/28/21 ASSESSMENT: 06/30: * Rosalba received a total of 27 units of insulin over the last 24 hours * 14 units basal + 13 units bolus * BSGs acceptable: [phone] mg/dL * Fasting continued to trend down to 94 mg/dL this AM * Reduced Levemir to home dose of 12 units * Tightened Novolog given poor correction and significant postprandial hyperglycemia at lunch 06/29: * 86yo T2DM female with near-adequate degree of outpatient control based on age/co-morbidities * Pt with severe sustained hyperglycemia secondary to illness/infection- possibly suboptimal insulin dosing * Pt required IV insulin infusion last night for SEVERE hyperglycemia and basal insulin was increased * Hyperglycemia resolved and subsequent hypoglycemia resulted. * Will stop IV insulin infusion and adjust insulin orders to prevent further hypo PLAN FOR INPATIENT GLYCEMIC CONTROL: * Basal insulin - decreased * Levemir 12 units SC HS * Bolus insulin - tightened * NovoLog per scale ACHS or Q6hrs while NPO * Goal Range: Low 100 mg/dL - High 150 mg/dL * Correction Factor: 25 mg/dL/unit * Nutritional / Prandial insulin per carb ratio of 1 unit per 8 grams CHO consumed DISCHARGE PLAN: * HbA1c from this admission was 9.1% which is above the goal of less than 8% for this patient. However, this is an improvement from her HbA1c of 9.7% in April 2021. * Recommend increasing Levemir to 14 units SC HS upon discharge. * Recommend set dose of Novolog 4 units SC TIDM * Patient to hold Novolog if skipping meal or if BSG less 100 mg/dL * Close follow-up with outpatient provided recommended
--- NOTE | 2021-06-30 17:14 | Discharge Summary ---
Date of Service June 30, 2021 Admission HPI Per Admitting Provider Chief Complaint: The patient presents to the emergency department due to generalized weakness, confusion, fatigue over the past 2 days, and today developed a low-grade fever. Primary Care Provider: CONRADO Ponce The patient is an 86-year-old female with a past medical history including Alysa glabrata UTI, diabetes mellitus, hyperlipidemia, breast cancer, neurofibromatosis, kidney stone, obstructive uropathy, recurrent urinary tract infections, TIA, T11 compression fracture, acute renal failure, CKD, cervical spine fracture, bradycardia, dysuria, had a hernia and exocrine pancreatic insufficiency. She most recently underwent lithotripsy for kidney stones, and underwent bladder irrigation due to yeast UTI with Alysa glabrata. She lives in a personal nursing home, and was thought in addition today to have some early difficulty with breathing, and is referred to the emergency department for assessment for all the above symptoms. Principal Diagnosis Working diagnoses: 1. 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 No evidence of active urinary tract infection Discharge Exam General: Resting comfortably in her bedside chair. NAD. Neck: No JVD. Negative hepatojugular reflex Cardiac: RRR with 1/6 SAMANTHA Lungs: CTA without W/R/R Abdomen: Normoactive X4. Soft and nontender in all quadrants.. No CVA tenderness. Extremities: No peripheral clubbing cyanosis or edema Neuro: A&O X4 cranial nerves II through XII are grossly intact no focal neuro deficits Skin: Diffuse flesh-colored lesions consistent with neurofibromatosis Discharge Data Allergies Allergy/AdvReac Type Severity Reaction Status Date / Time No Known Drug Allergies Allergy Unknown Unknown Verified 06/27/21 18:44 Consultations 06/27/21 20:02 ED Decision to Admit Stat 06/27/21 23:28 Consult Urology Routine - Plan of care reviewed with Dr. Guaman, urologist contact worker - Pt with complex hx of stones and recurrent UTI/fungemia; recently s/p L ESWL, cystoscopy, L RGP, urine aspiration, Amphotericin B irrigation, and Left Stent Exchange on 06/14/[address] Guaman - Afebrile since arrival, nontoxic, lab work reviewed - creatinine 1.41, no leukocytosis - Urine culture and BCx pending - Continue IV Daptomycin and Ceftriaxone per primary service - follow cultures - No acute urological intervention planned at this time - Recommend imaging with CT abd/pelvis without con for further evaluation - order placed - Continue supportive care, antibiotics, and management per primary service - Recommend follow-up with her ID specialist for ongoing management of resistant organisms/fungemia - Will continue to follow 06/28/21 13:30 Consult Infectious Diseases Routine Recommendations: 1. Consider stopping ceftriaxone and transition to Augmentin 500 p.o. twice daily 2. Continue IV daptomycin for now 3. Okay to hold antifungals right now 4. Follow with cultures Ordered Studies CXR: IMPRESSION: 1. Cardiomegaly with pulmonary vascular congestion. 2. Mild bibasilar densities suggestive of atelectasis. Pneumonitis considered less likely. 06/28/21 10:37 CT abd pelvis wo con Urgent IMPRESSION: 1. Bilateral nephrolithiasis. 2. Left ureteral stent in place. No ureteral calculi. Stable dilatation of the left renal pelvis without hydronephrosis. 3. Exam mildly compromised by motion artifact. Hospital Course (1) Urinary tract infection: MDR/Polymicrobial UTI On 06/14/2021, urine cultures grew Klebsiella pneumoniae ,VRE and Alysa (not albicans/dub with known h/o glabrata) -Treated empirically with daptomycin IV and ceftriaxone IV (appropriate based on culture data) - Initially thought to add micafungin per prior culture data, but Daisha RILEY recommends holding for now. - Urine culture showing only Alysa (not albicans/dub) but no growth of prior Klebsiella or VRE - Blood cultures show no growth x2 (after 48 hours) - Patient's established urologist [Dr. Guaman] has been consulted-- appreciate recommendations -At this point, patient does not appear to have an active UTI or bacteremia. I suspect her dysuria (which remains present) is from colonization of Alysa. In addition, she did have recent instrumentation and lithotripsy and may be having some bladder spasm. On Flomax. Should continue this -She has been seen by both PT/OT and independent. They are recommending home PT/OT -Patient has remained afebrile without leukocytosis. There was suggestion of pneumonitis on her chest x-ray and reports that she presented to the ED with shortness of breath although she denied this. Her mentation is clear. I cannot rule out underlying aspiration pneumonitis. As recommended by ID, will transition to p.o. Augmentin which would cover an aspiration process. -Patient has a follow-up already scheduled with her infectious disease doctor and urology. -Plan of care discussed with nurse, patient, and patient's niece -Patient seen by Dr. Dumont who is agreeable -We will provide topical miconazole which may help alleviate some burning/pruritus; however, unlikely as patient seems to be colonized (2) Diabetes: -Continue home Lantus/log dosing as prior to hospitalization. (3) High cholesterol: Continue statin 40 mg in the evening (4) Exocrine pancreatic insufficiency: Continue pancreatic enzymes Creon 3 times daily with meals (5) Chronic kidney disease, stage III (moderate): at baseline (1.4-1.7) pharmacy was on board to help with renal adjustment of medications (6) Confusion: No altered mental status when seen by myself on 06/28 or 06/30. She apparently presented with some altered mental status which is why antibiotic therapy will be continued upon discharge. Although not needed, cannot rule out possible infectious encephalopathy from perhaps aspiration pneumonitis. Discharge back to personal care with home PT/OT, and visiting nursing. Home Health Attestation I certify that this patient is under my care and that I, or a physicians dental assistant medical assistant working with me, had a face to-face encounter that meets the home health [id number] encounter requirements with this patient. The encounter with the patient was in whole, or in part, for the following medical condition, which is the primary reason for home health care (list medical condition): I certify that, based on my findings, the following services are medically necessary home health services: My clinical findings support the need for the above services because: Further, I certify that my clinical findings support that this patient is darell ebound (i.e. absences from home require considerable and taxing effort and are for medical reasons or amish services or infrequently or of short duration when for other reasons) because: Certification for Home Health Services: Based on the above findings, I certify that this patient is confined to the home and needs intermittent [facility] care, physical therapy and/or speech therapy or continues to need occupational therapy. The patient is under my care, and I have initiated the establishment of the plan of care. This patient will be followed by a physician who will periodically review the plan of care. Total Time Total Time Spent Total Time Spent (In Minutes): 60 minutes including time spent with patient, documentation, and discussion with niece Discharge Plan Discharge Items Patient Disposition: Personal Nursing Home Reason For Visit: WEAK, CONFUSION, UTI Discharge Diagnosis: 1. Urinary Tract Infection 2. Weakness- secondary to #1 3. Kidney Stones with Recent Lithotripsy Condition on Discharge: Good Activity: Resume your previous activity Non-emergency contact: Primary Care Provider and Urologist Call non-emergency contact if: you have any medication questions, your symptoms worsen and you have a fever Follow-up/Referrals: Joyce Rasmussen CRNP [Primary Care Provider] - Diet: Carb Consistent or DM2 Addtl Attending Provider Instructions: - take all of your medications as outlined --Augmentin 500mg/125mg twice a day until complete. Next dose due tonight --Use Miconazole topical cream to vaginal area x 10 days --note addition of magnesium supplementation - follow up with your PCP: 7-10 days - Follow up with Urology: 1 week - Follow up with Infectious Disease: 1 week - Return to the ED for new or worsening symptoms Pending Studies at Discharge: No Stand-Alone Forms: My [facility] Medications and DC Order Prescriptions: New amoxicillin-pot clavulanate [Augmentin] 500-125 mg tablet 1 tab PO BID Qty: 13 RF: 0 magnesium oxide 400 mg (241.3 mg magnesium) Tablet 400 mg PO QAM Qty: 7 RF: 0 miconazole nitrate 2 % cream 1 applic topical BID 10 Days Qty: 30 RF: 0 Continued Levemir U-100 Insulin 100 unit/mL solution 12 unit SUBCUT HS 90 Days Qty: 10.8 RF: 3 (DME) Novofine Autocover 30 gauge x 1/3" needle See Rx Instructions .ROUTE .MEDSUPPLY Qty: 200 RF: 11 insulin aspart U-100 [Novolog Flexpen U-100 Insulin] 100 unit/mL (3 mL) Insulin Pen See Rx Instructions .ROUTE .COMPLEX RF: 0 Creon 12,000-38,000 -60,000 unit Capsule,Delayed Release(Dr/Ec) 1 cap PO TIDM RF: 0 famotidine [Pepcid] 20 mg tablet 20 mg PO BID RF: 0 atorvastatin 40 mg tablet 40 mg PO QPM RF: 0 solifenacin [Vesicare] 10 mg tablet 10 mg PO HS RF: 0 calcium carbonate-vitamin D3 [Calcium 600 + D(3)] 600 mg(1,500mg) -200 unit Tablet 1 tab PO QAM RF: 0 docusate sodium 100 mg Capsule 100 mg PO BID PRN (Reason: Constipation) RF: 0 mirtazapine 7.5 mg tablet 7.5 mg PO HS RF: 0 amoxicillin 500 mg capsule 2,000 mg PO ONCE PRN (Reason: dental procedure) RF: 0 Brilinta 90 mg tablet 90 mg PO BID RF: 0 aspirin [Aspirin Childrens] 81 mg tablet,chewable 81 mg PO QAM RF: 0 acetaminophen 500 mg Tablet 500 - 1,000 mg PO Q4 MDD 3g PRN (Reason: Fever Or Pain) RF: 0 tamsulosin 0.4 mg capsule 0.4 mg PO HS Qty: 30 RF: 0 phenazopyridine [Pyridium] 200 mg tablet 200 mg PO Q8H PRN (Reason: pain) Qty: 10 RF: 0 Discontinued nitrofurantoin monohyd/m-cryst [Macrobid] 100 mg capsule 100 mg PO Q12H 10 Days Qty: 20 RF: 0 Discharge Orders: Discharge Order (Routine); Ordered 06/30/21 Ordered By: Yohana Walls Admission Data Admit Date/Time: 06/27/21 20:53 Attending Provider: Darnell Dumont Admit Provider: Gilmar Cota Primary Care Provider: Joyce Rasmussen Other Providers: Vivek Guaman ; Wai Mohamud ; Alejandro Borges ; Michael Mejía ; Reese Araiza I. ; Lloyd Hermosillo II ; Xiomara Ellsworth ; Anders Campos ; Neville Valladares Other Interventions: Discharge Summary Assessment (RN) Last Done: 06/30/21 15:46 Supervising Physician Co-Signing Physician Notes Patient seen and examined on the day of discharge. I agree with the discharge summary by Yohana RAMEY. I have reviewed the chart including labs, imaging and plans for discharge. patient is stable, wants to go home, has some dysuria but this is chronic, no fever/chills, eating well appreciate input from infectious disease - Dysuria, frequent UTI: urine culture with ONLY Alysa that is likely colonized, she had completed IV course of antibiotics for urine culture prior to admission per ID, discharge for a few more days on Augmentin no need to treat Alysa further she is on Flomax follow up with both urology and infectious disease Coding Level of Care Code Established Pt D/C DAY MANAGEMENT >30 MINS Patient Type Established Diagnoses Urinary tract infection N39.0 Hematuria presence: without hematuria Urinary tract infection type: site unspecified Diabetes E11.22; N18.31; Z79.4 Chronic kidney disease stage: stage 3 (moderate) Chronic kidney disease stage 3 subtype: stage 3a (GFR 45-59) Diabetes mellitus complication detail: with chronic kidney disease Diabetes mellitus complication status: with kidney complications Diabetes mellitus long-term insulin use: with long-term use Diabetes mellitus type: type 2 High cholesterol E78.00 Exocrine pancreatic insufficiency K86.81 Chronic kidney disease, stage III (moderate) N18.30 Confusion R41.0 Time Spent (min) 60
[2021-06-30] MEDS ORDERED: INSULIN DETEMIR FLEXPEN/FLEX TOUCH 100 UNITS/ML 3ML SC SCH (21:00)
[2021-06-30] MEDS ORDERED: AMOXICILLIN/CLAVULANATE 500 MG TAB PO SCH (21:00)
--- NOTE | 2021-07-09 08:28 | Coding Query ---
CODING QUERY To promote full compliance with coding requirements relating to patient care, provider participation is requested in all cases of information coder uncertainty. Please assist us with the question(s) below: Coding Question(s): Per progress note documentation on 06/28, patient with Metabolic Encephalopathy. This is only documented once and doesn't make discharge summary. Please clarify below: ( x) Patient with Metabolic Encephalopathy ( ) Metabolic Encephalopathy Ruled Out ( ) Other Please Explain: Thank you Bob Raines Principal Diagnosis: "that condition established after study, to be chiefly responsible for occasioning the admission of the patient to the hospital for care." Co-Existing Principal Diagnosis: "when two or more diagnoses equally meet the criteria for principal diagnosis as determined by the circumstances of admission, diagnostic work up, and/or therapy provided, and the Alphabetic Index, Tabular List, or another coding guideline does not provide sequencing direction, any one of the diagnoses may be sequenced first." "When the physician has documented what appears to be a current diagnosis in the body of the record, but has not included the diagnosis in the final diagnostic statement, the physician should be asked whether the diagnosis should be added." (Source Coding Clinic 2 QTR90. p3-4) CAMILA
== END 2021-06-30 17:20 | disposition home or self-care (01) | DRG 689 ==
LOC: ED 17:32 → SUATTDRO 20:53 → 2W 20:53